=== PATIENT | female | born 1940 | race Caucasian/White ===

== ENCOUNTER → 2020-06-23 17:30 | Outpatient (CLI) | payer MEDICARE, SELFPAY ==
[2020-06-23 18:36] LABS: Chloride 105 mmol/L (98-107)
[2020-06-23 18:37] LABS: Sodium 140 mmol/L (136-145)
[2020-06-23 18:39] LABS: Alanine Aminotransferase 27 U/L (12-78); Albumin Level 3.5 g/dl (3.5-5.0); Albumin/Globulin Ratio 1.2 (1.1-1.8); Alkaline Phosphatase 166 U/L (38-126); Aspartate Amino Transferase 44 U/L (14-36); Bilirubin,Total 0.3 mg/dl (0.2-1.3); Blood Urea Nitrogen 21 mg/dl (7-17); Calcium 9.9 mg/dl (8.4-10.2); Carbon Dioxide 28 mmol/L (22.0-30.0); Estimated Glomerular Filt Rate 81 ml/min (>60); GFR (African American) 98 ML/MIN (>60); Globulin 2.9 g/dL (1.3-3.2); Glucose 154 mg/dl (74-100); Total Protein,Serum 6.4 g/dl (6.3-8.2)
[2020-06-23 18:56] LABS: Hemoglobin A1C 8.7 % (4.0-6.0)
== END ==
PROVIDERS: Visit Provider Family Medicine
DX: E11.9 Type 2 diabetes mellitus without complications (principal)
CPT/HCPCS: 80053; 83036

== ENCOUNTER → 2020-09-11 18:04 | Outpatient (CLI) | payer MEDICARE, SELFPAY ==
[2020-09-11 18:37] LABS: Chloride 103 mmol/L (98-107); Potassium 4.4 mmoL/L (3.5-5.1); Sodium 137 mmol/L (136-145)
[2020-09-11 18:39] LABS: Alanine Aminotransferase 34 U/L (12-78); Alkaline Phosphatase 175 U/L (38-126); Anion Gap 11.4 mEq/L (5-15); Aspartate Amino Transferase 50 U/L (14-36); Bilirubin,Total 0.5 mg/dl (0.2-1.3); Blood Urea Nitrogen 23 mg/dl (7-17); Carbon Dioxide 27 mmol/L (22.0-30.0); Estimated Glomerular Filt Rate 69 ml/min (>60); GFR (African American) 84 ML/MIN (>60)
[2020-09-11 18:40] LABS: Albumin Level 3.9 g/dl (3.5-5.0); Albumin/Globulin Ratio 1.4 (1.1-1.8); Globulin 2.8 g/dL (1.3-3.2); Glucose 304 mg/dl (74-100); Total Protein,Serum 6.7 g/dl (6.3-8.2)
[2020-09-11 18:58] LABS: Hemoglobin A1C 8.2 % (4.0-6.0)
== END ==
PROVIDERS: Visit Provider Family Medicine
DX: E11.9 Type 2 diabetes mellitus without complications (principal); Z79.4 Long term (current) use of insulin
CPT/HCPCS: 80053; 83036

== ENCOUNTER 2020-10-08 20:13 | Observation (INO) | payer MEDICARE, SELFPAY ==
[2020-10-08 20:16] VITALS: BP 163/73; PULSE 89; O2SAT 94
[2020-10-08 20:27] VITALS: BP 163/73; PULSE 87; RESP 16; TEMP 36.3; O2SAT 93; BMI 33.1
[2020-10-08 20:46] VITALS: BP 153/71; PULSE 86; O2SAT 94
[2020-10-08 21:16] VITALS: BP 120/54; PULSE 84; O2SAT 91
--- NOTE | 2020-10-08 21:22 | CT_ITS ---
PROCEDURE: CT HEAD/BRAIN WO CON Referring Doctor: Isaías Mcfarlane Patient Age:80Y CLINICAL INDICATION: fall September 23 2020 persistent headache and head pain COMPARISON: CT CT CERVICAL SPINE WO CON from 10/08/2020 TECHNIQUE: No IV contrast. Standard axial images were obtained. All CT scans at the facility use one or more dose reduction, viz: automated exposure control, ma/kV adjustment per patient size (including targeted exams where dose is matched to indication, i.e. head), or iterative reconstruction technique. FINDINGS: No acute intracranial findings. No intracranial hemorrhage. No hydrocephalus.The ventricles and basal cisterns appear clear and satisfactory. No mass or midline shift nor mass effect. No subdural or extra-axial fluid collection is evident. Posterior fossa unremarkable. Minimal calcification siphons Skull intact-generous thickness calvarium but no lesions but scalp intact. Nomastoid effusions. Mastoid air cells are well developed and clear. Middle ear clear. IAC's symmetric. Nosinus air-fluid level. Visualized portions of the paranasal sinuses and orbits unremarkable. IMPRESSION: No acute intracranial findings Brain within normal limits for age on this noncontrast CT head Dictated by: Franck Gutierrez MD 10/09/2020 07:05 Franck Gutierrez MD in [facility] 10/09/2020 07:05
--- NOTE | 2020-10-08 21:22 | CT_ITS ---
PROCEDURE: CT CERVICAL SPINE WO CON Referring Doctor: Isaías Mcfarlane Patient Age:80Y CLINICAL INDICATION: fall fell 09/23/2020 persistent pain neck and head COMPARISON: No exams were available for comparison TECHNIQUE: No IV contrast Helical axial images obtained with sagittal and coronal reformats. All CT scans at the facility use one or more dose reduction, viz: automated exposure control, ma/kV adjustment per patient size (including targeted exams where dose is matched to indication, i.e. head), or iterative reconstruction technique. FINDINGS: Cervical spine reveals no acute no fracture nor subluxation is period. Normal prevertebral soft tissues. A cervical cranial junction region unremarkable.. Base of skull intact Multilevel degenerative disc changes cervical spondylosis C2/3 disc maintained. Mild uncalvertebral joint hypertrophy to the left. Mild mild facet arthropathy C3/4. Mild degenerative disc space narrowing with mild central spurring C4/5. Degenerative disc space narrowing with prominent posterior osteophytic spurring midline into the left. This generous hard disc effaces the thecal sac and cervical cord midline into the left. Yields moderately pronounced central canal stenosis C5/6 but marked degenerative disc space narrowing with moderate central spur. Disc osteophyte features indent the thecal sac mainly at midline and to the left at this level. Yields moderately pronounced central canal stenosis, and mild bilateral foraminal encroachment left greater than right C6/7 degenerative disc space narrowing. Disc/osteophyte features indents thecal sac with additional hard disc most evident midline and to the left of midline. Moderate pronounced spinal stenosis again seen at this level although not quite as pronounced . C7/T1 only scant disc space narrowing and changes but T1/T2 disc intact T2/T3 disc intact Degenerative facet changes are seen throughout C-spine slightly more evident on the left than right. Most evident facet arthropathy at left C3/4, C2/3. Only a gradual levocurvature of the C-spine on frontal projection. C1-C2 relationships appear normal apices of the lungs are clear. Thyroid. Enlarged bilaterally with heterogeneous prominent heterogeneous low-density nodules or cysts in both lobes along with scattered calcifications. The the largest nodule on the right measuring up to 3 cm as seen on coronal image 23. There is also a 2 cm large nodule at the isthmus and the a 2.5 cm nodule of the left lobe. Of this appearance warrants further evaluation the the the the the of thyroid. The IMPRESSION: No acute fracture nor subluxation at cervical spine Multilevel advanced degenerative disc changes and cervical spondylosis: Features yield yield multilevel spinal stenosis with fairly pronounced spinal stenosis most evident at C4/5, C5/6, C6/7 Prominent thyromegaly requires further evaluation Marked heterogeneous enlarged thyroid gland with multiple nodules bilaterally along with scattered calcifications. Largest low-density nodule on right measuring up to 3 cm but with similar areas at isthmus and left lobe;. Appearance requires further evaluation-and recommend follow-up ultrasound. Dictated by: Franck Gutierrez MD 10/09/2020 07:21 Franck Guiterrez MD in [facility] 10/09/2020 07:21
[2020-10-08 21:46] VITALS: BP 124/58; PULSE 78; O2SAT 93
--- NOTE | 2020-10-08 21:46 | PC.NURSE ---
pt return from ct
[2020-10-08 22:00] VITALS: BP 146/61; PULSE 81; O2SAT 93
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
--- NOTE | 2020-10-08 22:19 | PC.NURSE ---
BRII MD on phone with Zulma
--- NOTE | 2020-10-08 22:20 | PC.NURSE ---
called warehouse insulation worker for bed assignment
--- NOTE | 2020-10-08 22:23 | PC.NURSE ---
Patient assigned to [id number]
[2020-10-08 22:24] LABS: Basophils # 0.1 K/mm3 (0-0.2); Basophils % 0.5 % (0.1-2.0); Eosinophils # 0.2 K/mm3 (0.0-0.4); Eosinophils % 1.3 % (0.1-12.0); Hematocrit 54.1 % (37.0-47.0); Hemoglobin 17.4 g/dL (12.2-16.2); Lymphocytes # 2.4 K/mm3 (0.7-4.5); Lymphocytes % 19.7 % (10-50); Mean Corpuscular HGB Conc 32.3 g/dL (31.8-35.4); Mean Corpuscular Hemoglobin 29.2 pg (27.0-31.2); Mean Corpuscular Volume 90.6 fl (81-99); Mean Platelet Volume 8.9 fl (7.4-10.4); Monocytes # 1.1 K/mm3 (0.1-1.0); Monocytes % 9.2 % (1.7-9.3); Neutrophils # 8.4 K/mm3 (1.8-7.8); Neutrophils % 69.3 % (37.0-80.0); Platelet Count 328 K/mm3 (142-424); Red Blood Count 5.97 M/mm3 (4.20-5.40); Red Cell Distribution Width 14.4 % (11.5-17.5); White Blood Count 12.1 K/mm3 (4.8-10.8)
[2020-10-08 22:25] LABS: Chloride 98 mmol/L (98-107)
[2020-10-08 22:26] LABS: Potassium 3.8 mmoL/L (3.5-5.1); Sodium 140 mmol/L (136-145)
[2020-10-08 22:28] LABS: Alanine Aminotransferase 71 U/L (12-78); Alkaline Phosphatase 713 U/L (38-126); Anion Gap 19.8 mEq/L (5-15); Aspartate Amino Transferase 220 U/L (14-36); Bilirubin,Total 1.9 mg/dl (0.2-1.3); Blood Urea Nitrogen 24 mg/dl (7-17); Carbon Dioxide 26 mmol/L (22.0-30.0); Creatinine Clearance Estimated 66 mL/min (50-200); Estimated Glomerular Filt Rate 53 ml/min (>60); GFR (African American) 65 ML/MIN (>60)
[2020-10-08 22:29] LABS: Albumin Level 4.1 g/dl (3.5-5.0); Albumin/Globulin Ratio 1.1 (1.1-1.8); Calcium 10.7 mg/dl (8.4-10.2); Globulin 3.9 g/dL (1.3-3.2); Glucose 188 mg/dl (74-100)
[2020-10-08 22:39] LABS: Coronavirus 19 IgG Antibody Negative (Negative)
[2020-10-08 22:40] LABS: Coronavirus 19 IgM Antibody Positive (Negative)
[2020-10-08 22:47] VITALS: BMI 32.1
[2020-10-08 22:48] LABS: Adenovirus,PCR Not Detected (NotDetected); Bordetella Pertussis Not Detected (NotDetected); Chlamydophila Pneumoniae, PCR Not Detected (NotDetected); Coronavirus 19, PCR Not Detected (NotDetected); Coronavirus 229E Not Detected (NotDetected); Coronavirus NL63 Not Detected (NotDetected); Coronavirus OC43 Not Detected (NotDetected); Coronovirus HKU1,PCR Not Detected (NotDetected); Human Metapneumovirus Not Detected (NotDetected); Influenza A, PCR Not Detected (NotDetected); Influenza AH1, 2009 Not Detected (NotDetected); Influenza AH1, PCR Not Detected (NotDetected); Influenza AH3,PCR Not Detected (NotDetected); Influenza B, PCR Not Detected (NotDetected); Mycoplasma Pneumoniae, PCR Not Detected (NotDetected); Parainfluenza 1, PCR Not Detected (NotDetected); Parainfluenza 2, PCR Not Detected (NotDetected); Parainfluenza 3, PCR Not Detected (NotDetected); Parainfluenza 4, PCR Not Detected (NotDetected); Respiratory Syncytial Virus Not Detected (NotDetected); Rhinovirus/Enterovirus Not Detected (NotDetected)
--- NOTE | 2020-10-08 23:35 | PC.NURSE ---
Password for phone check-ups by family will be LARS
--- NOTE | 2020-10-08 23:36 | PC.NURSE ---
Contacts are the 2 son's Tin Rajesh Password LARS
[2020-10-09] VITALS (7 sets, daily range): BP systolic 126–147; BP diastolic 62–73; PULSE 72–79; RESP 14–18; TEMP 36.4–36.8; O2SAT 90–98
--- NOTE | 2020-10-09 00:09 | PC.NURSE ---
called to inquire re: covid result. spoke with concepción @ [id number]. 10 mins left
--- NOTE | 2020-10-09 00:45 | PC.NURSE ---
PT ARRIVED TO FLOOR VIA WHEELCHAIR AT [phone]
--- NOTE | 2020-10-09 04:50 | PC.NURSE ---
Pt is A&Ox4 and has ambulated to side of bed and from wheelchair to bed and tolerated fair d/t pain with movement. Pt has been medicated with Ibuprofen, Morphine, and then Tylenol all 1x thus far with good relief. Pt c/o pain to pelvis that radiated to right hip. Pt has a brief in place, had 2x episode of RACHEL upon standing. ABD is soft, non-tender with active bowel sounds. Pt denies any N/V/D and reports last BM was 10/08/20 daytime. Bruises noted to BUE. Pt refused TEDS. Lungs CTA. VSS, call light within reach. Pt has received a total bed basin bath.
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
[2020-10-09 06:05] LABS: Basophils # 0.1 K/mm3 (0-0.2); Basophils % 0.5 % (0.1-2.0); Eosinophils # 0.4 K/mm3 (0.0-0.4); Hematocrit 48.3 % (37.0-47.0); Lymphocytes % 19.2 % (10-50); Mean Corpuscular HGB Conc 32.2 g/dL (31.8-35.4); Mean Corpuscular Hemoglobin 29.4 pg (27.0-31.2); Mean Corpuscular Volume 91.4 fl (81-99); Mean Platelet Volume 8.1 fl (7.4-10.4); Monocytes # 0.8 K/mm3 (0.1-1.0); Monocytes % 7.9 % (1.7-9.3); Neutrophils # 7.2 K/mm3 (1.8-7.8); Neutrophils % 68.5 % (37.0-80.0); Platelet Count 265 K/mm3 (142-424); Red Blood Count 5.29 M/mm3 (4.20-5.40); Red Cell Distribution Width 14.2 % (11.5-17.5); White Blood Count 10.5 K/mm3 (4.8-10.8)
[2020-10-09 06:09] LABS: Chloride 98 mmol/L (98-107); Potassium 3.5 mmoL/L (3.5-5.1); Sodium 136 mmol/L (136-145)
[2020-10-09 06:12] LABS: Anion Gap 8.5 mEq/L (5-15); Blood Urea Nitrogen 24 mg/dl (7-17); Calcium 9.8 mg/dl (8.4-10.2); Carbon Dioxide 33 mmol/L (22.0-30.0); Creatinine Clearance Estimated 64 mL/min (50-200); Estimated Glomerular Filt Rate 53 ml/min (>60); GFR (African American) 65 ML/MIN (>60); Glucose 206 mg/dl (74-100)
[2020-10-09 07:36] LABS: Hemoglobin 15.6 g/dL (12.2-16.2)
[2020-10-09 08:08] LABS: POC Glucose,Bedside 157 (70-110)
--- NOTE | 2020-10-09 10:41 | SW/DCPLANNER ---
Addendum entered by Ana Laura Bradley 10/09/20 16:02: I have left a message forwarder operator (Mamie) regarding: faxing information to [facility] and [facility], contacting Lakisha once MD makes discharge date known, and the phone numbers/fax numbers. Addendum entered by Ana Laura Bradley 10/09/20 12:55: Patient is agreeable to [facility] and [facility]. Addendum entered by Ana Laura Bradley 10/09/20 12:26: This patient has been accepted to [facility] per Lakisha in Admissions. I will relay information to patient. I have also relayed patient information to Dr Morales. Lakisha has stated that they can accept patient today or tomorrow. No further COVID testing is needed at this time. Phone number for nursing to call report to is [phone]. Fax number for discharge information is [phone]. I will follow up with discharge date once I hear back from Dr Morales. Original Note: This patient is currently interested in placement at this time. Patient and son were present in room during my visit with Dr Morales. Patient expressed an interest in [facility] and [facility] and [facility]. I have spoke with Sarah Morocho at [facility] and she has stated that they are not in network with patients insurance. I have spoke with Lakisha at [facility] ([phone]) and she has stated she is in network and does have beds available. I will fax information to Lakisha at ([phone]).
[2020-10-09 11:21] LABS: POC Glucose,Bedside 203 (70-110)
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
--- NOTE | 2020-10-09 11:47 | P.CONPHA_ITS ---
[facility] Pharmacy VTE Monitoring - Patient Demographics Admission date: 10/09/20 Report Date: 10/09/20 Time: 11:47 Allergies/Adverse Reactions: Patient Allergies No Known Allergies Allergy (Verified 09/11/20 14:31) Height: 1.68 m Weight: 90.775 kg Patient Problems: Current Active Problems Sacral fracture, closed (Acute) - VTE Risk Labs: VTE Related Lab Results Hgb 15.6 g/dL (12.2-16.2) D 10/09/20 05:49 Hct 48.3 % (37.0-47.0) H 10/09/20 05:49 Plt Count 265 K/mm3 (142-424) 10/09/20 05:49 BUN 24 mg/dl (7-17) H 10/09/20 05:49 Creatinine 1.00 mg/dl (0.52-1.04) 10/09/20 05:49 Estimated Creat Clear 64 mL/min (50-200) 10/09/20 05:49 Was VTE Risk Assessment Performed: Yes VTE Score: 7 VTE Risk Level: Moderate Risk - Prophylaxis VTE Prophylaxis Ordered?: Yes Types of VTE Prophylaxis: TEDS Knee High Location of Applied Device: Bilateral Lower Extremeties
--- NOTE | 2020-10-09 13:20 | HMH.PHAINT ---
MEDICATION RECONCILIATION COMPLETED ON PATIENT USING EXTERNAL FILL HISTORY FROM PHARMACY AND LIST FROM MD OFFICE. -ABEL WILCOXD
--- NOTE | 2020-10-09 13:55 | PC.NURSE ---
Report given to Renée Lott RN @ [phone]
--- NOTE | 2020-10-09 16:30 | PC.NURSE ---
Pt is A&Ox4, able to make needs known to staff, she has no c/o pain thus far, no n/v/d noted, abd is soft/round/non-tender on palpation with bowel sounds present x4 on auscultation, lung sounds are CTA, she has tolerated RA with no SOA noted, she remains incontinent x2 with brief in place, she has refused TEDS for VTE prophylaxis, safety measures in place, no needs voiced at this time, will continue to monitor.
--- NOTE | 2020-10-09 17:15 | US_ITS ---
PROCEDURE: US THYROID Referring Doctor: Don Morales Patient Age:80Y CLINICAL INDICATION: thyromegaly goiter The as seen on recent CT COMPARISON: CT CT CERVICAL SPINE WO CON from 10/08/2020 FINDINGS: Goiter thyroid enlarged.. Diffusely abnormal with multiple bilateral nodules and cysts. Difficult exam due the diffuse heterogeneous character and enlarged Echogenic calcifications at the margin of many of the cyst seen bilaterally on CT and ultrasound RIGHT LOBE THYROID: Overall the 5.6 cm length x2.6 cm x 3.1 cm wide . Nodule A: Upper right lobe measuring up to 2.9 cm X 2 cm cm. Mixed cystic and solid areas. . Nodule B: Mid right lobe 1.4 x 0.9 cm, cystic area with multiple septations of LEFT LOBE thyroid: Overall 5.5 cm length x 3.5 cm wide x 2.3 cm . Nodule A: Upper right lobe measuring up 0.9 cm mainly solid with some minimal cystic areas. This would be a good area for FNA sampling if such pursued. Although some of the more solid-appearing nodules at the right lobe could be evaluated as well the or alternatively . Nodule B:. Midportion left lobe 2.8 cm length x2.6 cm x 1.9 cm..-this mainly solid nodule with scattered cystic areas within it . Nodule c: Posterior aspect lower pole left lobe 1.4 cm X 1.25 cm mainly cystic area the . . ISTHMUS: Markedly thickened and enlarged as well . 15 mm mainly cystic area, nodule with slight septations posteriorly Calcified rim here seen on CT better than ultrasound Additional images of the both right and left lobe demonstrate the diffusely abnormal distorted architecture and some of the echogenic calcification areas left and right . IMPRESSION: Goiter.. Prominent thyroid enlargement Diffusely abnormal thyroid with multiple prominent bilateral nodules and cysts both, enlarging and distorting both right and left lobes as well as isthmus .Areas of calcification/and rim calcifications noted bilaterally-but best appreciated on CT Difficult exam due the diffuse heterogeneous character and enlarged Dictated by: Franck Gutierrez MD 10/10/2020 11:49 Franck Gutierrez MD in [place] 10/10/2020 11:49
--- NOTE | 2020-10-09 17:17 | XR_ITS ---
PROCEDURE: XR HIP LT 2-3V W/PELVIS CLINICAL INDICATION: pain COMPARISON: No exams were available for comparison FINDINGS: The left hip prosthesis is noted with the prosthetic acetabulum fixated to the left iliac bone by single threaded screw. The prosthetic femoral head is well positioned within the prosthetic acetabulum and the medullary stem is in good position within the proximal femur with no evidence of fracture or loosening.. IMPRESSION: Stable left hip prosthesis Dictated by: Dr. Rashawn Kwong MD 10/10/2020 08:41 Dr. Rashawn Kwong MD in [place] 10/10/2020 08:41
--- NOTE | 2020-10-09 17:18 | XR_ITS ---
PROCEDURE: XR HIP RT 2-3V W/PELVIS CLINICAL INDICATION: fall COMPARISON: No exams were available for comparison FINDINGS: The total hip prosthesis is noted with the prosthetic head well seated within the prosthetic acetabulum and medullary stem in good position within the proximal femur with no evidence of loosening. There is no acute fracture seen.. IMPRESSION: Stable right hip prosthesis Dictated by: Dr. Rashawn Kwong MD 10/10/2020 08:39 Dr. Rashawn Kwong MD in [place] 10/10/2020 08:39
--- NOTE | 2020-10-09 17:19 | XR_ITS ---
PROCEDURE: XR LUMBAR SPINE 2-3V CLINICAL INDICATION: pain COMPARISON: No exams were available for comparison FINDINGS: There is normal curvature and alignment. All lumbar vertebrae appear intact. There are metallic brackets and pedicle screws fusing L3, L4 and L5. There are semiopaque spacers at the L3-4 and L4-5 levels. There is moderate osteophytic spurring anteriorly at the L1-2 level, less so at the T12-L1 level. There are bilateral hip prosthesis. There is an increased amount of large and small bowel gas in a nonobstructive pattern in the central portion of the abdomen the lateral flanks are not included on the coned-down image of the lumbar spine. IMPRESSION: Postsurgical changes lower lumbar spine, mild degenerate changes upper lumbar spine Dictated by: Dr. Rashawn Kwong MD 10/10/2020 08:26 Dr. Rashawn Kwong MD in [place] 10/10/2020 08:26
--- NOTE | 2020-10-09 17:19 | XR_ITS ---
PROCEDURE: XR COCCYX 2V CLINICAL INDICATION: fall COMPARISON: No exams were available for comparison FINDINGS: The sacrum and coccyx appear grossly intact although the tip of the coccyx is poorly seen due to underlying osteopenia and patient's body habitus. The SI joints appear grossly normal. IMPRESSION: Grossly negative sacrum and coccyx Dictated by: Dr. Rashawn Kwong MD 10/10/2020 08:29 Dr. Rashawn Kwong MD in [place] 10/10/2020 08:29
--- NOTE | 2020-10-09 17:21 | HMH.HP ---
*Admission Date: 10/09/20 *Chief complaint: pain following fall, inability to walk *History of present illness: In summary 82-year-old female presenting for fracture. Patient had scans in outside hospital, imaging was unable to reviewed however results demonstrate S2-S3 fracture, patient has pain is been unable to ambulate since then. Patient is amenable to placement at a rehab facility and will likely require physical therapy and Occupational Therapy. Patient will also likely need social work for assessment for safety at home. Family is not comfortable discharging at this time. Discussed the case with medicine who is amenable to admission. Patient was admitted to medicine for further work-up. The patient is well-known to me. She has a history of lumbar surgery, she did not have a great outcome from this and continues to be in chronic pain. She is status post bilateral bilateral hip replacement. She walks with a baseline antalgic gait, has generalized weakness. She is treated for chronic pain. She is not amenable to any further surgical treatment of her back or hips. I got a call from family member last night the patient had fallen, her pain was so severe she went to the emergency room in [place] twice, fractured coccyx was mentioned. She would be appropriate for intense physical therapy here and rehab. The family is in agreement with this. [facility] History Medical History: Reports:: Cancer (uterne ca), Diabetes Mellitus Type 2, Hyperlipidemia, Hypertension, MRSA (from) *Have you ever received a pneumonia vaccine?: Yes *Have you received a flu vaccine this season?: Yes Other Medical History: Reports: Arthritis Laterality Cases: Bilateral: Tonsillectomy, Total Hip Replacement Other Surgeries: Yes: Cancer Surgery (total hysterectomy), Cholecystectomy, Colonoscopy, EGD, Hysterectomy-Total Amputation: No Fractures: Yes - *Social History Last grade of school completed: High school graduate Smoking Status: Former smoker # Packs/Day (cigarettes): 1 #Yrs smoked (if former smoker): 6 Smoking End Date: 1972 Alcohol Intake: never Substance Use Type: denies use *Occupational Status:: retired Housing: other Household Members: spouse *Travel in the last 8 weeks: None Family Hx:: Cancer, Diabetes Review of Systems - Constitutional Reports fatigue, Reports lack of energy, Reports weakness - Eyes Denies change in vision - ENT Denies nasal congestion, Denies nasal discharge - *Cardiovascular Reports shortness of breath with activity, Denies chest pain, Denies excessive sweating, Denies irregular heart rhythm, Denies leg sores - *Respiratory Denies chest congestion, Denies wheezing - *Gastrointestinal Denies abdominal pain - *Genitourinary Denies blood in urine, Denies pelvic pain - *Musculoskeletal Reports abnormal walking, Reports joint pain, Reports decreased muscle mass, Reports joint swelling, Reports limited joint movement, Reports muscle weakness, Reports radiating pain into limb, Denies numbness - Integumentary/Breasts Denies yellowing of the skin, Denies lesions, Denies new lesions - *Neurologic Reports abnormal walking, Reports radiating pain, Reports weakness, Denies abnormal hearing, Denies behavioral changes - Psychiatric Reports lack of enjoyment, Denies thoughts of hurting/killing others - Endocrine Denies cold intolerance, Denies heat intolerance - Hematologic/Lymphatic Denies easy bleeding - Allergic/Immunologic Denies hives Meds Home Medications Medication Instructions Recorded Confirmed Type allopurinol 100 mg tablet 100 mg PO DAILY 06/23/20 10/09/20 History aspirin 81 mg tablet,delayed 81 mg PO DAILY 06/23/20 10/09/20 History release atorvastatin 20 mg tablet 20 mg PO HS 06/23/20 10/09/20 History carvedilol 12.5 mg tablet 12.5 mg PO BID 06/23/20 10/09/20 History ergocalciferol (vitamin D2) 1,250 1,250 mcg PO WEEKLY 06/23/20 10/09/20 History mcg (50,000 unit) capsule famotidine 20 mg
[2020-10-09 18:53] LABS: POC Glucose,Bedside 167 (70-110)
[2020-10-09 20:30] LABS: POC Glucose,Bedside 224 (70-110)
--- NOTE | 2020-10-10 02:13 | PC.NURSE ---
AFTER PT'S ATTENDS WAS CHANGED WITH A VOID.PT C/O HURTING IN HER BACK AND BUTTOCKS,PAIN AN 8 OUT OF 0-10.PT REPORTED SHE HAD BEEN NAUSEATED LAST NIGHT FROM MORPHINE,TOLD HER WAS A LITTLE TO SSON FOR ZOFRAN AND SAKED IF SHE WANTED TO TRY SOME SALTIINE CRACKERS WITH THE MORPHINE AND SHE SAID YES.SALTINE CRACKERS AND MILK GIVEN,MORPHINE 4MG IVP GIVEN FOR PAIN.
[2020-10-10 04:00] VITALS: BP 142/70; PULSE 82; RESP 18; TEMP 36.5; O2SAT 90
--- NOTE | 2020-10-10 04:10 | PC.NURSE ---
PT HAS SLEPT MOST OF THE NIGHT,REPORTS PAIN IN HER BACK AND BUTTOCKS MORE SO WITH MOVEMENT,HAS BEEN MEDICATED WITH MOTIN ONCE AND MORPHINE ONCE,PT HAS HAD ZOFRAN ONCE,LUNGS CLEAR,RESP.EVEN AND UNLABORED,POSITIVE BOWEL SOUNDS X4 QUADS,PT IS INCONTIENT,VOIDED IN ATTEND,PT WANTING TO GET HER BATH BEFORE BREAKFAST THIS MORNING
[2020-10-10 05:00] VITALS: BMI 33.1
[2020-10-10 05:42] LABS: POC Glucose,Bedside 194 (70-110)
[2020-10-10 08:00] VITALS: BP 121/49; PULSE 70; RESP 18; TEMP 36.3; O2SAT 91
--- NOTE | 2020-10-10 11:03 | PC.NURSE ---
Pt's son visiting at bs.
--- NOTE | 2020-10-10 11:48 | PC.NURSE ---
Pt c/o sudden onset of chest pain that is burning like heartburn. Pt is eating Pashto food brought in by her son at this time. V/S obtained 169/68, 87, 98% ra... Informed pt that I would obtain an order for Maalox and give her some. V/U.
--- NOTE | 2020-10-10 11:52 | PC.NURSE ---
Maalox 30ml PO given to pt. Pt immediately c/o burning in her throat getting worse after taking it. RANI Casillas (Charge) notified of status and states to obtain an EKG. V/U.
--- NOTE | 2020-10-10 12:56 | ECG_ITS ---
APPROVED REPORT Exam: Resting ECG HR:87 bpm ECG Measurements Heart Rate 87 AXES NE 162 P 76 QRSd 86 QRS 92 QT 390 T 62 QTc 469 Conclusion Normal sinus rhythm Rightward axis Cannot rule out Anterior infarct, age undetermined Abnormal ECG Electronically signed by : Ralf Maya, 10/10/2020 19:34:50
[2020-10-10 13:00] LABS: POC Glucose,Bedside 217 (70-110)
--- NOTE | 2020-10-10 13:09 | PC.NURSE ---
Dr. Morales at bs to see pt.
--- NOTE | 2020-10-10 13:25 | PC.NURSE ---
Phone message received from RANI Reyes stating that pt will be discontinued today to [facility] for rehabilitation and that she will need a hard script from for Narcotic Pain Medications. V/U. aware.
--- NOTE | 2020-10-10 13:40 | PC.NURSE ---
Dr. Morales at discussing POC with pt.l
--- NOTE | 2020-10-10 14:04 | HMH.DCSUM ---
General - General Admission date:: 10/09/20 Discharge date: 10/10/20 HPI HPI: In summary 82-year-old female presenting for fracture. Patient had scans in outside hospital, imaging was unable to reviewed however results demonstrate S2-S3 fracture, patient has pain is been unable to ambulate since then. Patient is amenable to placement at a rehab facility and will likely require physical therapy and Occupational Therapy. Patient will also likely need social work for assessment for safety at home. Family is not comfortable discharging at this time. Discussed the case with medicine who is amenable to admission. Patient was admitted to medicine for further work-up. The patient is well-known to me. She has a history of lumbar surgery, she did not have a great outcome from this and continues to be in chronic pain. She is status post bilateral bilateral hip replacement. She walks with a baseline antalgic gait, has generalized weakness. She is treated for chronic pain. She is not amenable to any further surgical treatment of her back or hips. I got a call from family member last night the patient had fallen, her pain was so severe she went to the emergency room in [place] twice, fractured coccyx was mentioned. She would be appropriate for intense physical therapy here and rehab. The family is in agreement with this. Hospital Course Hospital Course: Was admitted through our emergency room suffering severe pain after sustaining a fall. She was unable to ambulate on her own. Is status post lumbar surgery, erosive OA bilateral knees, and status post total hip replacement bilaterally. She has comorbid diabetes. Morbid obesity. Osteoarthritis of multiple sites. In the course of her stay here patient was given analgesics for pain. We had several long discussions with the family, all are in agreement that Tran needs intensive physical therapy that they are not able to provide at the home. We did x-rays of the lumbar spine, bilateral hips, coccyx. We also did a thyroid ultrasound. The right upper lobe there is a 0.9 cm solid lesion that would be amenable to fine-needle biopsy. I would like to pursue that after discharge, will ask for Dr. Jesus Colmenares to see and evaluate we will make arrangements the next time I see her in the office. Objective Vital signs: Temp Pulse Resp BP Pulse Ox 97.4 F L 70 18 121/49 L 91 L 10/10/20 08:00 10/10/20 08:00 10/10/20 08:00 10/10/20 08:00 10/10/20 08:00 no acute distress, mild distress, obese - *Routine HEENT Exam Head: Present: normocephalic Eye: Present: EOMI, PERRL ENT: Present: mucous membranes moist - *Routine Neck Exam Present: supple, thyromegaly, trachea midline. Absent: tenderness, tracheal deviation - *Routine Respiratory Exam Present: CTA bilaterally - *Routine Cardiovascular Exam Present: RRR - *Routine Abdominal Exam Present: soft, normoactive bowel sounds. Absent: tenderness - *Routine Extremities Exam Present: edema, tenderness, joint swelling. Absent: cyanosis, clubbing - *Routine Skin Exam Present: warm, scars. Absent: cyanosis, mottling, jaundice, rash Results Labs on day of discharge: Labs from last 24 hours 10/10/20 10/10/20 10/09/20 12:09 05:32 20:18 POC Glucose 217 H 194 H 224 H 10/09/20 16:07 POC Glucose 167 H DS: Diagnosis - Discharge Diagnosis (1) Fractured coccyx Status: Suspected (2) Chronic back pain greater than 3 months duration Status: Chronic (3) Diabetes Status: Chronic (4) Erosive osteoarthritis of multiple sites Status: Chronic (5) Essential hypertension Status: Chronic (6) GERD (gastroesophageal reflux disease) Status: Chronic (7) Hip joint replacement status Status: Chronic (8) History of lumbar surgery Status: Chronic (9) Obesity Status: Chronic (10) Physical debility Status: Acute Discharge Plan - Patient Discharge Ins
--- NOTE | 2020-10-10 14:12 | PC.NURSE ---
GI Cocktail 60mls PO given to pt per ' order. Pt appears to be resting more relaxed now than earlier. Son remains at bs.
--- NOTE | 2020-10-10 15:30 | PC.NURSE ---
Reports complete relief after receiving GI cocktail.
[2020-10-10 16:00] VITALS: BP 122/68; PULSE 87; RESP 16; TEMP 36.7; O2SAT 96
--- NOTE | 2020-10-10 16:52 | PC.NURSE ---
Report to Tran Ramirez RN ([facility])
--- NOTE | 2020-10-10 16:58 | PC.NURSE ---
Called [facility] to notify them of need for transport. V/U... States that they have a current run and another transport as well. Will call us back when able to discuss this transport.
--- NOTE | 2020-10-10 18:02 | PC.NURSE ---
EMS here to transport pt.
== END 2020-10-10 18:15 ==
LOC: ER 22:17 → 2ND 10-09 14:46
PROVIDERS: Admitting Provider Internal Medicine Adolescent Medicine; Emergency Provider Emergency Medicine; PCP Family Medicine; Visit Provider Family Medicine
DX: S32.2XXA Fracture of coccyx, initial encounter for closed fracture (principal); E11.9 Type 2 diabetes mellitus without complications; I10 Essential (primary) hypertension; M15.4 Erosive (osteo)arthritis; Z96.643 Presence of artificial hip joint, bilateral; Z79.4 Long term (current) use of insulin; Z79.82 Long term (current) use of aspirin; Z79.899 Other long term (current) drug therapy; W01.0XXA Fall on same level from slipping, tripping and stumbling without subsequent striking against object, initial encounter; Z91.81 History of falling; Y92.019 Unspecified place in single-family (private) house as the place of occurrence of the external cause
CPT/HCPCS: 36415; 70450; 72100; 72125; 72220; 73502; 76536; 80048; 80053; 82962; 85025; 86328; 87581; 87633; 87798; 93005; 97110; 97162; 97530; 99284; G0378; J2405; U0003

== ENCOUNTER → 2020-12-24 12:26 | Outpatient (CLI) | payer MEDICARE, SELFPAY ==
--- NOTE | 2020-12-24 12:26 | XR_ITS ---
PROCEDURE: XR DEXA AXIAL SKELETON CLINICAL HISTORY: Bone Density Scan per [facility] COMPARISON: No exams were available for comparison FINDINGS: The right forearm BMD is 0.376 with a T-score of -5.3. IMPRESSION: This patient is considered osteoporotic according to the World Health Organization criteria. Fracture risk is high. Treatment is advised. Based on these results a follow-up exam is recommended in 1 year. Dictated by: Abner Mead MD 12/25/2020 07:56 Abner Mead MD in [place] 12/25/2020 07:56
== END ==
PROVIDERS: PCP Family Medicine; Visit Provider Family Medicine
DX: S32.10XA Unspecified fracture of sacrum, initial encounter for closed fracture (principal); M80.00XA Age-related osteoporosis with current pathological fracture, unspecified site, initial encounter for fracture
CPT/HCPCS: 77080

== ENCOUNTER → 2021-01-26 15:26 | Outpatient (CLI) | payer MEDICARE, SELFPAY ==
[2021-01-26 15:41] LABS: Basophils # 0.1 K/mm3 (0-0.2); Basophils % 0.6 % (0.1-2.0); Eosinophils # 0.1 K/mm3 (0.0-0.4); Eosinophils % 1.5 % (0.1-12.0); Hematocrit 49.3 % (37.0-47.0); Hemoglobin 16.1 g/dL (12.2-16.2); Lymphocytes # 2.9 K/mm3 (0.7-4.5); Lymphocytes % 31.8 % (10-50); Mean Corpuscular HGB Conc 32.7 g/dL (31.8-35.4); Mean Corpuscular Hemoglobin 29.4 pg (27.0-31.2); Mean Corpuscular Volume 90.1 fl (81-99); Mean Platelet Volume 9.8 fl (7.4-10.4); Monocytes # 0.6 K/mm3 (0.1-1.0); Monocytes % 6.4 % (1.7-9.3); Neutrophils # 5.4 K/mm3 (1.8-7.8); Neutrophils % 59.6 % (37.0-80.0); Platelet Count 284 K/mm3 (142-424); Red Blood Count 5.47 M/mm3 (4.20-5.40); Red Cell Distribution Width 14.3 % (11.5-17.5); White Blood Count 9.1 K/mm3 (4.8-10.8)
[2021-01-26 15:47] LABS: Alanine Aminotransferase 20 U/L (12-78); Albumin Level 4.1 g/dl (3.5-5.0); Albumin/Globulin Ratio 1.5 (1.1-1.8); Alkaline Phosphatase 186 U/L (38-126); Anion Gap 12.5 mEq/L (5-15); Aspartate Amino Transferase 38 U/L (14-36); Bilirubin,Total 0.5 mg/dl (0.2-1.3); Blood Urea Nitrogen 17 mg/dl (7-17); Calcium 10.1 mg/dl (8.4-10.2); Carbon Dioxide 30 mmol/L (22.0-30.0); Chloride 104 mmol/L (98-107); Cholesterol 98 mg/dl (140-200); Estimated Glomerular Filt Rate 81 ml/min (>60); GFR (African American) 97 ML/MIN (>60); Globulin 2.8 g/dL (1.3-3.2); Glucose 137 mg/dl (74-100); HDL Cholesterol 49 mg/dl (40-60); Potassium 4.5 mmoL/L (3.5-5.1); Sodium 142 mmol/L (136-145); Total Protein,Serum 6.9 g/dl (6.3-8.2); Triglycerides 63 mg/dl (30-150); VLDL Cholesterol 13 mg/dL (0-40)
[2021-01-26 15:58] LABS: Direct LDL Cholesterol 33.34 mg/dL (100-129)
[2021-01-26 16:05] LABS: T4 (Thyroxine) 17.1 ug/dl (5.53-11.0)
[2021-01-26 16:18] LABS: Thyroid Stimulating Hormone < 0.02 uIU/mL (0.465-4.68)
[2021-01-26 16:28] LABS: Hemoglobin A1C 8.3 % (4.0-6.0)
== END ==
PROVIDERS: Visit Provider Family Medicine
DX: E11.9 Type 2 diabetes mellitus without complications (principal); E66.9 Obesity, unspecified; I10 Essential (primary) hypertension; S32.10XA Unspecified fracture of sacrum, initial encounter for closed fracture; E55.9 Vitamin D deficiency, unspecified; R53.81 Other malaise; Z79.4 Long term (current) use of insulin
CPT/HCPCS: 80053; 80061; 82306; 83036; 84436; 84443; 85025

== ENCOUNTER → 2021-07-13 18:01 | Outpatient (CLI) | payer MEDICARE, SELFPAY ==
[2021-07-13 19:26] LABS: Alanine Aminotransferase 28 U/L (12-78); Albumin Level 3.6 g/dl (3.5-5.0); Albumin/Globulin Ratio 1.2 (1.1-1.8); Alkaline Phosphatase 177 U/L (38-126); Aspartate Amino Transferase 52 U/L (14-36); Bilirubin,Total 0.4 mg/dl (0.2-1.3); Blood Urea Nitrogen 25 mg/dl (7-17); Calcium 9.9 mg/dl (8.4-10.2); Carbon Dioxide 28 mmol/L (22.0-30.0); Chloride 99 mmol/L (98-107); Estimated Glomerular Filt Rate 69 ml/min (>60); GFR (African American) 84 ML/MIN (>60); Glucose 359 mg/dl (74-100); Sodium 136 mmol/L (136-145); Total Protein,Serum 6.6 g/dl (6.3-8.2)
[2021-07-13 19:38] LABS: Free T4 (Free Thyroxine) 1.49 ng/dl (0.78-2.19)
[2021-07-13 19:52] LABS: Thyroid Stimulating Hormone < 0.02 uIU/mL (0.465-4.68)
[2021-07-13 19:59] LABS: Hemoglobin A1C 10.9 % (4.0-6.0)
== END ==
PROVIDERS: Visit Provider Family Medicine
DX: E03.9 Hypothyroidism, unspecified (principal); E11.9 Type 2 diabetes mellitus without complications; Z79.4 Long term (current) use of insulin
CPT/HCPCS: 80053; 83036; 84439; 84443

== ENCOUNTER → 2022-01-21 08:03 | Outpatient (CLI) | payer MEDICARE, SELFPAY ==
[2022-01-21 18:25] LABS: Hemoglobin A1C 11.3 % (4.0-6.0)
[2022-01-21 18:33] LABS: Chloride 101 mmol/L (98-107)
[2022-01-21 18:34] LABS: Potassium 4.8 mmoL/L (3.5-5.1); Sodium 135 mmol/L (136-145)
[2022-01-21 18:36] LABS: Alanine Aminotransferase 28 U/L (12-78); Alkaline Phosphatase 261 U/L (38-126); Anion Gap 9.8 mEq/L (5-15); Aspartate Amino Transferase 45 U/L (14-36); Bilirubin,Total 0.5 mg/dl (0.2-1.3); Blood Urea Nitrogen 14 mg/dl (7-17); Carbon Dioxide 29 mmol/L (22.0-30.0); Estimated Glomerular Filt Rate 96 ml/min (>60); GFR (African American) 116 ML/MIN (>60)
[2022-01-21 18:37] LABS: Albumin Level 3.5 g/dl (3.5-5.0); Albumin/Globulin Ratio 1.3 (1.1-1.8); Calcium 9.1 mg/dl (8.4-10.2); Globulin 2.6 g/dL (1.3-3.2); Glucose 354 mg/dl (74-100); Total Protein,Serum 6.1 g/dl (6.3-8.2)
== END ==
PROVIDERS: Visit Provider Family Medicine
DX: E11.9 Type 2 diabetes mellitus without complications (principal); Z79.4 Long term (current) use of insulin
CPT/HCPCS: 80053; 83036

== ENCOUNTER → 2022-07-23 14:45 | Outpatient (CLI) | payer MEDICARE, SELFPAY ==
[2022-07-23 14:16] LABS: Alanine Aminotransferase 29 U/L (12-78); Albumin Level 3.9 g/dl (3.5-5.0); Albumin/Globulin Ratio 1.3 (1.1-1.8); Alkaline Phosphatase 330 U/L (38-126); Anion Gap 15.2 mEq/L (5-15); Aspartate Amino Transferase 45 U/L (14-36); Bilirubin,Total 0.6 mg/dl (0.2-1.3); Blood Urea Nitrogen 18 mg/dl (7-17); Calcium 10.4 mg/dl (8.4-10.2); Carbon Dioxide 29 mmol/L (22.0-30.0); Chloride 98 mmol/L (98-107); Estimated Glomerular Filt Rate 96 ml/min (>60); GFR (African American) 116 ML/MIN (>60); Glucose 346 mg/dl (74-100); Potassium 4.2 mmoL/L (3.5-5.1); Sodium 138 mmol/L (136-145); Total Protein,Serum 6.9 g/dl (6.3-8.2)
[2022-07-23 14:20] LABS: Hemoglobin A1C 11.9 % (4.0-6.0)
[2022-07-23 14:32] LABS: Free T4 (Free Thyroxine) 1.63 ng/dl (0.78-2.19)
[2022-07-23 14:33] LABS: T4 (Thyroxine) 15.5 ug/dl (5.53-11.0)
[2022-07-23 14:46] LABS: Thyroid Stimulating Hormone < 0.02 uIU/mL (0.465-4.68)
== END ==
PROVIDERS: PCP Family Medicine; Visit Provider Family Medicine
DX: E11.9 Type 2 diabetes mellitus without complications (principal); Z79.4 Long term (current) use of insulin
CPT/HCPCS: 80053; 83036; 84436; 84439; 84443

== ENCOUNTER → 2022-10-26 11:39 | Outpatient (CLI) | payer MEDICARE, SELFPAY ==
--- NOTE | 2022-10-26 11:44 | XR_ITS ---
FINAL REPORT CLINICAL HISTORY: diabetic foot FINDINGS: AP, oblique and lateral views of the left foot were obtained. There is no prior exam for comparison. There is a lucency through the proximal phalanx of the great toe on the oblique view concerning for an age-indeterminate fracture. No additional fracture is identified. There is multi joint degenerative disease most pronounced in the midfoot. There is no bony destruction. Soft tissues are normal. IMPRESSION: 1. Age indeterminate fracture of the 1st proximal phalanx. 2. Degenerative joint disease. Reviewed, Interpreted and Dictated by Britni Mina MD Transcribed by Virginia Martinez Authenticated and [facility]
--- NOTE | 2022-10-26 11:44 | XR_ITS ---
FINAL REPORT CLINICAL HISTORY: weight loss FINDINGS: PA and lateral views of the chest are obtained. There is no prior exam for comparison. The cardiac and mediastinal silhouettes are within normal limits. There is linear opacity in the right middle lobe which is likely scar. The lungs are otherwise clear. There is no pleural effusion, pneumothorax, or acute osseous abnormality. IMPRESSION: No radiographic evidence of acute cardiac or pulmonary disease. Reviewed, Interpreted and Dictated by Britni Mina MD Transcribed by Virginia Martinez Authenticated and . [facility]
[2022-10-26 12:27] LABS: Basophils # 0.1 K/mm3 (0-0.2); Eosinophils # 0.2 K/mm3 (0.0-0.4); Eosinophils % 2.4 % (0.1-12.0); Hematocrit 48.6 % (37.0-47.0); Lymphocytes # 2.9 K/mm3 (0.7-4.5); Lymphocytes % 29.3 % (10-50); Mean Corpuscular HGB Conc 32.9 g/dL (31.8-35.4); Mean Corpuscular Volume 91.1 fl (81-99); Mean Platelet Volume 8.4 fl (7.4-10.4); Monocytes # 0.4 K/mm3 (0.1-1.0); Monocytes % 4.5 % (1.7-9.3); Neutrophils # 6.1 K/mm3 (1.8-7.8); Neutrophils % 62.7 % (37.0-80.0); Platelet Count 288 K/mm3 (142-424); Red Blood Count 5.34 M/mm3 (4.20-5.40); Red Cell Distribution Width 14.3 % (11.5-17.5); White Blood Count 9.7 K/mm3 (4.8-10.8)
[2022-10-26 13:05] LABS: Alanine Aminotransferase 26 U/L (12-78); Albumin Level 3.9 g/dl (3.5-5.0); Albumin/Globulin Ratio 1.3 (1.1-1.8); Alkaline Phosphatase 243 U/L (38-126); Anion Gap 13.5 mEq/L (5-15); Aspartate Amino Transferase 46 U/L (14-36); Bilirubin,Total 0.6 mg/dl (0.2-1.3); Blood Urea Nitrogen 21 mg/dl (7-17); Calcium 10.5 mg/dl (8.4-10.2); Carbon Dioxide 32 mmol/L (22.0-30.0); Chloride 97 mmol/L (98-107); Estimated Glomerular Filt Rate 80 ml/min (>60); GFR (African American) 97 ML/MIN (>60); Glucose 219 mg/dl (74-100); Potassium 4.5 mmoL/L (3.5-5.1); Sodium 138 mmol/L (136-145); Total Protein,Serum 6.9 g/dl (6.3-8.2)
[2022-10-26 13:12] LABS: C-Reactive Protein 3.5 mg/L (0-4)
[2022-10-26 13:22] LABS: Free T4 (Free Thyroxine) 2.03 ng/dl (0.78-2.19)
[2022-10-26 13:37] LABS: Thyroid Stimulating Hormone < 0.02 uIU/mL (0.465-4.68)
[2022-10-26 16:42] LABS: Erythrocyte Sedimentation Rate 12 mm/hr (0-30)
== END ==
PROVIDERS: PCP Family Medicine; Visit Provider Family Medicine
DX: R63.4 Abnormal weight loss (principal); E08.621 Diabetes mellitus due to underlying condition with foot ulcer; L97.522 Non-pressure chronic ulcer of other part of left foot with fat layer exposed; B95.7 Other staphylococcus as the cause of diseases classified elsewhere; B95.2 Enterococcus as the cause of diseases classified elsewhere; Z79.4 Long term (current) use of insulin
CPT/HCPCS: 36415; 71046; 73620; 80053; 84439; 84443; 85025; 85651; 86140; 87070; 87077; 87186; 87205

== ENCOUNTER 2022-11-09 23:30 | Inpatient (IN) | payer MEDICARE, SELFPAY ==
--- NOTE | 2022-11-09 23:29 | ECG_ITS ---
APPROVED REPORT Exam: Resting ECG HR:77 bpm ECG Measurements Heart Rate 77 AXES [place] 177 P 50 QRSd 97 QRS -13 QT 393 T 43 QTc 425 Conclusion SINUS RHYTHM Old anteroseptal changes ABNORMAL ECG UNCONFIRMED REPORT Electronically signed by : Ralf Maya MD 11/10/2022 21:34:38
[2022-11-09 23:30] VITALS: BP 143/55; PULSE 85; RESP 18; TEMP 36.4; O2SAT 97; BMI 28.9
[2022-11-09 23:32] VITALS: BMI 29.3
--- NOTE | 2022-11-09 23:33 | XR_ITS ---
PROCEDURE INFORMATION: Exam: XR Right Tibia and Fibula Exam date and time: 11/09/2022 11:56 PM Age: 82 years old Clinical indication: Injury or trauma; Fall; Blunt trauma; Ankle; Right TECHNIQUE: Imaging protocol: Radiologic exam of the Right tibia and fibula. Views: 2 views. COMPARISON: No relevant prior studies available. FINDINGS: Bones/joints: There is significant tricompartmental joint space narrowing with moderate osteophyte formation of the right knee. Trimalleolar ankle fracture with dislocation noted at the right ankle. Proximal tibia and fibula appear intact. Soft tissues: Normal. IMPRESSION: Trimalleolar ankle fracture and dislocation. Significant osteoarthritis of the right knee
--- NOTE | 2022-11-09 23:33 | XR_ITS ---
PROCEDURE INFORMATION: Exam: XR Right Ankle Exam date and time: 11/09/2022 11:56 PM Age: 82 years old Clinical indication: Injury or trauma; Fall; Blunt trauma; Ankle; Right; Patient HX: PT slipped on porched TECHNIQUE: Imaging protocol: Radiologic exam of the Right ankle. Views: 3 or more views. COMPARISON: No relevant prior studies available. FINDINGS: Bones/joints: There is complete lateral dislocation of the dome of the talus with respect to the distal tibia. Significantly displaced fractures of the lateral, medial and posterior malleolar are noted, with the distal fragments following the dome of the talus in lateral displacement. Mild plantar calcaneal spurring and calcification of the plantar fascia incidentally noted. Soft tissues: Diffuse soft tissue swelling noted IMPRESSION: Significant trimalleolar fracture and ankle dislocation as described
--- NOTE | 2022-11-09 23:33 | XR_ITS ---
PROCEDURE INFORMATION: Exam: XR Chest Exam date and time: 11/09/2022 11:56 PM Age: 82 years old Clinical indication: Injury or trauma; Fall; Blunt trauma (contusions or hematomas) TECHNIQUE: Imaging protocol: Radiologic exam of the chest. Views: 1 view. COMPARISON: CR XR CHEST 2V 10/26/2022 11:45 AM FINDINGS: Lungs: Unremarkable. No consolidation. Pleural spaces: Unremarkable. No pleural effusion. No pneumothorax. Heart/Mediastinum: Unremarkable. No cardiomegaly. Bones/joints: Moderate degenerative changes are noted in the spine and both shoulders IMPRESSION: No acute disease
--- NOTE | 2022-11-09 23:33 | XR_ITS ---
PROCEDURE INFORMATION: Exam: XR Pelvis Exam date and time: 11/09/2022 11:56 PM Age: 82 years old Clinical indication: Injury or trauma; Fall; Blunt trauma (contusions or hematomas); Does not apply; Pelvic region; Prior surgery TECHNIQUE: Imaging protocol: Radiologic exam of the pelvis. Views: 1 or 2 view. COMPARISON: CR XR HIP LT 2-3V W/PELVIS 10/09/2020 5:45 PM FINDINGS: Bones/joints: Bilateral hip prostheses and orthopedic lizzy and screw devices in the lumbar spine are noted. No evidence of hardware failure or loosening. No fracture acute abnormality evident. Soft tissues: Unremarkable. IMPRESSION: No acute abnormality
[2022-11-09 23:39] LABS: Coronavirus 19, PCR Not Detected (NotDetected); Influenza A, PCR Not Detected (NotDetected); Influenza B, PCR Not Detected (NotDetected)
--- NOTE | 2022-11-09 23:41 | PC.NURSE ---
Pt gone to RAD
[2022-11-09 23:42] LABS: Basophils % 0.5 % (0.1-2.0); Eosinophils # 0.2 K/mm3 (0.0-0.4); Eosinophils % 2.5 % (0.1-12.0); Hematocrit 46.2 % (37.0-47.0); Hemoglobin 14.9 g/dL (12.2-16.2); Lymphocytes % 21.9 % (10-50); Mean Corpuscular HGB Conc 32.2 g/dL (31.8-35.4); Mean Corpuscular Hemoglobin 28.9 pg (27.0-31.2); Mean Corpuscular Volume 89.9 fl (81-99); Mean Platelet Volume 8.8 fl (7.4-10.4); Monocytes # 0.6 K/mm3 (0.1-1.0); Monocytes % 6.6 % (1.7-9.3); Neutrophils # 6.3 K/mm3 (1.8-7.8); Neutrophils % 68.6 % (37.0-80.0); Platelet Count 237 K/mm3 (142-424); Red Blood Count 5.14 M/mm3 (4.20-5.40); Red Cell Distribution Width 14.2 % (11.5-17.5); White Blood Count 9.2 K/mm3 (4.8-10.8)
[2022-11-09 23:55] LABS: Alanine Aminotransferase 33 U/L (12-78); Albumin Level 3.7 g/dl (3.5-5.0); Albumin/Globulin Ratio 1.2 (1.1-1.8); Alkaline Phosphatase 274 U/L (38-126); Anion Gap 7.2 mEq/L (5-15); Aspartate Amino Transferase 56 U/L (14-36); Bilirubin,Total 0.5 mg/dl (0.2-1.3); Blood Urea Nitrogen 27 mg/dl (7-17); Calcium 9.7 mg/dl (8.4-10.2); Carbon Dioxide 33 mmol/L (22.0-30.0); Chloride 98 mmol/L (98-107); Creatinine Clearance Estimated 57 mL/min (50-200); Estimated Glomerular Filt Rate 80 ml/min (>60); GFR (African American) 97 ML/MIN (>60); Globulin 3.2 g/dL (1.3-3.2); Potassium 4.2 mmoL/L (3.5-5.1); Sodium 134 mmol/L (136-145); Total Protein,Serum 6.9 g/dl (6.3-8.2)
--- NOTE | 2022-11-09 23:56 | HMH.EDFALL ---
Discharge Plan Disposition Patient Disposition: Admitted As Inpatient Chief Complaint: Fall Prescriptions Prescriptions: No Action atorvastatin 20 mg tablet 20 mg PO HS aspirin 81 mg tablet,delayed release (DR/EC) 81 mg PO DAILY magnesium oxide 400 mg magnesium capsule 400 mg PO DAILY allopurinol 100 mg tablet 100 mg PO DAILY Qty: 90 3RF gabapentin 100 mg capsule 100 mg PO BID Qty: 60 5RF hydrocodone-acetaminophen 7.5-325 mg tablet 1 tab PO HSP PRN (Reason: pain) Qty: 30 0RF ampicillin 500 mg capsule 500 mg PO BID 14 Days Qty: 28 0RF potassium chloride 10 mEq capsule, extended release See Rx Instructions .ROUTE .COMPLEX Rx Instructions: Take 1 capsule by mouth once daily for supplement propylthiouracil 50 mg tablet 50 mg PO BID Novolin 70-30 FlexPen U-100 100 unit/mL (70-30) insulin pen 40 unit SQ BID Rx Instructions: please provide pen needles #100 [id number] cyclobenzaprine 10 mg tablet 10 mg PO HS furosemide 40 mg tablet See Rx Instructions .ROUTE .COMPLEX Rx Instructions: TAKE 1 TABLET BY MOUTH DAILY alendronate 70 mg tablet See Rx Instructions .ROUTE .COMPLEX Rx Instructions: TAKE 1 TABLET IN THE MORNING EVERY MON {Q1W2} (DME) True Metrix Glucose Test Strip Strip See Rx Instructions .ROUTE .COMPLEX Rx Instructions: TEST BLOOD SUGAR ONCE DAILY amlodipine 10 mg tablet See Rx Instructions .ROUTE .COMPLEX Rx Instructions: Take 1 tablet by mouth once daily. Referrals Follow up/Referrals: Don Morales MD [Primary Care Provider] - See instructions Javier Morgan JR, MD [Physician] - See instructions Discharge ED Provider: Lamberto (ED)Vel Fall HPI General Chief Complaint: Fall Stated Complaint: fall\pain Time Seen by Provider: 11/09/22 23:56 Mode of Arrival: EMS Source of Information: Patient, EMS and Medical Record Limitations: No Limitations Description of Symptoms (Recalled from ER Triage Doc. by RN): pt reports that she was outside feeding her dog slipped and fell EMS reports she was found outside with a lot of blankets obvious deformity in the right ankle the pt states her pain 9/10. EMS reports to have given 50mcg fentanyl twice and 4 of zofran on the wasy History of Present Illness HPI Narrative: pt with acute fall and injured rt ankle and no loc - slipped on ice complaint: fall Onset (ago): hour(s) Fall from: standing Fall witnessed: yes, by family Place fall occurred: home Loss of consciousness: none Prolonged down time: no Symptoms prior to fall: none Context: tripped/slipped Location of injury - extremities: Right: ankle Severity: severe Related Data Home Medications Medication Instructions Recorded Confirmed aspirin 81 mg tablet,delayed 81 mg PO DAILY HEART HEALTH 06/23/20 11/10/22 release atorvastatin 20 mg tablet 20 mg PO HS Cholesterol 06/23/20 11/10/22 magnesium oxide 400 mg PO DAILY Supplement 06/23/20 11/10/22 alendronate 70 mg tablet See Rx Instructions .Route 11/10/22 11/10/22 .COMPLEX . amlodipine 10 mg tablet See Rx Instructions .Route 11/10/22 11/10/22 .COMPLEX High blood pressure blood sugar diagnostic (True 11/10/22 11/10/22 Metrix Glucose Test Strip) cyclobenzaprine 10 mg tablet 10 mg PO HS muscle spasms 11/10/22 11/10/22 furosemide 40 mg tablet See Rx Instructions .Route 11/10/22 11/10/22 .COMPLEX Fluid insulin NPH-regular 70-30 U-100 40 unit SQ BID Diabetes 11/10/22 11/10/22 insulin 100 unit/mL subcutaneous pen (Novolin 70-30 FlexPen U-100 Insulin) potassium chloride 10 mEq See Rx Instructions .Route 11/10/22 11/10/22 capsule,extended release .COMPLEX Supplement propylthiouracil 50 mg tablet 50 mg PO BID . 11/10/22 11/10/22 Previous Rx's Medication Instructions Recorded allopurinol 100 mg tablet 100 mg PO DAILY GOUT #90 tabs 09/11/21 gabapentin 100 mg capsule 100 mg PO BID Pain #60 caps 08/05/22 hy
[2022-11-09 23:57] LABS: Glucose 415 mg/dl (74-100)
--- NOTE | 2022-11-09 23:58 | PC.NURSE ---
notified sujit of critical glucose 415
[2022-11-10] VITALS (15 sets, daily range): BP systolic 127–158; BP diastolic 47–75; PULSE 75–94; RESP 13–22; TEMP 36.4–36.9; O2SAT 92–99; BMI 30.4; BMI 30.3
--- NOTE | 2022-11-10 | PC.NURSE ---
Pt back from RAD
--- NOTE | 2022-11-10 00:26 | CT_ITS ---
PROCEDURE INFORMATION: Exam: CT Cervical Spine Without Contrast Exam date and time: 11/10/2022 12:46 AM Age: 82 years old Clinical indication: Injury or trauma; Fall; Patient HX: Slipped on porch TECHNIQUE: Imaging protocol: Computed tomography of the cervical spine without contrast. Radiation optimization: All CT scans at this facility use at least one of these dose optimization techniques: automated exposure control; mA and/or kV adjustment per patient size (includes targeted exams where dose is matched to clinical indication); or iterative reconstruction. Other protocol: This patient has received 2 known CTs and 0 known cardiac nuclear medicine studies in the 12 months prior to the current study. COMPARISON: 1. CT CERVICAL SPINE WO CON 10/08/2020 9:37 PM 2. Thyroid ultrasound 10/09/2026 8:00 p.m. FINDINGS: Bones/joints: No acute fracture. Blapqqbc-bf-[id number] multilevel degenerative disc disease, similar to 10/08/2020, with moderate spinal stenosis at C4-C5, C5-C6, and C6-C7. Lungs: Tiny calcified granuloma at the right lung apex. Thyroid: Multinodular goiter again seen, similar to 10/08/2020. Soft tissues: Unremarkable. IMPRESSION: 1. No acute fracture. 2. Blgbgqln-im-uafxpm multilevel degenerative disc disease, similar to 10/08/2020, with moderate spinal stenosis at C4-C5, C5-C6, and C6-C7. 3. Multinodular goiter again seen, similar to 10/08/2020. Any follow-up should be performed based on clinical history and previous ultrasound findings.
--- NOTE | 2022-11-10 00:26 | XR_ITS ---
PROCEDURE INFORMATION: Exam: XR Right Ankle Exam date and time: 11/10/2022 12:47 AM Age: 82 years old Clinical indication: Abnormal findings; Abnormal imaging study; Right ankle; Additional info: Post reduction TECHNIQUE: Imaging protocol: Radiologic exam of the Right ankle. Views: 1 or 2 views. COMPARISON: CR XR ANKLE RT MIN 3V 11/09/2022 11:56 PM FINDINGS: Bones/joints: There has been interval near complete reduction of previously described ankle dislocation. There remains moderate lateral and posterior subluxation of the dome of the talus with respect of the distal tibia. Trimalleolar ankle fracture again noted with moderate improvement of displaced distal fragments. Soft tissues: Normal. Other findings: Casting material now in place IMPRESSION: Interval partial reduction of trimalleolar right ankle fracture/dislocation
--- NOTE | 2022-11-10 00:26 | CT_ITS ---
PROCEDURE INFORMATION: Exam: CT Right Lower Extremity Without Contrast, Ankle Exam date and time: 11/10/2022 12:51 AM Age: 82 years old Clinical indication: Injury or trauma; Fall TECHNIQUE: Imaging protocol: CT of the Right lower extremity without contrast was performed. Exam focused on the ankle. 3D rendering (Not supervised by radiologist): MIP and/or 3D reconstructed images were created by the technologist. Radiation optimization: All CT scans at this facility use at least one of these dose optimization techniques: automated exposure control; mA and/or kV adjustment per patient size (includes targeted exams where dose is matched to clinical indication); or iterative reconstruction. Other protocol: This patient has received 2 known CTs and 0 known cardiac nuclear medicine studies in the 12 months prior to the current study. COMPARISON: CR XR ANKLE RT 2V 11/10/2022 12:47 AM FINDINGS: Bones/joints: There are significantly comminuted and moderately displaced fractures of the lateral, medial and posterior malleoli. Major distal fragments exhibit moderate lateral displacement all 3 fracture sites. There is moderate lateral subluxation of the dome of the talus with respect of the distal tibia. The talus, calcaneus and tarsal navicular appear intact and normally aligned with the other. Moderate degenerative changes noted throughout the midfoot. Soft tissues: Significant diffuse soft tissue swelling of the right lower leg and ankle noted. Plantar calcaneal spurring and scattered calcifications in the plantar fascia compatible with chronic plantar fasciitis. IMPRESSION: Significantly comminuted and moderately displaced trimalleolar ankle fractures with moderate lateral displacement of the dome of the talus as well. Incidental chronic findings as noted.
--- NOTE | 2022-11-10 00:26 | CT_ITS ---
PROCEDURE INFORMATION: Exam: CT Head Without Contrast Exam date and time: 11/10/2022 12:46 AM Age: 82 years old Clinical indication: Injury or trauma; Fall; Patient HX: Slipped on porch TECHNIQUE: Imaging protocol: Computed tomography of the head without contrast. Radiation optimization: All CT scans at this facility use at least one of these dose optimization techniques: automated exposure control; mA and/or kV adjustment per patient size (includes targeted exams where dose is matched to clinical indication); or iterative reconstruction. Other protocol: This patient has received 2 known CTs and 0 known cardiac nuclear medicine studies in the 12 months prior to the current study. COMPARISON: CT HEAD/BRAIN WO CON 10/08/2020 9:34 PM FINDINGS: Brain: No acute infarct, hemorrhage, or obvious mass lesion. Age appropriate diffuse cerebral volume loss. Minimal chronic white matter changes, likely to be chronic small vessel ischemic changes. Cerebral ventricles: No ventriculomegaly. Paranasal sinuses: Tiny mucous retention cysts or polyps are noted in the left maxillary and sphenoid sinuses. No air-fluid levels are present. Mastoid air cells: Visualized mastoid air cells are well aerated. Bones/joints: Calvarium is intact and unchanged. 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 Soft tissues: Unremarkable. IMPRESSION: No acute intracranial abnormality.
--- NOTE | 2022-11-10 01:39 | PC.NURSE ---
paged dr Morgan
--- NOTE | 2022-11-10 01:40 | PC.NURSE ---
sujit on phone with dr robles
--- NOTE | 2022-11-10 01:45 | PC.NURSE ---
Dr. Orantes at [facility] updating pt/family on POC
--- NOTE | 2022-11-10 02:10 | EXP.HP ---
History of Present Illness *Admission Date: 11/10/22 *Reason for visit:: Fall, Right Ankle Pain *History of present illness: Ms. Castle is a 82-year-old female who presented to the ER at [facility] following a slip and fall injury on the ice at ground level today prior to arrival. She reports that the fall resulted in immediate pain and the inability to bear weight. In the ER she underwent imaging that showed a significantly comminuted and moderately displaced triamalleolar ankle fracture with moderate lateral displacement of the dome of the talus as well. In the ER the ER physician reduced the fracture, imaging following the reduction showed interval partial reduction of the malleolar ankle fracture. ER Physician spoke with Orthopaedics who will see the patient in consult today. [facility] Disclaimer: The information contained in this section may have been updated after the patient was seen, as this information can be updated by other users. Medical History (Updated 11/10/22 @ 02:29 by Shanta Armendariz RN) Diabetes GERD (gastroesophageal reflux disease) History of fall Hypertension Infection of skin due to methicillin resistant Staphylococcus aureus (MRSA) Surgical History (Updated 11/10/22 @ 02:14 by Sy Hansen DNP) H/O: hysterectomy History of hip replacement Social History (Updated 11/10/22 @ 03:03 by Marzena Thompson RN) Smoking Status: Former smoker pack-years: 6 second hand exposure: No alcohol intake: never substance use type: denies use current occupational status: retired Travel in the last 8 weeks: None household members: spouse housing: other Review of Systems Review of Systems Review of systems:: pertinent systems reviewed and negative unless documented below Constitutional Constitutional: Reports system reviewed and no additional complaints, except as documented Eyes Eyes: Reports system reviewed and no additional complaints, except as documented ENT Ears, Nose, Mouth, and Throat: Reports system reviewed and no additional complaints, except as documented *Cardiovascular Cardiovascular: Reports system reviewed and no additional complaints, except as documented *Respiratory Respiratory: Reports system reviewed and no additional complaints, except as documented *Gastrointestinal Gastrointestinal: Reports system reviewed and no additional complaints, except as documented *Genitourinary Genitourinary: Reports system reviewed and no additional complaints, except as documented *Musculoskeletal Musculoskeletal: Reports abnormal gait, Reports arthralgias and Reports back pain Comments: Inability to bear weight on the right lower extremity, swelling of the right lower extremity Integumentary/Breasts Comments: Ulceration of the Right Foot *Neurologic Neurologic: Reports abnormal gait Psychiatric Psychiatric: Reports system reviewed and no additional complaints, except as documented Endocrine Endocrine: Reports system reviewed and no additional complaints, except as documented Hematologic/Lymphatic Hematologic/Lymphatic: Reports system reviewed and no additional complaints, except as documented Allergic/Immunologic Allergic/Immunologic: Reports system reviewed and no additional complaints, except as documented Meds Home Medications and Allergies Home Medications Medication Instructions Recorded Confirmed Type aspirin 81 mg tablet,delayed 81 mg PO DAILY HEART HEALTH 06/23/20 11/10/22 History release magnesium oxide 400 mg PO DAILY Supplement 06/23/20 11/10/22 History alendronate 70 mg tablet 70 mg PO WEEKLY Osteoporosis 11/10/22 11/10/22 History allopurinol 100 mg tablet 100 mg PO DAILY gout 11/10/22 11/10/22 History amlodipine 10 mg tablet 10 mg PO DAILY blood pressure 11/10/22 11/10/22 History ampicillin 500 mg capsule 500 mg PO BID Infection 11/10/22 11/10/22 History blood sugar diagnostic (True 11/10/22 11/10/22 History Metrix Glucose Test Strip) cyclobenzap
[2022-11-10 02:20] LABS: Microscopic, Urine URINE MICROSCOPIC (MICROSCOPIC)
[2022-11-10 02:21] LABS: Appearance,Urine CLEAR (Clear); Bilirubin,Urine Negative (Negative); Blood, Urine TRACE-I (Negative); Color,Urine YELLOW (Yellow); Glucose,Urine (UA) 3+ (Negative); Ketones,Urine Negative (Negative); Leukocyte Esterase,Urine Negative (Negative); Nitrate,Urine Negative (Negative); Protein,Urine Negative (Negative); Urobilinogen,Urine 0.2 EU/dl (0.2)
--- NOTE | 2022-11-10 02:32 | PC.NURSE ---
pt arrived to floor at this time
[2022-11-10 02:44] LABS: Bacteria,Urine Trace /lpf
[2022-11-10 03:33] LABS: POC Glucose,Bedside 335 (70-110)
--- NOTE | 2022-11-10 04:00 | PC.NURSE ---
Large skin tear present to R forearm with discoloration around wound. Area cleansed with normal saline, Steri strips applied covered with large bandaid.
--- NOTE | 2022-11-10 04:14 | PC.WOUNDNOTE ---
ulcer to LLE excoriation to (L) tony area and abdominal fold excoriation to (R) abdominal fold and tony area
--- NOTE | 2022-11-10 04:18 | PC.WOUNDNOTE ---
skin tear to PENNY ulcer to (L) foot small open area to coccyx Bruise to LUE
--- NOTE | 2022-11-10 05:38 | PC.NURSE ---
Pt c/o 07/19 pain at this time. PRN Pain medication not available. Sy OLIVAS notified. New orders received.
[2022-11-10 05:41] LABS: POC Glucose,Bedside 284 (70-110)
--- NOTE | 2022-11-10 06:04 | PC.NURSE ---
Pt admitted this shift. Pt complains of severe 10/10 pain in right ankle. Pt crying in pain at times. Pt medicated PRN per DEC. RLE assessed, remains elevated in splint, toes pink. Skin issues charted on wound note. Not pictured in wound notes- excoriation under bilat breasts (mild), and small open area in vaginal area. Pt bathed and placed in gown this morning. Sánchez catheter in place draining clear, yellow urine. Call light in reach.
[2022-11-10 06:20] LABS: Eosinophils # 0.1 K/mm3 (0.0-0.4); Lymphocytes # 1.9 K/mm3 (0.7-4.5); Monocytes # 0.5 K/mm3 (0.1-1.0); Platelet Count 188 K/mm3 (142-424)
[2022-11-10 06:42] LABS: Chloride 104 mmol/L (98-107); Potassium 4.2 mmoL/L (3.5-5.1); Sodium 138 mmol/L (136-145)
[2022-11-10 06:45] LABS: Alanine Aminotransferase 44 U/L (12-78); Albumin Level 3.1 g/dl (3.5-5.0); Albumin/Globulin Ratio 1.1 (1.1-1.8); Alkaline Phosphatase 244 U/L (38-126); Anion Gap 6.2 mEq/L (5-15); Aspartate Amino Transferase 104 U/L (14-36); Bilirubin,Total 0.6 mg/dl (0.2-1.3); Blood Urea Nitrogen 22 mg/dl (7-17); Calcium 9.3 mg/dl (8.4-10.2); Carbon Dioxide 32 mmol/L (22.0-30.0); Creatinine Clearance Estimated 59 mL/min (50-200); Estimated Glomerular Filt Rate 96 ml/min (>60); GFR (African American) 116 ML/MIN (>60); Globulin 2.8 g/dL (1.3-3.2); Glucose 312 mg/dl (74-100); Total Protein,Serum 5.9 g/dl (6.3-8.2)
[2022-11-10 06:50] LABS: Hemoglobin A1C 10.8 % (4.0-6.0)
[2022-11-10 06:52] LABS: Basophils % 0.4 % (0.1-2.0); Eosinophils % 1.3 % (0.1-12.0); Hematocrit 40.7 % (37.0-47.0); Lymphocytes % 20.3 % (10-50); Mean Corpuscular HGB Conc 32.3 g/dL (31.8-35.4); Mean Corpuscular Hemoglobin 29.8 pg (27.0-31.2); Mean Corpuscular Volume 92.4 fl (81-99); Mean Platelet Volume 8.6 fl (7.4-10.4); Monocytes % 5.9 % (1.7-9.3); Neutrophils # 6.7 K/mm3 (1.8-7.8); Neutrophils % 72.2 % (37.0-80.0); Red Cell Distribution Width 14.3 % (11.5-17.5); White Blood Count 9.3 K/mm3 (4.8-10.8)
[2022-11-10 06:53] LABS: Hemoglobin 13.1 g/dL (12.2-16.2)
--- NOTE | 2022-11-10 07:49 | HMH.PHAINT1 ---
Pharmacy Intervention Comments: home medication list verified using list from outpatient pharmacy
--- NOTE | 2022-11-10 09:41 | HMH.OTEV ---
OT Inpatient Evaluation Rehab OT IP Evaluation Start: 11/10/22 07:41 Freq: ONCE Status: Active Protocol: Document 11/10/22 09:28 FADUMO (Rec: 11/10/22 09:41 [facility] [id number]) Rehab OT IP Assessment Subjective History Pt is oriented x3 person, place, and . Pt was agreeable to engage in therapy evaluation. Pt was admitted to [facility] on 11/10/22 due to Fall, Right Ankle Pain. Pt's doctor reports fracture to R ankle and will need surgery. Pt reports she was independent in all ADLs and IADLs. She reports that she completed all cooking, cleaning, and grocery tasks. Pt reports that she lives with her at home. She reports that she is still able to drive. Pt reports that she uses a rolling walker for functional mobility. Pt reports that she has steps upon entering house, but uses the ramp for functional mobility tasks. Pt has a past medical history of the following: Diabetes GERD (gastroesophageal reflux disease) History of fall Hypertension Infection of skin due to methicillin resistant Staphylococcus aureus (MRSA) Subjective It hurts. Objective Patient Orientation Person,Place,Birthday Upper Extremity Gross ROM WFL Shoulder ROM Limitations Muscle Weakness Elbow ROM Limitations Muscle Weakness Wrist Limitations of Range of Motion Muscle Weakness Bed Mobility bed mobility-scooting,bed mobility - supine/sit Assist Level Moderate x 2 (50% assist) decrease in endurance Yes Rehab OT IP prob,goals,plan Problems Date of Evaluation: 11/10/22 OT IP Problems Bed Mobility,Transfers,Balance ,Self care,Safety Rehab Potential Rehab Potential Good Equipment Needs Assistive Devices Rolling / Wheeled Walker, Wheelchair Plan
--- NOTE | 2022-11-10 09:54 | SW/DCPLANNER ---
Addendum entered by [facility] 11/16/22 11:14: This patient has been approved to discharge to [facility] level of care today. I have updated patient/family and MD. Addendum entered by [facility] 11/16/22 09:09: Per Sarah w/ [facility] precert is still pending at this time. Addendum entered by [facility] 11/15/22 11:41: Saarh Morocho w/ [facility] stated that precert has been started on this patient. I have updated patient regarding this plan: patient agrees w/ plan. Addendum entered by [facility] 11/15/22 08:59: I am currently waiting to hear back from Sarah Morocho regarding referral. Patient is medically stable for discharge. Addendum entered by Ashley Cope RN 11/12/22 16:34: Latha from [employer] states that they do not do single case contracts as [facility] has requested. Sent patient's information to [facility] at [facility]. Addendum entered by Ashley Cope RN 11/12/22 14:26: Contacted [employer] to find out status on auth. They state [facility] is not in network with the patient's policy. Contacted Audrey at [facility] and she states she will discuss this with business intelligence administrator. Spoke with patient. Patient requests if need a different facility to try [facility] in [place]. Addendum entered by Ashley Cope RN 11/12/22 07:50: No word on authorization per Elis at [facility] Addendum entered by [facility] 11/11/22 13:59: [facility] stated that precert has been started for this patient. Addendum entered by [facility] 11/10/22 13:41: [facility] stated that she is willing to accept this patient and can start a precert once surgery is completed. I will continue to update this patient. Original Note: I spoke with this patient regarding plans once medically stable for discharge. PT/OT evaluated this patient and recommended SNF level of care at time of discharge. Ortho has been consulted and has recommended surgery while inpatient. Patient stated that she has been to [facility] in the past for placement and is agreeable to go back if needed at time of discharge. Patient also stated that if [facility] is unable to accept her she would be interested in [facility]. I will fax patient information to [facility] at this time. Discharge date is unknown at this time. I will continue to follow up with patient, MD and facilities.
--- NOTE | 2022-11-10 11:32 | HMH.PTEV ---
Physical Therapy Evaluation Rehab PT IP Evaluation Start: 11/10/22 02:26 Freq: ONCE Status: Active Protocol: Document 11/10/22 11:18 LAMARNOEMY (Rec: 11/10/22 11:32 SHAWN [id number]) Subjective/History History History Pt is an 82 y/o female who presented to [facility] ER and admittedon 11/10/22 due to a fall. Pt reports she slipped on ice on her back porch and laid there until ambulance arrived. Pt states she had immediate pain and was unable to weight-bear. In the ER she underwent imaging that showed a significantly comminuted and moderately displaced triamalleolar ankle fracture with moderate lateral displacement of the dome of the talus as well. In the ER the ER physician reduced the fracture, imaging following the reduction showed interval partial reduction of the malleolar ankle fracture.Pt had an orthopedic consult, NWB on RLE and expected to have surgery either 2/2 or 2/3 of this week. Subjective Subjective Pt reports she lives in a double wide trailer with her , 5 steps to enter the front and a ramp that leads to the back door. Pt reports she was ambulating with a rolling walker at baseline and was independent with all ADLs. Pt agreeable to sit EOB but does report 9/10 pain of the RLE. Pt also reports she has diabetic neuropathy and has poor sensation of bilateral feet at baseline. Rehab PT IP Eval Objective Appearance Patient Behavior Appropriate,Cooperative Patient Orientation Person,Place,Birthday Difficulty following instructions none Speech Pattern Clear,Appropriate,Baseline Function Ambulation Patient Able to Ambulate No Balance Sitting Balance Steady, safe Dynamic Sitting Balance
[2022-11-10 11:33] LABS: POC Glucose,Bedside 134 (70-110)
--- NOTE | 2022-11-10 14:06 | EXP.ORTH.CON ---
Documented by User: AGA Marx 11/10/22 14:40 History of Present Illness *Admission Date: 11/10/22 *Reason for visit:: Right ankle fracture *History of present illness: Mrs. Castle is an 82 year old female patient admitted to the inpatient service 11/10/2022 after sustaining a ground level mechanical fall at home. She states that she was walking outside yesterday evening to feed her dogs when she slipped on ice, causing her to fall and injure her right ankle. She states that she had immediate pain in her ankle and was unable to stand up and ambulate, so she was subsequently evaluated in the [facility] emergency department. X-ray in the emergency department demonstrated a comminuted, displaced trimalleolar ankle fracture. She underwent reduction and splinting in the ER. This morning the patient is lying comfortably in bed. She reports her right ankle pain as to be expected. She states that at baseline she lives in her own home with her and ambulates primarily with the use of a walker. She denies antecedent ankle pain or prior surgeries to the right ankle. No history of any distal tingling/numbness. Her past medical history significant for diabetes, she states that she currently has 2 open wounds/ulcers over the left ankle and foot which she states are positive for MRSA. She denies any open wounds over the right ankle but states that she commonly has difficulty with wound healing. Her past medical history also includes hyperlipidemia, hypertension, and peripheral neuropathy. She denies any other symptoms or concerns at this time. [facility] Disclaimer: The information contained in this section may have been updated after the patient was seen, as this information can be updated by other users. Medical History (Updated 11/10/22 @ 02:29 by Shanta Armendariz RN) Diabetes GERD (gastroesophageal reflux disease) History of fall Hypertension Infection of skin due to methicillin resistant Staphylococcus aureus (MRSA) Surgical History (Updated 11/10/22 @ 02:14 by Sy Hansen DNP) H/O: hysterectomy History of hip replacement Social History (Updated 11/10/22 @ 03:03 by Marzena Thompson RN) Smoking Status: Former smoker pack-years: 6 second hand exposure: No alcohol intake: never substance use type: denies use current occupational status: retired Travel in the last 8 weeks: None household members: spouse housing: other Review of Systems *Musculoskeletal Musculoskeletal: Reports abnormal gait *Neurologic Neurologic: Reports abnormal gait Meds Home Medications and Allergies Home Medications Medication Instructions Recorded Confirmed Type aspirin 81 mg tablet,delayed 81 mg PO DAILY HEART HEALTH 06/23/20 11/10/22 History release magnesium oxide 400 mg PO DAILY Supplement 06/23/20 11/10/22 History alendronate 70 mg tablet 70 mg PO WEEKLY Osteoporosis 11/10/22 11/10/22 History allopurinol 100 mg tablet 100 mg PO DAILY gout 11/10/22 11/10/22 History amlodipine 10 mg tablet 10 mg PO DAILY blood pressure 11/10/22 11/10/22 History ampicillin 500 mg capsule 500 mg PO BID Infection 11/10/22 11/10/22 History blood sugar diagnostic (True 11/10/22 11/10/22 History Metrix Glucose Test Strip) cyclobenzaprine 10 mg tablet 10 mg PO HS muscle spasms 11/10/22 11/10/22 History furosemide 40 mg tablet 40 mg PO DAILY diuretic 11/10/22 11/10/22 History gabapentin 100 mg capsule 100 mg PO BID NEUROPATHY 11/10/22 11/10/22 History hydrocodone 7.5 mg-acetaminophen 7.5 - 325 tab PO HS PRN Pain 11/10/22 11/10/22 History 325 mg tablet insulin NPH-regular 70-30 U-100 40 unit SQ BID Diabetes 11/10/22 11/10/22 History insulin 100 unit/mL subcutaneous pen (Novolin 70-30 FlexPen U-100 Insulin) pen needle, diabetic 32 gauge x 11/10/22 11/10/22 History (BD Calli 2nd Gen Pen Needle) potassium chloride 10 mEq 10 meq PO DAILY potassium 11/10/22 11/10/22 History capsule,extended release
[2022-11-10 17:18] LABS: POC Glucose,Bedside 206 (70-110)
--- NOTE | 2022-11-10 18:38 | PC.NURSE ---
Pt is alert and oriented x4. Lungs are clear, bowel sounds active x4. She's been weaned to RA and tolerating well. Extremities are warm with palpable pulses. She reports numbness to her toes on her right foot but this is normal according to her. Pain meds administered as need w/relief noted on reassessment. Her liang is to bedside draining clear, yellow urine. Glucose was 134 and 206 at checks, ssi administered per mar. Family has been to visit and updated on poc. Bed is locked and in the lowest position, call light is within reach.
[2022-11-10 21:21] LABS: POC Glucose,Bedside 154 (70-110)
[2022-11-11] VITALS (20 sets, daily range): BP systolic 119–148; BP diastolic 50–72; PULSE 77–94; RESP 14–20; TEMP 36.5–43; O2SAT 86–99
--- NOTE | 2022-11-11 04:44 | PC.NURSE ---
NO ACUTE CHANGES SINCE PREVIOUS ASSESSMENT. PT HAS RESTED WELL. VSS. PT HAS C/O OF PAIN X2 THIS SHIFT AND WAS MEDICATED PER MAR WITH ADEQUATE RELIEF. RT FOOT/ANKLE ARE ELEVATED ON PILLOWS AND WRAPPED. GLOVER REMAINS IN PLACE.
[2022-11-11 05:50] LABS: POC Glucose,Bedside 159 (70-110)
[2022-11-11 08:17] LABS: Basophils # 0.1 K/mm3 (0-0.2); Basophils % 1.3 % (0.1-2.0); Eosinophils # 0.4 K/mm3 (0.0-0.4); Eosinophils % 3.3 % (0.1-12.0); Hematocrit 44.9 % (37.0-47.0); Lymphocytes # 3.1 K/mm3 (0.7-4.5); Lymphocytes % 28.2 % (10-50); Mean Corpuscular HGB Conc 31.1 g/dL (31.8-35.4); Mean Corpuscular Hemoglobin 29.2 pg (27.0-31.2); Mean Corpuscular Volume 93.9 fl (81-99); Mean Platelet Volume 8.7 fl (7.4-10.4); Monocytes # 0.7 K/mm3 (0.1-1.0); Neutrophils # 6.9 K/mm3 (1.8-7.8); Neutrophils % 61.3 % (37.0-80.0); Platelet Count 206 K/mm3 (142-424); Red Blood Count 4.78 M/mm3 (4.20-5.40); Red Cell Distribution Width 14.4 % (11.5-17.5); White Blood Count 11.2 K/mm3 (4.8-10.8)
[2022-11-11 08:33] LABS: Anion Gap 6.9 mEq/L (5-15); Blood Urea Nitrogen 21 mg/dl (7-17); Calcium 9.4 mg/dl (8.4-10.2); Carbon Dioxide 34 mmol/L (22.0-30.0); Chloride 100 mmol/L (98-107); Creatinine Clearance Estimated 59 mL/min (50-200); Estimated Glomerular Filt Rate 69 ml/min (>60); GFR (African American) 83 ML/MIN (>60); Glucose 187 mg/dl (74-100); Potassium 3.9 mmoL/L (3.5-5.1); Sodium 137 mmol/L (136-145)
--- NOTE | 2022-11-11 09:18 | EXP.ORTH.PN ---
Subjective *Date: 11/11/22 *Time: 17:33 Interval history: Mrs. Castle is an 82-year-old female patient admitted to the inpatient service with a right trimalleolar ankle fracture. This morning the patient is lying comfortably in bed and her son is present at the bedside. She states that she has right ankle pain as to be expected but that it is well controlled with as needed pain medication and rest. She states that she was able to sleep some last night. No history of any distal tingling/numbness, fevers, chills, rigors. She is n.p.o. for anticipated surgery this afternoon. She denies any other symptoms or concerns at this time. Ortho Exam (Inpt) Vital signs and Labs for Last 24 Hours: Temp Pulse Resp BP Pulse Ox 98.1 F 83 17 142/53 H 91 L 11/11/22 07:26 11/11/22 07:26 11/11/22 07:26 11/11/22 07:26 11/11/22 07:26 Laboratory Results - last 24 hr 11/10/22 11:25: POC Glucose 134 H 11/10/22 16:42: POC Glucose 206 H 11/10/22 20:18: POC Glucose 154 H 11/11/22 05:43: POC Glucose 159 H 11/11/22 08:00: WBC 11.2 H, RBC 4.78, Hgb 14.0, Hct 44.9, MCV 93.9, MCH 29.2, MCHC 31.1 L, RDW 14.4, Plt Count 206, MPV 8.7, Neut % (Auto) 61.3, Lymph % (Auto) 28.2, [place] % (Auto) 6.0, Eos % (Auto) 3.3, Baso % (Auto) 1.3, Neut # (Auto) 6.9, Lymph # (Auto) 3.1, [place] # (Auto) 0.7, Eos # (Auto) 0.4, Baso # (Auto) 0.1 11/11/22 08:00: Sodium 137, Potassium 3.9, Chloride 100, Carbon Dioxide 34 H, Anion Gap 6.9, BUN 21 H, Creatinine 0.80 D, Estimated Creat Clear 59, Estimated GFR 69, Est GFR ( Amer) 83 D, Glucose 187 H, Calcium 9.4 Temp Pulse Resp BP Pulse Ox 97.6 F 75 18 141/64 H 97 11/10/22 08:00 11/10/22 08:00 11/10/22 08:00 11/10/22 08:00 11/10/22 08:00 Laboratory Results - last 24 hr 11/09/22 23:28: SARS-CoV-2 (PCR) Not detected, Influenza A Untype (PCR) Not detected, Influenza Type B (PCR) Not detected 11/09/22 23:28: WBC 9.2, RBC 5.14, Hgb 14.9, Hct 46.2, MCV 89.9, MCH 28.9, MCHC 32.2, RDW 14.2, Plt Count 237, MPV 8.8, Neut % (Auto) 68.6, Lymph % (Auto) 21.9, [place] % (Auto) 6.6, Eos % (Auto) 2.5, Baso % (Auto) 0.5, Neut # (Auto) 6.3, Lymph # (Auto) 2.0, [place] # (Auto) 0.6, Eos # (Auto) 0.2, Baso # (Auto) 0.0 11/09/22 23:28: Sodium 134 L, Potassium 4.2, Chloride 98, Carbon Dioxide 33 H, Anion Gap 7.2, BUN 27 H, Creatinine 0.70, Estimated Creat Clear 57, Estimated GFR 80, Est GFR ( Amer) 97, Glucose 415 H*, Calcium 9.7, Total Bilirubin 0.5, AST 56 H, ALT 33, Alkaline Phosphatase 274 H, Total Protein 6.9, Albumin 3.7, Globulin 3.2, Albumin/Globulin Ratio 1.2 11/10/22 02:05: Urine Color Yellow, Urine Appearance Clear, Urine pH 6.0, Ur Specific [place] 1.020, Urine Protein Negative, Urine Glucose (UA) 3+, Urine Ketones Negative, Urine Blood Trace-i, Urine Nitrate Negative, Urine Bilirubin Negative, Urine Urobilinogen 0.2, Ur Leukocyte Esterase Negative, Urine RBC 5-10, Urine Bacteria Trace 11/10/22 03:02: POC Glucose 335 H* 11/10/22 05:32: POC Glucose 284 H 11/10/22 06:02: Hemoglobin A1c 10.8 H 11/10/22 06:02: WBC 9.3, RBC 4.40, Hgb 13.1 D, Hct 40.7, MCV 92.4, MCH 29.8, MCHC 32.3, RDW 14.3, Plt Count 188, MPV 8.6, Neut % (Auto) 72.2, Lymph % (Auto) 20.3, [place] % (Auto) 5.9, Eos % (Auto) 1.3, Baso % (Auto) 0.4, Neut # (Auto) 6.7, Lymph # (Auto) 1.9, [place] # (Auto) 0.5, Eos # (Auto) 0.1, Baso # (Auto) 0.0 11/10/22 06:02: Sodium 138, Potassium 4.2, Chloride 104, Carbon Dioxide 32 H, Anion Gap 6.2, BUN 22 H, Creatinine 0.60, Estimated Creat Clear 59, Estimated GFR 96, Est GFR ( Amer) 116, Glucose 312 H D, Calcium 9.3, Total Bilirubin 0.6, AST 104 H D, ALT 44 D, Alkaline Phosphatase 244 H, Total Protein 5.9 L, Albumin 3.1 L D, Globulin 2.8, Albumin/Globulin Ratio 1.1 11/10/22 11:25: POC Glucose 134 H I & O for Labs for Last 24 Hours: Intake & Output 11/08/22 11/09/22 11/10/22 11/11/22 23:59 23:59 23:59 23:59 Intake Total 240 / 240 360 / 360 Output Total 2300 / 2300 200 / 200 Balance -2059 / -2059 160 / 160 Weight 182 lb 1
[2022-11-11 11:26] LABS: POC Glucose,Bedside 198 (70-110)
--- NOTE | 2022-11-11 11:50 | EXP.ACUTE.PN ---
Subjective *Date: 11/11/22 *Time: 11:50 Interval history: No acute events overnight. Pain doing somewhat better today. Orthopedics evaluated this morning, planning for surgery this afternoon. Patient remained supine in bed. No fever, chest pain, shortness of breath, nausea or vomiting. Stable on room air. N.p.o. for procedure this afternoon Medical Exam Vital signs and Labs for Last 24 Hours: Vital Signs Temp Pulse Resp BP Pulse Ox 11/11/22 08:00 17 90 L 11/11/22 07:26 98.1 F 83 17 142/53 H 91 L 11/11/22 04:00 99.5 F 92 H 18 135/50 L 92 L 11/10/22 19:49 98.3 F 88 20 136/47 L 92 L 11/10/22 15:37 98.5 F 89 18 158/70 H 92 L Intake and Output 11/10/22 11/11/22 11/11/22 23:59 07:59 15:59 Intake Total 120 / 240 360 / 360 Output Total 700 / 2300 200 / 200 0 / 200 Balance -580 / -2060 160 / 160 0 / 160 Intake: Intake, Oral Amount 120 / 240 360 / 360 Output: Output, Urine Amount 700 / 1700 0 / 0 0 / 0 Output, Urine Amount (Catheter) 200 / 200 Sánchez 200 / 200 Other: Number of Unmeasured Voids 0 0 0 Laboratory Results - last 24 hr 11/10/22 16:42: POC Glucose 206 H 11/10/22 20:18: POC Glucose 154 H 11/11/22 05:43: POC Glucose 159 H 11/11/22 08:00: WBC 11.2 H, RBC 4.78, Hgb 14.0, Hct 44.9, MCV 93.9, MCH 29.2, MCHC 31.1 L, RDW 14.4, Plt Count 206, MPV 8.7, Neut % (Auto) 61.3, Lymph % (Auto) 28.2, [place] % (Auto) 6.0, Eos % (Auto) 3.3, Baso % (Auto) 1.3, Neut # (Auto) 6.9, Lymph # (Auto) 3.1, [place] # (Auto) 0.7, Eos # (Auto) 0.4, Baso # (Auto) 0.1 11/11/22 08:00: Sodium 137, Potassium 3.9, Chloride 100, Carbon Dioxide 34 H, Anion Gap 6.9, BUN 21 H, Creatinine 0.80 D, Estimated Creat Clear 59, Estimated GFR 69, Est GFR ( Amer) 83 D, Glucose 187 H, Calcium 9.4 11/11/22 11:18: POC Glucose 198 H I & O for Labs for Last 24 Hours: Intake & Output 11/08/22 11/09/22 11/10/22 11/11/22 23:59 23:59 23:59 23:59 Intake Total 240 / 240 360 / 360 Output Total 2300 / 2300 200 / 200 Balance -2059 / -2059 160 / 160 Weight 82.554 kg 85.7 kg Constitutional: Present no acute distress, obese and chronically ill appearing Head: Present atraumatic and normocephalic ENT: Present normal exam Neck: Present normal inspection Respiratory: Present CTA bilaterally and normal respiratory effort; Absent accessory muscle use, rhonchi, wheezes or crackles Cardiac: Present Reg Rate and Rhythm GI: Present soft and normal bowel sounds; Absent distention or tenderness Extremities: Present tenderness Comment:: Left lower extremity with no deformity, superficial wound on ball of left foot clean. No concern for significant infection; right ankle in brace, elevated. Neurovascularly intact in toes. Skin: Present intact; Absent erythema Neuro: Present Cranial Nerve 2-12 Intact, Grossly Intact, alert, awake, oriented x 3 and moves all extremities Assessment and Plan *Assessment and plan (1) Ankle fracture, right: Status: Acute Category: Medical Code(s): S82.891A - Other fracture of right lower leg, initial encounter for closed fracture (2) Diabetes: Status: Acute Category: Medical Code(s): E11.9 - Type 2 diabetes mellitus without complications (3) Hypertension: Status: Acute Category: Medical Code(s): I10 - Essential (primary) hypertension (4) Diabetic foot infection: Status: Acute Category: Medical Code(s): E11.628 - Type 2 diabetes mellitus with other skin complications; L08.9 - Local infection of the skin and subcutaneous tissue, unspecified (5) Hyperlipidemia: Status: Acute Category: Medical Code(s): E78.5 - Hyperlipidemia, unspecified Plan 82-year-old female who presented due to a slip-fall injury at ground level that resulted in a comminuted and moderately displaced triamalleolar ankle fracture with moderate lateral displacement of the dome of the talus. Hospitalist consulted for admis
--- NOTE | 2022-11-11 17:10 | P.PN_ITS ---
[facility] Disclaimer: The information contained in this section may have been updated after the patient was seen, as this information can be updated by other users. Medical History (Updated 11/10/22 @ 02:29 by Shanta Armendariz RN) Diabetes GERD (gastroesophageal reflux disease) History of fall Hypertension Infection of skin due to methicillin resistant Staphylococcus aureus (MRSA) Surgical History (Updated 11/10/22 @ 02:14 by Sy Hansen DNP) H/O: hysterectomy History of hip replacement Social History (Updated 11/10/22 @ 03:03 by Marzena Thompson RN) Smoking Status: Former smoker pack-years: 6 second hand exposure: No alcohol intake: never substance use type: denies use current occupational status: retired Travel in the last 8 weeks: None household members: spouse housing: other [facility] Anesthesia Checklist Patient Identification Patient Identification: Arm Band Structural Data Admitted From: Home Planned Operative Procedure/s: ORIF Right Ankle Consent for Planned Operative Procedure(s) Verified: Yes Verified Documents: Surgical Consent and History and Physical NPO Status Verified Time NPO: 00:00 Additional verifications Anesthesia Reactions: No Airway Assessment C-Spine Mobility Assessed: Yes TMJ Mobility Assessed: Yes Dentition: Poor Dentition Neurological Assessment Level of Consciousness: Awake and Alert Anesthesia Plan Anesthesia Risk discussed: Yes Anesthesia Plan: Verified ASA Class: III Anesthesia Type: General w/block (Right Popliteal/Saphenous Nerve Block. Risks/benefits explained. Pt verbalized understanding)
--- NOTE | 2022-11-11 17:10 | PC.NURSE ---
1700: Pt. off floor for sx
--- NOTE | 2022-11-11 17:15 | XR_ITS ---
PROCEDURE INFORMATION: Exam: XR Right Ankle Exam date and time: 11/11/2022 5:15 PM Age: 82 years old Clinical indication: Screening exam; C-arm used in surgery for hardware placement in right ankle; Additional info: C-arm case, orif right ankle. Fluoro time 1:03min. Dose 4:47mgy TECHNIQUE: Imaging protocol: Radiologic exam of the Right ankle. Views: 1 or 2 views. COMPARISON: CT ANKLE RT WO CON 11/10/2022 12:51 AM FINDINGS: Bones/joints: Orthopedic plate and screw device is present in the distal fibula. Four syndesmotic screws are seen across the distal tibia and fibula. There is suggestion medial widening of the ankle joint illness single-view. Soft tissues: Unremarkable IMPRESSION: Orthopedic hardware as described. Suggestion of medial widening of the ankle joint seen on this single view. Correlation with dedicated three-view ankle film recommended.
--- NOTE | 2022-11-11 17:42 | EXP.DC.SUM ---
General Admission date:: 11/10/22 Discharge date: 11/16/22 HPI HPI HPI: Mrs. Castle is an 82 year old female patient admitted to the inpatient service 11/10/2022 after sustaining a ground level mechanical fall at home. She states that she was walking outside yesterday evening to feed her dogs when she slipped on ice, causing her to fall and injure her right ankle. She states that she had immediate pain in her ankle and was unable to stand up and ambulate, so she was subsequently evaluated in the [facility] emergency department. X-ray in the emergency department demonstrated a comminuted, displaced trimalleolar ankle fracture. She underwent reduction and splinting in the ER. This morning the patient is lying comfortably in bed. She reports her right ankle pain as to be expected. She states that at baseline she lives in her own home with her and ambulates primarily with the use of a walker. She denies antecedent ankle pain or prior surgeries to the right ankle. No history of any distal tingling/numbness. Her past medical history significant for diabetes, she states that she currently has 2 open wounds/ulcers over the left ankle and foot which she states are positive for MRSA. She denies any open wounds over the right ankle but states that she commonly has difficulty with wound healing. Her past medical history also includes hyperlipidemia, hypertension, and peripheral neuropathy. She denies any other symptoms or concerns at this time. Hospital Course Hospital Course Hospital Course: 82-year-old female who presented due to a slip-fall injury at ground level that resulted in a comminuted and moderately displaced triamalleolar ankle fracture with moderate lateral displacement of the dome of the talus.? Hospitalist consulted for admission, decision made to admit for IV pain control and PT eval along with orthopedics eval given inability to bear weight.? Status post surgical fixation of right ankle fracture 11/11/22.? Continue to require hospitalization while awaiting pre-CERT for placement. Patient has been accepted to [facility] for fdc and rehab. Problems addressed as follows: - Right Ankle Fracture, acute - Intractable pain Admitted for IV pain control. Orthopedics consulted for intervention. Patient taken on 11/11 for open reduction internal fixation of severe ankle fracture. Necessitated significant hardware. Has had improvement in pain control since. Tolerating oral pain medication since surgery. At this time patient is nonweightbearing on right ankle for the next 6+ weeks. Orthopedics recommends a week of postsurgical antibiotics to decrease risk for infection. Has received 5 days of vancomycin IV while admitted, recommend 2 more days of Bactrim oral to complete 7 days total. Patient also necessitates strict control of her glucose to decrease risk for infection. Continue hydrocodone p.o. 5/325mg requiring 3-4 doses a day for pain control. - Diabetes, chronic, uncontrolled A1c elevated at 10.8. Initiated on insulin glargine on admission. Tolerating 40 units nightly. Recommend 4 units of mealtime short acting insulin with sliding scale low intensity in addition. Recommend fingersticks before meals and at bedtime. Goal glucose between 100-180. Recommend diabetic diet, repeat A1c in 3 months. Patient also has neuropathy, continue gabapentin as ordered. - Hypertension, chronic: Continuing patient's Amlodipine 10 mg po q day - Diabetic Foot Ulcer, healing continue mupirocin topically 3 times a day, wound healing very well. No overt signs of infection. Hyperthyroid, chronic: Continue patient's propylthiouracil 50 mg twice a day Patient's white cell count elevated on day of discharge, gradually elevated 48 hours before discharge. Patient is afebrile, has no focal sign of infection. Urine obtained which is unremarkable. No respiratory symptoms or findings on exam, stable on room air. Having diarrhea, diarrheal
--- NOTE | 2022-11-11 19:45 | P.PNANES_ITS ---
[facility] Anesthesia Record Part I Anesthesia Record I Intake, IV Amount: 1,000 Estimated blood loss (mL): 10 Urine output (mL): 400 Blood Products used (#): none Blood Pressure: 131/54 SaO2: 92 Pulse Rate: 89 Respiratory Rate: 16 Temperature: 98.5 F Patient is:: Drowsy and Stable Stable to PACU at:: 19:45
[2022-11-11 20:00] LABS: POC Glucose,Bedside 178 (70-110)
--- NOTE | 2022-11-11 20:34 | EXP.OP.NOTE ---
Date of procedure: 11/11/22 Pre-op Diagnosis:: Right trimalleolar ankle fracture dislocation Post-op Diagnosis:: Same Procedure performed:: 93267: Open reduction internal fixation right trimalleolar ankle fracture without fixation of the posterior malleolus 10955: Syndesmotic repair Surgeon:: Javier Morgan JR, MD Freelance Operator(s):: Marisa Heart PA-C ZOOGLER:: Carlin Ortiz Anesthesia: GETA Estimated blood loss (mL): 10 Clinical Note:: 82-year-old female seen right trimalleolar ankle fracture dislocation as a result of a ground-level fall. She has history of poorly controlled diabetes, MRSA infection to the contralateral foot. CT scan demonstrated a significantly comminuted fibula and medial malleolus fracture with small posterior malleolus fracture had a discussion with she and her family regarding further management. After discussion of risk, benefits, alternatives, they wish to proceed with open reduction some fixation right trimalleolar ankle fracture. We discussed the risk and benefits of surgery. Risks included but were not limited to pain, bleeding, infection, damage to adjacent structures, need for further surgery, wound healing complications, loss of limb, . Patient expressed verbal consent and written consent was obtained for the above procedure. Operative findings:: Very poor bone quality. Improved length, alignment, rotation with symmetric mortise, safe intraosseous hardware placement. Operative note:: Patient was identified in preoperative holding. Operative site was marked in indelible ink. History, physical, consent were reviewed and updated. Patient was surrendered to the anesthesia team, taken to the operative suite, placed supine on a well-padded operative table. Ipsilateral hip bump was placed as was a nonsterile thigh tourniquet. Anesthesia was induced. The operative extremity was prepped and draped in the usual sterile fashion. The operative team donned sterile gowns and gloves and a timeout was called. All in attendance agreed regarding the patient's identity, procedure, operative site. Weight-based dose of antibiotics was given prior to incision. I made a lateral incision to the fibula, dissected through skin subcutaneous tissue with care taken to avoid injuring the superficial peroneal nerve. Identified the fracture, I cleaned it of interposed hematoma. I attempted reduction of some of the larger fracture fragments utilizing a lobster claw, but noted that the bone quality was very poor and in all fracture fragments aside from the more proximal fibular shaft underwent plastic deformation even with palpation with a fingertip. As such, I plan to utilize a bridge plate/buttress type construct as opposed to lag screw and neutralization technique. I selected a long straight plate, and after obtaining provisional reduction by clamping some of the larger fragments to the plate, placed 3 syndesmotic screws, followed by locking screws distally and proximally. There was a free fragment with the AITFL attached. The attached cortex was very poor quality, and as such, in order to reapproximate this fragment, I placed an independent cortical screw with washer. I then turned my attention medially, dissected through skin and subcutaneous tissue, identified the medial malleolar fragment. I reduce this utilizing a [id number] reduction clamp, placed a claw plate, tamped this into place, placed a compression screw followed by a locking screw proximally. I then placed a guidewire bicortically through the medial malleolus fragment, drilled, and placed a bicortical screw with a washer, securing fixation of the medial malleolus. Orthogonal fluoroscopic views demonstrated safe intraosseous, extra-articular hardware placement, improved length, alignment, rotation of the fracture fragments, symmetric mortise. I copiously irrigated the wounds with Irrisept followed by saline, applied vancomycin powder to the wounds, closed in anatomic layer
--- NOTE | 2022-11-11 22:13 | P.PNANES_ITS ---
[facility] Anesthesia Record Part II Anesthesia Record Part II Discharge Time: 20:24 Destination: Medical Surgical Department PACU nurse assessment reviewed?: Yes Patient Condition:: Good Anesthesia Complications:: None Swallowing reflex intact?: Yes Cyanosis?: No Blood Pressure: 136/58 Pulse Rate: 88 Temperature: 98 F Mental Status: Alert & Oriented Pain level:: 0 Nausea and/or vomitting:: None Intake, IV Amount: 0
[2022-11-11 22:14] LABS: POC Glucose,Bedside 195 (70-110)
--- NOTE | 2022-11-11 22:33 | PC.NURSE ---
PATIENT ARRIVED BACK FROM PACU AT 2030. A/O X 4. DENIES PAIN. RIGHT FOOT WARM, TOES PINK. CAN WIGGLE ALITTLE BUT HAS NO SENSATION YET. HAS HAD A BLOCK. RIGHT FOOT ELEVATED ON PILLOWS. 02 AT 2LNC PLACED ON PATIENT 02 SATS DROPPED TO 86% ON ROOM AIR. FAMILY AT BEDSIDE. BROUGHT SPANISH FOOD, PATIENT HUNGRY AND TOLERATING WELL.
[2022-11-12] VITALS (9 sets, daily range): BP systolic 118–157; BP diastolic 48–62; PULSE 72–82; RESP 16–18; TEMP 36.4–37.3; O2SAT 91–97; BMI 31.3
--- NOTE | 2022-11-12 03:02 | PC.NURSE ---
PATIENT PERFORMS 500-1000 ON INCENTIVE SPIROMETER. CONTINUES TO REST WELL. NO SENSATION IN RIGHT FOOT/TOES DUE TO BLOCK RECEIVED IN THE OR. RIGHT FOOT ELEVATED ON PILLOWS/ICE PACKS IN PLACE. SPLINT/SHERI WRAP C/D/I. TOES PINK/WARM. DENIES PAIN/DISCOMFORT. 02 AT 2LNC. SON AT BEDSIDE.
[2022-11-12 05:18] LABS: POC Glucose,Bedside 326 (70-110)
[2022-11-12 07:00] LABS: Chloride 101 mmol/L (98-107); Potassium 4.2 mmoL/L (3.5-5.1); Sodium 136 mmol/L (136-145)
[2022-11-12 07:03] LABS: Alanine Aminotransferase 38 U/L (12-78); Albumin Level 2.9 g/dl (3.5-5.0); Alkaline Phosphatase 177 U/L (38-126); Anion Gap 4.2 mEq/L (5-15); Aspartate Amino Transferase 54 U/L (14-36); Bilirubin,Total 0.4 mg/dl (0.2-1.3); Blood Urea Nitrogen 27 mg/dl (7-17); Carbon Dioxide 35 mmol/L (22.0-30.0); Creatinine Clearance Estimated 61 mL/min (50-200); Estimated Glomerular Filt Rate 60 ml/min (>60); GFR (African American) 73 ML/MIN (>60); Globulin 2.8 g/dL (1.3-3.2); Total Protein,Serum 5.7 g/dl (6.3-8.2)
[2022-11-12 07:04] LABS: Calcium 8.9 mg/dl (8.4-10.2); Glucose 368 mg/dl (74-100); Magnesium 1.7 mg/dl (1.6-2.3)
[2022-11-12 07:53] LABS: Basophils % 0.3 % (0.1-2.0); Eosinophils # 0.1 K/mm3 (0.0-0.4); Hematocrit 44.3 % (37.0-47.0); Hemoglobin 13.8 g/dL (12.2-16.2); Lymphocytes # 1.5 K/mm3 (0.7-4.5); Mean Corpuscular HGB Conc 31.1 g/dL (31.8-35.4); Mean Corpuscular Hemoglobin 28.9 pg (27.0-31.2); Mean Corpuscular Volume 92.9 fl (81-99); Mean Platelet Volume 9.3 fl (7.4-10.4); Monocytes # 0.5 K/mm3 (0.1-1.0); Monocytes % 4.3 % (1.7-9.3); Neutrophils # 10.2 K/mm3 (1.8-7.8); Neutrophils % 82.4 % (37.0-80.0); Platelet Count 205 K/mm3 (142-424); Red Blood Count 4.77 M/mm3 (4.20-5.40); Red Cell Distribution Width 14.1 % (11.5-17.5); White Blood Count 12.4 K/mm3 (4.8-10.8)
--- NOTE | 2022-11-12 08:24 | EXP.PHA.CONS ---
Pharmacy Consult Date: 11/12/22 Time: 08:28 Referring provider: AGA COFFEY Reason for Consult:: VANCOMYCIN DOSING Allergies Allergy/AdvReac Type Severity Reaction Status Date / Time No Known Allergies Allergy Verified 11/02/22 11:25 Home Medications Medication Instructions Recorded Confirmed Type aspirin 81 mg tablet,delayed 81 mg PO DAILY HEART HEALTH 06/23/20 11/10/22 History release magnesium oxide 400 mg PO DAILY Supplement 06/23/20 11/10/22 History alendronate 70 mg tablet 70 mg PO WEEKLY Osteoporosis 11/10/22 11/10/22 History allopurinol 100 mg tablet 100 mg PO DAILY gout 11/10/22 11/10/22 History amlodipine 10 mg tablet 10 mg PO DAILY blood pressure 11/10/22 11/10/22 History blood sugar diagnostic (True 11/10/22 11/10/22 History Metrix Glucose Test Strip) cyclobenzaprine 10 mg tablet 10 mg PO HS muscle spasms 11/10/22 11/10/22 History furosemide 40 mg tablet 40 mg PO DAILY diuretic 11/10/22 11/10/22 History hydrocodone 7.5 mg-acetaminophen 7.5 - 325 tab PO HS PRN Pain 11/10/22 11/10/22 History 325 mg tablet pen needle, diabetic 32 gauge x 11/10/22 11/10/22 History (BD Calli 2nd Gen Pen Needle) potassium chloride 10 mEq 10 meq PO DAILY potassium 11/10/22 11/10/22 History capsule,extended release replacement propylthiouracil 50 mg tablet 50 mg PO BID hyperthyroidism 11/10/22 11/10/22 History metformin 500 mg tablet 500 mg PO BIDWMEAL #0 tabs 11/11/22 Rx sennosides 8.6 mg-docusate sodium 1 tab PO BID #0 tabs 11/11/22 Rx 50 mg tablet (Stool Softener-Stimulant Laxative) New Prescriptions to Start Prescriptions: Height: 1.68 m Weight: 88.451 kg Laboratory Results:: Laboratory Results - last 24 hr 11/11/22 08:00: Sodium 137, Potassium 3.9, Chloride 100, Carbon Dioxide 34 H, Anion Gap 6.9, BUN 21 H, Creatinine 0.80 D, Estimated Creat Clear 59, Estimated GFR 69, Est GFR ( Amer) 83 D, Glucose 187 H, Calcium 9.4 11/11/22 11:18: POC Glucose 198 H 11/11/22 19:53: POC Glucose 178 H 11/11/22 20:45: POC Glucose 195 H 11/12/22 05:09: POC Glucose 326 H* 11/12/22 06:45: Magnesium 1.7 11/12/22 06:45: Sodium 136, Potassium 4.2, Chloride 101, Carbon Dioxide 35 H, Anion Gap 4.2 L, BUN 27 H D, Creatinine 0.90, Estimated Creat Clear 61, Estimated GFR 60, Est GFR ( Amer) 73, Glucose 368 H D, Calcium 8.9, Total Bilirubin 0.4, AST 54 H D, ALT 38, Alkaline Phosphatase 177 H, Total Protein 5.7 L, Albumin 2.9 L, Globulin 2.8, Albumin/Globulin Ratio 1.0 L 11/12/22 07:35: WBC 12.4 H, RBC 4.77, Hgb 13.8, Hct 44.3, MCV 92.9, MCH 28.9, MCHC 31.1 L, RDW 14.1, Plt Count 205, MPV 9.3, Neut % (Auto) 82.4 H, Lymph % (Auto) 12.0, [place] % (Auto) 4.3, Eos % (Auto) 1.0, Baso % (Auto) 0.3, Neut # (Auto) 10.2 H, Lymph # (Auto) 1.5, [place] # (Auto) 0.5, Eos # (Auto) 0.1, Baso # (Auto) 0.0 Medical History: Medical History (Updated 11/10/22 @ 02:29 by Shanta Armendariz RN) Diabetes GERD (gastroesophageal reflux disease) History of fall Hypertension Infection of skin due to methicillin resistant Staphylococcus aureus (MRSA) Assessment and Plan Assessment and plan all Dx Assessment and Plan for all problems:: Pharmacokinetic dosing service Age: 82 yo Serum creatinine: 1 mg/dL (0.9 MG/DL) Height: 66.1 Inches Weight (kg): 88.5 Assessment: IBW (kg): 59.53 Dosing wt(kg): 88.5 Estimated Creatinine clearance (ml/min): 40.8 CRCL method: Cockcroft and Gault using ibw(default). Drug selected: Vancomycin Loading dose (mg): 0 Vd (liters): 70.8 (factor used: 0.8 L/kg) Jan (hr-1): 0.038 Half life (hrs): 18.24 Recommended dose: 1500 mg Interval: 24 hrs Infusion time (hrs): 2.0 Predicted peak (mcg/mL): 34.1 Predicted trough (mcg/mL): 14.78 Total body weight is being used for vancomycin dosing. Recommendations: PATIENT RECEIVED VANCOMYCIN 1 GM PREOP AND RECEIVED VANCOMYCI
--- NOTE | 2022-11-12 09:07 | PC.NURSE ---
tech note; O2 sat of 93 on RA
--- NOTE | 2022-11-12 10:05 | EXP.ORTH.PN ---
Subjective *Date: 11/12/22 *Time: 10:17 Interval history: Mrs. Castle is an 82-year-old female patient who underwent an uneventful open reduction internal fixation of her right trimalleolar ankle fracture yesterday evening 11/11/[address] Morgan. Today the patient is postop day #1. This morning she is sitting up comfortably in a chair at the bedside and her son and [id number] are present. She states some right ankle pain but states that it is well controlled with as needed pain medication rest. She states that she slept well last night. She is in great spirits and overall reports that she feels better. No history of any distal tingling/numbness. She denies any other symptoms or concerns at this time. Ortho Exam (Inpt) Vital signs and Labs for Last 24 Hours: Temp Pulse Resp BP Pulse Ox 98.7 F 72 18 136/55 L 93 L 11/12/22 08:00 11/12/22 08:00 11/12/22 08:00 11/12/22 08:00 11/12/22 09:07 Laboratory Results - last 24 hr 11/11/22 11:18: POC Glucose 198 H 11/11/22 19:53: POC Glucose 178 H 11/11/22 20:45: POC Glucose 195 H 11/12/22 05:09: POC Glucose 326 H* 11/12/22 06:45: Magnesium 1.7 11/12/22 06:45: Sodium 136, Potassium 4.2, Chloride 101, Carbon Dioxide 35 H, Anion Gap 4.2 L, BUN 27 H D, Creatinine 0.90, Estimated Creat Clear 61, Estimated GFR 60, Est GFR ( Amer) 73, Glucose 368 H D, Calcium 8.9, Total Bilirubin 0.4, AST 54 H D, ALT 38, Alkaline Phosphatase 177 H, Total Protein 5.7 L, Albumin 2.9 L, Globulin 2.8, Albumin/Globulin Ratio 1.0 L 11/12/22 07:35: WBC 12.4 H, RBC 4.77, Hgb 13.8, Hct 44.3, MCV 92.9, MCH 28.9, MCHC 31.1 L, RDW 14.1, Plt Count 205, MPV 9.3, Neut % (Auto) 82.4 H, Lymph % (Auto) 12.0, [place] % (Auto) 4.3, Eos % (Auto) 1.0, Baso % (Auto) 0.3, Neut # (Auto) 10.2 H, Lymph # (Auto) 1.5, [place] # (Auto) 0.5, Eos # (Auto) 0.1, Baso # (Auto) 0.0 I & O for Labs for Last 24 Hours: Intake & Output 11/09/22 11/10/22 11/11/22 11/12/22 23:59 23:59 23:59 23:59 Intake Total 240 / 240 1360 / 1360 1690 / 1690 Output Total 2300 / 2300 1750 / 1750 1650 / 1650 Balance -2060 / -2060 -390 / -390 40 / 40 Weight 182 lb 188 lb 14.978 oz 195 lb Head: Present normocephalic and atraumatic Eyes: Present as per HPI ENT: Present normal exam Neck: Present normal inspection, full ROM and trachea midline; Absent lymphadenopathy Respiratory: Present normal respiratory effort, able to speak in complete sentences and symmetric chest movement; Absent accessory muscle use Cardiac: Present Reg Rate and Rhythm GI: Present soft; Absent tenderness Comment:: Upon examination of the right foot/ankle: Short leg splint is in place. Dressings are clean, dry, and intact. Skin above and below the splint is intact. Toes appear pink, warm, well-perfused. Sensation to light touch is grossly intact. Patient is actively mobilizing the toes. Skin: Present intact, warm and normal turgor; Absent cyanosis, erythema, lesions or jaundice Neuro: Present Cranial Nerve 2-12 Intact, Motor Function Intact, Sensory Function Intact, alert, awake, oriented x 3, tone normal and moves all extremities; Absent Numbness or Tingling Assessment and Plan *Assessment and plan (1) Ankle fracture, right: Status: Acute Category: Medical Code(s): S82.891A - Other fracture of right lower leg, initial encounter for closed fracture Plan I have discussed clinical findings, diagnostic imaging, and operative findings with the patient and her family. Overall this morning she is doing well from an orthopedic standpoint may be discharged when medically appropriate. Short leg splint is in place and dressings are clean, dry, and intact. Plan to begin PT/OT; patient is to remain nonweightbearing on the right lower extremity, anticipated for 12 weeks. Given her history of wound healing complications, MRSA, and uncontrolled diabetes, plan to continue vancomycin while admitted inpatient, then plan for Bactrim DS twice daily for 7 days postopera
[2022-11-12 12:42] LABS: POC Glucose,Bedside 389 (70-110)
--- NOTE | 2022-11-12 14:21 | EXP.ACUTE.PN ---
Subjective *Date: 11/12/22 *Time: 14:21 Interval history: Tolerates her relief yesterday. Improved pain control with fixation of fracture. Glucose grossly abnormal this morning. no SOA, CP, no nausea or vomiting. Tolerating p.o. intake. Weaned off oxygen this morning. Hemodynamically stable. Family at bedside and updated of plan. Medical Exam Vital signs and Labs for Last 24 Hours: Vital Signs Temp Pulse Pulse Pulse Resp BP BP 11/12/22 12:00 97.6 F 76 18 130/48 L 11/12/22 08:00 11/12/22 09:07 11/12/22 08:00 98.7 F 72 18 136/55 L 11/12/22 03:15 98.0 F 72 16 125/56 L 11/12/22 02:15 98.1 F 73 16 122/57 L 11/12/22 01:15 99.0 F 74 16 125/57 L 11/12/22 00:15 99.1 F 79 16 118/51 L 11/11/22 23:15 99.1 F 84 16 124/56 L 11/11/22 23:15 98.9 F 84 16 124/56 L 11/11/22 23:15 98.9 F 84 16 124/56 L 11/11/22 20:30 11/11/22 22:45 97.7 F 89 20 129/56 L 11/11/22 22:15 98.3 F 85 18 128/60 11/11/22 21:45 97.8 F 94 H 18 148/50 H 11/11/22 21:15 98.1 F 81 16 128/63 11/11/22 21:00 98.0 F 81 16 126/72 11/11/22 20:45 98.0 F 91 H 18 132/68 11/11/22 20:30 98.3 F 92 H 16 125/54 L 11/11/22 20:24 98.0 F 88 18 136/58 L 11/11/22 20:15 97.8 F 87 16 120/56 L 11/11/22 20:05 86 16 119/51 L 11/11/22 19:55 82 14 123/51 L 11/11/22 19:45 98.5 F 89 16 131/54 L 11/11/22 14:44 98.1 F 77 17 127/64 11/11/22 22:14 98 F 88 136/58 L 11/11/22 19:46 98.5 F 89 16 131/54 L Pulse Ox 11/12/22 12:00 94 L 11/12/22 08:00 93 L 11/12/22 09:07 93 L 11/12/22 08:00 96 11/12/22 03:15 97 11/12/22 02:15 97 11/12/22 01:15 96 11/12/22 00:15 96 11/11/22 23:15 96 11/11/22 23:15 96 11/11/22 23:15 96 11/11/22 20:30 94 L 11/11/22 22:45 97 11/11/22 22:15 97 11/11/22 21:45 97 11/11/22 21:15 94 L 11/11/22 21:00 93 L 11/11/22 20:45 86 L 11/11/22 20:30 94 L 11/11/22 20:24 96 11/11/22 20:15 95 11/11/22 20:05 97 11/11/22 19:55 97 11/11/22 19:45 92 L 11/11/22 14:44 99 11/11/22 22:14 11/11/22 19:46 Intake and Output 11/11/22 11/12/22 11/12/22 23:59 07:59 15:59 Intake Total 1000 / 1360 1105 / 1930 825 / 1930 Output Total 1650 / 1650 Balance 1000 / -390 -545 / 280 825 / 280 Intake: Intake, Oral Amount 480 / 960 480 / 960 Intake, Total IV Amount 1000 / 1000 625 / 970 345 / 970 Ringers Solution,Lactated 1,000 625 / 970 345 / 970 ml @ 75 mls/hr IV .[id number] [facility] Rx#:[id number] Output: Output, Urine Amount 825 / 825 Output, Urine Amount (Catheter) 825 / 825 Sánchez 825 / 825 Other: Number of Unmeasured Voids 1 Weight 88.451 kg 88.451 kg Patient Weight 11/12/22 23:59 Weight 88.451 kg Laboratory Results - last 24 hr 11/11/22 19:53: POC Glucose 178 H 11/11/22 20:45: POC Glucose 195 H 11/12/22 05:09: POC Glucose 326 H* 11/12/22 06:45: Magnesium 1.7 11/12/22 06:45: Sodium 136, Potassium 4.2, Chloride 101, Carbon Dioxide 35 H, Anion Gap 4.2 L, BUN 27 H D, Creatinine 0.90, Estimated Creat Clear 61, Estimated GFR 60, Est GFR ( Amer) 73, Glucose 368 H D, Calcium 8.9, Total Bilirubin 0.4, AST 54 H D, ALT 38, Alkaline Phosphatase 177 H, Total Protein 5.7 L, Albumin 2.9 L, Globulin 2.8, Albumin/Globulin Ratio 1.0 L 11/12/22 07:35: WBC 12.4 H, RBC 4.77, Hgb 13.8, Hct 44.3, MCV 92.9, MCH 28.9, MCHC 31.1 L, RDW 14.1, Plt Count 205, MPV 9.3, Neut % (Auto) 82.4 H, Lymph % (Auto) 12.0, [place] % (Auto) 4.3, Eos % (Auto) 1.0, Baso % (Auto) 0.3, Neut # (Auto) 10.2 H, Lymph # (Auto) 1.5, [place] # (Auto) 0.5, Eos # (Auto) 0.1, Baso # (Auto) 0.0 11/12/22 11:11: POC Glucose 389 H* I & O for Labs for Last 24 Hours: Intake & Output 11/09/22 11/10/22 11/11/22 11/12/22 23:59 23:59 23:59 23:59 Intake Total 240 / 240 1360 / 1360 1930 / 1930 Output Total 2300 / 2300 1750 / 1750 16
[2022-11-12 17:58] LABS: POC Glucose,Bedside 279 (70-110)
--- NOTE | 2022-11-12 19:42 | PC.NURSE ---
PT IS RESTING IN BED. ALERT AND ORIENTED X4. EATING AND DRINKING WELL. PT TOLERATED SITTING UP IN THE CHAIR FOR SEVERAL HOURS THIS SHIFT. O2 SATURATION 90-95% ON ROOM AIR. ABDOMEN SOFT/NON TENDER WITH ACTIVE BOWEL SOUNDS. WILL CONTINUE TO MONITOR.
[2022-11-12 21:27] LABS: POC Glucose,Bedside 275 (70-110)
[2022-11-13] VITALS: BP 119/53; PULSE 79; RESP 18; TEMP 36.9; O2SAT 96
[2022-11-13 04:00] VITALS: BP 131/80; PULSE 69; RESP 16; TEMP 36.4; O2SAT 94; BMI 32.9
--- NOTE | 2022-11-13 06:52 | PC.NURSE ---
Pt has c/o pain in right ankle 1x t/o shift. PRN pain medication administered, pt states favorable results. DSG to right ankle CDI. Call light within reach. Bed alarm on for pt safety.
[2022-11-13 07:09] LABS: POC Glucose,Bedside 156 (70-110)
[2022-11-13 08:00] VITALS: BP 123/47; PULSE 72; RESP 18; TEMP 36.9; O2SAT 95
[2022-11-13 08:40] LABS: Basophils % 0.4 % (0.1-2.0); Chloride 103 mmol/L (98-107); Eosinophils # 0.3 K/mm3 (0.0-0.4); Eosinophils % 2.6 % (0.1-12.0); Hematocrit 41.8 % (37.0-47.0); Hemoglobin 12.9 g/dL (12.2-16.2); Lymphocytes # 2.5 K/mm3 (0.7-4.5); Lymphocytes % 22.2 % (10-50); Mean Corpuscular HGB Conc 30.9 g/dL (31.8-35.4); Mean Corpuscular Hemoglobin 28.8 pg (27.0-31.2); Mean Platelet Volume 9.4 fl (7.4-10.4); Monocytes # 0.7 K/mm3 (0.1-1.0); Monocytes % 6.4 % (1.7-9.3); Neutrophils # 7.7 K/mm3 (1.8-7.8); Neutrophils % 68.4 % (37.0-80.0); Platelet Count 217 K/mm3 (142-424); Red Cell Distribution Width 14.4 % (11.5-17.5); White Blood Count 11.3 K/mm3 (4.8-10.8)
[2022-11-13 08:41] LABS: Potassium 3.7 mmoL/L (3.5-5.1); Sodium 139 mmol/L (136-145)
[2022-11-13 08:43] LABS: Alanine Aminotransferase 30 U/L (12-78); Alkaline Phosphatase 188 U/L (38-126); Aspartate Amino Transferase 40 U/L (14-36); Bilirubin,Total 0.4 mg/dl (0.2-1.3); Blood Urea Nitrogen 25 mg/dl (7-17); Creatinine Clearance Estimated 64 mL/min (50-200); Estimated Glomerular Filt Rate 80 ml/min (>60); GFR (African American) 97 ML/MIN (>60)
[2022-11-13 08:44] LABS: Albumin Level 2.9 g/dl (3.5-5.0); Anion Gap 4.7 mEq/L (5-15); Calcium 8.9 mg/dl (8.4-10.2); Carbon Dioxide 35 mmol/L (22.0-30.0); Globulin 2.8 g/dL (1.3-3.2); Glucose 197 mg/dl (74-100); Magnesium 1.5 mg/dl (1.6-2.3); Total Protein,Serum 5.7 g/dl (6.3-8.2)
[2022-11-13 09:20] LABS: POC Glucose,Bedside 184 (70-110)
--- NOTE | 2022-11-13 10:05 | EXP.PN ---
Subjective *Date: 11/13/22 *Time: 10:05 Interval history: Date of service November 13, 2022 The patient is accompanied by physical therapy and they are transitioning her from the bed to a bedside chair. The patient reports adequate pain control. Nursing staff report that she remains afebrile with stable vital signs and saturating appropriately on room air. Case management is assisting with transition of care to inpatient rehab. Exam Data for Last 24 hours Vital signs and Labs for Last 24 Hours: Temp Pulse Resp BP Pulse Ox 98.5 F 72 18 123/47 L 95 11/13/22 08:00 11/13/22 08:00 11/13/22 08:00 11/13/22 08:00 11/13/22 08:00 Laboratory Results - last 24 hr 11/11/22 17:05: POC Glucose 184 H 11/12/22 11:11: POC Glucose 389 H* 11/12/22 17:14: POC Glucose 279 H 11/12/22 20:59: POC Glucose 275 H 11/13/22 06:54: POC Glucose 156 H 11/13/22 07:49: WBC 11.3 H, RBC 4.50, Hgb 12.9, Hct 41.8, MCV 93.0, MCH 28.8, MCHC 30.9 L, RDW 14.4, Plt Count 217, MPV 9.4, Neut % (Auto) 68.4, Lymph % (Auto) 22.2, [place] % (Auto) 6.4, Eos % (Auto) 2.6, Baso % (Auto) 0.4, Neut # (Auto) 7.7, Lymph # (Auto) 2.5, [place] # (Auto) 0.7, Eos # (Auto) 0.3, Baso # (Auto) 0.0 11/13/22 07:49: Sodium 139, Potassium 3.7, Chloride 103, Carbon Dioxide 35 H, Anion Gap 4.7 L, BUN 25 H, Creatinine 0.70 D, Estimated Creat Clear 64, Estimated GFR 80, Est GFR ( Amer) 97 D, Glucose 197 H, Calcium 8.9, Magnesium 1.5 L D, Total Bilirubin 0.4, AST 40 H D, ALT 30, Alkaline Phosphatase 188 H, Total Protein 5.7 L, Albumin 2.9 L, Globulin 2.8, Albumin/Globulin Ratio 1.0 L I & O for Last 24 hours: Intake & Output 11/10/22 11/11/22 11/12/22 11/13/22 23:59 23:59 23:59 23:59 Intake Total 240 / 240 1360 / 1360 2170 / 2170 1341 / 1341 Output Total 2300 / 2300 1750 / 1750 1650 / 1650 Balance -2060 / -2060 -390 / -390 520 / 520 1341 / 1341 Weight 85.7 kg 88.451 kg 93.032 kg Constitutional Constitutional: no acute distress *Routine HEENT Exam Head: Present normocephalic Eye: Present EOMI and PERRL ENT: Present mucous membranes moist *Routine Neck Exam Neck: Present supple; Absent lymphadenopathy *Routine Respiratory Exam Respiratory: Present CTA bilaterally *Routine Cardiovascular Exam Cardiovascular: Present RRR *Routine Abdominal Exam Abdominal: Present soft and normoactive bowel sounds; Absent tenderness *Routine Extremities Exam Comments: Right lower extremity with surgical dressing and Von wrap to below knee. *Routine Skin Exam Skin: Present warm; Absent rash *Routine Neurological Exam Neurological: Present alert and oriented X3 Assessment and Plan *Assessment and plan (1) Ankle fracture, right: Status: Acute Category: Medical Code(s): S82.891A - Other fracture of right lower leg, initial encounter for closed fracture (2) Diabetes: Status: Acute Category: Medical Code(s): E11.9 - Type 2 diabetes mellitus without complications (3) Hypertension: Status: Acute Category: Medical Code(s): I10 - Essential (primary) hypertension (4) Diabetic foot infection: Status: Acute Category: Medical Code(s): E11.628 - Type 2 diabetes mellitus with other skin complications; L08.9 - Local infection of the skin and subcutaneous tissue, unspecified (5) Hyperlipidemia: Status: Acute Category: Medical Code(s): E78.5 - Hyperlipidemia, unspecified Plan 82-year-old female who presented due to a slip-fall injury at ground level that resulted in a comminuted and moderately displaced triamalleolar ankle fracture with moderate lateral displacement of the dome of the talus. Hospitalist consulted for admission, decision made to admit for IV pain control and PT eval along with orthopedics eval given inability to bear weight. Status post surgical fixation of right ankle fracture on November 11, 2022. [facility] Problems addres
[2022-11-13 11:45] LABS: POC Glucose,Bedside 179 (70-110)
[2022-11-13 11:55] VITALS: BP 124/63; PULSE 76; RESP 16; TEMP 36.6; O2SAT 95
[2022-11-13 16:00] VITALS: BP 120/51; PULSE 76; RESP 18; TEMP 37.1; O2SAT 94
[2022-11-13 16:59] LABS: POC Glucose,Bedside 221 (70-110)
--- NOTE | 2022-11-13 18:33 | PC.NURSE ---
pt has rested well this shift. Was able to get up to the Chair with 2x assist. incontinent of bladder. pt able to wiggle toes. pt requests pain medication q4 but says pain is manageable once she is medicated. denies any SOA. has had family @ bedside through out the shift.
[2022-11-13 20:00] VITALS: BP 142/59; PULSE 80; RESP 16; TEMP 36.7; O2SAT 91
[2022-11-13 20:49] LABS: POC Glucose,Bedside 226 (70-110)
[2022-11-14] VITALS (8 sets, daily range): BP systolic 122–144; BP diastolic 53–64; PULSE 75–98; RESP 18–20; TEMP 36.7–37.1; O2SAT 92–97; BMI 32.7
--- NOTE | 2022-11-14 05:22 | PC.NURSE ---
Pt. had one wet brief over night. She has gotten 2 pain pills on my shift and states if she needs anyting.
[2022-11-14 05:48] LABS: POC Glucose,Bedside 93 (70-110)
--- NOTE | 2022-11-14 08:20 | EXP.PN ---
Subjective *Date: 11/14/22 *Time: 08:20 Interval history: Date of service November 14, 2022 The patient reports no acute events overnight. She continues to report adequate pain control. I am accompanied by her nurse this morning. She remains afebrile with stable vital signs and saturating appropriately on room air. The patient continues to interact with PT. Case management is assisting with next site of care. Exam Data for Last 24 hours Vital signs and Labs for Last 24 Hours: Temp Pulse Resp BP Pulse Ox 98.7 F 78 18 132/53 L 95 11/14/22 04:00 11/14/22 04:00 11/14/22 04:00 11/14/22 04:00 11/14/22 04:00 Laboratory Results - last 24 hr 11/11/22 17:05: POC Glucose 184 H 11/13/22 07:49: WBC 11.3 H, RBC 4.50, Hgb 12.9, Hct 41.8, MCV 93.0, MCH 28.8, MCHC 30.9 L, RDW 14.4, Plt Count 217, MPV 9.4, Neut % (Auto) 68.4, Lymph % (Auto) 22.2, [place] % (Auto) 6.4, Eos % (Auto) 2.6, Baso % (Auto) 0.4, Neut # (Auto) 7.7, Lymph # (Auto) 2.5, [place] # (Auto) 0.7, Eos # (Auto) 0.3, Baso # (Auto) 0.0 11/13/22 07:49: Sodium 139, Potassium 3.7, Chloride 103, Carbon Dioxide 35 H, Anion Gap 4.7 L, BUN 25 H, Creatinine 0.70 D, Estimated Creat Clear 64, Estimated GFR 80, Est GFR ( Amer) 97 D, Glucose 197 H, Calcium 8.9, Magnesium 1.5 L D, Total Bilirubin 0.4, AST 40 H D, ALT 30, Alkaline Phosphatase 188 H, Total Protein 5.7 L, Albumin 2.9 L, Globulin 2.8, Albumin/Globulin Ratio 1.0 L 11/13/22 11:34: POC Glucose 179 H 11/13/22 16:49: POC Glucose 221 H 11/13/22 20:34: POC Glucose 226 H 11/14/22 05:42: POC Glucose 93 I & O for Last 24 hours: Intake & Output 11/11/22 11/12/22 11/13/22 11/14/22 23:59 23:59 23:59 23:59 Intake Total 1360 / 1360 2170 / 2170 2060 Output Total 1750 / 1750 1650 / 1650 300 / 300 Balance -390 / -390 520 / 520 2060 -300 / -300 Weight 88.451 kg 93.032 kg 92.306 kg Constitutional Constitutional: no acute distress *Routine HEENT Exam Head: Present normocephalic Eye: Present EOMI and PERRL ENT: Present mucous membranes moist *Routine Neck Exam Neck: Present supple; Absent lymphadenopathy *Routine Respiratory Exam Respiratory: Present CTA bilaterally *Routine Cardiovascular Exam Cardiovascular: Present RRR *Routine Abdominal Exam Abdominal: Present soft and normoactive bowel sounds; Absent tenderness *Routine Extremities Exam Comments: Right lower extremity with surgical dressing and Von wrap to below knee. *Routine Skin Exam Skin: Present warm; Absent rash *Routine Neurological Exam Neurological: Present alert and oriented X3 Assessment and Plan *Assessment and plan (1) Ankle fracture, right: Status: Acute Category: Medical Code(s): S82.891A - Other fracture of right lower leg, initial encounter for closed fracture (2) Diabetes: Status: Acute Category: Medical Code(s): E11.9 - Type 2 diabetes mellitus without complications (3) Hypertension: Status: Acute Category: Medical Code(s): I10 - Essential (primary) hypertension (4) Diabetic foot infection: Status: Acute Category: Medical Code(s): E11.628 - Type 2 diabetes mellitus with other skin complications; L08.9 - Local infection of the skin and subcutaneous tissue, unspecified (5) Hyperlipidemia: Status: Acute Category: Medical Code(s): E78.5 - Hyperlipidemia, unspecified Plan 82-year-old female who presented due to a slip-fall injury at ground level that resulted in a comminuted and moderately displaced triamalleolar ankle fracture with moderate lateral displacement of the dome of the talus. Hospitalist consulted for admission, decision made to admit for IV pain control and PT eval along with orthopedics eval given inability to bear weight. Status post surgical fixation of right ankle fracture on November 11, 2022. Awaiting pre-CERT for placement with [facility] facility for rehab. Problems addressed as follows: -Right Ankle
[2022-11-14 10:58] LABS: Vancomycin,Trough 11.4 ug/mL (5.0-10.0)
--- NOTE | 2022-11-14 11:14 | EXP.PHA.CONS ---
Pharmacy Consult Date: 11/14/22 Time: 11:15 Referring provider: DR RAYMOND Reason for Consult:: VANCOMYCIN TROUGH LEVEL OBTAINED Allergies Allergy/AdvReac Type Severity Reaction Status Date / Time No Known Allergies Allergy Verified 11/02/22 11:25 Home Medications Medication Instructions Recorded Confirmed Type magnesium oxide 400 mg PO DAILY Supplement 06/23/20 11/10/22 History alendronate 70 mg tablet 70 mg PO WEEKLY Osteoporosis 11/10/22 11/10/22 History allopurinol 100 mg tablet 100 mg PO DAILY gout 11/10/22 11/10/22 History amlodipine 10 mg tablet 10 mg PO DAILY blood pressure 11/10/22 11/10/22 History blood sugar diagnostic (True 11/10/22 11/10/22 History Metrix Glucose Test Strip) cyclobenzaprine 10 mg tablet 10 mg PO HS muscle spasms 11/10/22 11/10/22 History furosemide 40 mg tablet 40 mg PO DAILY diuretic 11/10/22 11/10/22 History hydrocodone 7.5 mg-acetaminophen 7.5 - 325 tab PO HS PRN Pain 11/10/22 11/10/22 History 325 mg tablet pen needle, diabetic 32 gauge x 11/10/22 11/10/22 History 5/32 (BD Calli 2nd Gen Pen Needle) potassium chloride 10 mEq 10 meq PO DAILY potassium 11/10/22 11/10/22 History capsule,extended release replacement propylthiouracil 50 mg tablet 50 mg PO BID hyperthyroidism 11/10/22 11/10/22 History metformin 500 mg tablet 500 mg PO BIDWMEAL #0 tabs 11/11/22 Rx sennosides 8.6 mg-docusate sodium 1 tab PO BID #0 tabs 11/11/22 Rx 50 mg tablet (Stool Softener-Stimulant Laxative) New Prescriptions to Start Prescriptions: Height: 1.68 m Weight: 92.306 kg Laboratory Results:: Laboratory Results - last 24 hr 11/13/22 11:34: POC Glucose 179 H 11/13/22 16:49: POC Glucose 221 H 11/13/22 20:34: POC Glucose 226 H 11/14/22 05:42: POC Glucose 93 11/14/22 10:01: Vancomycin Trough 11.4 H Medical History: Medical History (Updated 11/10/22 @ 02:29 by Stellna A Livingood, RN) Diabetes GERD (gastroesophageal reflux disease) History of fall Hypertension 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 RECOMMEND CONTINUING CURRENT REGIMEN OF VANCOMYCIN 1500 MG Q24H.
[2022-11-14 12:00] LABS: POC Glucose,Bedside 255 (70-110)
[2022-11-14 15:52] LABS: Vancomycin,Peak 29.3 ug/ml (11-39)
[2022-11-14 16:35] LABS: POC Glucose,Bedside 130 (70-110)
[2022-11-14 19:59] LABS: POC Glucose,Bedside 242 (70-110)
--- NOTE | 2022-11-14 22:08 | PC.NURSE ---
Pt educated on the prevention of DVT and scud use.
[2022-11-15 04:00] VITALS: BP 117/54; PULSE 66; RESP 21; TEMP 36.9; O2SAT 93; BMI 32.7
--- NOTE | 2022-11-15 04:24 | PC.NURSE ---
Pt. to possibly go to rehab at [facility] today if d/c. No changes overnight.
--- NOTE | 2022-11-15 05:03 | PC.NURSE ---
pt. has small skin tear to right arm with mepilex in place. Small open area to coccyx with mepilex replaced. Ulcer noted to left heel. Small open are to cavazos with dressing in place. Purple bruise to right upper arm.
[2022-11-15 05:53] LABS: POC Glucose,Bedside 70 (70-110)
[2022-11-15 06:02] LABS: Basophils # 0.1 K/mm3 (0-0.2); Basophils % 0.3 % (0.1-2.0); Eosinophils # 0.2 K/mm3 (0.0-0.4); Hematocrit 44.3 % (37.0-47.0); Hemoglobin 14.2 g/dL (12.2-16.2); Lymphocytes # 1.6 K/mm3 (0.7-4.5); Lymphocytes % 10.6 % (10-50); Mean Corpuscular Hemoglobin 28.9 pg (27.0-31.2); Mean Corpuscular Volume 90.2 fl (81-99); Mean Platelet Volume 8.9 fl (7.4-10.4); Monocytes # 0.9 K/mm3 (0.1-1.0); Monocytes % 5.8 % (1.7-9.3); Neutrophils # 12.8 K/mm3 (1.8-7.8); Neutrophils % 82.4 % (37.0-80.0); Platelet Count 291 K/mm3 (142-424); Red Blood Count 4.91 M/mm3 (4.20-5.40); Red Cell Distribution Width 14.4 % (11.5-17.5); White Blood Count 15.5 K/mm3 (4.8-10.8)
[2022-11-15 06:09] LABS: MANUAL DIFFERENTIAL MANUAL DIFFERENTIAL (MANUAL DIFF)
[2022-11-15 06:11] LABS: Chloride 102 mmol/L (98-107)
[2022-11-15 06:12] LABS: Potassium 4.1 mmoL/L (3.5-5.1); Sodium 138 mmol/L (136-145)
[2022-11-15 06:14] LABS: Blood Urea Nitrogen 22 mg/dl (7-17); Creatinine Clearance Estimated 63 mL/min (50-200); Estimated Glomerular Filt Rate 96 ml/min (>60); GFR (African American) 116 ML/MIN (>60)
[2022-11-15 06:15] LABS: Anion Gap 6.1 mEq/L (5-15); Calcium 9.1 mg/dl (8.4-10.2); Carbon Dioxide 34 mmol/L (22.0-30.0); Glucose 72 mg/dl (74-100); Magnesium 1.5 mg/dl (1.6-2.3)
[2022-11-15 06:50] LABS: Lymphocytes % 16 % (10-50); Monocytes % 2 % (2-9); Neutrophils % 82 % (42-76); Platelet Estimate Normal; RBC Morphology Normal; Total Cells Counted 100
[2022-11-15 07:18] VITALS: BP 135/66; PULSE 84; RESP 17; TEMP 36.9; O2SAT 96
--- NOTE | 2022-11-15 07:59 | EXP.PN ---
Subjective *Date: 11/15/22 *Time: 07:59 Interval history: Date of service November 15, 2022 The patient reports no acute events overnight. She reports adequate pain control. Nursing staff report that she remains afebrile with stable vital signs and saturating appropriately on her supplemental oxygen. She continues with right lower extremity postoperative care and case management is assisting with next site of care. We have reviewed and discussed her morning labs including a white blood cell count 15.5, hemoglobin 14.2, hematocrit 44 and platelet count of 291. She is tolerating her IV vancomycin with no adverse events and we are monitoring for toxicity. Her electrolytes this morning are normal and her BUN is 22 with a creatinine 0.6. Her glucose trend has improved and her morning glucose is 72. Her morning magnesium is 1.5 and it is being replaced. Exam Data for Last 24 hours Vital signs and Labs for Last 24 Hours: Temp Pulse Resp BP Pulse Ox 98.5 F 84 17 135/66 96 11/15/22 07:18 11/15/22 07:18 11/15/22 07:18 11/15/22 07:18 11/15/22 07:18 Laboratory Results - last 24 hr 11/14/22 10:01: Vancomycin Trough 11.4 H 11/14/22 11:48: POC Glucose 255 H 11/14/22 15:05: Vancomycin Peak 29.3 11/14/22 16:22: POC Glucose 130 H 11/14/22 19:50: POC Glucose 242 H 11/15/22 05:45: POC Glucose 70 11/15/22 05:51: WBC 15.5 H D, RBC 4.91, Hgb 14.2, Hct 44.3, MCV 90.2, MCH 28.9, MCHC 32.0, RDW 14.4, Plt Count 291 D, MPV 8.9, Neut % (Auto) 82.4 H, Lymph % (Auto) 10.6, [place] % (Auto) 5.8, Eos % (Auto) 1.0, Baso % (Auto) 0.3, Neut # (Auto) 12.8 H, Lymph # (Auto) 1.6, [place] # (Auto) 0.9, Eos # (Auto) 0.2, Baso # (Auto) 0.1, Total Counted 100, Neutrophils % (Manual) 82 H, Lymphocytes % (Manual) 16, Monocytes % (Manual) 2, Platelet Estimate Normal, RBC Morphology Normal 11/15/22 05:51: Sodium 138, Potassium 4.1, Chloride 102, Carbon Dioxide 34 H, Anion Gap 6.1, BUN 22 H, Creatinine 0.60, Estimated Creat Clear 63, Estimated GFR 96, Est GFR ( Amer) 116, Glucose 72 L, Calcium 9.1, Magnesium 1.5 L I & O for Last 24 hours: Intake & Output 11/12/22 11/13/22 11/14/22 11/15/22 23:59 23:59 23:59 23:59 Intake Total 2170 / 2170 2060 960 / 960 240 / 240 Output Total 1650 / 1650 2200 / 2200 400 / 400 Balance 520 / 520 2060 -1240 / -1240 -160 / -160 Weight 88.451 kg 93.032 kg 92.306 kg 92.351 kg Constitutional Constitutional: no acute distress *Routine HEENT Exam Head: Present normocephalic Eye: Present EOMI and PERRL ENT: Present mucous membranes moist *Routine Neck Exam Neck: Present supple; Absent lymphadenopathy *Routine Respiratory Exam Respiratory: Present CTA bilaterally *Routine Cardiovascular Exam Cardiovascular: Present RRR *Routine Abdominal Exam Abdominal: Present soft and normoactive bowel sounds; Absent tenderness *Routine Extremities Exam Comments: Right lower extremity with surgical dressing and Von wrap to below knee. *Routine Skin Exam Skin: Present warm; Absent rash *Routine Neurological Exam Neurological: Present alert and oriented X3 Assessment and Plan *Assessment and plan (1) Ankle fracture, right: Status: Acute Category: Medical Code(s): S82.891A - Other fracture of right lower leg, initial encounter for closed fracture (2) Diabetes: Status: Acute Category: Medical Code(s): E11.9 - Type 2 diabetes mellitus without complications (3) Hypertension: Status: Acute Category: Medical Code(s): I10 - Essential (primary) hypertension (4) Diabetic foot infection: Status: Acute Category: Medical Code(s): E11.628 - Type 2 diabetes mellitus with other skin complications; L08.9 - Local infection of the skin and subcutaneous tissue, unspecified (5) Hyperlipidemia: Status: Acute Category: Medical Code(s): E78.5 - Hyperlipidemia, unspecified Plan 82-year-old female who presented due to a slip-fall injury at
--- NOTE | 2022-11-15 09:03 | EXP.PHA.PN ---
Subjective *Date: 11/15/22 *Time: 09:03 Medical Exam Vital signs and Labs for Last 24 Hours: Vital Signs Temp Pulse Resp BP Pulse Ox 11/15/22 07:18 98.5 F 84 17 135/66 96 11/15/22 04:00 98.5 F 66 21 117/54 L 93 L 11/14/22 23:55 98.1 F 98 H 20 124/59 L 97 11/14/22 20:00 97 11/14/22 19:46 98.6 F 82 18 122/56 L 92 L 11/14/22 16:00 98.4 F 78 20 144/60 H 94 L 11/14/22 11:43 98.1 F 80 18 131/62 95 Intake and Output 11/14/22 11/15/22 11/15/22 23:59 07:59 15:59 Intake Total 240 / 960 240 / 240 Output Total 1900 / 2200 400 / 500 100 / 500 Balance -1660 / -1240 -160 / -260 -100 / -260 Intake: Intake, Oral Amount 240 / 960 240 / 240 Output: Output, Urine Amount 1900 / 2200 400 / 500 100 / 500 Other: Number of Unmeasured Voids 0 0 0 Number of Bowel Movements 1 1 Weight 92.351 kg Patient Weight 11/15/22 23:59 Weight 92.351 kg Laboratory Results - last 24 hr 11/14/22 10:01: Vancomycin Trough 11.4 H 11/14/22 11:48: POC Glucose 255 H 11/14/22 15:05: Vancomycin Peak 29.3 11/14/22 16:22: POC Glucose 130 H 11/14/22 19:50: POC Glucose 242 H 11/15/22 05:45: POC Glucose 70 11/15/22 05:51: WBC 15.5 H D, RBC 4.91, Hgb 14.2, Hct 44.3, MCV 90.2, MCH 28.9, MCHC 32.0, RDW 14.4, Plt Count 291 D, MPV 8.9, Neut % (Auto) 82.4 H, Lymph % (Auto) 10.6, [place] % (Auto) 5.8, Eos % (Auto) 1.0, Baso % (Auto) 0.3, Neut # (Auto) 12.8 H, Lymph # (Auto) 1.6, [place] # (Auto) 0.9, Eos # (Auto) 0.2, Baso # (Auto) 0.1, Total Counted 100, Neutrophils % (Manual) 82 H, Lymphocytes % (Manual) 16, Monocytes % (Manual) 2, Platelet Estimate Normal, RBC Morphology Normal 11/15/22 05:51: Sodium 138, Potassium 4.1, Chloride 102, Carbon Dioxide 34 H, Anion Gap 6.1, BUN 22 H, Creatinine 0.60, Estimated Creat Clear 63, Estimated GFR 96, Est GFR ( Amer) 116, Glucose 72 L, Calcium 9.1, Magnesium 1.5 L I & O for Labs for Last 24 Hours: Intake & Output 11/12/22 11/13/22 11/14/22 11/15/22 23:59 23:59 23:59 23:59 Intake Total 2170 / 2170 2060 960 / 960 240 / 240 Output Total 1650 / 1650 2200 / 2200 500 / 500 Balance 520 / 520 2060 -1240 / -1240 -260 / -260 Weight 88.451 kg 93.032 kg 92.306 kg 92.351 kg The patient's infection will respond to the chosen ABx?: Yes (VANCOMYCIN,NO CULTURE PENDING, POSSIBLE CHANGE TO BACTRIM AT DC PER MD NOTE) Is the patient receiving the right drug, dose, and route?: Yes Could a more targeted ABx be ordered?: No
[2022-11-15 10:49] VITALS: BP 121/58; PULSE 82; RESP 17; TEMP 36.8; O2SAT 96
[2022-11-15 11:57] LABS: POC Glucose,Bedside 138 (70-110)
--- NOTE | 2022-11-15 12:47 | EXP.ORTH.PN ---
Subjective *Date: 11/15/22 *Time: 08:45 Interval history: Mrs. Castle is an 82-year-old female patient who underwent an uneventful open reduction internal fixation of her right trimalleolar ankle fracture on 11/11/[address] Morgan. Today the patient is postop day #4. This morning she is lying comfortably in bed. She reports some right ankle pain but states that it has been well controlled over the weekend with as needed pain medication and rest. No history of any distal tingling/numbness. She denies any other symptoms or concerns at this time. Ortho Exam (Inpt) Vital signs and Labs for Last 24 Hours: Temp Pulse Resp BP Pulse Ox 98.3 F 82 17 121/58 L 96 11/15/22 10:49 11/15/22 10:49 11/15/22 10:49 11/15/22 10:49 11/15/22 10:49 Laboratory Results - last 24 hr 11/14/22 15:05: Vancomycin Peak 29.3 11/14/22 16:22: POC Glucose 130 H 11/14/22 19:50: POC Glucose 242 H 11/15/22 05:45: POC Glucose 70 11/15/22 05:51: WBC 15.5 H D, RBC 4.91, Hgb 14.2, Hct 44.3, MCV 90.2, MCH 28.9, MCHC 32.0, RDW 14.4, Plt Count 291 D, MPV 8.9, Neut % (Auto) 82.4 H, Lymph % (Auto) 10.6, [place] % (Auto) 5.8, Eos % (Auto) 1.0, Baso % (Auto) 0.3, Neut # (Auto) 12.8 H, Lymph # (Auto) 1.6, [place] # (Auto) 0.9, Eos # (Auto) 0.2, Baso # (Auto) 0.1, Total Counted 100, Neutrophils % (Manual) 82 H, Lymphocytes % (Manual) 16, Monocytes % (Manual) 2, Platelet Estimate Normal, RBC Morphology Normal 11/15/22 05:51: Sodium 138, Potassium 4.1, Chloride 102, Carbon Dioxide 34 H, Anion Gap 6.1, BUN 22 H, Creatinine 0.60, Estimated Creat Clear 63, Estimated GFR 96, Est GFR ( Amer) 116, Glucose 72 L, Calcium 9.1, Magnesium 1.5 L 11/15/22 11:15: POC Glucose 138 H I & O for Labs for Last 24 Hours: Intake & Output 11/12/22 11/13/22 11/14/22 11/15/22 23:59 23:59 23:59 23:59 Intake Total 2170 / 2170 2060 960 / 960 240 / 240 Output Total 1650 / 1650 2200 / 2200 500 / 500 Balance 520 / 520 2060 -1240 / -1240 -260 / -260 Weight 195 lb 205 lb 1.6 oz 203 lb 8 oz 203 lb 9.6 oz Head: Present normocephalic and atraumatic Eyes: Present as per HPI ENT: Present normal exam Neck: Present normal inspection, full ROM and trachea midline; Absent lymphadenopathy Respiratory: Present normal respiratory effort, able to speak in complete sentences and symmetric chest movement; Absent accessory muscle use Cardiac: Present Reg Rate and Rhythm GI: Present soft; Absent tenderness Comment:: Upon examination of the right foot/ankle: Short leg splint is in place. Dressings are clean, dry, and intact. Skin above and below the splint is intact. Toes appear pink, warm, well-perfused. Sensation to light touch is grossly intact. Patient is actively mobilizing the toes. Skin: Present intact, warm and normal turgor; Absent cyanosis, erythema, lesions or jaundice Neuro: Present Cranial Nerve 2-12 Intact, Motor Function Intact, Sensory Function Intact, alert, awake, oriented x 3, tone normal and moves all extremities; Absent Numbness or Tingling Assessment and Plan *Assessment and plan (1) Ankle fracture, right: Status: Acute Category: Medical Code(s): S82.891A - Other fracture of right lower leg, initial encounter for closed fracture Plan I have discussed clinical findings, diagnostic imaging, and operative findings with the patient. Overall this morning she is doing well from an orthopedic standpoint may be discharged when medically appropriate. Short leg splint is in place and dressings are clean, dry, and intact. Plan to continue PT/OT; patient is to remain nonweightbearing on the right lower extremity, anticipated for 12 weeks. Given her history of wound healing complications, MRSA, and uncontrolled diabetes, plan to continue vancomycin while admitted inpatient, then plan for Bactrim DS twice daily for 7 days upon discharge. Patient is high risk of nonunion, malunion, wound dehiscence, and wound infection given her medical history. Continue res
[2022-11-15 16:00] VITALS: BP 134/61; PULSE 87; RESP 17; TEMP 37.6; O2SAT 97
[2022-11-15 16:57] LABS: POC Glucose,Bedside 195 (70-110)
--- NOTE | 2022-11-15 18:23 | PC.NURSE ---
Hydrocodone given for pain throughout the shift. VS stable and patient remained on room air. Patient able to sit in chair for a couple of hours during the shift. Bandage remains clean. dry, and intact
[2022-11-15 20:00] VITALS: BP 144/59; PULSE 92; RESP 20; TEMP 36.8; O2SAT 94
[2022-11-15 21:48] LABS: POC Glucose,Bedside 221 (70-110)
[2022-11-15 23:39] VITALS: BP 114/50; PULSE 79; RESP 18; TEMP 37.3; O2SAT 91
[2022-11-16 04:00] VITALS: BP 140/56; PULSE 63; RESP 18; TEMP 37.2; O2SAT 96; BMI 30.7
--- NOTE | 2022-11-16 05:40 | PC.NURSE ---
Pt has c/o pain in RLE 2x t/o shift. PRN pain medication administered. No other c/o voiced to staff. Call light within reach.
[2022-11-16 06:08] LABS: POC Glucose,Bedside 111 (70-110)
[2022-11-16 06:37] LABS: Basophils # 0.1 K/mm3 (0-0.2); Basophils % 0.3 % (0.1-2.0); Eosinophils # 0.2 K/mm3 (0.0-0.4); Eosinophils % 1.1 % (0.1-12.0); Hematocrit 40.5 % (37.0-47.0); Lymphocytes # 2.7 K/mm3 (0.7-4.5); Lymphocytes % 12.9 % (10-50); Mean Corpuscular HGB Conc 32.1 g/dL (31.8-35.4); Mean Corpuscular Hemoglobin 28.7 pg (27.0-31.2); Mean Corpuscular Volume 89.2 fl (81-99); Mean Platelet Volume 8.8 fl (7.4-10.4); Monocytes # 1.6 K/mm3 (0.1-1.0); Monocytes % 7.7 % (1.7-9.3); Neutrophils # 16.1 K/mm3 (1.8-7.8); Neutrophils % 77.9 % (37.0-80.0); Platelet Count 289 K/mm3 (142-424); Red Blood Count 4.54 M/mm3 (4.20-5.40); Red Cell Distribution Width 14.3 % (11.5-17.5); White Blood Count 20.7 K/mm3 (4.8-10.8)
[2022-11-16 06:42] LABS: Chloride 103 mmol/L (98-107); Sodium 137 mmol/L (136-145)
[2022-11-16 06:43] LABS: Potassium 3.9 mmoL/L (3.5-5.1)
[2022-11-16 06:45] LABS: Blood Urea Nitrogen 23 mg/dl (7-17); Creatinine Clearance Estimated 59 mL/min (50-200); Estimated Glomerular Filt Rate 80 ml/min (>60); GFR (African American) 97 ML/MIN (>60); MANUAL DIFFERENTIAL MANUAL DIFFERENTIAL (MANUAL DIFF)
[2022-11-16 06:46] LABS: Anion Gap 5.9 mEq/L (5-15); Calcium 8.5 mg/dl (8.4-10.2); Carbon Dioxide 32 mmol/L (22.0-30.0); Glucose 121 mg/dl (74-100); Magnesium 1.8 mg/dl (1.6-2.3)
[2022-11-16 07:44] LABS: Eosinophils % 1 % (0-3); Lymphocytes % 14 % (10-50); Monocytes % 6 % (2-9); Neutrophils % 79 % (42-76); Platelet Estimate Normal; RBC Morphology Normal; Total Cells Counted 100
[2022-11-16 08:00] VITALS: BP 133/52; PULSE 85; RESP 19; TEMP 37.1; O2SAT 94
--- NOTE | 2022-11-16 09:25 | EXP.ORTH.PN ---
Subjective *Date: 11/16/22 *Time: 08:50 Interval history: Mrs. Castle is an 82-year-old female patient who underwent an uneventful open reduction internal fixation of her right trimalleolar ankle fracture on 11/11/[address] Morgan. Today the patient is postop day #5. This morning she is lying comfortably in bed and her family is present at the bedside. She reports some right ankle pain but states that it has been well controlled with as needed pain medication and rest. No history of any distal tingling/numbness, fevers, chills, or rigors. She reports that she has been resting and eating and drinking well. She denies any other symptoms or concerns at this time. Ortho Exam (Inpt) Vital signs and Labs for Last 24 Hours: Temp Pulse Resp BP Pulse Ox 98.7 F 85 19 133/52 L 94 L 11/16/22 08:00 11/16/22 08:00 11/16/22 08:00 11/16/22 08:00 11/16/22 08:00 Laboratory Results - last 24 hr 11/15/22 11:15: POC Glucose 138 H 11/15/22 16:14: POC Glucose 195 H 11/15/22 21:10: POC Glucose 221 H 11/16/22 06:01: POC Glucose 111 H 11/16/22 06:14: WBC 20.7 H* D, RBC 4.54, Hgb 13.0, Hct 40.5, MCV 89.2, MCH 28.7, MCHC 32.1, RDW 14.3, Plt Count 289, MPV 8.8, Neut % (Auto) 77.9, Lymph % (Auto) 12.9, [place] % (Auto) 7.7, Eos % (Auto) 1.1, Baso % (Auto) 0.3, Neut # (Auto) 16.1 H, Lymph # (Auto) 2.7, [place] # (Auto) 1.6 H, Eos # (Auto) 0.2, Baso # (Auto) 0.1, Total Counted 100, Neutrophils % (Manual) 79 H, Lymphocytes % (Manual) 14, Monocytes % (Manual) 6, Eosinophils % (Manual) 1, Platelet Estimate Normal, RBC Morphology Normal 11/16/22 06:14: Sodium 137, Potassium 3.9, Chloride 103, Carbon Dioxide 32 H, Anion Gap 5.9, BUN 23 H, Creatinine 0.70, Estimated Creat Clear 59, Estimated GFR 80, Est GFR ( Amer) 97, Glucose 121 H, Calcium 8.5, Magnesium 1.8 D I & O for Labs for Last 24 Hours: Intake & Output 11/13/22 11/14/22 11/15/22 11/16/22 23:59 23:59 23:59 23:59 Intake Total 2060 960 / 960 1140 / 1260 360 / 360 Output Total 2199 500 / 500 50 / 50 Balance 2060 -1240 / -1240 640 / 760 310 / 310 Weight 205 lb 1.6 oz 203 lb 8 oz 203 lb 9.6 oz 191 lb 4 oz Head: Present normocephalic and atraumatic Eyes: Present as per HPI ENT: Present normal exam Neck: Present normal inspection, full ROM and trachea midline; Absent lymphadenopathy Respiratory: Present normal respiratory effort, able to speak in complete sentences and symmetric chest movement; Absent accessory muscle use Cardiac: Present Reg Rate and Rhythm GI: Present soft; Absent tenderness Comment:: Upon examination of the right foot/ankle: Short leg splint is in place. Dressings are clean, dry, and intact. Skin above and below the splint is intact. Toes appear pink, warm, well-perfused. Sensation to light touch is grossly intact. Patient is actively mobilizing the toes. Skin: Present intact, warm and normal turgor; Absent cyanosis, erythema, lesions or jaundice Neuro: Present Cranial Nerve 2-12 Intact, Motor Function Intact, Sensory Function Intact, alert, awake, oriented x 3, tone normal and moves all extremities; Absent Numbness or Tingling Assessment and Plan *Assessment and plan (1) Ankle fracture, right: Status: Acute Category: Medical Code(s): S82.891A - Other fracture of right lower leg, initial encounter for closed fracture Plan I have discussed the clinical findings and progress with the patient and her family. Short leg splint is in place and dressings are clean, dry, and intact. Plan to continue PT/OT; patient is to remain nonweightbearing on the right lower extremity, anticipated for 12 weeks. Given her history of wound healing complications, MRSA, and uncontrolled diabetes, plan to continue vancomycin while admitted inpatient, then plan for Bactrim DS twice daily for 7 days upon discharge. Patient is high risk of nonunion, malunion, wound dehiscence, and wound infection given her medical history. Continue rest, ice, elevation, a
[2022-11-16 09:44] LABS: Adenovirus F 40/41, stool Not Detected (NotDetected); Astrovirus Not Detected (NotDetected); Campylobacter Not Detected (NotDetected); Clostridium Difficile A/B, PCR Not Detected (NotDetected); Cryptosporidium Not Detected (NotDetected); Cyclospora Cayetanesis Not Detected (NotDetected); Entamoeba histolytica Not Detected (NotDetected); Enteroaggregative E coli Not Detected (NotDetected); Enteropathogenic E coli Not Detected (NotDetected); Enterotoxigenic E coli Not Detected (NotDetected); Giardia lamblia Not Detected (NotDetected); Norovirus Not Detected (NotDetected); Plesimonas Shigalloides, PCR Not Detected (NotDetected); Rotavirus A Not Detected (NotDetected); Salmonella, PCR Not Detected (NotDetected); Sapovirus Not Detected (NotDetected); Shiga-like toxin E coli Not Detected (NotDetected); Shigella Enterovasive E coli Not Detected (NotDetected); Vibrio Cholerae Not Detected (NotDetected); Vibrio, PCR Not Detected (NotDetected); Yersinia Entercolitica, PCR Not Detected (NotDetected)
[2022-11-16 11:01] LABS: POC Glucose,Bedside 262 (70-110)
[2022-11-16 11:23] LABS: Microscopic, Urine URINE MICROSCOPIC (MICROSCOPIC)
[2022-11-16 11:33] LABS: Appearance,Urine CLEAR (Clear); Bilirubin,Urine Negative (Negative); Blood, Urine Negative (Negative); Color,Urine YELLOW (Yellow); Glucose,Urine (UA) Negative (Negative); Ketones,Urine Negative (Negative); Leukocyte Esterase,Urine Negative (Negative); Nitrate,Urine Negative (Negative); Protein,Urine Negative (Negative); Urobilinogen,Urine 0.2 EU/dl (0.2)
[2022-11-16 12:00] VITALS: BP 121/55; PULSE 77; RESP 20; TEMP 36.6; O2SAT 100
[2022-11-16 12:14] LABS: WBC,Urine Occasional #/hpf (0-3)
[2022-11-16 12:15] LABS: Squamous Epithelial Cell,Urine Occasional #/hpf (0-5)
--- NOTE | 2022-11-16 12:54 | PC.NURSE ---
Report called to Jacqueline at [facility]. All questions answered.
--- NOTE | 2022-11-17 13:39 | CARE MANAGER ---
Spoke with nurse at [facility], no issues noted.
== END 2022-11-16 13:45 | DRG 563 ==
LOC: ER 11-10 00:31 → 2ND 11-10 02:18
PROVIDERS: Emergency Medicine; Family Medicine; Nurse Practitioner Family; Orthopaedic Surgery; Admitting Provider Internal Medicine Adolescent Medicine; Emergency Provider Emergency Medicine; PCP Family Medicine; Visit Provider Internal Medicine Adolescent Medicine
PROC: 0QSBXZZ Reposition Right Lower Femur, External Approach (ICD-10-PCS; principal; 2022-11-11 17:00)
DX: S82.851A Displaced trimalleolar fracture of right lower leg, initial encounter for closed fracture (principal); W00.0XXA Fall on same level due to ice and snow, initial encounter; Y92.017 Garden or yard in single-family (private) house as the place of occurrence of the external cause; I10 Essential (primary) hypertension; Z87.891 Personal history of nicotine dependence; E78.5 Hyperlipidemia, unspecified; E11.42 Type 2 diabetes mellitus with diabetic polyneuropathy; E11.621 Type 2 diabetes mellitus with foot ulcer; E05.90 Thyrotoxicosis, unspecified without thyrotoxic crisis or storm; E11.65 Type 2 diabetes mellitus with hyperglycemia; Z79.4 Long term (current) use of insulin; E11.628 Type 2 diabetes mellitus with other skin complications; E66.9 Obesity, unspecified; Z68.30 Body mass index [BMI] 30.0-30.9, adult; R19.7 Diarrhea, unspecified
CPT/HCPCS: 27818; 29515; 27840; 36415; 51702; 70450; 71045; 72125; 72170; 73590; 73600; 73610; 73700; 76000; 80048; 80053; 80202; 81001; 82962; 83036; 83735; 85007; 85025; 87086; 87506; 93005; 97110; 97162; 97166; 97530; 99285; C1713; C1776; C9803; J0696; J2405; J3370; U0003; U0005

== ENCOUNTER 2022-11-30 12:00 | Outpatient (RCR) | payer MEDICARE, SELFPAY | END 2022-11-30 13:00 | disposition home or self-care (01) | LOC: PT 12:00 | PROVIDERS: Visit Provider Orthopaedic Surgery | DX: M25.571 Pain in right ankle and joints of right foot (principal); S82.891A Other fracture of right lower leg, initial encounter for closed fracture | CPT/HCPCS: 97760 ==

== ENCOUNTER → 2022-12-10 11:03 | Outpatient (CLI) | payer MEDICARE, SELFPAY ==
--- NOTE | 2022-12-10 11:07 | XR_ITS ---
FINAL REPORT CLINICAL HISTORY: ankle fracture sx x 4 weeks ago COMPARISON: 11/10/2022 FINDINGS: Three views of the right ankle were obtained. There has been interval ORIF of the distal tibia/fibula. The hardware is intact. No complications identified. There has been interval healing of the previously identified fractures. No new abnormality seen. Degenerative joint disease is noted. There is mild persistent soft tissue edema. IMPRESSION: Interval ORIF with interval healing of previously identified fractures. Persistent soft tissue edema. Reviewed, Interpreted and Dictated by Britni Mina MD Transcribed by Nirmala Madrid Authenticated and [facility]
== END ==
PROVIDERS: PCP Family Medicine; Visit Provider Physician Assistant Surgical
DX: S82.891A Other fracture of right lower leg, initial encounter for closed fracture (principal)
CPT/HCPCS: 73610

== ENCOUNTER → 2023-01-14 10:18 | Outpatient (CLI) | payer MEDICARE, SELFPAY ==
--- NOTE | 2023-01-14 10:21 | XR_ITS ---
FINAL REPORT CLINICAL HISTORY: ORIF rt ankle COMPARISON: 12/10/2022 FINDINGS: RIGHT ANKLE 3 views of the right ankle were obtained. There are sideplate and screws securing the distal fibula. There are sideplate and screws securing the medial malleolus. The mortise appears intact. There is mild soft tissue edema about the ankle. Small plantar spur is noted. IMPRESSION: Post ORIF changes. Reviewed, Interpreted and Dictated by Jun Barreto MD Transcribed by Nirmala Madrid Authenticated and . [facility]
== END ==
PROVIDERS: PCP Family Medicine; Visit Provider Orthopaedic Surgery
DX: S82.891A Other fracture of right lower leg, initial encounter for closed fracture (principal)
CPT/HCPCS: 73610

== ENCOUNTER 2023-01-14 12:23 | Outpatient (RCR) | payer MEDICARE, SELFPAY | END 2023-01-14 13:30 | disposition home or self-care (01) | LOC: PT 12:23 | PROVIDERS: Visit Provider Orthopaedic Surgery | DX: S82.891A Other fracture of right lower leg, initial encounter for closed fracture (principal) | CPT/HCPCS: 97760 ==

== ENCOUNTER → 2023-02-14 13:00 | Outpatient (CLI) | payer MEDICARE, SELFPAY ==
--- NOTE | 2023-02-14 13:02 | CA_ITS ---
FINAL REPORT TECHNIQUE: Compression hughes scale and Doppler evaluation CLINICAL HISTORY: edema, pain, ankle fx and surgery several months ago. FINDINGS: Femoral and popliteal veins show normal compressibility and flow. Visualized portion of the calf veins are patent by Doppler exam. IMPRESSION: No evidence of right lower extremity deep venous thrombosis Reviewed, Interpreted and Dictated by Zheng Germain MD Transcribed by Gaviota Gonzalez Authenticated and [facility]
--- NOTE | 2023-02-14 14:26 | XR_ITS ---
FINAL REPORT CLINICAL HISTORY: fracture COMPARISON: January 14, 2023 FINDINGS: RIGHT ANKLE: Three views of the right ankle were obtained. Post ORIF change of the distal tibia and fibula. Generalized osteopenia. Distal fibular fracture line obscured by hardware. Mortise is intact. IMPRESSION: Healing distal tibia and fibula fractures not well seen. Obscured by hardware. Reviewed, Interpreted and Dictated by Zheng Germain MD Transcribed by Frantz Muse Authenticated and [facility]
--- NOTE | 2023-02-14 14:26 | XR_ITS ---
FINAL REPORT CLINICAL HISTORY: fracture FINDINGS: Three views of the right foot were obtained. Generalized osteopenia. There is no acute fracture or dislocation. Moderate degenerative change of the midfoot. There is no soft tissue abnormality. IMPRESSION: No acute process. Reviewed, Interpreted and Dictated by Zheng Germain MD Transcribed by Frantz Muse Authenticated and [facility]
[2023-02-14 15:11] LABS: Basophils # 0.1 K/mm3 (0-0.2); Basophils % 0.5 % (0.1-2.0); Eosinophils # 0.3 K/mm3 (0.0-0.4); Eosinophils % 2.9 % (0.1-12.0); Hematocrit 44.8 % (37.0-47.0); Hemoglobin 14.9 g/dL (12.2-16.2); Lymphocytes # 3.7 K/mm3 (0.7-4.5); Lymphocytes % 39.8 % (10-50); Mean Corpuscular HGB Conc 33.2 g/dL (31.8-35.4); Mean Corpuscular Hemoglobin 29.7 pg (27.0-31.2); Mean Corpuscular Volume 89.3 fl (81-99); Mean Platelet Volume 8.1 fl (7.4-10.4); Monocytes # 0.6 K/mm3 (0.1-1.0); Monocytes % 6.2 % (1.7-9.3); Neutrophils # 4.7 K/mm3 (1.8-7.8); Neutrophils % 50.6 % (37.0-80.0); Platelet Count 298 K/mm3 (142-424); Red Blood Count 5.02 M/mm3 (4.20-5.40); Red Cell Distribution Width 16.4 % (11.5-17.5); White Blood Count 9.4 K/mm3 (4.8-10.8)
[2023-02-14 15:37] LABS: Hemoglobin A1C 6.9 % (4.0-6.0)
[2023-02-14 15:50] LABS: Alanine Aminotransferase 32 U/L (12-78); Albumin Level 3.5 g/dl (3.5-5.0); Albumin/Globulin Ratio 1.1 (1.1-1.8); Alkaline Phosphatase 266 U/L (38-126); Anion Gap 19.6 mEq/L (5-15); Aspartate Amino Transferase 50 U/L (14-36); Bilirubin,Total 0.5 mg/dl (0.2-1.3); Blood Urea Nitrogen 17 mg/dl (7-17); Calcium 8.9 mg/dl (8.4-10.2); Carbon Dioxide 29 mmol/L (22.0-30.0); Chloride 94 mmol/L (98-107); Estimated Glomerular Filt Rate 69 ml/min (>60); GFR (African American) 83 ML/MIN (>60); Globulin 3.2 g/dL (1.3-3.2); Glucose 205 mg/dl (74-100); Potassium 3.6 mmoL/L (3.5-5.1); Sodium 139 mmol/L (136-145); Total Protein,Serum 6.7 g/dl (6.3-8.2)
[2023-02-14 16:17] LABS: Thyroid Stimulating Hormone 0.03 uIU/mL (0.465-4.68)
== END ==
LOC: RT 13:02
PROVIDERS: PCP Family Medicine; Visit Provider Family Medicine
DX: R60.0 Localized edema (principal); E11.9 Type 2 diabetes mellitus without complications; S82.891A Other fracture of right lower leg, initial encounter for closed fracture; Z79.4 Long term (current) use of insulin
CPT/HCPCS: 36415; 73600; 73620; 80053; 83036; 84443; 85025; 93971

== ENCOUNTER 2023-03-11 16:05 | Inpatient (IN) | payer MEDICARE, SELFPAY ==
[2023-03-11] VITALS (12 sets, daily range): BP systolic 113–139; BP diastolic 51–62; PULSE 84–107; RESP 16–20; TEMP 36.5–36.6; O2SAT 94–100; BMI 29.3; BMI 30.6
--- NOTE | 2023-03-11 17:11 | HMH.EDGENADL ---
Discharge Plan Disposition Patient Disposition: Admitted Prescriptions Prescriptions: No Action magnesium oxide 400 mg magnesium capsule 400 mg PO DAILY colestipol 1 gram tablet See Rx Instructions .ROUTE .COMPLEX Qty: 60 0RF Dose Instruction: TAKE 1 TABLET BY MOUTH TWICE DAILY Rx Instructions: TAKE 1 TABLET BY MOUTH TWICE DAILY potassium chloride 10 mEq capsule, extended release See Rx Instructions .ROUTE .COMPLEX Qty: 30 0RF Dose Instruction: TAKE 1 CAPSULE BY MOUTH DAILY FOR SUPPLEMENT Rx Instructions: TAKE 1 CAPSULE BY MOUTH DAILY FOR SUPPLEMENT metformin 500 mg tablet See Rx Instructions .ROUTE .COMPLEX Qty: 60 0RF Dose Instruction: TAKE 1 TABLET BY MOUTH TWICE DAILY Rx Instructions: TAKE 1 TABLET BY MOUTH TWICE DAILY cyclobenzaprine 10 mg tablet See Rx Instructions .ROUTE .COMPLEX Qty: 30 0RF Dose Instruction: TAKE 1 TABLET BY MOUTH AT BEDTIME FOR MUSCLE SPASMS Rx Instructions: TAKE 1 TABLET BY MOUTH AT BEDTIME FOR MUSCLE SPASMS allopurinol 100 mg tablet See Rx Instructions .ROUTE .COMPLEX Qty: 30 0RF Dose Instruction: TAKE 1 TABLET BY MOUTH DAILY FOR GOUT Rx Instructions: TAKE 1 TABLET BY MOUTH DAILY FOR GOUT alendronate 70 mg tablet See Rx Instructions .ROUTE .COMPLEX Qty: 4 0RF Dose Instruction: TAKE 1 TABLET BY MOUTH EVERY 7 DAYS FOR BONE FARHEEN. HEAD OF BED TO BE ELEVATED AFTER DOSE Rx Instructions: TAKE 1 TABLET BY MOUTH EVERY 7 DAYS FOR BONE FARHEEN. HEAD OF BED TO BE ELEVATED AFTER DOSE gabapentin 300 mg capsule 300 mg PO TID 30 Days Qty: 90 5RF hydrocodone-acetaminophen 5-325 mg tablet 1 tab PO DAILY PRN (Reason: Moderate Pain) Qty: 30 0RF (DME) True Metrix Glucose Test Strip Strip See Rx Instructions .ROUTE .COMPLEX Rx Instructions: TEST BLOOD SUGAR ONCE DAILY furosemide 40 mg tablet 40 mg PO DAILY Label Comments: TAKE 1 TABLET BY MOUTH DAILY propylthiouracil 50 mg tablet 50 mg PO BID Label Comments: TAKE ONE TABLET BY MOUTH TWICE DAILY amlodipine 10 mg tablet 10 mg PO DAILY Label Comments: TAKE 1 TABLET BY MOUTH ONCE DAILY. (DME) pen needle, diabetic [BD Calli 2nd Gen Pen Needle] 32 gauge x needle MISCELLANEOUS Label Comments: USE DIRECTED TWICE DAILY insulin glargine [Lantus Solostar U-100 Insulin] 100 unit/mL (3 mL) Insulin Pen 40 unit SQ HS Qty: 0 0RF insulin lispro [Humalog U-100 Insulin] 100 unit/mL Solution 4 unit SQ AC 30 Days Qty: 0 0RF Rx Instructions: 4 units with meals plus Low Intensity sliding scale nystatin 100,000 unit/gram Ointment 0 g topical TID Qty: 0 0RF sennosides-docusate sodium [Senna with Docusate Sodium] 8.6-50 mg tablet 1 tab-cap PO HS PRN (Reason: constipation) 30 Days Qty: 30 0RF aspirin 81 mg tablet,delayed release (DR/EC) 81 mg PO DAILY 30 Days Qty: 0 0RF Referrals Follow up/Referrals: Don Morales MD [Primary Care Provider] - See instructions Clinical Impressions Clinical Impression: Acute UTI, Ascites, Decompensated hepatic cirrhosis Instructions Patient Instructions: DI for Acute Abdominal Pain Discharge ED Provider: Renée Bland General Adult HPI General Chief complaint: Abdominal Pain Stated complaint: Sever stomach pain,chills Time Seen by Provider: 03/11/23 17:11 Mode of Arrival: Wheelchair Source of Information: Patient Limitations: No Limitations Description of Symptoms (Recalled from ER Triage Doc. by RN): Presents to Ed with complaints of intermittent abd pain x 2 weeks. Reports abd distention with normal bowel movement. Last BM this morning. Denies N/V/D/fever. Patient further report bilateral LE edema x 1 week. 4+ RLE and 3+ LLE. Denies hx of CHF, liver failure, DVT's, and abd surgeries. Status post righ ankle surgery November 2022. History of Present Illness HPI narrative: Patient is an 82-year-old fe
--- NOTE | 2023-03-11 17:11 | PC.NURSE ---
Provider at bedside.
[2023-03-11 17:21] LABS: Microscopic, Urine URINE MICROSCOPIC (MICROSCOPIC)
[2023-03-11 17:25] LABS: Chloride 94 mmol/L (98-107); Potassium 3.7 mmoL/L (3.5-5.1); Sodium 136 mmol/L (136-145)
[2023-03-11 17:28] LABS: Alanine Aminotransferase 36 U/L (12-78); Albumin Level 3.2 g/dl (3.5-5.0); Albumin/Globulin Ratio 0.9 (1.1-1.8); Alkaline Phosphatase 234 U/L (38-126); Anion Gap 17.7 mEq/L (5-15); Aspartate Amino Transferase 56 U/L (14-36); Basophils % 0.2 % (0.1-2.0); Bilirubin,Total 0.4 mg/dl (0.2-1.3); Blood Urea Nitrogen 18 mg/dl (7-17); Calcium 8.7 mg/dl (8.4-10.2); Carbon Dioxide 28 mmol/L (22.0-30.0); Creatinine Clearance Estimated 57 mL/min (50-200); Eosinophils # 0.2 K/mm3 (0.0-0.4); Eosinophils % 1.2 % (0.1-12.0); Estimated Glomerular Filt Rate 60 ml/min (>60); GFR (African American) 73 ML/MIN (>60); Globulin 3.5 g/dL (1.3-3.2); Glucose 130 mg/dl (74-100); Hematocrit 42.9 % (37.0-47.0); Hemoglobin 13.5 g/dL (12.2-16.2); Lipase 39 U/L (23-300); Lymphocytes # 3.7 K/mm3 (0.7-4.5); Lymphocytes % 29.8 % (10-50); Mean Corpuscular HGB Conc 31.5 g/dL (31.8-35.4); Mean Corpuscular Hemoglobin 29.2 pg (27.0-31.2); Mean Corpuscular Volume 92.5 fl (81-99); Mean Platelet Volume 7.7 fl (7.4-10.4); Monocytes # 0.8 K/mm3 (0.1-1.0); Monocytes % 6.5 % (1.7-9.3); Neutrophils # 7.7 K/mm3 (1.8-7.8); Neutrophils % 62.2 % (37.0-80.0); Platelet Count 462 K/mm3 (142-424); Red Blood Count 4.64 M/mm3 (4.20-5.40); Red Cell Distribution Width 16.3 % (11.5-17.5); Total Protein,Serum 6.7 g/dl (6.3-8.2); White Blood Count 12.4 K/mm3 (4.8-10.8)
--- NOTE | 2023-03-11 17:28 | PC.NURSE ---
Warm blanket provided. Pt/son updated on plan of care. Pending labs results for then CT. Son provided a drink. No further complaints. Lights turned off to promote environmental stimuli.
[2023-03-11 17:29] LABS: Appearance,Urine SL CLOUDY (Clear); Bilirubin,Urine Negative (Negative); Blood, Urine 1+ (Negative); Color,Urine YELLOW (Yellow); Glucose,Urine (UA) Negative (Negative); Ketones,Urine Negative (Negative); Leukocyte Esterase,Urine 2+ (Negative); Nitrate,Urine Negative (Negative); Protein,Urine Negative (Negative); Urobilinogen,Urine 0.2 EU/dl (0.2)
[2023-03-11 17:35] LABS: Lactic Acid 6.1 mmol/L (0.7-2.1)
--- NOTE | 2023-03-11 17:35 | PC.NURSE ---
Critical Result received Lactate 6.1. Dr. Bland notified [id number].
--- NOTE | 2023-03-11 17:37 | CT_ITS ---
PROCEDURE INFORMATION: Exam: CTA Abdomen and Pelvis With Contrast Exam date and time: 03/11/2023 5:53 PM Age: 82 years old Clinical indication: Abdominal pain; Generalized; Additional info: Abd pain, la 6 TECHNIQUE: Imaging protocol: Computed tomographic angiography of the abdomen and pelvis with contrast. Exam focused on the arteries. 3D rendering (Not supervised by radiologist): MIP and/or 3D reconstructed images were created by the technologist. Radiation optimization: All CT scans at this facility use at least one of these dose optimization techniques: automated exposure control; mA and/or kV adjustment per patient size (includes targeted exams where dose is matched to clinical indication); or iterative reconstruction. Contrast material: ISOVUE; Contrast volume: 100 ml; Contrast route: INTRAVENOUS (IV); REPORTING DATA: Count of CT and Cardiac NM exams in prior 12 months: This patient has received 3 known CTs and 0 known cardiac nuclear medicine studies in the 12 months prior to the current study. COMPARISON: CR XR PELVIS 1-2V 11/09/2022 11:56 PM FINDINGS: Lungs: Calcified granuloma in the lung bases. Minimal bibasilar atelectasis. Aorta: The aorta has mild atherosclerotic changes. There is no aneurysm or dissection present. Celiac trunk and mesenteric arteries: No occlusion or significant stenosis. Renal arteries: No occlusion or significant stenosis. Right iliac arteries: No occlusion or significant stenosis. Left iliac arteries: No occlusion or significant stenosis. Left upper quadrant varices are suspected adjacent to the stomach. Liver: Suspected fatty infiltration of the liver. Mild surface nodularity of the liver is seen suggesting cirrhosis. Gallbladder and bile ducts: Cholecystectomy. Pancreas: Unremarkable. No mass. No ductal dilation. Spleen: Splenic granulomata. Adrenal glands: Unremarkable. No mass. Kidneys and ureters: There is a 3 mm nonobstructing stone in the lower pole of the left kidney. Stomach and bowel: Scattered regions of bowel wall thickening are present which are likely secondary to ascites no bowel obstruction. Appendix: No evidence of appendicitis. Intraperitoneal space: Small volume ascites. Lymph nodes: Unremarkable. No enlarged lymph nodes. Urinary bladder: Mild bladder wall thickening. Reproductive: Hysterectomy. Bones/joints: There are bilateral total hip arthroplasties present with beam hardening artifact obscuring visualization of the pelvic structures. L3-L5 posterior spinal fusion changes. Mild inferior endplate height loss of L1 is seen which is most likely chronic. Soft tissues: There are surgical clips in the pelvic sidewalls. IMPRESSION: 1. No vascular occlusion or significant stenosis. 2. Cirrhotic morphology of the liver with small volume ascites. 3. Thickened bladder wall. Correlate for cystitis.
--- NOTE | 2023-03-11 18:17 | PC.NURSE ---
Return from CT
[2023-03-11 18:25] LABS: Bacteria,Urine Trace /lpf; Squamous Epithelial Cell,Urine Occasional #/hpf (0-5); WBC,Urine TNTC #/hpf (0-3)
--- NOTE | 2023-03-11 18:49 | PC.NURSE ---
Rounded on patient and family member; pillow provided to patient. Call dale within reach
[2023-03-11 19:46] LABS: Lactic Acid 3.6 mmol/L (0.7-2.1)
[2023-03-11 19:48] LABS: INR 1.08 (0.9-1.1); Prothrombin Time 11.6 seconds (10.1-12.5)
--- NOTE | 2023-03-11 19:57 | PC.NURSE ---
call placed to lab for hep panel
[2023-03-11 20:02] LABS: Coronavirus 19, PCR Not Detected (NotDetected); Influenza A, PCR Not Detected (NotDetected); Influenza B, PCR Not Detected (NotDetected)
[2023-03-11 20:06] LABS: Source, Body Fld. Peritoneal Fluid
[2023-03-11 20:07] LABS: Appearance,Body Fld. Slightly cloudy
[2023-03-11 20:08] LABS: RBC,Body Fluid < 10 cells/uL (< 10 X 10^3); TNC,Body Fluid 842 cells/uL (< 1000); Volume,Body Fld. 24 mL
--- NOTE | 2023-03-11 20:11 | PC.NURSE ---
Registration notified of admission at this time. Pt assigned to room 204.
--- NOTE | 2023-03-11 20:34 | PC.NURSE ---
Report called to therese Sullivan on second floor
--- NOTE | 2023-03-11 20:35 | PC.NURSE ---
RECEIVED PHONE REPORT FROM MARY/ED NURSE AT 2029. PATIENT IS 82 YO FEMALE WITH ACUTE UTI/ASCITES/ HEPATIC CIRRHOSIS/DM. TO BE ADMITTED TO 204. MAY COME ON STRETCHER. PATIENT OF DR DUNAWAY.
--- NOTE | 2023-03-11 20:51 | PC.NURSE ---
pt arrived to the floor at this time
--- NOTE | 2023-03-11 20:51 | EXP.HP ---
History of Present Illness *Admission Date: 03/11/23 *Reason for visit:: abdominal pain with new abdomainal distention , UTI *History of present illness: Ms. Castle is an 82-year-old female who presented to the ER with abdominal pain and bloating. Also complains of suprapubic discomfort. Having some urgency and dysuria over the past few weeks. Sudden abrupt change occurred today which is what led to her coming to the ER. Decrease in bowel movements but overall still stable daily. Denies any blood in her stool. No vomiting, fever, chest pain, shortness of breath. Complains significantly of abdominal distention and increased edema in her lower extremities. Given worry about her distention and abdominal discomfort, family brought her to the ER for evaluation. Work-up initiated showing ascites and cirrhosis on imaging. Urinalysis was obtained showing concern for UTI. Diagnostic paracentesis performed showing concern for possible SBP. Medicine was consulted for admission. Patient initiated on antibiotics with dose of ceftriaxone. [facility] Disclaimer: The information contained in this section may have been updated after the patient was seen, as this information can be updated by other users. Medical History Diabetes Fractured coccyx GERD (gastroesophageal reflux disease) History of fall Hypertension Infection of skin due to methicillin resistant Staphylococcus aureus (MRSA) Sacral fracture, closed Surgical History H/O: hysterectomy Hip joint replacement status History of arthroplasty of right ankle History of back surgery History of colonoscopy History of hip replacement History of lumbar surgery Social History Smoking Status: Never smoker second hand exposure: No alcohol intake: never substance use type: denies use current occupational status: retired Travel in the last 8 weeks: None household members: spouse housing: other Review of Systems Review of Systems Review of systems:: pertinent systems reviewed and negative unless documented below Constitutional Constitutional: Reports anorexia, Reports frequent falls and Reports weight gain Comments: last hydrocodone pain med a week ago for post surgery right ankle Eyes Eyes: Reports system reviewed and no additional complaints, except as documented ENT Ears, Nose, Mouth, and Throat: Reports system reviewed and no additional complaints, except as documented *Cardiovascular Cardiovascular: Reports system reviewed and no additional complaints, except as documented and Reports pedal edema Comments: post surgery right ankle *Respiratory Respiratory: Reports system reviewed and no additional complaints, except as documented Comments: denies any respiratory issues *Gastrointestinal Gastrointestinal: Reports system reviewed and no additional complaints, except as documented, Reports abdominal pain and Reports bloating Comments: denies nausea *Genitourinary Genitourinary: Reports system reviewed and no additional complaints, except as documented and Reports amenorrhea Comments: hysterectomy for cancer in distant past *Musculoskeletal Musculoskeletal: Reports abnormal gait, Reports arthralgias, Reports atrophy, Reports joint swelling and Reports myalgias Comments: history of multiple orthopedic surgeries , caused by falls Integumentary/Breasts Skin/Breast: Reports system reviewed and no additional complaints, except as documented *Neurologic Neurologic: Reports abnormal gait and Reports frequent falls Psychiatric Psychiatric: Reports system reviewed and no additional complaints, except as documented Endocrine Endocrine: Reports system reviewed and no additional complaints, except as documented Comments: dm on insulin Hematologic/Lymphatic Hematologic/Lymphatic: Reports system reviewed and no ad
[2023-03-11 21:18] LABS: Reflex Lactic Add Lactic Reflex
[2023-03-11 22:01] LABS: Mononuclear WBCs,Body Fluid 79 %; Polynuclear WBC,Body Fluid 21 %
[2023-03-11 22:05] LABS: Gamma Glutamyl Transpeptidase 101 U/L (12-43)
--- NOTE | 2023-03-11 22:46 | PC.NURSE ---
PATIENT A/O X 4. ABDOMEN SOFT BUT DISTENDED. TENDERNESS AT SUPRAPUBIC AREA. 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 S/P RIGHT ANKLE FRACTURE 2-[address] STILES PERFORMED SURGERY. BOTH LEGS EDEMATOUS R>L. ABLE TO WIGGLE TOES. + PEDAL PULSES. TOES/FEET WARM/DRY/PINK/GOOD CAP REFILL.
--- NOTE | 2023-03-12 01:29 | PC.NURSE ---
AT 2049 PATIENT ARRIVED TO THE FLOOR. DID NOT BRING HER MED LIST AND THERE HAD BEEN SOME CHANGES. SON AT BEDSIDE CALLED OTHER BROTHER WHO IS TO BRING HER MEDS IN IN THE AM FOR VERIFICATION. PATIENT IS NPO AT THIS TIME ORDERED.
[2023-03-12 04:00] VITALS: BP 119/65; PULSE 89; RESP 18; TEMP 36.6; O2SAT 93; BMI 30.2
[2023-03-12 05:37] LABS: POC Glucose,Bedside 144 (70-110)
[2023-03-12 07:21] VITALS: BP 128/62; PULSE 91; RESP 16; TEMP 36.7; O2SAT 96
[2023-03-12 07:53] LABS: Basophils % 0.2 % (0.1-2.0); Eosinophils # 0.1 K/mm3 (0.0-0.4); Eosinophils % 1.3 % (0.1-12.0); Hemoglobin 12.6 g/dL (12.2-16.2); Lymphocytes # 2.2 K/mm3 (0.7-4.5); Lymphocytes % 21.1 % (10-50); Mean Corpuscular HGB Conc 31.4 g/dL (31.8-35.4); Mean Corpuscular Hemoglobin 29.5 pg (27.0-31.2); Mean Corpuscular Volume 93.9 fl (81-99); Mean Platelet Volume 8.8 fl (7.4-10.4); Monocytes # 0.8 K/mm3 (0.1-1.0); Monocytes % 7.3 % (1.7-9.3); Neutrophils # 7.4 K/mm3 (1.8-7.8); Platelet Count 376 K/mm3 (142-424); Red Blood Count 4.26 M/mm3 (4.20-5.40); Red Cell Distribution Width 16.5 % (11.5-17.5); White Blood Count 10.6 K/mm3 (4.8-10.8)
[2023-03-12 07:57] LABS: Chloride 97 mmol/L (98-107); Potassium 3.8 mmoL/L (3.5-5.1); Sodium 136 mmol/L (136-145)
[2023-03-12 07:59] LABS: Blood Urea Nitrogen 16 mg/dl (7-17); Creatinine Clearance Estimated 59 mL/min (50-200); Estimated Glomerular Filt Rate 80 ml/min (>60); GFR (African American) 97 ML/MIN (>60); Lactic Acid 1.2 mmol/L (0.7-2.1)
[2023-03-12 08:00] LABS: Alanine Aminotransferase 20 U/L (12-78); Albumin Level 2.5 g/dl (3.5-5.0); Albumin/Globulin Ratio 0.8 (1.1-1.8); Alkaline Phosphatase 202 U/L (38-126); Anion Gap 10.8 mEq/L (5-15); Aspartate Amino Transferase 39 U/L (14-36); Bilirubin,Total 0.4 mg/dl (0.2-1.3); Carbon Dioxide 32 mmol/L (22.0-30.0); Total Protein,Serum 5.5 g/dl (6.3-8.2)
[2023-03-12 08:01] LABS: Calcium 7.9 mg/dl (8.4-10.2); Glucose 115 mg/dl (74-100)
[2023-03-12 11:42] LABS: POC Glucose,Bedside 302 (70-110)
--- NOTE | 2023-03-12 12:10 | HMH.PTEV ---
Physical Therapy Evaluation Rehab PT IP Evaluation Start: 03/12/23 09:07 Freq: ONCE Status: Active Protocol: Document 03/12/23 11:29 [email or web address] (Rec: 03/12/23 12:10 SHAWN [id number]) Subjective/History History History Pt is an 82 y/o female who presented to [facility] ED on 03/11/23 for abdominal distension with abdominal pain for 2 weeks along with BLE edema and UTI. Pt reports recent stay at rehab following R ankle fracture surgically repaired in November of 2022. Medical Histroy: Diabetes, Fractured coccyx, GERD ( gastroesophageal reflux disease), History of fall, Hypertension, Infection of skin due to methicillin resistant Staphylococcus aureus (MRSA), Sacral fracture , closed Subjective Subjective Pt reports she lives in a single story home with her and [id number] with a ramp to enter. Pt states she has been using a wheelchair for mobility at home since her return from rehab but does have a walker she uses to transfer herself to the bed and commode. Pt reports she is independent with such transfers but does get wobbly. Pt denies recent falls. Pt reports prior to rehab for her ankle she was using a walker for community ambulation and a cane for household ambulation. Pt reports she just finished rehab and doesn't think her insurance will cover more. Pt states she had home health scheduled to come to her home next week and she would like to return home. Rehab PT IP Eval Objective Appearance Patient Behavior Appropriate,Cooperative Patient Orientation Person,Place,Name,Birthday, Situation Difficulty following
--- NOTE | 2023-03-12 13:50 | HMH.PHAINT1 ---
Pharmacy Intervention Comments: MEDICATION RECONCILIATION COMPLETE USING LIST FROM MOST RECENT MD OFFICE VISIT (02/2023), EXTERNAL PHARMACY FILL HISTORY, AND DANNIELLE REPORT.
[2023-03-12 14:59] VITALS: BP 141/64; PULSE 99; RESP 16; TEMP 37.1; O2SAT 96
--- NOTE | 2023-03-12 15:31 | EXP.ACUTE.PN ---
Subjective *Date: 03/12/23 *Time: 15:58 Interval history: Stable overnight. Denies any nausea or vomiting today. Stable on room air. Having adequate urine output. Patient states her legs are quite swollen and have been more swollen over the past month or 2. States her belly feels somewhat better but is still little uncomfortable. No fevers overnight. Family at bedside, updated on plan Medical Exam Vital signs and Labs for Last 24 Hours: Vital Signs Temp Pulse Pulse Resp BP BP Pulse Ox 03/12/23 14:59 98.8 F 99 H 16 141/64 H 96 03/12/23 07:21 98.1 F 91 H 16 128/62 96 03/12/23 04:00 97.8 F 89 18 119/65 93 L 03/11/23 20:50 94 L 03/11/23 21:00 97.7 F 100 H 20 113/51 L 94 L 03/11/23 20:37 98 F 99 H 18 124/59 L 03/11/23 20:00 98 H 20 127/58 L 98 03/11/23 19:30 94 H 20 132/58 L 97 03/11/23 19:00 92 H 18 139/58 L 96 03/11/23 18:30 92 H 16 136/61 100 03/11/23 17:30 84 118/60 99 03/11/23 17:00 96 H 126/58 L 99 03/11/23 16:30 101 H 129/61 99 03/11/23 16:24 107 H 124/62 99 03/11/23 16:07 97.7 F 101 H 16 124/62 98 Intake and Output 03/11/23 03/12/23 03/12/23 23:59 07:59 15:59 Intake Total 1000 / 1000 0 / 240 240 / 240 Output Total 51 / 51 300 / 525 225 / 525 Balance 949 / 949 -300 / -285 15 / -285 Intake: Intake, Oral Amount 0 / 240 240 / 240 Intake, Total IV Amount 1000 / 1000 Output: Output, Urine Amount 1 / 1 300 / 525 225 / 525 Output, Drainage Amount 50 / 50 Other: Number of Unmeasured Voids 1 0 0 Weight 86.409 kg 85.502 kg Patient Weight 03/12/23 23:59 Weight 85.502 kg Laboratory Results - last 24 hr 03/11/23 16:21: Urine Color Yellow, Urine Appearance Sl cloudy, Urine pH 6.0, Ur Specific [place] 1.020, Urine Protein Negative, Urine Glucose (UA) Negative, Urine Ketones Negative, Urine Blood 1+, Urine Nitrate Negative, Urine Bilirubin Negative, Urine Urobilinogen 0.2, Ur Leukocyte Esterase 2+ A, Urine RBC 3-5, Urine WBC Tntc, Ur Squamous Epith Cells Occasional, Urine Bacteria Trace 03/11/23 16:50: WBC 12.4 H, RBC 4.64, Hgb 13.5, Hct 42.9, MCV 92.5, MCH 29.2, MCHC 31.5 L, RDW 16.3, Plt Count 462 H, MPV 7.7, Neut % (Auto) 62.2, Lymph % (Auto) 29.8, [place] % (Auto) 6.5, Eos % (Auto) 1.2, Baso % (Auto) 0.2, Neut # (Auto) 7.7, Lymph # (Auto) 3.7, [place] # (Auto) 0.8, Eos # (Auto) 0.2, Baso # (Auto) 0.0 03/11/23 16:50: Sodium 136, Potassium 3.7, Chloride 94 L, Carbon Dioxide 28, Anion Gap 17.7 H, BUN 18 H, Creatinine 0.90, Estimated Creat Clear 57, Estimated GFR 60, Est GFR ( Amer) 73, Glucose 130 H, Calcium 8.7, Total Bilirubin 0.4, AST 56 H, ALT 36, Alkaline Phosphatase 234 H, Total Protein 6.7, Albumin 3.2 L, Globulin 3.5 H, Albumin/Globulin Ratio 0.9 L, Lipase 39 03/11/23 16:50: Lactate 6.1 H 03/11/23 16:50: PT 11.6, INR 1.08 03/11/23 16:50: GGT 101 H 03/11/23 19:10: Lactate 3.6 H 03/11/23 19:38: Fluid Source Peritoneal fluid, Fluid Volume 24, Fluid Appearance Slightly cloudy, Fluid RBC (Auto) < 10, Fld Tot Nucleated Cell 842, Fld Polynuclear WBCs % 21, Fld Mononuclear WBCs % 79 03/11/23 19:58: SARS-CoV-2 (PCR) Not detected, Influenza A Untype (PCR) Not detected, Influenza Type B (PCR) Not detected 03/12/23 05:14: POC Glucose 144 H 03/12/23 07:09: WBC 10.6, RBC 4.26, Hgb 12.6, Hct 40.0, MCV 93.9, MCH 29.5, MCHC 31.4 L, RDW 16.5, Plt Count 376, MPV 8.8, Neut % (Auto) 70.0, Lymph % (Auto) 21.1, [place] % (Auto) 7.3, Eos % (Auto) 1.3, Baso % (Auto) 0.2, Neut # (Auto) 7.4, Lymph # (Auto) 2.2, [place] # (Auto) 0.8, Eos # (Auto) 0.1, Baso # (Auto) 0.0 03/12/23 07:09: Sodium 136, Potassium 3.8, Chloride 97 L, Carbon Dioxide 32 H, Anion Gap 10.8, BUN 16, Creatinine 0.70 D, Estimated Creat Clear 59, Estimated GFR 80, Est GFR ( Amer) 97 D, Glucose 115 H, Calcium 7.9 L, Total Bilirubin 0.4, AST 39 H D, ALT 20 D, Alkaline Phosphatase 202 H, Total Protein 5.5 L, Albumin 2.5 L D, Globulin 3.0, Albumin/G
[2023-03-12 15:44] LABS: Thyroid Stimulating Hormone 0.48 uIU/mL (0.465-4.68)
--- NOTE | 2023-03-12 17:02 | PC.NURSE ---
1700 COURTESY ROUND PATIENT AWAKE AND RESTING IN BED . TRASH EMPTIED . PATIENT VOICED SHE HAD NO NEEDS AT THIS TIME .
[2023-03-12 17:10] LABS: POC Glucose,Bedside 257 (70-110)
[2023-03-12 19:40] LABS: POC Glucose,Bedside 163 (70-110)
[2023-03-12 19:49] VITALS: BP 147/67; PULSE 102; RESP 20; TEMP 36.9; O2SAT 95
[2023-03-12 20:00] VITALS: O2SAT 95
[2023-03-13 04:00] VITALS: BP 108/52; PULSE 65; RESP 20; TEMP 36.7; O2SAT 96; BMI 31.1
[2023-03-13 05:14] LABS: POC Glucose,Bedside 196 (70-110)
[2023-03-13 07:24] VITALS: BP 127/65; PULSE 68; RESP 18; TEMP 36.5; O2SAT 97
[2023-03-13 07:43] LABS: Basophils % 0.3 % (0.1-2.0); Eosinophils # 0.3 K/mm3 (0.0-0.4); Eosinophils % 2.5 % (0.1-12.0); Hematocrit 42.2 % (37.0-47.0); Hemoglobin 13.3 g/dL (12.2-16.2); Lymphocytes # 3.1 K/mm3 (0.7-4.5); Lymphocytes % 25.2 % (10-50); Mean Corpuscular HGB Conc 31.6 g/dL (31.8-35.4); Mean Corpuscular Hemoglobin 29.7 pg (27.0-31.2); Mean Corpuscular Volume 93.9 fl (81-99); Mean Platelet Volume 8.3 fl (7.4-10.4); Monocytes # 0.8 K/mm3 (0.1-1.0); Monocytes % 6.5 % (1.7-9.3); Neutrophils % 65.3 % (37.0-80.0); Platelet Count 380 K/mm3 (142-424); Red Blood Count 4.49 M/mm3 (4.20-5.40); Red Cell Distribution Width 16.4 % (11.5-17.5); White Blood Count 12.2 K/mm3 (4.8-10.8)
[2023-03-13 07:57] LABS: Chloride 97 mmol/L (98-107); Sodium 137 mmol/L (136-145)
[2023-03-13 07:58] LABS: Potassium 3.1 mmoL/L (3.5-5.1)
[2023-03-13 08:00] LABS: Alanine Aminotransferase 29 U/L (12-78); Alkaline Phosphatase 208 U/L (38-126); Anion Gap 12.1 mEq/L (5-15); Aspartate Amino Transferase 52 U/L (14-36); Bilirubin,Total 0.2 mg/dl (0.2-1.3); Blood Urea Nitrogen 15 mg/dl (7-17); Carbon Dioxide 31 mmol/L (22.0-30.0); Creatinine Clearance Estimated 60 mL/min (50-200); Estimated Glomerular Filt Rate 60 ml/min (>60); GFR (African American) 73 ML/MIN (>60)
[2023-03-13 08:01] LABS: Albumin Level 2.5 g/dl (3.5-5.0); Albumin/Globulin Ratio 0.8 (1.1-1.8); Calcium 7.6 mg/dl (8.4-10.2); Globulin 3.3 g/dL (1.3-3.2); Glucose 109 mg/dl (74-100); Magnesium 1.1 mg/dl (1.6-2.3); Total Protein,Serum 5.8 g/dl (6.3-8.2)
--- NOTE | 2023-03-13 08:55 | PC.NURSE ---
COURTESY ROUND PATIENT AWAKE LAYING BED . PATIENT VOICED NO NEEDS AT THIS TIME. TRASH EMPTIED AND ICE WATER REFILLED . CALL LIGHT WITH REACHED OF PATIENT
[2023-03-13 10:53] LABS: HBsAg Screen Negative (Negative); HCV Ab Non Reactive (Non Reactive); Hep A Ab, IGM Negative (Negative); Hep B Core Ab, IgM Negative (Negative)
[2023-03-13 10:56] LABS: POC Glucose,Bedside 156 (70-110)
--- NOTE | 2023-03-13 13:55 | EXP.ACUTE.PN ---
Subjective *Date: 03/13/23 *Time: 13:55 Interval history: Stable overnight. Denies any nausea or vomiting today. Stable on room air. Does complain of abdominal discomfort. Has not had a bowel movement in several days. Stable on room air. Responded well to diuretic yesterday. Afebrile overnight Medical Exam Vital signs and Labs for Last 24 Hours: Vital Signs Temp Pulse Resp BP BP Pulse Ox 03/13/23 07:24 97.7 F 68 18 127/65 97 03/13/23 04:00 98.0 F 65 20 108/52 L 96 03/12/23 20:00 95 03/12/23 19:49 98.5 F 102 H 20 147/67 H 95 03/12/23 14:59 98.8 F 99 H 16 141/64 H 96 Intake and Output 03/12/23 03/13/23 03/13/23 23:59 07:59 15:59 Intake Total 240 / 980 860 / 860 Output Total 500 / 1025 400 / 800 400 / 800 Balance -260 / -45 460 / 60 -400 / 60 Intake: Intake, Oral Amount 240 / 980 860 / 860 Output: Output, Urine Amount 500 / 1025 400 / 800 400 / 800 Other: Number of Unmeasured Voids 0 0 1 Weight 87.742 kg Patient Weight 03/13/23 23:59 Weight 87.742 kg Laboratory Results - last 24 hr 03/11/23 20:10: Hepatitis A IgM Ab Negative, Hep Bs Antigen Negative, Hep B Core IgM Ab Negative, Hepatitis C Antibody Non reactive 03/12/23 14:55: TSH 0.48 03/12/23 16:49: POC Glucose 257 H 03/12/23 19:29: POC Glucose 163 H 03/13/23 05:06: POC Glucose 196 H 03/13/23 07:22: WBC 12.2 H, RBC 4.49, Hgb 13.3, Hct 42.2, MCV 93.9, MCH 29.7, MCHC 31.6 L, RDW 16.4, Plt Count 380, MPV 8.3, Neut % (Auto) 65.3, Lymph % (Auto) 25.2, [place] % (Auto) 6.5, Eos % (Auto) 2.5, Baso % (Auto) 0.3, Neut # (Auto) 8.0 H, Lymph # (Auto) 3.1, [place] # (Auto) 0.8, Eos # (Auto) 0.3, Baso # (Auto) 0.0 03/13/23 07:22: Sodium 137, Potassium 3.1 L, Chloride 97 L, Carbon Dioxide 31 H, Anion Gap 12.1, BUN 15, Creatinine 0.90 D, Estimated Creat Clear 60, Estimated GFR 60, Est GFR ( Amer) 73 D, Glucose 109 H, Calcium 7.6 L, Magnesium 1.1 L, Total Bilirubin 0.2, AST 52 H D, ALT 29 D, Alkaline Phosphatase 208 H, Total Protein 5.8 L, Albumin 2.5 L, Globulin 3.3 H, Albumin/Globulin Ratio 0.8 L 03/13/23 10:39: POC Glucose 156 H I & O for Labs for Last 24 Hours: Intake & Output 03/10/23 03/11/23 03/12/23 03/13/23 23:59 23:59 23:59 23:59 Intake Total 1000 / 1000 480 / 980 860 / 860 Output Total 51 / 51 1025 / 1025 800 / 800 Balance 949 / 949 -545 / -45 60 / 60 Weight 86.409 kg 85.502 kg 87.742 kg Microbiology Reports for the Last 24 Hours: Microbiology 03/11/23 16:21 Urine,Clean Catch Urine Culture - Preliminary 03/11/23 19:38 Ascites Fluid Gram Stain - Final 03/11/23 19:38 Ascites Fluid Body Fluid Culture - Preliminary NO GROWTH AFTER 24 HOURS Constitutional: Present no acute distress, obese and chronically ill appearing Head: Present atraumatic ENT: Present normal exam Comment:: Bitemporal wasting Neck: Present normal inspection Respiratory: Present normal respiratory effort; Absent rhonchi or wheezes Cardiac: Present Reg Rate and Rhythm GI: Present soft, distention and tenderness (Increase from yesterday, still nonfocal.) Extremities: Present edema (3+ to the knees, well-healed scar right ankle) Skin: Present intact Neuro: Present alert, awake, oriented x 3 and moves all extremities Comment:: No asterixis Assessment and Plan *Assessment and plan (1) Acute UTI: Status: Acute Category: Medical Code(s): N39.0 - Urinary tract infection, site not specified (2) Ascites: Status: Acute Category: Medical Code(s): R18.8 - Other ascites (3) Decompensated hepatic cirrhosis: Status: Acute Category: Medical Code(s): K72.90 - Hepatic failure, unspecified without coma; K74.60 - Unspecified cirrhosis of liver (4) Asymmetric edema of both lower extremities: Status: Acute Category: Medical Code(s): R60.9 - Edema, unspecified (5) Ankle fracture, right: Status: Acute Cat
[2023-03-13 15:02] VITALS: BP 122/62; PULSE 67; RESP 16; TEMP 36.9; O2SAT 98
[2023-03-13 15:59] LABS: POC Glucose,Bedside 150 (70-110)
[2023-03-13 20:00] VITALS: BP 117/64; PULSE 67; RESP 20; TEMP 36.9; O2SAT 95
[2023-03-13 20:14] LABS: POC Glucose,Bedside 148 (70-110)
--- NOTE | 2023-03-14 03:27 | PC.NURSE ---
NO FURTHER C/O NAUSEA OF SINCE MEDIATED WITH ZOFRAN AT 7. 02 SAT 95% ON ROOM AIR. NO COMPLAINTS VOICED.
[2023-03-14 04:00] VITALS: BP 126/63; PULSE 72; RESP 20; TEMP 36.4; O2SAT 92; BMI 30.7
[2023-03-14 05:09] LABS: POC Glucose,Bedside 110 (70-110)
[2023-03-14 07:03] LABS: Basophils # 0.1 K/mm3 (0-0.2); Basophils % 0.5 % (0.1-2.0); Eosinophils # 0.2 K/mm3 (0.0-0.4); Eosinophils % 1.8 % (0.1-12.0); Hematocrit 40.8 % (37.0-47.0); Hemoglobin 13.2 g/dL (12.2-16.2); Lymphocytes # 4.2 K/mm3 (0.7-4.5); Lymphocytes % 32.7 % (10-50); Mean Corpuscular HGB Conc 32.4 g/dL (31.8-35.4); Mean Corpuscular Volume 92.5 fl (81-99); Mean Platelet Volume 8.9 fl (7.4-10.4); Monocytes # 1.4 K/mm3 (0.1-1.0); Monocytes % 10.7 % (1.7-9.3); Neutrophils # 6.9 K/mm3 (1.8-7.8); Neutrophils % 54.2 % (37.0-80.0); Platelet Count 380 K/mm3 (142-424); Red Blood Count 4.41 M/mm3 (4.20-5.40); Red Cell Distribution Width 16.5 % (11.5-17.5); White Blood Count 12.7 K/mm3 (4.8-10.8)
[2023-03-14 07:10] LABS: Chloride 97 mmol/L (98-107); Potassium 3.1 mmoL/L (3.5-5.1); Sodium 137 mmol/L (136-145)
[2023-03-14 07:12] LABS: Blood Urea Nitrogen 18 mg/dl (7-17); Creatinine Clearance Estimated 59 mL/min (50-200); Estimated Glomerular Filt Rate 69 ml/min (>60); GFR (African American) 83 ML/MIN (>60)
[2023-03-14 07:13] LABS: Alanine Aminotransferase 22 U/L (12-78); Albumin Level 2.3 g/dl (3.5-5.0); Albumin/Globulin Ratio 0.8 (1.1-1.8); Alkaline Phosphatase 186 U/L (38-126); Anion Gap 10.1 mEq/L (5-15); Aspartate Amino Transferase 41 U/L (14-36); Bilirubin,Total 0.4 mg/dl (0.2-1.3); Calcium 7.6 mg/dl (8.4-10.2); Carbon Dioxide 33 mmol/L (22.0-30.0); Glucose 99 mg/dl (74-100); Total Protein,Serum 5.3 g/dl (6.3-8.2)
[2023-03-14 07:15] LABS: Magnesium 1.2 mg/dl (1.6-2.3)
[2023-03-14 08:00] VITALS: BP 127/60; PULSE 65; RESP 18; TEMP 36.9; O2SAT 94
[2023-03-14 09:15] VITALS: O2SAT 94
--- NOTE | 2023-03-14 09:46 | HMH.OTEV ---
OT Inpatient Evaluation Rehab OT IP Evaluation Start: 03/12/23 09:07 Freq: ONCE Status: Active Protocol: Document 03/14/23 09:40 FADUMO (Rec: 03/14/23 09:46 [facility] [id number]) Rehab OT IP Assessment Subjective History Pt is an 82 y/o female who presented to [facility] ED on 03/11/23 for abdominal distension with abdominal pain for 2 weeks along with BLE edema and UTI. Pt reports recent stay at rehab following R ankle fracture surgically repaired in November of 2022. Medical Histroy: Diabetes, Fractured coccyx, GERD ( gastroesophageal reflux disease), History of fall, Hypertension, Infection of skin due to methicillin resistant Staphylococcus aureus (MRSA), Sacral fracture , closed Subjective Pt reports she lives in a single story home with her and [id number] with a ramp to enter. Pt states she has been using a wheelchair for mobility at home since her return from rehab but does have a walker she uses to transfer herself to the bed and commode. Pt reports she is independent with such transfers but does get wobbly. Pt denies recent falls. Pt reports prior to rehab for her ankle she was using a walker for community ambulation and a cane for household ambulation. Pt reports she just finished rehab and doesn't think her insurance will cover more. Pt states she had home health scheduled to come to her home next week and she would like to return home. Pt claims since return home from rehab she has required assistance with dressing and bathing. She i
[2023-03-14 10:07] VITALS: BMI 32.3
--- NOTE | 2023-03-14 10:09 | SW/DCPLANNER ---
Addendum entered by [facility] 03/25/23 10:13: I have updated Sarah lora Alan [place] that the plan for this patient is to admit to [facility] today [facility] level of care. Patient/family are agreeable. Addendum entered by [facility] 03/24/23 13:38: I have updated Sarah lora [facility] that this patient will not be discharging today. Addendum entered by [facility] 03/24/23 09:58: The plan for this patient is to discharge to [facility] level of care today. I have updated Sarah lora [facility]. I will also update patient's family and family member from [place]. Addendum entered by [facility] 03/23/23 10:18: I have updated [facility] that patient is not ready for discharge today. Pending no changes or setbacks patient may be ready for discharge SNF level of care tomorrow. Addendum entered by [facility] 03/23/23 07:51: Sarah [facility] stated that patient has been approved via insurance for [facility] level of care today: I have updated Dr Macdonald. Addendum entered by [facility] 03/22/23 08:00: Updated patient information faxed to [facility]: I have asked precert be started w/ expected discharge tomorrow pending no setbacks. Addendum entered by [facility] 03/21/23 10:12: Updated patient information will be faxed to [facility]. Patient is not medically stable for discharge at this time. Addendum entered by [facility] 03/18/23 14:23: Sarah lora [facility] stated this patient will require a new precert prior to admission. Addendum entered by [facility] 03/17/23 09:04: Updated patient information has been faxed to [facility]. Addendum entered by [facility] 03/16/23 11:18: [facility] for [facility] today. Addendum entered by [facility] 03/16/23 08:35: Per Sarah patient has been approved via insurance for admission at [facility] once medically stable for discharge. I have updated MD and patient's family. Addendum entered by [facility] 03/15/23 09:57: Per DARREN ([facility]) patient will be made inpatient since admissio on 03/11/23: I have updated Sarah Morocho w/ [facility]. Addendum entered by [facility] 03/15/23 09:52: Per [facility] precert will wait to be started pending inpatient status. I have attempted to call and update patient's son: no answer at this time. I will continue to contact son. Son expressed an interest in private pay if not a candidate for skilled: cost will be around $269/day. I will continue to get in contact w/ son regarding update. Addendum entered by [facility] 03/14/23 13:41: Sarah stated that she is able to accept this patient pending insurance approval. Sarah will start precert today. I have called and updated patient's son Tin ([phone]). Addendum entered by [facility] 03/14/23 10:35: Per Sarah w/ [facility] she does have female beds available: patient information has been faxed. Original Note: I spoke with patient and her son this AM regarding plans once medically stable for discharge. Patient currently lives at home alone. PT/OT evaluated patient today and recommended SNF level of care. Patient stated that she was recently at [facility] and would prefer to return back to this facility. I will follow up with Sarah at [facility] regarding bed availability. I have encouraged patient and her son to discuss options of discharge plans if she does not have any skills days left due to recent discharge from [facility]. Son stated that he would discuss with patient the option of discharging home with him. Discharge date is unknown at this time. I will continue to follow up with patient and [facility].
[2023-03-14 11:15] LABS: POC Glucose,Bedside 178 (70-110)
--- NOTE | 2023-03-14 12:33 | EXP.ACUTE.PN ---
Subjective *Date: 03/14/23 *Time: 16:20 Interval history: No changes overnight. Awaiting placement. C/o abd pain. Enema ordered due to no bowel movement in several days. Pt is on room air. Potassium and Magnesium replaced this A.M. Denies any vomiting. Medical Exam Vital signs and Labs for Last 24 Hours: Vital Signs Temp Pulse Resp BP BP Pulse Ox 03/14/23 09:15 94 L 03/14/23 08:00 98.4 F 65 18 127/60 94 L 03/14/23 04:00 97.5 F L 72 20 126/63 92 L 03/13/23 20:00 95 03/13/23 20:00 98.4 F 67 20 117/64 95 03/13/23 15:02 98.4 F 67 16 122/62 98 Intake and Output 03/13/23 03/14/23 03/14/23 23:59 07:59 15:59 Intake Total 120 / 1340 240 / 600 360 / 600 Output Total 0 / 900 0 / 0 Balance 120 / 440 240 / 600 360 / 600 Intake: Intake, Oral Amount 120 / 1340 240 / 600 360 / 600 Output: Output, Urine Amount 0 / 900 0 / 0 Other: Number of Unmeasured Voids 1 1 Weight 86.818 kg 86.8 kg Patient Weight 03/14/23 23:59 Weight 86.8 kg Laboratory Results - last 24 hr 03/13/23 15:51: POC Glucose 150 H 03/13/23 19:54: POC Glucose 148 H 03/14/23 05:02: POC Glucose 110 03/14/23 06:28: Sodium 137, Potassium 3.1 L, Chloride 97 L, Carbon Dioxide 33 H, Anion Gap 10.1, BUN 18 H, Creatinine 0.80, Estimated Creat Clear 59, Estimated GFR 69, Est GFR ( Amer) 83, Glucose 99, Calcium 7.6 L, Total Bilirubin 0.4, AST 41 H, ALT 22, Alkaline Phosphatase 186 H, Total Protein 5.3 L, Albumin 2.3 L, Globulin 3.0, Albumin/Globulin Ratio 0.8 L 03/14/23 06:28: WBC 12.7 H, RBC 4.41, Hgb 13.2, Hct 40.8, MCV 92.5, MCH 30.0, MCHC 32.4, RDW 16.5, Plt Count 380, MPV 8.9, Neut % (Auto) 54.2, Lymph % (Auto) 32.7, [place] % (Auto) 10.7 H, Eos % (Auto) 1.8, Baso % (Auto) 0.5, Neut # (Auto) 6.9, Lymph # (Auto) 4.2, [place] # (Auto) 1.4 H, Eos # (Auto) 0.2, Baso # (Auto) 0.1 03/14/23 06:28: Magnesium 1.2 L 03/14/23 11:06: POC Glucose 178 H I & O for Labs for Last 24 Hours: Intake & Output 03/11/23 03/12/23 03/13/23 03/14/23 23:59 23:59 23:59 23:59 Intake Total 1000 / 1000 480 / 980 1100 / 1340 600 / 600 Output Total 51 / 51 1025 / 1025 900 / 900 0 / 0 Balance 949 / 949 -545 / -45 200 / 440 600 / 600 Weight 86.409 kg 85.502 kg 87.742 kg 86.8 kg Microbiology Reports for the Last 24 Hours: Microbiology 03/11/23 19:38 Ascites Fluid Gram Stain - Final 03/11/23 19:38 Ascites Fluid Body Fluid Culture - Preliminary 03/11/23 16:21 Urine,Clean Catch Urine Culture - Preliminary Head: Present atraumatic Eyes: Present as per HPI ENT: Present normal exam Neck: Present normal inspection and full ROM Respiratory: Present CTA bilaterally; Absent accessory muscle use Cardiac: Present Reg Rate and Rhythm GI: Present soft, distention and normal bowel sounds; Absent tenderness Rectal (female): Present deferred (female): Present deferred Extremities: Present normal inspection Skin: Present intact and dry Assessment and Plan *Assessment and plan (1) Acute UTI: Status: Acute Category: Medical Code(s): N39.0 - Urinary tract infection, site not specified (2) Ascites: Status: Acute Category: Medical Code(s): R18.8 - Other ascites (3) Decompensated hepatic cirrhosis: Status: Acute Category: Medical Code(s): K72.90 - Hepatic failure, unspecified without coma; K74.60 - Unspecified cirrhosis of liver (4) Asymmetric edema of both lower extremities: Status: Acute Category: Medical Code(s): R60.9 - Edema, unspecified (5) Ankle fracture, right: Status: Acute Category: Medical Code(s): S82.891A - Other fracture of right lower leg, initial encounter for closed fracture (6) Diabetes: Status: Chronic Qualifiers: Diabetes mellitus complication status: without complication Diabetes mellitus chcf insulin use: with chcf use Diabetes mellitus type: type 2 Qualified Code(s): E11.9 -
[2023-03-14 14:01] LABS: Ammonia 62 umol/L (9-30)
[2023-03-14 16:00] VITALS: BP 124/61; PULSE 70; RESP 18; TEMP 36.7; O2SAT 96
[2023-03-14 17:06] LABS: POC Glucose,Bedside 150 (70-110)
--- NOTE | 2023-03-14 18:05 | PC.NURSE ---
pt remains on room air, has been up to chair this shift, has complained of nausea and pain 2 X and was treated per DEC, enema given this shift, with a small BM resulting
[2023-03-14 19:42] VITALS: BP 114/56; PULSE 67; RESP 16; TEMP 36.7; O2SAT 96
[2023-03-14 21:10] LABS: POC Glucose,Bedside 226 (70-110)
[2023-03-15 04:00] VITALS: BP 120/59; PULSE 63; RESP 18; TEMP 36.6; O2SAT 94; BMI 32.5
[2023-03-15 06:48] LABS: Chloride 98 mmol/L (98-107); Potassium 3.4 mmoL/L (3.5-5.1); Sodium 139 mmol/L (136-145)
[2023-03-15 06:51] LABS: Alanine Aminotransferase 23 U/L (12-78); Albumin Level 2.6 g/dl (3.5-5.0); Albumin/Globulin Ratio 0.7 (1.1-1.8); Alkaline Phosphatase 218 U/L (38-126); Anion Gap 11.4 mEq/L (5-15); Aspartate Amino Transferase 46 U/L (14-36); Bilirubin,Total 0.3 mg/dl (0.2-1.3); Blood Urea Nitrogen 23 mg/dl (7-17); Calcium 8.4 mg/dl (8.4-10.2); Carbon Dioxide 33 mmol/L (22.0-30.0); Creatinine Clearance Estimated 60 mL/min (50-200); Estimated Glomerular Filt Rate 60 ml/min (>60); GFR (African American) 73 ML/MIN (>60); Globulin 3.6 g/dL (1.3-3.2); Total Protein,Serum 6.2 g/dl (6.3-8.2)
[2023-03-15 06:55] LABS: Glucose 36 mg/dl (74-100)
[2023-03-15 07:01] LABS: POC Glucose,Bedside 54 (70-110)
--- NOTE | 2023-03-15 07:36 | EXP.PHA.CONS ---
Pharmacy Consult Date: 03/15/23 Time: 07:36 Referring provider: DR. DUNAWAY Reason for Consult:: VANCOMYCIN DOSING Allergies Allergy/AdvReac Type Severity Reaction Status Date / Time No Known Allergies Allergy Verified 02/18/23 10:52 Home Medications Medication Instructions Recorded Confirmed Type magnesium oxide 400 mg PO DAILY Supplement 06/23/20 03/12/23 History amlodipine 10 mg tablet 10 mg PO DAILY blood pressure 11/10/22 03/12/23 History furosemide 40 mg tablet 40 mg PO DAILY Fluid 11/10/22 03/12/23 History propylthiouracil 50 mg tablet 50 mg PO BID hyperthyroidism 11/10/22 03/12/23 History alendronate 70 mg tablet 70 mg PO MO Osteoporosis 03/12/23 03/12/23 History allopurinol 100 mg tablet 100 mg PO DAILY gout 03/12/23 03/12/23 History aspirin 81 mg tablet,delayed 81 mg PO DAILY Blood thinner 03/12/23 03/12/23 History release colestipol 1 gram tablet 1 g PO BID cholesterol 03/12/23 03/12/23 History cyclobenzaprine 10 mg tablet 10 mg PO HS muscle spasms 03/12/23 03/12/23 History gabapentin 300 mg capsule 300 mg PO TID NERVE PAIN 03/12/23 03/12/23 History hydrocodone 5 mg-acetaminophen 325 1 tab PO DAILYP PRN Moderate Pain 03/12/23 03/12/23 History mg tablet insulin glargine 100 unit/mL (3 20 unit SQ HS Diabetes 03/12/23 03/12/23 History mL) subcutaneous pen (Lantus Solostar U-100 Insulin) insulin lispro 100 unit/mL 0 sliding scale dose SQ AC Diabetes 03/12/23 03/12/23 History subcutaneous solution (Humalog U-100 Insulin) metformin 500 mg tablet 500 mg PO BIDWMEAL Diabetes 03/12/23 03/12/23 History potassium chloride 10 mEq 10 meq PO DAILY Supplement 03/12/23 03/12/23 History capsule,extended release sennosides 8.6 mg-docusate sodium 1 tab PO HSP PRN constipation 03/12/23 03/12/23 History 50 mg tablet (Senna with Docusate Sodium) New Prescriptions to Start Prescriptions: Height: 1.64 m Weight: 87.543 kg Laboratory Results:: Laboratory Results - last 24 hr 03/14/23 11:06: POC Glucose 178 H 03/14/23 13:44: Ammonia 62 H 03/14/23 16:58: POC Glucose 150 H 03/14/23 20:10: POC Glucose 226 H 03/15/23 05:38: Sodium 139, Potassium 3.4 L, Chloride 98, Carbon Dioxide 33 H, Anion Gap 11.4, BUN 23 H D, Creatinine 0.90, Estimated Creat Clear 60, Estimated GFR 60, Est GFR ( Amer) 73, Glucose 36 L* D, Calcium 8.4, Total Bilirubin 0.3, AST 46 H, ALT 23, Alkaline Phosphatase 218 H, Total Protein 6.2 L, Albumin 2.6 L D, Globulin 3.6 H, Albumin/Globulin Ratio 0.7 L 03/15/23 06:29: POC Glucose 54 L Medical History: Medical History (Updated 03/11/23 @ 19:45 by Renée Bland MD) Diabetes Fractured coccyx GERD (gastroesophageal reflux disease) History of fall Hypertension Infection of skin due to methicillin resistant Staphylococcus aureus (MRSA) Sacral fracture, closed Assessment and Plan Assessment and plan all Dx Assessment and Plan for all problems:: Pharmacokinetic dosing service Objective: Patient: Floor: Age: 82 yo Serum creatinine: 0.90 mg/dL Height: 64.6 Inches Weight (kg): 87.5 Assessment: IBW (kg): 60.58 Dosing wt(kg): 87.5 Estimated Creatinine clearance (ml/min): 54.2 CRCL method: Cockcroft and Gault using ibw(default). Drug selected: Vancomycin Loading dose (mg): Vd (liters): 65.6 (factor used: 0.75 L/kg) Jan (hr-1): 0.049 Half life (hrs): 14.15 CLvanco=?? 3.214 L/hr Recommended dose: 1750 mg Interval: 24 hrs Infusion time (hrs): 2.0 Predicted peak (mcg/mL): 36.7 Predicted trough (mcg/mL): 12.49 Total body weight is being used for vancomycin dosing. Recommendations: Give Vancomycin 1750 mg q 24 hrs with an expected Cpeak of 36.7 mcg/ml and an expected Ctrough of 12.49 mcg/ml AUC 0-24 /NURA Data: NURA 0.5 mcg
[2023-03-15 07:43] VITALS: BP 119/63; PULSE 64; RESP 20; TEMP 36.4; O2SAT 96
[2023-03-15 07:44] LABS: Basophils # 0.1 K/mm3 (0-0.2); Basophils % 0.4 % (0.1-2.0); Eosinophils # 0.3 K/mm3 (0.0-0.4); Eosinophils % 1.9 % (0.1-12.0); Hematocrit 43.9 % (37.0-47.0); Hemoglobin 13.9 g/dL (12.2-16.2); Lymphocytes # 2.7 K/mm3 (0.7-4.5); Lymphocytes % 20.3 % (10-50); Mean Corpuscular HGB Conc 31.7 g/dL (31.8-35.4); Mean Corpuscular Hemoglobin 29.7 pg (27.0-31.2); Mean Corpuscular Volume 93.5 fl (81-99); Mean Platelet Volume 8.3 fl (7.4-10.4); Monocytes # 0.9 K/mm3 (0.1-1.0); Monocytes % 6.8 % (1.7-9.3); Neutrophils # 9.4 K/mm3 (1.8-7.8); Neutrophils % 70.6 % (37.0-80.0); Platelet Count 438 K/mm3 (142-424); Red Blood Count 4.69 M/mm3 (4.20-5.40); Red Cell Distribution Width 16.5 % (11.5-17.5); White Blood Count 13.3 K/mm3 (4.8-10.8)
[2023-03-15 08:16] LABS: POC Glucose,Bedside 106 (70-110)
[2023-03-15 09:00] VITALS: O2SAT 96
[2023-03-15 12:03] VITALS: BMI 32.5
[2023-03-15 12:38] LABS: POC Glucose,Bedside 156 (70-110)
[2023-03-15 15:50] VITALS: BP 129/71; PULSE 75; RESP 16; TEMP 36.5; O2SAT 95
[2023-03-15 16:29] LABS: POC Glucose,Bedside 97 (70-110)
[2023-03-15 16:54] LABS: POC Glucose,Bedside 98 (70-110)
--- NOTE | 2023-03-15 17:00 | EXP.ACUTE.PN ---
Subjective *Date: 03/15/23 *Time: 17:00 Interval history: Patient remained stable overnight. Had 1 bowel movement. Stable on room air, afebrile. No nausea or vomiting. Tolerating 25 to 50% of her trays. Still quite weak. Medical Exam Vital signs and Labs for Last 24 Hours: Vital Signs Temp Pulse Resp BP Pulse Ox 03/15/23 15:50 97.7 F 75 16 129/71 95 03/15/23 09:00 96 03/15/23 07:43 97.5 F L 64 20 119/63 96 03/15/23 04:00 97.9 F 63 18 120/59 L 94 L 03/14/23 19:42 98.0 F 67 16 114/56 L 96 Intake and Output 03/15/23 03/15/23 03/15/23 07:59 15:59 23:59 Intake Total 120 / 120 0 / 120 Output Total 0 / 0 Balance 120 / 120 0 / 120 Intake: Intake, Oral Amount 120 / 120 0 / 120 Output: Output, Urine Amount 0 / 0 Other: Number of Unmeasured Voids 0 Weight 87.543 kg 87.5 kg Patient Weight 03/15/23 23:59 Weight 87.5 kg Laboratory Results - last 24 hr 03/14/23 16:58: POC Glucose 150 H 03/14/23 20:10: POC Glucose 226 H 03/15/23 05:38: Sodium 139, Potassium 3.4 L, Chloride 98, Carbon Dioxide 33 H, Anion Gap 11.4, BUN 23 H D, Creatinine 0.90, Estimated Creat Clear 60, Estimated GFR 60, Est GFR ( Amer) 73, Glucose 36 L* D, Calcium 8.4, Total Bilirubin 0.3, AST 46 H, ALT 23, Alkaline Phosphatase 218 H, Total Protein 6.2 L, Albumin 2.6 L D, Globulin 3.6 H, Albumin/Globulin Ratio 0.7 L 03/15/23 05:38: WBC 13.3 H, RBC 4.69, Hgb 13.9, Hct 43.9, MCV 93.5, MCH 29.7, MCHC 31.7 L, RDW 16.5, Plt Count 438 H, MPV 8.3, Neut % (Auto) 70.6, Lymph % (Auto) 20.3, [place] % (Auto) 6.8, Eos % (Auto) 1.9, Baso % (Auto) 0.4, Neut # (Auto) 9.4 H, Lymph # (Auto) 2.7, [place] # (Auto) 0.9, Eos # (Auto) 0.3, Baso # (Auto) 0.1 03/15/23 06:29: POC Glucose 54 L 03/15/23 08:08: POC Glucose 106 03/15/23 12:31: POC Glucose 156 H 03/15/23 16:21: POC Glucose 97 03/15/23 16:46: POC Glucose 98 I & O for Labs for Last 24 Hours: Intake & Output 03/12/23 03/13/23 03/14/23 03/15/23 23:59 23:59 23:59 23:59 Intake Total 480 / 980 1100 / 1340 960 / 960 120 / 120 Output Total 1025 / 1025 900 / 900 300 / 300 0 / 0 Balance -545 / -45 200 / 440 660 / 660 120 / 120 Weight 85.502 kg 87.742 kg 86.8 kg 87.5 kg Microbiology Reports for the Last 24 Hours: Microbiology 03/11/23 16:21 Urine,Clean Catch Urine Culture - Final Proteus mirabilis Enterobacter cloacae 03/11/23 19:38 Ascites Fluid Gram Stain - Final 03/11/23 19:38 Ascites Fluid Body Fluid Culture - Final Staphylococcus epidermidis Constitutional: Present no acute distress, obese and chronically ill appearing Head: Present atraumatic Eyes: Present as per HPI ENT: Present normal exam Comment:: bitemporal wasting Neck: Present normal inspection and full ROM Respiratory: Present CTA bilaterally; Absent accessory muscle use Cardiac: Present Reg Rate and Rhythm GI: Present soft, distention, tenderness (minimal non-focal) and normal bowel sounds Rectal (female): Present deferred (female): Present deferred Extremities: Present normal inspection and edema (1+ to knees); Absent tenderness Skin: Present intact and dry Neuro: Present alert, awake and moves all extremities Assessment and Plan *Assessment and plan (1) Acute UTI: Status: Acute Category: Medical Code(s): N39.0 - Urinary tract infection, site not specified (2) Ascites: Status: Acute Category: Medical Code(s): R18.8 - Other ascites (3) Decompensated hepatic cirrhosis: Status: Acute Category: Medical Code(s): K72.90 - Hepatic failure, unspecified without coma; K74.60 - Unspecified cirrhosis of liver (4) Asymmetric edema of both lower extremities: Status: Acute Category: Medical Code(s): R60.9 - Edema, unspecified (5) Ankle fracture, right: Status: Acute Category: Medical Code(s): S82.891A
--- NOTE | 2023-03-15 19:20 | PC.NURSE ---
Patient has been in pain and nauseated throughout the day. patient has received pain medication for pain and nausea continues to have nausea and vomiting
--- NOTE | 2023-03-15 19:23 | CT_ITS ---
PROCEDURE INFORMATION: Exam: CT Abdomen And Pelvis Without Contrast Exam date and time: 03/15/2023 7:39 PM Age: 82 years old Clinical indication: Other: Abdominal distension for 4 days; Prior surgery; Surgery date: 6+ months; Surgery type: Choleycystectomy; Additional info: Abdominal distention, nausea, vomiting TECHNIQUE: Imaging protocol: Computed tomography of the abdomen and pelvis without contrast. Radiation optimization: All CT scans at this facility use at least one of these dose optimization techniques: automated exposure control; mA and/or kV adjustment per patient size (includes targeted exams where dose is matched to clinical indication); or iterative reconstruction. REPORTING DATA: Count of CT and Cardiac NM exams in prior 12 months: This patient has received 4 known CTs and 0 known cardiac nuclear medicine studies in the 12 months prior to the current study. COMPARISON: CT ANGIO ABDOMEN PELVIS 03/11/2023 5:53 PM FINDINGS: Pleural spaces: Small left and trace right pleural effusions. Heart: Borderline cardiomegaly. Coronary arteries: Coronary artery calcifications. Liver: Diffuse low attenuation of the liver most likely secondary to fatty infiltration. Gallbladder and bile ducts: Status post cholecystectomy. Pancreas: Parenchymal enhancement is not evaluated without contrast. No ductal dilation. Spleen: There are multiple splenic calcifications likely on the basis of prior granulomatous exposure. Adrenal glands: No mass. Kidneys and ureters: Punctate nonobstructing renal calculi without hydronephrosis. Distal ureters are not well evaluated secondary to adjacent artifact. Stomach and bowel: Diverticulosis coli without evidence for diverticulitis. Large gas burden within the colon. No bowel obstruction. Appendix: No evidence of appendicitis. Intraperitoneal space: Small volume ascites. Vasculature: Calcified aortic atherosclerosis. Prominent perisplenic vessels. No aneurysm. Lymph nodes: No enlarged lymph nodes. Urinary bladder: Limited evaluation secondary to adjacent artifact. Reproductive: Limited evaluation secondary to adjacent artifact. Bones/joints: Bilateral hip arthroplasties. Postsurgical and degenerative changes to the spine. No acute fracture. Soft tissues: Diffuse subcutaneous edema. IMPRESSION: 1. Small left and trace right pleural effusions. 2. Diffuse low attenuation of the liver most likely secondary to fatty infiltration. 3. Punctate nonobstructing renal calculi without hydronephrosis. 4. Small volume ascites. 5. Diverticulosis coli without evidence for diverticulitis. 6. Large gas burden within the colon.
--- NOTE | 2023-03-15 19:40 | PC.NURSE ---
AT 1920 LORRAINE,CLIENT STRATEGIST NOTIFIED OF HARD, DISTENDED ABDOMEN, NO BOWEL SOUNDS AUSCULTATED, TTP ALL QUADS, C/O NAUSEA, VOMITING SECRETIONS SLIGHT GEENISH. CT OF ABDOMEN ORDERED. NPO NOW.
[2023-03-15 19:44] VITALS: O2SAT 95
[2023-03-15 20:00] VITALS: BP 138/58; PULSE 85; RESP 18; TEMP 36.7; O2SAT 98
[2023-03-15 20:28] LABS: POC Glucose,Bedside 78 (70-110)
[2023-03-16] VITALS: BP 129/63; PULSE 87; RESP 18; TEMP 36.6; O2SAT 97
--- NOTE | 2023-03-16 01:28 | PC.NURSE ---
PATIENT WAS MEDICATED WITH PHENERGAN 12.5MG : 25 ML NS FOR PERSISTANT N/V. HAS BEEN ASLEEP SINCE PHENERGAN RECEIVED. ABDOMEN DISTENDED AND FIRM. TENDER ALL QUADS, NO BOWEL SOUNDS DETECTED. CT SCAN REPORT SAYS NO OBSTRUCTION, LARGE AMT GAS. VITAL SIGNS STABLE/AFEBRIL. REMAINS NPO AT THIS TIME.
[2023-03-16 04:00] VITALS: BP 144/72; PULSE 83; RESP 18; TEMP 36.6; O2SAT 97; BMI 32.2
[2023-03-16 05:08] LABS: POC Glucose,Bedside 74 (70-110)
[2023-03-16 06:30] LABS: Basophils % 0.3 % (0.1-2.0); Chloride 99 mmol/L (98-107); Eosinophils # 0.1 K/mm3 (0.0-0.4); Eosinophils % 0.5 % (0.1-12.0); Hematocrit 45.7 % (37.0-47.0); Hemoglobin 14.6 g/dL (12.2-16.2); Lymphocytes # 2.6 K/mm3 (0.7-4.5); Lymphocytes % 19.3 % (10-50); Mean Corpuscular Hemoglobin 29.8 pg (27.0-31.2); Mean Corpuscular Volume 93.3 fl (81-99); Mean Platelet Volume 8.9 fl (7.4-10.4); Neutrophils % 72.9 % (37.0-80.0); Platelet Count 465 K/mm3 (142-424); Potassium 3.2 mmoL/L (3.5-5.1); Red Blood Count 4.91 M/mm3 (4.20-5.40); Red Cell Distribution Width 16.5 % (11.5-17.5); Sodium 139 mmol/L (136-145); White Blood Count 13.7 K/mm3 (4.8-10.8)
[2023-03-16 06:32] LABS: Blood Urea Nitrogen 24 mg/dl (7-17); Creatinine Clearance Estimated 59 mL/min (50-200); Estimated Glomerular Filt Rate 69 ml/min (>60); GFR (African American) 83 ML/MIN (>60)
[2023-03-16 06:33] LABS: Alanine Aminotransferase 22 U/L (12-78); Albumin Level 2.6 g/dl (3.5-5.0); Albumin/Globulin Ratio 0.8 (1.1-1.8); Alkaline Phosphatase 217 U/L (38-126); Anion Gap 12.2 mEq/L (5-15); Aspartate Amino Transferase 47 U/L (14-36); Bilirubin,Total 0.3 mg/dl (0.2-1.3); Calcium 8.6 mg/dl (8.4-10.2); Carbon Dioxide 31 mmol/L (22.0-30.0); Globulin 3.2 g/dL (1.3-3.2); Glucose 63 mg/dl (74-100); Magnesium 1.4 mg/dl (1.6-2.3); Total Protein,Serum 5.8 g/dl (6.3-8.2)
--- NOTE | 2023-03-16 06:35 | PC.NURSE ---
PATIENT RECEIVED SIMETHICONE 80 MG X 2 CHEWABLE TABS AT 0500 ' BOWEL SOUNDS THIS AM VERY HYPOACTIVE.
[2023-03-16 07:25] VITALS: BP 141/72; PULSE 85; RESP 18; TEMP 36.7; O2SAT 97
--- NOTE | 2023-03-16 08:11 | DIET.NUTRFU ---
Meal intake poor with 0% this morning secondary to N/V noted. She did have BM yesterday with lactulose in place. She has zofran and phenergan in place for nausea. She received lasix dose yesterday. BS have been on the low side at 63 this morning. Supplements were ordered with meals to help meet nutritional needs. CT of abdomen was done today indicating diverticulitis. Continues on ABT. Potassium low, supplementation provided
--- NOTE | 2023-03-16 11:19 | XR_ITS ---
FINAL REPORT CLINICAL HISTORY: ileus vs sbo ng tube placement toxicology supervisor for small bowel follow through COMPARISON: CT abdomen pelvis 03/15/2023, chest radiograph 11/09/2022 FINDINGS: There is mild bibasilar atelectasis. Small bilateral pleural effusions. The mediastinum is unremarkable. The heart size is mildly enlarged There is distention of the colon. No small bowel dilatation identified. NG tube located in the gastric fundus. There is no free intraperitoneal air. no abdominal radiopacities are seen in the abdomen. Postoperative changes in the bilateral hips and lower lumbar spine. IMPRESSION: Atelectasis and effusions. Gaseous distended colon. Reviewed, Interpreted and Dictated by Zheng Germain MD Transcribed by Nirmala Madrid Authenticated and [facility]
--- NOTE | 2023-03-16 12:50 | HMH.ITSTN ---
STEFANY HELTON CALLED AND SPOKE WITH MARINA TOLLIVER NURSE, CEDRIC. I TOLD HER ON OUR SIDE THE SMALL BOWEL SERIES WAS CANCELLED AND A BARIUM ENEMA WAS ORDERED. I TOLD HER WE DO NOT HAVE A PA UNTIL TUESDAY TO LET US KNOW WHEN WE NEED TO DO. CONTINUE WITH SMALL BOWEL SERIES OR NOT. SHE SAID SHE WOULD CONTACT DR DUNAWAY AND WILL LET US KNOW HOW TO PROCEED.
--- NOTE | 2023-03-16 12:54 | EXP.SURG.CON ---
History of Present Illness *Admission Date: 03/11/23 *Reason for visit:: Profound ileus versus obstruction *History of present illness: This is an 82-year-old female seen in consultation from the primary service for evaluation regarding profound colonic ileus versus obstruction. She is currently being treated for newly-diagnosed cirrhosis and suspected spontaneous bacterial peritonitis, as well as, urinary tract infection. She has developed increasing abdominal distention with radiographic evidence (CT scan performed yesterday) of large volume gas burden within the colon. Increasing nausea and episodic emesis noted...now with NG in place. She did have a bowel movement approximately 36 hours ago but states that she has not passed flatus since. Her bowel movement was after the administration of an enema. Forwarded from admission H&P: Ms. Castle is an 82-year-old female who presented to the ER with abdominal pain and bloating. Also complains of suprapubic discomfort. Having some urgency and dysuria over the past few weeks. Sudden abrupt change occurred today which is what led to her coming to the ER. Decrease in bowel movements but overall still stable daily. Denies any blood in her stool. No vomiting, fever, chest pain, shortness of breath. Complains significantly of abdominal distention and increased edema in her lower extremities. Given worry about her distention and abdominal discomfort, family brought her to the ER for evaluation. Work-up initiated showing ascites and cirrhosis on imaging. Urinalysis was obtained showing concern for UTI. Diagnostic paracentesis performed showing concern for possible SBP. Medicine was consulted for admission. Patient initiated on antibiotics with dose of ceftriaxone. [facility] Disclaimer: The information contained in this section may have been updated after the patient was seen, as this information can be updated by other users. Medical History Diabetes Fractured coccyx GERD (gastroesophageal reflux disease) History of fall Hypertension Infection of skin due to methicillin resistant Staphylococcus aureus (MRSA) Sacral fracture, closed Surgical History H/O: hysterectomy Hip joint replacement status History of arthroplasty of right ankle History of back surgery History of colonoscopy History of hip replacement History of lumbar surgery Social History Smoking Status: Never smoker second hand exposure: No alcohol intake: never substance use type: denies use current occupational status: retired Travel in the last 8 weeks: None household members: spouse housing: other Review of Systems Constitutional Constitutional: Reports frequent falls *Musculoskeletal Musculoskeletal: Reports abnormal gait *Neurologic Neurologic: Reports abnormal gait and Reports frequent falls Meds Home Medications and Allergies Home Medications Medication Instructions Recorded Confirmed Type magnesium oxide 400 mg PO DAILY Supplement 06/23/20 03/12/23 History amlodipine 10 mg tablet 10 mg PO DAILY blood pressure 11/10/22 03/12/23 History furosemide 40 mg tablet 40 mg PO DAILY Fluid 11/10/22 03/12/23 History propylthiouracil 50 mg tablet 50 mg PO BID hyperthyroidism 11/10/22 03/12/23 History alendronate 70 mg tablet 70 mg PO MO Osteoporosis 03/12/23 03/12/23 History allopurinol 100 mg tablet 100 mg PO DAILY gout 03/12/23 03/12/23 History aspirin 81 mg tablet,delayed 81 mg PO DAILY Blood thinner 03/12/23 03/12/23 History release colestipol 1 gram tablet 1 g PO BID cholesterol 03/12/23 03/12/23 History cyclobenzaprine 10 mg tablet 10 mg PO HS muscle spasms 03/12/23 03/12/23 History gabapentin 300 mg capsule 300 mg PO TID NERVE PAIN 03/12/23 03/12/23 History hydrocodone 5 mg-acetaminophen 325 1 tab PO DAILYP PRN Moderate Pain 03/12/23 06
[2023-03-16 15:11] VITALS: BP 143/68; PULSE 93; RESP 18; TEMP 36.5; O2SAT 94
--- NOTE | 2023-03-16 17:09 | EXP.ACUTE.PN ---
Subjective *Date: 03/16/23 *Time: 17:13 Interval history: Patient has not had any further bowel movements in over 24 hours. Continues to have significant abdominal distention. CT obtained overnight showing significant gaseous distention of colon. Having episodes of vomiting. NG placed this morning after rounds to decompress her belly. Bilious content removed. No concern for small bowel obstruction on CT. Only small ascites noted. Patient alert but still appears confused to family at bedside. Updated them on plan today. Medical Exam Vital signs and Labs for Last 24 Hours: Vital Signs Temp Pulse Resp BP BP Pulse Ox 03/16/23 15:11 97.7 F 93 H 18 143/68 H 94 L 03/16/23 07:25 98.0 F 85 18 141/72 H 97 03/16/23 04:00 97.8 F 83 18 144/72 H 97 03/16/23 00:00 97.8 F 87 18 129/63 97 03/15/23 20:00 98.1 F 85 18 138/58 L 98 03/15/23 19:44 95 Intake and Output 03/16/23 03/16/23 03/16/23 07:59 15:59 23:59 Intake Total 145 / 145 0 / 145 Output Total 100 / 100 Balance 145 / 45 -100 / 45 Intake: Intake, Oral Amount 120 / 120 0 / 120 Intake, Other Amount 25 / 25 Output: Output, Urine Amount 100 / 100 Other: Intake, Other Source Saline Solution Number of Unmeasured Voids 0 1 Weight 86.682 kg Patient Weight 03/16/23 23:59 Weight 86.682 kg Laboratory Results - last 24 hr 03/15/23 20:20: POC Glucose 78 03/16/23 05:01: POC Glucose 74 03/16/23 05:45: WBC 13.7 H, RBC 4.91, Hgb 14.6, Hct 45.7, MCV 93.3, MCH 29.8, MCHC 32.0, RDW 16.5, Plt Count 465 H, MPV 8.9, Neut % (Auto) 72.9, Lymph % (Auto) 19.3, [place] % (Auto) 7.0, Eos % (Auto) 0.5, Baso % (Auto) 0.3, Neut # (Auto) 10.0 H, Lymph # (Auto) 2.6, [place] # (Auto) 1.0, Eos # (Auto) 0.1, Baso # (Auto) 0.0 03/16/23 05:45: Sodium 139, Potassium 3.2 L, Chloride 99, Carbon Dioxide 31 H, Anion Gap 12.2, BUN 24 H, Creatinine 0.80, Estimated Creat Clear 59, Estimated GFR 69, Est GFR ( Amer) 83, Glucose 63 L, Calcium 8.6, Magnesium 1.4 L D, Total Bilirubin 0.3, AST 47 H, ALT 22, Alkaline Phosphatase 217 H, Total Protein 5.8 L, Albumin 2.6 L, Globulin 3.2, Albumin/Globulin Ratio 0.8 L I & O for Labs for Last 24 Hours: Intake & Output 03/13/23 03/14/23 03/15/23 03/16/23 23:59 23:59 23:59 23:59 Intake Total 1100 / 1340 960 / 960 120 / 265 145 / 145 Output Total 900 / 900 300 / 300 0 / 0 100 / 100 Balance 200 / 440 660 / 660 120 / 265 45 / 45 Weight 87.742 kg 86.8 kg 87.5 kg 86.682 kg Constitutional: Present mild distress, obese and chronically ill appearing Head: Present atraumatic Eyes: Present as per HPI ENT: Present normal exam Comment:: bitemporal wasting Neck: Present normal inspection and full ROM Respiratory: Present CTA bilaterally; Absent accessory muscle use Cardiac: Present Reg Rate and Rhythm GI: Present soft, distention (Increased over the past 24 hours. No rebound), tenderness (Diffuse) and diminished bowel sounds Rectal (female): Present deferred (female): Present deferred Extremities: Present normal inspection and edema (1+ to knees); Absent tenderness Skin: Present intact and dry Neuro: Present alert, awake and moves all extremities Assessment and Plan *Assessment and plan (1) Acute UTI: Status: Acute Category: Medical Code(s): N39.0 - Urinary tract infection, site not specified (2) Colon distention: Status: Acute Category: Medical Code(s): K63.89 - Other specified diseases of intestine (3) Ascites: Status: Acute Category: Medical Code(s): R18.8 - Other ascites (4) Decompensated hepatic cirrhosis: Status: Acute Category: Medical Code(s): K72.90 - Hepatic failure, unspecified without coma; K74.60 - Unspecified cirrhosis of liver (5) Asymmetric edema of both lower extremities: Status: Acute Category: Medical Code(s): R60.9 - Edema, unspecified (6) Ankle fracture, right: Statu
--- NOTE | 2023-03-16 17:21 | PC.NURSE ---
pt walked in hallway at this time
--- NOTE | 2023-03-16 18:35 | PC.NURSE ---
Patient has an NG for gastric decompression and bowel rest, patien has a distended abdomen and has been encouraged to get up and walk or move as tolerated.
[2023-03-16 20:00] VITALS: BP 141/72; PULSE 96; RESP 18; TEMP 36.4; O2SAT 95; O2SAT 98
--- NOTE | 2023-03-16 22:25 | PC.NURSE ---
AMBULATED IN ROOM AND to BR. passed small soft brown BM. Passing small amts of gas. Up in chair at this time.
--- NOTE | 2023-03-17 03:09 | PC.NURSE ---
AT 0203 PATIENT REQUESTED AND RECEIVED NORCO 5/325MG 1 TAB PO FOR PAIN 8/10 DESCRIBED INTERMITTANT SHARP STABBING ACROSS THE UPPER ABDOMEN. SUCTION TO N/G TURNED OFF X 30 MINS THEN RESUMED AT CONTINUOUS LOW ALL SUCTION. DOES NOT APPEAR TO BE IN ANY ACUTE DISTRESS.
[2023-03-17 04:00] VITALS: BP 135/71; PULSE 102; RESP 18; TEMP 36.6; O2SAT 96; BMI 32.2
[2023-03-17 06:02] LABS: POC Glucose,Bedside 137 (70-110)
[2023-03-17 06:02] LABS: POC Glucose,Bedside 126 (70-110)
[2023-03-17 06:02] LABS: POC Glucose,Bedside 115 (70-110)
[2023-03-17 06:56] LABS: Chloride 99 mmol/L (98-107); Sodium 141 mmol/L (136-145)
[2023-03-17 06:57] LABS: Potassium 3.9 mmoL/L (3.5-5.1)
[2023-03-17 06:59] LABS: Alanine Aminotransferase 27 U/L (12-78); Albumin Level 2.6 g/dl (3.5-5.0); Albumin/Globulin Ratio 0.8 (1.1-1.8); Alkaline Phosphatase 275 U/L (38-126); Anion Gap 17.9 mEq/L (5-15); Aspartate Amino Transferase 52 U/L (14-36); Bilirubin,Total 0.5 mg/dl (0.2-1.3); Blood Urea Nitrogen 24 mg/dl (7-17); Calcium 8.7 mg/dl (8.4-10.2); Carbon Dioxide 28 mmol/L (22.0-30.0); Creatinine Clearance Estimated 59 mL/min (50-200); Estimated Glomerular Filt Rate 53 ml/min (>60); GFR (African American) 64 ML/MIN (>60); Globulin 3.3 g/dL (1.3-3.2); Glucose 143 mg/dl (74-100); Total Protein,Serum 5.9 g/dl (6.3-8.2)
[2023-03-17 08:00] VITALS: BP 150/72; PULSE 97; RESP 18; TEMP 36.4; O2SAT 96
--- NOTE | 2023-03-17 08:19 | EXP.SURG.PN ---
Subjective Patient reports: feels better, flatus and bowel movement Narrative: The patient states that she has had a pretty big bowel movement and has passed a fairly large amount of flatus. Exam Data for Last 24 hours Vital signs and Labs for Last 24 Hours: Temp Pulse Resp BP Pulse Ox 97.9 F 102 H 18 135/71 96 03/17/23 04:00 03/17/23 04:00 03/17/23 04:00 03/17/23 04:00 03/17/23 04:00 Laboratory Results - last 24 hr 03/16/23 11:13: POC Glucose 115 H 03/16/23 21:23: POC Glucose 126 H 03/17/23 05:00: POC Glucose 137 H 03/17/23 05:53: Sodium 141, Potassium 3.9 D, Chloride 99, Carbon Dioxide 28, Anion Gap 17.9 H, BUN 24 H, Creatinine 1.00 D, Estimated Creat Clear 59, Estimated GFR 53 L, Est GFR ( Amer) 64 D, Glucose 143 H, Calcium 8.7, Total Bilirubin 0.5, AST 52 H, ALT 27, Alkaline Phosphatase 275 H, Total Protein 5.9 L, Albumin 2.6 L, Globulin 3.3 H, Albumin/Globulin Ratio 0.8 L I & O for Last 24 hours: Intake & Output 03/14/23 03/15/23 03/16/23 03/17/23 11:59 11:59 11:59 11:59 Intake Total 840 / 840 480 / 480 145 / 145 0 / 0 Output Total 300 / 300 300 / 300 100 / 100 101 / 101 Balance 540 / 540 180 / 180 45 / 45 -101 / -101 Weight 191 lb 5.78 oz 193 lb 191 lb 1.6 oz 191 lb 3 oz Constitutional Constitutional: no acute distress *Routine Abdominal Exam Abdominal: Present soft and distended Comments: Less distended versus yesterday *Routine Rectal Exam Digital: Absent mass Progress Note: A&P Assessment and plan (1) Colon distention: Status: Acute Assessment and plan: Improvement over the past 24 hours with passage of flatus and a bowel movement. Continue fairly aggressive bowel regimen for now Nasogastric tube placed to drain bag this morning (possible removal later today) If/when nasogastric tube removed, continue extreme caution with any diet advancement Continue serial abdominal exams
--- NOTE | 2023-03-17 08:56 | PC.NURSE ---
COURTESY TECH NOTE; ROUNDED ON PT, PT DENIED NEED FOR ASSISTANCE WITH RESTROOM, AND NEED TO REPOSITION. CALL LIGHT WITHIN REACH, NO FURTHER REQUESTS AT THIS TIME CASI LAURA
--- NOTE | 2023-03-17 09:01 | EXP.PHA.PN ---
Subjective *Date: 03/17/23 *Time: 09:01 Medical Exam Vital signs and Labs for Last 24 Hours: Vital Signs Temp Pulse Resp BP BP Pulse Ox 03/17/23 08:00 97.6 F 97 H 18 150/72 H 96 03/17/23 04:00 97.9 F 102 H 18 135/71 96 03/16/23 20:00 97.6 F 96 H 18 141/72 H 98 03/16/23 20:00 95 03/16/23 15:11 97.7 F 93 H 18 143/68 H 94 L Intake and Output 03/16/23 03/17/23 03/17/23 23:59 07:59 15:59 Intake Total 0 / 0 Output Total 1 100 / 100 Balance - 44 -100 / -100 Intake: Intake, Oral Amount 0 / 0 Output: Output, Urine Amount Output, Gastric Drainage Amount 100 / 100 Right Nare 100 / 100 Other: Number of Unmeasured Voids 1 Number of Bowel Movements 1 Weight 86.721 kg Patient Weight 03/17/23 23:59 Weight 86.721 kg Laboratory Results - last 24 hr 03/16/23 11:13: POC Glucose 115 H 03/16/23 21:23: POC Glucose 126 H 03/17/23 05:00: POC Glucose 137 H 03/17/23 05:53: Sodium 141, Potassium 3.9 D, Chloride 99, Carbon Dioxide 28, Anion Gap 17.9 H, BUN 24 H, Creatinine 1.00 D, Estimated Creat Clear 59, Estimated GFR 53 L, Est GFR ( Amer) 64 D, Glucose 143 H, Calcium 8.7, Total Bilirubin 0.5, AST 52 H, ALT 27, Alkaline Phosphatase 275 H, Total Protein 5.9 L, Albumin 2.6 L, Globulin 3.3 H, Albumin/Globulin Ratio 0.8 L I & O for Labs for Last 24 Hours: Intake & Output 03/14/23 03/15/23 03/16/23 03/17/23 23:59 23:59 23:59 23:59 Intake Total 960 / 960 120 / 265 145 / 145 0 / 0 Output Total 300 / 300 0 / 0 101 / 101 100 / 100 Balance 660 / 660 120 / 265 44 / 44 -100 / -100 Weight 86.8 kg 87.5 kg 86.682 kg 86.721 kg The patient's infection will respond to the chosen ABx?: Yes (UTI, URINE CX PROTEUS AND E. CLOACAE, ROCEPHIN SUSCEPTIBLE) Is the patient receiving the right drug, dose, and route?: Yes Could a more targeted ABx be ordered?: No How long ABx needed (days)?: 7
[2023-03-17 09:21] LABS: Vancomycin,Trough 14.6 ug/mL (5.0-10.0)
[2023-03-17 12:00] LABS: POC Glucose,Bedside 204 (70-110)
--- NOTE | 2023-03-17 13:52 | EXP.ACUTE.PN ---
Subjective *Date: 03/17/23 *Time: 18:34 Interval history: Intermittent improvement overnight, had large bowel movement with episodes of passing flatus. Feeling better today. Tolerating ice chips and sips on morning rounds. Denies any nausea. States her belly is feeling better. However as the days gone on, complaining of continued pain and some increased distention this afternoon. Labs appear stable. No fever. Medical Exam Vital signs and Labs for Last 24 Hours: Vital Signs Temp Pulse Resp BP BP Pulse Ox 03/17/23 08:00 97.6 F 97 H 18 150/72 H 96 03/17/23 04:00 97.9 F 102 H 18 135/71 96 03/16/23 20:00 97.6 F 96 H 18 141/72 H 98 03/16/23 20:00 95 03/16/23 15:11 97.7 F 93 H 18 143/68 H 94 L Intake and Output 03/16/23 03/17/23 03/17/23 23:59 07:59 15:59 Intake Total 0 / 0 Output Total 1 / 101 100 / 100 Balance - -100 / -100 Intake: Intake, Oral Amount 0 / 0 Output: Output, Urine Amount 1 / 101 Output, Gastric Drainage Amount 100 / 100 Right Nare 100 / 100 Other: Number of Unmeasured Voids 1 Number of Bowel Movements 1 Weight 86.721 kg Patient Weight 03/17/23 23:59 Weight 86.721 kg Laboratory Results - last 24 hr 03/16/23 11:13: POC Glucose 115 H 03/16/23 21:23: POC Glucose 126 H 03/17/23 05:00: POC Glucose 137 H 03/17/23 05:53: Sodium 141, Potassium 3.9 D, Chloride 99, Carbon Dioxide 28, Anion Gap 17.9 H, BUN 24 H, Creatinine 1.00 D, Estimated Creat Clear 59, Estimated GFR 53 L, Est GFR ( Amer) 64 D, Glucose 143 H, Calcium 8.7, Total Bilirubin 0.5, AST 52 H, ALT 27, Alkaline Phosphatase 275 H, Total Protein 5.9 L, Albumin 2.6 L, Globulin 3.3 H, Albumin/Globulin Ratio 0.8 L 03/17/23 07:35: Vancomycin Trough 14.6 H 03/17/23 11:46: POC Glucose 204 H 03/17/23 12:15: Vancomycin Peak 43.0 H* I & O for Labs for Last 24 Hours: Intake & Output 03/14/23 03/15/23 03/16/23 03/17/23 23:59 23:59 23:59 23:59 Intake Total 960 / 960 120 / 265 145 / 145 0 / 0 Output Total 300 / 300 0 / 0 101 / 101 100 / 100 Balance 660 / 660 120 / 265 44 / 44 -100 / -100 Weight 86.8 kg 87.5 kg 86.682 kg 86.721 kg Constitutional: Present no acute distress, obese and chronically ill appearing Head: Present atraumatic Eyes: Present as per HPI ENT: Present normal exam Comment:: bitemporal wasting Neck: Present normal inspection and full ROM Respiratory: Present CTA bilaterally; Absent accessory muscle use Cardiac: Present Reg Rate and Rhythm GI: Present soft, distention (Stable, no rebound. No peritonitis.), tenderness (Diffuse) and normal bowel sounds Rectal (female): Present deferred (female): Present deferred Extremities: Present normal inspection and edema (1+ to knees); Absent tenderness Skin: Present intact and dry Neuro: Present alert, awake and moves all extremities Assessment and Plan *Assessment and plan (1) Acute UTI: Status: Acute Category: Medical Code(s): N39.0 - Urinary tract infection, site not specified (2) Colon distention: Status: Acute Category: Medical Code(s): K63.89 - Other specified diseases of intestine (3) Ascites: Status: Acute Category: Medical Code(s): R18.8 - Other ascites (4) Decompensated hepatic cirrhosis: Status: Acute Category: Medical Code(s): K72.90 - Hepatic failure, unspecified without coma; K74.60 - Unspecified cirrhosis of liver (5) Asymmetric edema of both lower extremities: Status: Acute Category: Medical Code(s): R60.9 - Edema, unspecified (6) Ankle fracture, right: Status: Acute Category: Medical Code(s): S82.891A - Other fracture of right lower leg, initial encounter for closed fracture (7) Diabetes: Status: Chronic Qualifiers: Diabetes mellitus type: type 2 Diabetes mellitus director long term care insulin use: with director long term care use Diabetes mellitus complicati
--- NOTE | 2023-03-17 15:39 | PC.NURSE ---
pt's NG has been connected to a drainage bag since around 1030 this morning. 70ml gastric output so far this shift. pt walked 50 feet once in the hallway.
[2023-03-17 16:00] VITALS: BP 141/75; PULSE 95; RESP 18; TEMP 36.4; O2SAT 96
[2023-03-17 16:52] LABS: POC Glucose,Bedside 130 (70-110)
--- NOTE | 2023-03-17 18:48 | PC.NURSE ---
md notified about pts increase pain in abd, pt states its just alot of pressure and pain pt moaning and grimacing. treated per dec. pt sat on toilet after enema for about 10mins and took a shower with some gas , no bm this shift.. pt has active bowel sound in all 4 quads.
--- NOTE | 2023-03-17 19:26 | PC.NURSE ---
pt states she feels much better from the nausea and pain meds.
[2023-03-17 20:00] VITALS: BP 118/62; PULSE 98; RESP 20; TEMP 36.4; O2SAT 96
[2023-03-17 20:25] LABS: POC Glucose,Bedside 136 (70-110)
[2023-03-18] VITALS (20 sets, daily range): BP systolic 114–142; BP diastolic 50–79; PULSE 87–97; RESP 16–20; TEMP 36.1–37.1; O2SAT 95–98; BMI 32.3
[2023-03-18 05:56] LABS: POC Glucose,Bedside 134 (70-110)
[2023-03-18 06:29] LABS: Basophils # 0.1 K/mm3 (0-0.2); Basophils % 0.5 % (0.1-2.0); Eosinophils # 0.1 K/mm3 (0.0-0.4); Eosinophils % 0.8 % (0.1-12.0); Hematocrit 42.4 % (37.0-47.0); Hemoglobin 13.1 g/dL (12.2-16.2); Lymphocytes # 2.8 K/mm3 (0.7-4.5); Lymphocytes % 26.3 % (10-50); Mean Corpuscular HGB Conc 30.9 g/dL (31.8-35.4); Mean Corpuscular Hemoglobin 29.1 pg (27.0-31.2); Mean Corpuscular Volume 94.2 fl (81-99); Mean Platelet Volume 8.5 fl (7.4-10.4); Monocytes # 1.1 K/mm3 (0.1-1.0); Monocytes % 10.6 % (1.7-9.3); Neutrophils # 6.6 K/mm3 (1.8-7.8); Neutrophils % 61.9 % (37.0-80.0); Platelet Count 393 K/mm3 (142-424); Red Cell Distribution Width 16.7 % (11.5-17.5); White Blood Count 10.7 K/mm3 (4.8-10.8)
[2023-03-18 06:56] LABS: Chloride 99 mmol/L (98-107); Potassium 4.2 mmoL/L (3.5-5.1); Sodium 139 mmol/L (136-145)
--- NOTE | 2023-03-18 06:57 | P.PN_ITS ---
Subjective Narrative: Patient had some abdominal tenderness and discomfort. Exam Data for Last 24 hours Vital signs and Labs for Last 24 Hours: Temp Pulse Resp BP Pulse Ox 97.7 F 97 H 20 120/58 L 97 03/18/23 04:00 03/18/23 04:00 03/18/23 04:00 03/18/23 04:00 03/18/23 04:00 Laboratory Results - last 24 hr 03/17/23 05:53: Sodium 141, Potassium 3.9 D, Chloride 99, Carbon Dioxide 28, Anion Gap 17.9 H, BUN 24 H, Creatinine 1.00 D, Estimated Creat Clear 59, Es timated GFR 53 L, Est GFR ( Amer) 64 D, Glucose 143 H, Calcium 8.7, Total Bilirubin 0.5, AST 52 H, ALT 27, Alkaline Phosphatase 275 H, Total Protein 5.9 L, Albumin 2.6 L, Globulin 3.3 H, Albumin/Globulin Ratio 0.8 L 03/17/23 07:35: Vancomycin Trough 14.6 H 03/17/23 11:46: POC Glucose 204 H 03/17/23 12:15: Vancomycin Peak 43.0 H* 03/17/23 16:45: POC Glucose 130 H 03/17/23 20:15: POC Glucose 136 H 03/18/23 05:20: POC Glucose 134 H 03/18/23 05:35: WBC 10.7, RBC 4.50, Hgb 13.1, Hct 42.4, MCV 94.2, MCH 29.1, MCHC 30.9 L, RDW 16.7, Plt Count 393, MPV 8.5, Neut % (Auto) 61.9, Lymph % (Auto) 26.3, [place] % (Auto) 10.6 H, Eos % (Auto) 0.8, Baso % (Auto) 0.5, Neut # (Auto) 6.6, Lymph # (Auto) 2.8, [place] # (Auto) 1.1 H, Eos # (Auto) 0.1, Baso # (Auto) 0.1 I & O for Last 24 hours: Intake & Output 03/15/23 03/16/23 03/17/23 03/18/23 11:59 11:59 11:59 11:59 Intake Total 480 / 480 145 / 145 0 / 0 520 / 520 Output Total 300 / 300 100 / 100 101 / 101 120 / 120 Balance 180 / 180 45 / 45 -101 / -101 400 / 400 Weight 193 lb 191 lb 1.6 oz 191 lb 3 oz 191 lb 7 oz *Routine Abdominal Exam Comments: Markedly distended. Some tenderness in the right lower quadrant. Progress Note: A&P Assessment and plan (1) Acute UTI: Status: Acute (2) Colon distention: Status: Acute Assessment and plan: Check acute abdominal series. Given the potential for ischemia or even perforation secondary to distention may need cautious decompressive colonoscopy. This would carry some risk in this patient. (3) Ascites: Status: Acute (4) Decompensated hepatic cirrhosis: Status: Acute (5) Asymmetric edema of both lower extremities: Status: Acute (6) Ankle fracture, right: Status: Acute (7) Diabetes: Status: Chronic
[2023-03-18 06:59] LABS: Alanine Aminotransferase 28 U/L (12-78); Albumin Level 2.6 g/dl (3.5-5.0); Albumin/Globulin Ratio 0.8 (1.1-1.8); Alkaline Phosphatase 298 U/L (38-126); Anion Gap 18.2 mEq/L (5-15); Aspartate Amino Transferase 64 U/L (14-36); Bilirubin,Total 0.4 mg/dl (0.2-1.3); Blood Urea Nitrogen 30 mg/dl (7-17); Calcium 8.7 mg/dl (8.4-10.2); Carbon Dioxide 26 mmol/L (22.0-30.0); Creatinine Clearance Estimated 46 mL/min (50-200); Estimated Glomerular Filt Rate 39 ml/min (>60); GFR (African American) 47 ML/MIN (>60); Globulin 3.3 g/dL (1.3-3.2); Glucose 133 mg/dl (74-100); Total Protein,Serum 5.9 g/dl (6.3-8.2)
--- NOTE | 2023-03-18 07:02 | XR_ITS ---
FINAL REPORT CLINICAL HISTORY: ABDOMINAL PAIN, DISTENSION COMPARISON: 03/16/2023 FINDINGS: There is mild worsening of bibasilar atelectasis and pleural effusions. Cardiomegaly is noted. The upper lobes are grossly clear. There is moderate gaseous distension throughout the colon which is nonspecific, could be due to ileus. There is no free intraperitoneal air. No abdominal radiopacities are seen in the abdomen. NG tube is seen in the proximal stomach. There are postoperative changes in the lumbar spine. IMPRESSION: No significant change in bowel gas pattern. Worsening atelectasis and effusions. Reviewed, Interpreted and Dictated by Zheng Germain MD Transcribed by Janneth Noriega Authenticated and [facility]
[2023-03-18 07:10] LABS: Magnesium 1.7 mg/dl (1.6-2.3)
--- NOTE | 2023-03-18 08:00 | FL_ITS ---
FINAL REPORT CLINICAL HISTORY: Colonic ileus versus partial obstruction 5:05 fluoro time 720ml gastroview FINDINGS: Gastrografin ENEMA FLUOROSCOPY TIME: not provided NUMBER OF IMAGES: 64 TECHNIQUE: Single water-soluble contrast exam Note: Exam was very technically difficult. There was significant difficulty passing contrast retrograde with much of the colonic contents backfilling contrast tubing and reservoir bag. FINDINGS: There was partial filling of the colon to the level of the splenic flexure. No gross obstructing lesion was present. There was no leak. The proximal sigmoid colon was poorly distended. Right and transverse colon were not evaluated since based on other imaging obstructing lesion would involve the distal: IMPRESSION: Technically difficult exam without obstruction to the level of the splenic flexure. No obvious leak Authenticated and [facility]
--- NOTE | 2023-03-18 08:41 | EXP.PN ---
Subjective *Date: 03/18/23 *Time: 13:33 Interval history: Creatinine is 1.3, increased from 1.0 BUN is 30, increased from 24 magnesium is 1.7 vanc peak level was 43 and trough 14.6 on 03/17 CXR is with no significant change in bowel gas pattern. Worsening atelectasis and effusions. She received a dose of hydrocodone at around 2 AM. She denies abdominal pain but abdominal distension is unchanged. Exam Data for Last 24 hours Vital signs and Labs for Last 24 Hours: Temp Pulse Resp BP Pulse Ox 97.7 F 95 H 18 126/76 95 03/18/23 07:43 03/18/23 07:43 03/18/23 07:43 03/18/23 07:43 03/18/23 07:43 Laboratory Results - last 24 hr 03/17/23 07:35: Vancomycin Trough 14.6 H 03/17/23 11:46: POC Glucose 204 H 03/17/23 12:15: Vancomycin Peak 43.0 H* 03/17/23 16:45: POC Glucose 130 H 03/17/23 20:15: POC Glucose 136 H 03/18/23 05:20: POC Glucose 134 H 03/18/23 05:35: Sodium 139, Potassium 4.2, Chloride 99, Carbon Dioxide 26, Anion Gap 18.2 H, BUN 30 H, Creatinine 1.30 H D, Estimated Creat Clear 46, Estimated GFR 39 L, Est GFR ( Amer) 47 L D, Glucose 133 H, Calcium 8.7, Total Bilirubin 0.4, AST 64 H, ALT 28, Alkaline Phosphatase 298 H, Total Protein 5.9 L, Albumin 2.6 L, Globulin 3.3 H, Albumin/Globulin Ratio 0.8 L 03/18/23 05:35: WBC 10.7, RBC 4.50, Hgb 13.1, Hct 42.4, MCV 94.2, MCH 29.1, MCHC 30.9 L, RDW 16.7, Plt Count 393, MPV 8.5, Neut % (Auto) 61.9, Lymph % (Auto) 26.3, [place] % (Auto) 10.6 H, Eos % (Auto) 0.8, Baso % (Auto) 0.5, Neut # (Auto) 6.6, Lymph # (Auto) 2.8, [place] # (Auto) 1.1 H, Eos # (Auto) 0.1, Baso # (Auto) 0.1 03/18/23 05:35: Magnesium 1.7 D I & O for Last 24 hours: Intake & Output 03/15/23 03/16/23 03/17/23 03/18/23 23:59 23:59 23:59 23:59 Intake Total 120 / 265 145 / 145 200 / 520 320 / 320 Output Total 0 / 0 101 / 101 170 / 220 50 / 50 Balance 120 / 265 44 / 44 30 / 300 270 / 270 Weight 87.5 kg 86.682 kg 86.721 kg 86.835 kg Constitutional Constitutional: no acute distress *Routine HEENT Exam Head: Present normocephalic Eye: Present EOMI and PERRL ENT: Present mucous membranes moist *Routine Neck Exam Neck: Present supple; Absent lymphadenopathy *Routine Respiratory Exam Respiratory: Present CTA bilaterally *Routine Cardiovascular Exam Cardiovascular: Present RRR *Routine Abdominal Exam Abdominal: Present soft and distended; Absent tenderness *Routine Extremities Exam Extremities: Absent cyanosis, clubbing or edema *Routine Skin Exam Skin: Present warm; Absent rash *Routine Neurological Exam Neurological: Present alert and oriented X3 Assessment and Plan *Assessment and plan (1) Acute UTI: Status: Acute Category: Medical Code(s): N39.0 - Urinary tract infection, site not specified (2) Colon distention: Status: Acute Category: Medical Code(s): K63.89 - Other specified diseases of intestine (3) Ascites: Status: Acute Category: Medical Code(s): R18.8 - Other ascites (4) Decompensated hepatic cirrhosis: Status: Acute Category: Medical Code(s): K72.90 - Hepatic failure, unspecified without coma; K74.60 - Unspecified cirrhosis of liver (5) Asymmetric edema of both lower extremities: Status: Acute Category: Medical Code(s): R60.9 - Edema, unspecified (6) Ankle fracture, right: Status: Acute Category: Medical Code(s): S82.891A - Other fracture of right lower leg, initial encounter for closed fracture (7) Diabetes: Status: Chronic Qualifiers: Diabetes mellitus type: type 2 Diabetes mellitus jail insulin use: with jail use Diabetes mellitus complication status: without complication Qualified Code(s): E11.9 - Type 2 diabetes mellitus without complications Category: Medical Code(s): E11.9 - Type 2 diabetes mellitus without complications Guero Castle is an 82 year old female with a past medical history of hypertension, diabete
--- NOTE | 2023-03-18 09:01 | P.PN_ITS ---
Subjective *Date: 03/18/23 *Time: 09:01 Medical Exam Vital signs and Labs for Last 24 Hours: Vital Signs Temp Pulse Resp BP BP Pulse Ox 03/18/23 07:43 97.7 F 95 H 18 126/76 95 03/18/23 04:00 97.7 F 97 H 20 120/58 L 97 03/17/23 20:00 96 03/17/23 20:00 97.5 F L 98 H 20 118/62 96 03/17/23 16:00 97.6 F 95 H 18 141/75 H 96 Intake and Output 03/17/23 03/18/23 03/18/23 23:59 07:59 15:59 Intake Total 200 / 520 320 / 320 Output Total 50 / 50 Balance 200 / 300 270 / 270 Intake: Intake, Oral Amount 200 / 320 120 / 120 Intake, Tube Irrigant Amount 200 / 200 Output: Output, Urine Amount 0 / 0 Output, Gastric Drainage Amount 50 / 50 Right Nare 50 / 50 Other: Number of Unmeasured Voids 1 Number of Bowel Movements 1 1 Weight 86.835 kg Patient Weight 03/18/23 23:59 Weight 86.835 kg Laboratory Results - last 24 hr 03/17/23 07:35: Vancomycin Trough 14.6 H 03/17/23 11:46: POC Glucose 204 H 03/17/23 12:15: Vancomycin Peak 43.0 H* 03/17/23 16:45: POC Glucose 130 H 03/17/23 20:15: POC Glucose 136 H 03/18/23 05:20: POC Glucose 134 H 03/18/23 05:35: Sodium 139, Potassium 4.2, Chloride 99, Carbon Dioxide 26, Anion Gap 18.2 H, BUN 30 H, Creatinine 1.30 H D, Estimated Creat Clear 46, Estimated GFR 39 L, Est GFR ( Amer) 47 L D, Glucose 133 H, Calcium 8.7, Total Bilirubin 0.4, AST 64 H, ALT 28, Alkaline Phosphatase 298 H, Total Protein 5.9 L , Albumin 2.6 L, Globulin 3.3 H, Albumin/Globulin Ratio 0.8 L 03/18/23 05:35: WBC 10.7, RBC 4.50, Hgb 13.1, Hct 42.4, MCV 94.2, MCH 29.1, MCHC 30.9 L, RDW 16.7, Plt Count 393, MPV 8.5, Neut % (Auto) 61.9, Lymph % (Auto) 26.3, [place] % (Auto) 10.6 H, Eos % (Auto) 0.8, Baso % (Auto) 0.5, Neut # (Auto) 6.6, Lymph # (Auto) 2.8, [place] # (Auto) 1.1 H, Eos # (Auto) 0.1, Baso # (Auto) 0.1 03/18/23 05:35: Magnesium 1.7 D I & O for Labs for Last 24 Hours: Intake & Output 03/15/23 03/16/23 03/17/23 03/18/23 23:59 23:59 23:59 23:59 Intake Total 120 / 265 145 / 145 200 / 520 320 / 320 Output Total 0 / 0 101 / 101 170 / 220 50 / 50 Balance 120 / 265 44 / 44 30 / 300 270 / 270 Weight 87.5 kg 86.682 kg 86.721 kg 86.835 kg The patient's infection will respond to the chosen ABx?: Yes (ASCITES FLUID = S. EPIDERMIDIS, VANCO SUSCEPTIBLE.) Is the patient receiving the right drug, dose, and route?: Yes Could a more targeted ABx be ordered?: No
--- NOTE | 2023-03-18 09:03 | PC.NURSE ---
COURTESY TECH NOTE; ROUNDED ON PT 0830, ASSISTED NURSE TO POSITION PT FOR ENEMA ADMINISTRATION AND CHANGE BRIEF, CALL LIGHT WITHIN REACH, NO FURTHER REQUESTS AT THIS TIME Radha EDUARDO, CASI
--- NOTE | 2023-03-18 09:35 | EXP.PHA.CONS ---
Pharmacy Consult Date: 03/18/23 Time: 09:35 Referring provider: DR. DUNAWAY Reason for Consult:: VANCOMYCIN PEAK AND TROUGH LEVELS Allergies Allergy/AdvReac Type Severity Reaction Status Date / Time No Known Allergies Allergy Verified 02/18/23 10:52 Home Medications Medication Instructions Recorded Confirmed Type magnesium oxide 400 mg PO DAILY Supplement 06/23/20 03/12/23 History amlodipine 10 mg tablet 10 mg PO DAILY blood pressure 11/10/22 03/12/23 History furosemide 40 mg tablet 40 mg PO DAILY Fluid 11/10/22 03/12/23 History propylthiouracil 50 mg tablet 50 mg PO BID hyperthyroidism 11/10/22 03/12/23 History alendronate 70 mg tablet 70 mg PO MO Osteoporosis 03/12/23 03/12/23 History allopurinol 100 mg tablet 100 mg PO DAILY gout 03/12/23 03/12/23 History aspirin 81 mg tablet,delayed 81 mg PO DAILY Blood thinner 03/12/23 03/12/23 History release colestipol 1 gram tablet 1 g PO BID cholesterol 03/12/23 03/12/23 History cyclobenzaprine 10 mg tablet 10 mg PO HS muscle spasms 03/12/23 03/12/23 History gabapentin 300 mg capsule 300 mg PO TID NERVE PAIN 03/12/23 03/12/23 History hydrocodone 5 mg-acetaminophen 325 1 tab PO DAILYP PRN Moderate Pain 03/12/23 03/12/23 History mg tablet insulin glargine 100 unit/mL (3 20 unit SQ HS Diabetes 03/12/23 03/12/23 History mL) subcutaneous pen (Lantus Solostar U-100 Insulin) insulin lispro 100 unit/mL 0 sliding scale dose SQ AC Diabetes 03/12/23 03/12/23 History subcutaneous solution (Humalog U-100 Insulin) metformin 500 mg tablet 500 mg PO BIDWMEAL Diabetes 03/12/23 03/12/23 History potassium chloride 10 mEq 10 meq PO DAILY Supplement 03/12/23 03/12/23 History capsule,extended release sennosides 8.6 mg-docusate sodium 1 tab PO HSP PRN constipation 03/12/23 03/12/23 History 50 mg tablet (Senna with Docusate Sodium) New Prescriptions to Start Prescriptions: Height: 1.64 m Weight: 86.835 kg Laboratory Results:: Laboratory Results - last 24 hr 03/17/23 11:46: POC Glucose 204 H 03/17/23 12:15: Vancomycin Peak 43.0 H* 03/17/23 16:45: POC Glucose 130 H 03/17/23 20:15: POC Glucose 136 H 03/18/23 05:20: POC Glucose 134 H 03/18/23 05:35: Sodium 139, Potassium 4.2, Chloride 99, Carbon Dioxide 26, Anion Gap 18.2 H, BUN 30 H, Creatinine 1.30 H D, Estimated Creat Clear 46, Estimated GFR 39 L, Est GFR ( Amer) 47 L D, Glucose 133 H, Calcium 8.7, Total Bilirubin 0.4, AST 64 H, ALT 28, Alkaline Phosphatase 298 H, Total Protein 5.9 L, Albumin 2.6 L, Globulin 3.3 H, Albumin/Globulin Ratio 0.8 L 03/18/23 05:35: WBC 10.7, RBC 4.50, Hgb 13.1, Hct 42.4, MCV 94.2, MCH 29.1, MCHC 30.9 L, RDW 16.7, Plt Count 393, MPV 8.5, Neut % (Auto) 61.9, Lymph % (Auto) 26.3, [place] % (Auto) 10.6 H, Eos % (Auto) 0.8, Baso % (Auto) 0.5, Neut # (Auto) 6.6, Lymph # (Auto) 2.8, [place] # (Auto) 1.1 H, Eos # (Auto) 0.1, Baso # (Auto) 0.1 03/18/23 05:35: Magnesium 1.7 D Medical History: Medical History (Updated 03/16/23 @ 12:58 by Rizwan Cancino MD) Diabetes Fractured coccyx GERD (gastroesophageal reflux disease) History of fall Hypertension Infection of skin due to methicillin resistant Staphylococcus aureus (MRSA) Sacral fracture, closed Assessment and Plan Assessment and plan all Dx Assessment and Plan for all problems:: BASED ON PATIENT FACTORS AND VANCOMYCIN PEAK/TROUGH LEVELS OF 14.6/43.0 RESPECTIVELY, RECOMMEND CONTINUING CURRENT DOSE OF VANCOMYCIN AT 1,750MG EVERY 24 HOURS. PHARMACY WILL CONTINUE TO MONITOR.
--- NOTE | 2023-03-18 11:11 | CT_ITS ---
FINAL REPORT TECHNIQUE: Noncontrast CT exam of the abdomen and pelvis. This study was performed with techniques to keep radiation doses as low as reasonably achievable (ALARA). Individualized dose reduction techniques using automated exposure control or adjustment of mA and/or kV according to the patient''s size were employed. CLINICAL HISTORY: Abdominal pain and distension, possible pneumoperitoneum COMPARISON: 03/15/2023 FINDINGS: Abdomen: Small left pleural effusion with left lower lobe atelectasis. Trace right pleural effusion. Fatty infiltration of the liver. Remaining solid organs are unremarkable. Perigastric varices. Status post cholecystectomy. Moderate colonic distension. There is curvilinear air along the proximal transverse colon and hepatic flexure favored to be artifact related to stool, less likely pneumatosis of bowel wall. Trace scattered ascites, insufficient for paracentesis. Pelvis: Normal appendix. Trace ascites. Questionable wall thickening of the proximal and mid sigmoid colon. Streak artifact obscures the lower pelvis. IMPRESSION: No evidence of pneumoperitoneum. Persistent colonic distension with questionable narrowing and wall thickening of the proximal sigmoid colon. Lucencies of the colonic wall near the hepatic flexure and proximal transverse colon, favor stool artifact over pneumatosis. Trace ascites, insufficient for paracentesis. Reviewed, Interpreted and Dictated by Zheng Germain MD Transcribed by Nirmala Madrid Authenticated and [facility]
--- NOTE | 2023-03-18 13:56 | P.PN_ITS ---
[facility] Disclaimer: The information contained in this section may have been updated after the patient was seen, as this information can be updated by other users. Medical History Diabetes Fractured coccyx GERD (gastroesophageal reflux disease) History of fall Hypertension Infection of skin due to methicillin resistant Staphylococcus aureus (MRSA) Sacral fracture, closed Surgical History H/O: hysterectomy Hip joint replacement status History of arthroplasty of right ankle History of back surgery History of colonoscopy History of hip replacement History of lumbar surgery Social History Smoking Status: Never smoker second hand exposure: No alcohol intake: never substance use type: denies use current occupational status: retired Travel in the last 8 weeks: None household members: spouse housing: other [facility] Anesthesia Checklist Patient Identification Patient Identification: Arm Band Structural Data Admitted From: Inpatient Planned Operative Procedure/s: colonoscopy Consent for Planned Operative Procedure(s) Verified: Yes Verified Documents: Surgical Consent and History and Physical Additional verifications Anesthesia Reactions: No Airway Assessment C-Spine Mobility Assessed: Yes TMJ Mobility Assessed: Yes Dentition: Poor Dentition Neurological Assessment Level of Consciousness: Awake and Alert Anesthesia Plan Anesthesia Risk discussed: Yes Anesthesia Plan: Verified ASA Class: III Anesthesia Type: MAC
--- NOTE | 2023-03-18 14:28 | PC.NURSE ---
COURTESY TECH NOTE; ROUNDED ON PT, PT SLEEPING AT THIS TIME, ORAL CARE PACKS BROUGHT FOR PT AT FAMILYS REQUEST. CALL LIGHT WITHIN REACH, NO FURTHER REQUESTS AT THIS TIME CASI LAURA
--- NOTE | 2023-03-18 15:02 | SUR.OPER ---
Pt care passed on to Stacey Wilburn RN, report given.
--- NOTE | 2023-03-18 15:17 | HMH.SCOPE ---
Procedure: Date: 03/18/23 Patient Date of :: 1940 Procedure Performed:: Flexible sigmoidoscopy Indications:: Patient is an 82-year-old female who had been admitted to the hospital on 03/11/2023 with abdominal pain and bloating. He had decreased bowel movements. There was some abdominal distention. Work-up in the emergency department revealed ascites with cirrhosis on imaging. She did have a diagnostic paracentesis performed which revealed findings concerning for spontaneous bacterial peritonitis. General surgical consultation was obtained on 03/16/2023 for colonic ileus versus obstruction. Patient was seen by Dr. Cancino. She had a nasogastric tube placed. It was felt there was no hard evidence for mechanical obstruction but her clinical scenario was more consistent with a profound ileus. Initially plan was made for noninterventional management with enemas and suppositories. Gastrografin enema was ordered for possible diagnostic and therapeutic purposes on 03/16/2023. This was ultimately able to be done in the morning of 03/18/2023. Patient did have a fairly large bowel movement and passed some flatus on 03/17/2023. Gastrografin enema revealed no evidence of perforation or obstruction but it was a difficult study and contrast only filled to the splenic flexure. She did have a CT scan done for possible therapeutic paracentesis. However, there was no significant fluid for paracentesis. There were lucencies of the colonic wall near the hepatic flexure and proximal transverse colon which was felt to be stool artifact. Earlier that morning the patient did have some right-sided abdominal tenderness but this had improved. Due to the significant persistent abdominal distention with questionable findings of the right colon wall on CT scan plan was made to proceed with judicious careful colonoscopy to assess bowel integrity (ischemia) and perform decompression as all of her imaging and diagnostic studies were consistent with colonic ileus. Performing Provider:: Galindo Vasquez MD Referring Provider:: Hospitalist service Sedation:: MAC sedation Procedure:: Patient history was obtained and appropriate physical examination was performed. Patient's medications and allergies were reviewed. Informed consent was obtained after explaining the benefits, alternatives, and risks of the procedure including, but not limited to, bleeding, perforation, missed lesions, and adverse reaction to anesthesia medications. Patient was transported to endoscopy procedure room. Patient was connected to monitoring devices. Throughout the procedure the patient's blood pressure, pulse, and oxygen saturations were monitored continuously. Patient identification and planned procedure were verified by the staff. Patient was positioned in lateral decubitus position. Digital anorectal exam was performed. Variable stiffness Olympus colonoscope was inserted. There was a large amount of very foul-smelling liquid stool encountered. Prolonged procedure was performed with extremely high volume trans colonoscopic irrigation and suctioning. There was some diverticuli noted. Despite greater than an hour long procedure with several liters of irrigation colonoscope was unable to be advanced beyond the sigmoid colon at approximately 50 cm. This felt that this was more consistent with profound ileus and not obstruction and not a classic [place] syndrome. Findings:: Large amount of liquid stool Diverticulosis Visualized colonic mucosa appeared normal Recommendations:: I will obtain another CT scan post procedure due to the inability to fully evaluate the colon. Complications:: None immediately apparent Estimated blood obtained (mL): 0 Colonoscopy Component Colonoscopy Component Was a colonoscopy performed during today's procedure?: No
[2023-03-18 15:20] LABS: POC Glucose,Bedside 182 (70-110)
--- NOTE | 2023-03-18 15:38 | CT_ITS ---
FINAL REPORT TECHNIQUE: Axial images through the abdomen and pelvis was performed by computed tomography. This study was performed with techniques to keep radiation doses as low as reasonably achievable (ALARA). Individualized dose reduction techniques using automated exposure control or adjustment of mA and/or kV according to the patient's size were employed. CLINICAL HISTORY: ABDOMINAL DISTENSION COMPARISON: 03/18/2023 FINDINGS: Abdomen: Retained contrast is noted within the colon from Gastrografin enema done earlier same day. There is a small left pleural effusion. There is fatty infiltration of the liver. The remaining solid organs are normal. There is a small amount of free fluid. There is no free air. There is moderate colonic distension measuring up to 7 cm. No small bowel dilatation is identified. Ascites has minimally increased since prior. There is no contrast leak. Pelvis: There is minimal ascites. There is retained contrast within the distal colon. There is narrowing of the proximal and mid sigmoid colon over a 6 cm segment, this could be inflammatory or neoplastic. There is no contrast leak. There is moderate diverticulosis. IMPRESSION: Narrowing of the proximal sigmoid colon with wall thickening, likely causing partial distal colonic obstruction. Findings could be inflammatory or neoplastic in nature. No free air. Reviewed, Interpreted and Dictated by Zheng Germain MD Transcribed by Janneth Noriega Authenticated and [facility]
[2023-03-18 18:27] LABS: POC Glucose,Bedside 139 (70-110)
[2023-03-18 20:33] LABS: POC Glucose,Bedside 144 (70-110)
[2023-03-19] VITALS: BP 114/61; PULSE 91; RESP 20; TEMP 37; O2SAT 92
[2023-03-19 04:00] VITALS: BP 131/54; PULSE 97; RESP 18; TEMP 36.9; O2SAT 95; BMI 33.3
[2023-03-19 05:14] LABS: POC Glucose,Bedside 160 (70-110)
[2023-03-19 07:08] LABS: Basophils % 0.6 % (0.1-2.0); Eosinophils # 0.2 K/mm3 (0.0-0.4); Eosinophils % 3.3 % (0.1-12.0); Hematocrit 42.7 % (37.0-47.0); Lymphocytes # 2.6 K/mm3 (0.7-4.5); Lymphocytes % 36.9 % (10-50); Mean Corpuscular HGB Conc 30.5 g/dL (31.8-35.4); Mean Corpuscular Hemoglobin 28.9 pg (27.0-31.2); Mean Corpuscular Volume 94.8 fl (81-99); Mean Platelet Volume 7.8 fl (7.4-10.4); Monocytes # 0.6 K/mm3 (0.1-1.0); Monocytes % 8.1 % (1.7-9.3); Neutrophils # 3.6 K/mm3 (1.8-7.8); Neutrophils % 51.1 % (37.0-80.0); Platelet Count 384 K/mm3 (142-424); Red Cell Distribution Width 17.1 % (11.5-17.5)
[2023-03-19 07:24] LABS: Chloride 100 mmol/L (98-107); Potassium 3.5 mmoL/L (3.5-5.1); Sodium 140 mmol/L (136-145)
[2023-03-19 07:26] LABS: Alanine Aminotransferase 29 U/L (12-78); Aspartate Amino Transferase 55 U/L (14-36); Blood Urea Nitrogen 31 mg/dl (7-17); Creatinine Clearance Estimated 56 mL/min (50-200); Estimated Glomerular Filt Rate 48 ml/min (>60); GFR (African American) 58 ML/MIN (>60)
[2023-03-19 07:27] LABS: Albumin Level 2.5 g/dl (3.5-5.0); Albumin/Globulin Ratio 0.8 (1.1-1.8); Alkaline Phosphatase 280 U/L (38-126); Anion Gap 18.5 mEq/L (5-15); Bilirubin,Total 0.4 mg/dl (0.2-1.3); Calcium 8.5 mg/dl (8.4-10.2); Carbon Dioxide 25 mmol/L (22.0-30.0); Globulin 3.2 g/dL (1.3-3.2); Glucose 107 mg/dl (74-100); Total Protein,Serum 5.7 g/dl (6.3-8.2)
[2023-03-19 07:56] VITALS: BP 119/62; PULSE 90; RESP 17; TEMP 36.7; O2SAT 94
--- NOTE | 2023-03-19 09:04 | EXP.PN ---
Subjective *Date: 03/19/23 *Time: 11:05 Interval history: Yesterday the patient had a flexible sigmoidoscopy and a post procedure CT scan. NG tube was removed. She has no complaints this morning but continues to have severely distended abdomen. She denies pain. Exam Data for Last 24 hours Vital signs and Labs for Last 24 Hours: Temp Pulse Resp BP Pulse Ox 98.1 F 90 17 119/62 94 L 03/19/23 07:56 03/19/23 07:56 03/19/23 07:56 03/19/23 07:56 03/19/23 07:56 Laboratory Results - last 24 hr 03/18/23 12:31: POC Glucose 182 H 03/18/23 16:26: POC Glucose 139 H 03/18/23 20:27: POC Glucose 144 H 03/19/23 05:06: POC Glucose 160 H 03/19/23 06:22: Magnesium 2.0 D 03/19/23 06:22: WBC 7.0 D, RBC 4.50, Hgb 13.0, Hct 42.7, MCV 94.8, MCH 28.9, MCHC 30.5 L, RDW 17.1, Plt Count 384, MPV 7.8, Neut % (Auto) 51.1, Lymph % (Auto) 36.9, [place] % (Auto) 8.1, Eos % (Auto) 3.3, Baso % (Auto) 0.6, Neut # (Auto) 3.6, Lymph # (Auto) 2.6, [place] # (Auto) 0.6, Eos # (Auto) 0.2, Baso # (Auto) 0.0 03/19/23 06:22: Sodium 140, Potassium 3.5, Chloride 100, Carbon Dioxide 25, Anion Gap 18.5 H, BUN 31 H, Creatinine 1.10 H, Estimated Creat Clear 56, Estimated GFR 48 L, Est GFR ( Amer) 58 L D, Glucose 107 H, Calcium 8.5, Total Bilirubin 0.4, AST 55 H, ALT 29, Alkaline Phosphatase 280 H, Total Protein 5.7 L, Albumin 2.5 L, Globulin 3.2, Albumin/Globulin Ratio 0.8 L 03/19/23 06:22: Phosphorus 3.0 I & O for Last 24 hours: Intake & Output 03/16/23 03/17/23 03/18/23 03/19/23 23:59 23:59 23:59 23:59 Intake Total 145 / 145 200 / 520 320 / 320 839 / 839 Output Total 101 / 101 170 / 220 50 / 50 0 / 0 Balance 44 / 44 30 / 300 270 / 270 839 / 839 Weight 86.682 kg 86.721 kg 86.835 kg 89.584 kg Constitutional Constitutional: no acute distress *Routine HEENT Exam Head: Present normocephalic Eye: Present EOMI and PERRL ENT: Present mucous membranes moist *Routine Neck Exam Neck: Present supple; Absent lymphadenopathy *Routine Respiratory Exam Respiratory: Present CTA bilaterally *Routine Cardiovascular Exam Cardiovascular: Present RRR *Routine Abdominal Exam Abdominal: Present soft and distended; Absent tenderness *Routine Extremities Exam Extremities: Present edema (Right lower extremity); Absent cyanosis or clubbing *Routine Skin Exam Skin: Present warm; Absent rash *Routine Neurological Exam Neurological: Present alert and oriented X3 Assessment and Plan *Assessment and plan (1) Acute UTI: Status: Acute Category: Medical Code(s): N39.0 - Urinary tract infection, site not specified (2) Colon distention: Problem Comment: I discussed the case with Dr. Vasquez. It was not possible to traverse past the sigmoid colon during colonoscopy yesterday. I also independently reviewed the CT scan images and reports. She appears to have a narrowing in the mid sigmoid colon. There is proximal colonic distention. I do not appreciate any pneumatosis. Mild ascites. The differential for this problem includes colonic pseudoobstruction, sigmoid stricture, sigmoid malignancy. I do not think this is [place]'s, because she does have some imaging and endoscopic evidence for partial obstruction. Check CEA to rule out colon cancer. At this point, her labs and vitals are stable, and she does not have peritonitis. If she declines over the weekend, would proceed urgently with laparoscopic loop transverse colostomy for colonic decompression. If she is stable over the weekend, may consider this course early in the week. Status: Acute Category: Medical Code(s): K63.89 - Other specified diseases of intestine (3) Ascites: Status: Acute Category: Medical Code(s): R18.8 - Other ascites (4) Decompensated hepatic cirrhosis: Status: Acute Category: Medical Code(s): K72.90 - Hepatic failure, unspecified without coma; K74.60 - Unspecified cirrhosis of liver (5) Asymmetric edema of both lower extr
--- NOTE | 2023-03-19 11:07 | EXP.SURG.PN ---
Subjective Narrative: No acute events overnight. I spoke with Dr. Vasquez yesterday evening, and he had performed a colonoscopy in which she evacuated a large amount of foul-smelling stool from the distal sigmoid, but was not able to get past a certain point approximately 50 cm from the anal verge. No discrete tumor was seen. Exam Data for Last 24 hours Vital signs and Labs for Last 24 Hours: Temp Pulse Resp BP Pulse Ox 98.1 F 90 17 119/62 94 L 03/19/23 07:56 03/19/23 07:56 03/19/23 07:56 03/19/23 07:56 03/19/23 07:56 Laboratory Results - last 24 hr 03/18/23 12:31: POC Glucose 182 H 03/18/23 16:26: POC Glucose 139 H 03/18/23 20:27: POC Glucose 144 H 03/19/23 05:06: POC Glucose 160 H 03/19/23 06:22: Magnesium 2.0 D 03/19/23 06:22: WBC 7.0 D, RBC 4.50, Hgb 13.0, Hct 42.7, MCV 94.8, MCH 28.9, MCHC 30.5 L, RDW 17.1, Plt Count 384, MPV 7.8, Neut % (Auto) 51.1, Lymph % (Auto) 36.9, [place] % (Auto) 8.1, Eos % (Auto) 3.3, Baso % (Auto) 0.6, Neut # (Auto) 3.6, Lymph # (Auto) 2.6, [place] # (Auto) 0.6, Eos # (Auto) 0.2, Baso # (Auto) 0.0 03/19/23 06:22: Sodium 140, Potassium 3.5, Chloride 100, Carbon Dioxide 25, Anion Gap 18.5 H, BUN 31 H, Creatinine 1.10 H, Estimated Creat Clear 56, Estimated GFR 48 L, Est GFR ( Amer) 58 L D, Glucose 107 H, Calcium 8.5, Total Bilirubin 0.4, AST 55 H, ALT 29, Alkaline Phosphatase 280 H, Total Protein 5.7 L, Albumin 2.5 L, Globulin 3.2, Albumin/Globulin Ratio 0.8 L 03/19/23 06:22: Phosphorus 3.0 I & O for Last 24 hours: Intake & Output 03/16/23 03/17/23 03/18/23 03/19/23 23:59 23:59 23:59 23:59 Intake Total 145 / 145 200 / 520 320 / 320 839 / 839 Output Total 101 / 101 170 / 220 50 / 50 0 / 0 Balance 44 / 44 30 / 300 270 / 270 839 / 839 Weight 191 lb 1.6 oz 191 lb 3 oz 191 lb 7 oz 197 lb 8 oz Constitutional Constitutional: no acute distress, chronically ill appearing and somnolent *Routine HEENT Exam Head: Present normocephalic and atraumatic Comments: Temporal wasting *Routine Respiratory Exam Respiratory: Present CTA bilaterally; Absent accessory muscle use *Routine Cardiovascular Exam Cardiovascular: Present RRR *Routine Abdominal Exam Abdominal: Present soft and distended; Absent rebound or guarding Comments: Hyperactive bowel sounds with some high-pitched bowel sounds. No peritonitis. Did not open eyes to deep palpation. *Routine Extremities Exam Comments: Bilateral pitting edema. No SCDs present. *Routine Neurological Exam Comments: Awakens and opens eyes to voice. Answers a few questions. Mostly slept through exam. Progress Note: A&P Assessment and plan (1) Acute UTI: Status: Acute (2) Colon distention: Problem details: I discussed the case with Dr. Vasquez. It was not possible to traverse past the sigmoid colon during colonoscopy yesterday. I also independently reviewed the CT scan images and reports. She appears to have a narrowing in the mid sigmoid colon. There is proximal colonic distention. I do not appreciate any pneumatosis. Mild ascites. The differential for this problem includes colonic pseudoobstruction, sigmoid stricture, sigmoid malignancy. I do not think this is [place]'s, because she does have some imaging and endoscopic evidence for partial obstruction. Check CEA to rule out colon cancer. At this point, her labs and vitals are stable, and she does not have peritonitis. If she declines over the weekend, would proceed urgently with laparoscopic loop transverse colostomy for colonic decompression. If she is stable over the weekend, may consider this course early in the week. We will order SCDs for mechanical DVT prophylaxis. Status: Acute (3) Ascites: Status: Acute (4) Decompensated hepatic cirrhosis: Status: Acute (5) Asymmetric edema of both lower extremities: Status: Acute (6) Ankle fracture, right: Status: Acute (7) Diabetes: Status: Chronic (8) Malnutrition: Problem details:
[2023-03-19 11:12] VITALS: BP 120/64; PULSE 91; RESP 17; TEMP 36.6; O2SAT 93
[2023-03-19 11:42] LABS: POC Glucose,Bedside 107 (70-110)
[2023-03-19 15:53] VITALS: BP 141/67; PULSE 99; RESP 17; TEMP 36.6; O2SAT 97
--- NOTE | 2023-03-19 17:59 | PC.NURSE ---
no acute changes this shift. she has slept for most of the day. tolerating small amounts of clear liquids and ice chips.
[2023-03-19 18:46] LABS: POC Glucose,Bedside 120 (70-110)
[2023-03-19 19:38] VITALS: BP 130/60; PULSE 99; RESP 22; TEMP 36.6; O2SAT 93
[2023-03-19 20:43] LABS: POC Glucose,Bedside 108 (70-110)
[2023-03-20] VITALS (20 sets, daily range): BP systolic 117–162; BP diastolic 59–78; PULSE 93–102; RESP 14–20; TEMP 36.3–43; O2SAT 90–99; BMI 32.5
[2023-03-20 05:23] LABS: POC Glucose,Bedside 123 (70-110)
--- NOTE | 2023-03-20 06:11 | PC.NURSE ---
No acute changes throughout shift. Patient slept majority of shift with mild c/o abd pain. Tolerated sips and chips well with no adverse effects noted.
[2023-03-20 07:27] LABS: Basophils # 0.1 K/mm3 (0-0.2); Basophils % 0.7 % (0.1-2.0); Eosinophils # 0.2 K/mm3 (0.0-0.4); Eosinophils % 2.3 % (0.1-12.0); Hematocrit 40.7 % (37.0-47.0); Hemoglobin 12.8 g/dL (12.2-16.2); Lymphocytes # 2.8 K/mm3 (0.7-4.5); Lymphocytes % 39.1 % (10-50); Mean Corpuscular HGB Conc 31.4 g/dL (31.8-35.4); Mean Corpuscular Hemoglobin 29.4 pg (27.0-31.2); Mean Corpuscular Volume 93.5 fl (81-99); Mean Platelet Volume 8.1 fl (7.4-10.4); Monocytes # 0.8 K/mm3 (0.1-1.0); Monocytes % 10.8 % (1.7-9.3); Neutrophils # 3.4 K/mm3 (1.8-7.8); Platelet Count 352 K/mm3 (142-424); Red Blood Count 4.35 M/mm3 (4.20-5.40); Red Cell Distribution Width 16.9 % (11.5-17.5); White Blood Count 7.3 K/mm3 (4.8-10.8)
[2023-03-20 07:28] LABS: Chloride 104 mmol/L (98-107); Sodium 141 mmol/L (136-145)
--- NOTE | 2023-03-20 07:28 | PC.NURSE ---
courtesy tech round: pt is lying in bed resting. pt states she is comfortable. Call light is within reach.
[2023-03-20 07:29] LABS: Potassium 3.5 mmoL/L (3.5-5.1)
[2023-03-20 07:31] LABS: Blood Urea Nitrogen 24 mg/dl (7-17); Creatinine Clearance Estimated 60 mL/min (50-200); Estimated Glomerular Filt Rate 60 ml/min (>60); GFR (African American) 73 ML/MIN (>60)
[2023-03-20 07:32] LABS: Anion Gap 14.5 mEq/L (5-15); Calcium 8.4 mg/dl (8.4-10.2); Carbon Dioxide 26 mmol/L (22.0-30.0); Glucose 108 mg/dl (74-100)
--- NOTE | 2023-03-20 07:45 | EXP.SURG.PN ---
Subjective Narrative: No acute events. Afebrile. C/o abdominal pain. Denies flatus or BM. A little more alert today. When can I have something to eat? Exam Data for Last 24 hours Vital signs and Labs for Last 24 Hours: Temp Pulse Resp BP Pulse Ox 98.2 F 94 H 16 120/63 92 L 03/20/23 07:27 03/20/23 07:27 03/20/23 07:27 03/20/23 07:27 03/20/23 07:27 Laboratory Results - last 24 hr 03/19/23 06:22: Phosphorus 3.0 03/19/23 11:22: POC Glucose 107 03/19/23 16:50: POC Glucose 120 H 03/19/23 20:34: POC Glucose 108 03/20/23 05:16: POC Glucose 123 H 03/20/23 07:10: WBC 7.3, RBC 4.35, Hgb 12.8, Hct 40.7, MCV 93.5, MCH 29.4, MCHC 31.4 L, RDW 16.9, Plt Count 352, MPV 8.1, Neut % (Auto) 47.0, Lymph % (Auto) 39.1, [place] % (Auto) 10.8 H, Eos % (Auto) 2.3, Baso % (Auto) 0.7, Neut # (Auto) 3.4, Lymph # (Auto) 2.8, [place] # (Auto) 0.8, Eos # (Auto) 0.2, Baso # (Auto) 0.1 03/20/23 07:10: Sodium 141, Potassium 3.5, Chloride 104, Carbon Dioxide 26, Anion Gap 14.5, BUN 24 H, Creatinine 0.90, Estimated Creat Clear 60, Estimated GFR 60, Est GFR ( Amer) 73 D, Glucose 108 H, Calcium 8.4 I & O for Last 24 hours: Intake & Output 03/17/23 03/18/23 03/19/23 03/20/23 23:59 23:59 23:59 23:59 Intake Total 200 / 520 320 / 320 1665 / 1665 179 / 179 Output Total 170 / 220 50 / 50 0 / 0 Balance 30 / 300 270 / 270 1665 / 1665 179 / 179 Weight 191 lb 3 oz 191 lb 7 oz 197 lb 8 oz 192 lb 14.4 oz Constitutional Constitutional: no acute distress and chronically ill appearing *Routine HEENT Exam Head: Present normocephalic and atraumatic Eye: Present EOMI and PERRL *Routine Abdominal Exam Abdominal: Present soft and distended; Absent rebound or guarding Comments: hypoactive bowel sounds *Routine Extremities Exam Extremities: Present edema Progress Note: A&P Assessment and plan (1) Acute UTI: Status: Acute (2) Colon distention: Problem details: The differential for this problem includes colonic pseudo-obstruction, sigmoid stricture, sigmoid malignancy. I do not think this is [place]'s, because she does have some imaging and endoscopic evidence for partial obstruction. Check CEA to rule out colon cancer. At this point, her labs and vitals continue to be stable, and she does not have peritonitis. If she declines today, would proceed urgently with laparoscopic loop transverse colostomy for colonic decompression. If she continues to be stable, may consider this course early in the week. May have clear liquids now for comfort, make NPO if vomits. NPO at midnight. Status: Acute (3) Ascites: Status: Acute (4) Decompensated hepatic cirrhosis: Status: Acute (5) Asymmetric edema of both lower extremities: Status: Acute (6) Ankle fracture, right: Status: Acute (7) Diabetes: Status: Chronic (8) Malnutrition: Problem details: She has temporal wasting and is hypoalbuminemic. Due to her somnolence and evolving situation with her colon, I do not think she will be able to improve nutrition fast enough orally at this time. I would not do tube feeds until her colonic distention issue has resolved. Consider TPN when available. Status: Acute
--- NOTE | 2023-03-20 08:02 | EXP.PN ---
Subjective *Date: 03/20/23 *Time: 09:32 Interval history: No acute events overnight. The patient denies nausea and vomiting. She had a bowel movement yesterday. She was started on a clear liquid diet this morning. This morning she is feeling more distended than yesterday and also complains of abdominal cramps. Exam Data for Last 24 hours Vital signs and Labs for Last 24 Hours: Temp Pulse Resp BP Pulse Ox 98.2 F 94 H 16 120/63 92 L 03/20/23 07:27 03/20/23 07:27 03/20/23 07:27 03/20/23 07:27 03/20/23 07:27 Laboratory Results - last 24 hr 03/19/23 06:22: Phosphorus 3.0 03/19/23 11:22: POC Glucose 107 03/19/23 16:50: POC Glucose 120 H 03/19/23 20:34: POC Glucose 108 03/20/23 05:16: POC Glucose 123 H 03/20/23 07:10: WBC 7.3, RBC 4.35, Hgb 12.8, Hct 40.7, MCV 93.5, MCH 29.4, MCHC 31.4 L, RDW 16.9, Plt Count 352, MPV 8.1, Neut % (Auto) 47.0, Lymph % (Auto) 39.1, [place] % (Auto) 10.8 H, Eos % (Auto) 2.3, Baso % (Auto) 0.7, Neut # (Auto) 3.4, Lymph # (Auto) 2.8, [place] # (Auto) 0.8, Eos # (Auto) 0.2, Baso # (Auto) 0.1 03/20/23 07:10: Sodium 141, Potassium 3.5, Chloride 104, Carbon Dioxide 26, Anion Gap 14.5, BUN 24 H, Creatinine 0.90, Estimated Creat Clear 60, Estimated GFR 60, Est GFR ( Amer) 73 D, Glucose 108 H, Calcium 8.4 I & O for Last 24 hours: Intake & Output 03/17/23 03/18/23 03/19/23 03/20/23 23:59 23:59 23:59 23:59 Intake Total 200 / 520 320 / 320 1665 / 1665 179 / 179 Output Total 170 / 220 50 / 50 0 / 0 Balance 30 / 300 270 / 270 1665 / 1665 179 / 179 Weight 86.721 kg 86.835 kg 89.584 kg 87.498 kg Constitutional Constitutional: no acute distress *Routine HEENT Exam Head: Present normocephalic Eye: Present EOMI and PERRL ENT: Present mucous membranes moist *Routine Neck Exam Neck: Present supple; Absent lymphadenopathy *Routine Respiratory Exam Respiratory: Present CTA bilaterally *Routine Cardiovascular Exam Cardiovascular: Present RRR *Routine Abdominal Exam Abdominal: Present soft and distended; Absent tenderness, rebound or guarding *Routine Extremities Exam Extremities: Present edema (Right lower extremity); Absent cyanosis or clubbing *Routine Skin Exam Skin: Present warm; Absent rash *Routine Neurological Exam Neurological: Present alert and oriented X3 Assessment and Plan *Assessment and plan (1) Acute UTI: Status: Acute Category: Medical Code(s): N39.0 - Urinary tract infection, site not specified (2) Colon distention: Problem Comment: The differential for this problem includes colonic pseudo-obstruction, sigmoid stricture, sigmoid malignancy. I do not think this is [place]'s, because she does have some imaging and endoscopic evidence for partial obstruction. Check CEA to rule out colon cancer. At this point, her labs and vitals continue to be stable, and she does not have peritonitis. If she declines today, would proceed urgently with laparoscopic loop transverse colostomy for colonic decompression. If she continues to be stable, may consider this course early in the week. May have clear liquids now for comfort, make NPO if vomits. NPO at midnight. Status: Acute Category: Medical Code(s): K63.89 - Other specified diseases of intestine (3) Ascites: Status: Acute Category: Medical Code(s): R18.8 - Other ascites (4) Decompensated hepatic cirrhosis: Status: Acute Category: Medical Code(s): K72.90 - Hepatic failure, unspecified without coma; K74.60 - Unspecified cirrhosis of liver (5) Asymmetric edema of both lower extremities: Status: Acute Category: Medical Code(s): R60.9 - Edema, unspecified (6) Ankle fracture, right: Status: Acute Category: Medical Code(s): S82.891A - Other fracture of right lower leg, initial encounter for closed fracture (7) Diabetes: Status: Chronic Qualifiers: Diabetes mellitus complication status: without
--- NOTE | 2023-03-20 10:46 | PC.NURSE ---
PT C/O INCREASED PAIN. ADMIN PRN TYLENOL AND MADE PT NPO. CALLED DR ANTON TO NOTIFY OF PT DISPOSITION. DR ANTON AGREED PT SHOULD BE NPO AND ASKED IF I WOULD NOTIFY SURGEON MEDICAL DERMATOLOGIST. DR LEON NOTIFIED VIA TELEPHONE. V/O FOR NPO AND SAID SHE WOULD CALL BACK AND CHECK ON PT IN A FEW HOURS.
--- NOTE | 2023-03-20 13:42 | EXP.ANES.CKL ---
[facility] Disclaimer: The information contained in this section may have been updated after the patient was seen, as this information can be updated by other users. Medical History Diabetes Fractured coccyx GERD (gastroesophageal reflux disease) History of fall Hypertension Infection of skin due to methicillin resistant Staphylococcus aureus (MRSA) Sacral fracture, closed Surgical History H/O: hysterectomy Hip joint replacement status History of arthroplasty of right ankle History of back surgery History of colonoscopy History of hip replacement History of lumbar surgery Social History Smoking Status: Never smoker second hand exposure: No alcohol intake: never substance use type: denies use current occupational status: retired Travel in the last 8 weeks: None household members: spouse housing: other [facility] Anesthesia Checklist Patient Identification Patient Identification: Arm Band Structural Data Admitted From: Inpatient Planned Operative Procedure/s: Diagnostic Laparoscopy, Possible Laparotomy Consent for Planned Operative Procedure(s) Verified: Yes Verified Documents: Surgical Consent and History and Physical NPO Status Verified Time NPO: 09:00 (clear liquids) Additional verifications Anesthesia Reactions: No Airway Assessment C-Spine Mobility Assessed: Yes TMJ Mobility Assessed: Yes Dentition: Poor Dentition Neurological Assessment Level of Consciousness: Awake, Appropriate and Drowsy Anesthesia Plan Anesthesia Risk discussed: Yes Anesthesia Plan: Verified ASA Class: III (E) Anesthesia Type: General
--- NOTE | 2023-03-20 14:23 | DIET.NUTRFU ---
RD consulted for Michael score, at risk due to poor nutritional status. Michael score is 14, moderate risk based on poor intake and limited mobility. Patient had been NPO since 03/15 with clear liquids this AM. Intake was minimal on 03/14 and 03/15. She was experiencing abdominal pain/discomfort. She is now in sx today for laparoscopic loop transverse colostomy for colonic decompression. If oral diet is not able to be started after sx may benefit from TPN until gut is working and tolerating po intake. She is now malnourished due to lack of intake during this hospital stay. Will work with pharmacy to provide nutritional support via TPN as needed. If oral diet is started will also start supplements as tolerated
[2023-03-20 14:37] LABS: POC Glucose,Bedside 221 (70-110)
--- NOTE | 2023-03-20 17:07 | P.PNANES_ITS ---
[facility] Anesthesia Record Part I Anesthesia Record I Intake, IV Amount: 1,800 Estimated blood loss (mL): 100 Urine output (mL): 250 Blood Products used (#): none Blood Pressure: 147/65 SaO2: 95 Pulse Rate: 94 Respiratory Rate: 16 Temperature: 97.9 F Patient is:: Drowsy and Stable Stable to PACU at:: 17:05
--- NOTE | 2023-03-20 17:08 | EXP.OP.NOTE ---
Date of procedure: 03/20/23 Pre-op Diagnosis:: 1. Partial colon obstruction Post-op Diagnosis:: 1. Partial colon obstruction 2. Cirrhosis Procedure performed:: 1. Diagnostic laparoscopy 2. Laparoscopic lysis of adhesions 3. Laparoscopic transverse loop colostomy Surgeon:: Temitope Parry MD PRECISION LENS GRINDER APPRENTICE:: Carlin Ortiz Anesthesia: GETA Estimated blood loss (mL): 100 Clinical Note:: Fluids: 1800 mL of crystalloid Urine output: 250 mL Operative findings:: Cirrhosis of the liver with 3 L of slightly turbid ascites. There were extensive omental adhesions from the umbilicus down to the pelvis. Diffuse oozing. Operative note:: Indications: Ms. Tran Box is an 82-year-old female with multiple medical problems who was admitted over a week ago with a UTI and failure to thrive. She was noted to have distended bowel, and this was presumed to be an ileus secondary to her UTI and other debility. She persisted with dilated bowel, and so several CT scans were done. There was suggestion of narrowing in the sigmoid causing partial colonic obstruction. 2 days ago she had colonoscopy with evacuation of a large amount of foul-smelling liquid stool, but the endoscopist was unable to get past a narrow place in the sigmoid. She has had progressively worsening somnolence, and today complained of more abdominal pain. She is therefore taken to the operating room for laparoscopic loop colostomy for decompression of partial large bowel obstruction. The risks, benefits, and alternatives of procedure were explained to the family, including but not limited to infection, bleeding, heart attack, stroke, , decompensated cirrhosis, return to surgery, bowel injury, injury to other structures, failure to improve. She and her family both gave informed consent. Procedure: The patient was brought to the operating room and laid the supine position. SCDs were placed, and she was intubated by anesthesia. The abdomen was exposed. It was even more grossly distended than this morning. The abdomen was prepped and draped sterilely. After timeout was performed, I made a small longitudinal incision just above the umbilicus dissected down to the fascia. I incised the fascia with an 11 blade scalpel, and then bluntly dissected through the peritoneum with a finger. The 12 mm port was placed. The abdomen was insufflated to 16 mmHg. When I inserted the laparoscope, it was apparent that we were located under the omentum, which was densely adhesed to the peritoneum. I placed another 5 mm port in the left upper quadrant, and one in the right upper quadrant. I was then able to see that there was a large curtain of omentum that was adhesed over the entire lower abdomen from umbilicus, and from left to right. My port was actually behind this curtain, but I could see that there was no bowel injury. I questioned whether I needed to lyse these adhesions, but since I was not going to be able to properly mobilize the transverse colon with this amount of adhesed omentum, I did lyse adhesions with harmonic scalpel for about an hour. Great care was taken not to injure any bowel. The adhesions became more dense going down towards the left lower quadrant. I was not able to completely lyse these adhesions, and therefore I could not visualize the sigmoid colon in the left lower quadrant. This dissection was notable for diffuse oozing. She was however slowly forming some clots in the oozing areas. There was a piece of colon that was hanging by a rather dense adhesion in the pelvis. I was not sure if this was sigmoid colon or not, but this adhesion was lysed with harmonic scalpel. All visible bowel was scrutinized to make sure that this lysis of adhesions had not caused any thermal, serosal, or full-thickness injury and none was noted. Tthere was a large amount of ascites fluid in the abdomen. It had mostly clear appearance, but there was some turbid fluid in the pelvis. All the fluid was suctioned an
[2023-03-20 17:16] LABS: POC Glucose,Bedside 173 (70-110)
--- NOTE | 2023-03-20 18:04 | SUR.PHASEI ---
1730- REPORT GIVEN TO RANI MCMILLAN. PATIENT ALERT AND ABLE TO FOLLOW COMMANDS. 250ML EMPTIED FROM FC IN PACU. 200ML OF SANGUINEOUS FLUID EMPTIED FROM NEWLY PLACED JAELYN DRAIN. BS WAS 183, ALL VS ARE STABLE. TXA ORDERED BY AND GIVEN TO MED SURG NURSE TO START UPSTAIRS. TXA MIXED BY GROUP ACCOUNT DIRECTOR AT BEDSIDE. DRESSING TO ABD WAS CLEAN, DRY, AND INTACT WHEN ASSESSED BY BOTH NURSES. PATIENT STABLE AND VOICED NO FURTHER COMPLAINTS OR CONCERNS AT THIS TIME.
[2023-03-20 18:51] LABS: Ammonia 17 umol/L (9-30)
[2023-03-20 19:00] LABS: Basophils % 0.5 % (0.1-2.0); Eosinophils % 0.3 % (0.1-12.0); Hematocrit 46.7 % (37.0-47.0); Lymphocytes # 1.3 K/mm3 (0.7-4.5); Lymphocytes % 16.4 % (10-50); Mean Corpuscular Hemoglobin 29.5 pg (27.0-31.2); Mean Corpuscular Volume 95.2 fl (81-99); Mean Platelet Volume 8.7 fl (7.4-10.4); Monocytes # 0.2 K/mm3 (0.1-1.0); Monocytes % 2.6 % (1.7-9.3); Neutrophils # 6.5 K/mm3 (1.8-7.8); Neutrophils % 80.1 % (37.0-80.0); Platelet Count 352 K/mm3 (142-424); White Blood Count 8.1 K/mm3 (4.8-10.8)
[2023-03-20 19:03] LABS: Hemoglobin 14.5 g/dL (12.2-16.2)
[2023-03-20 19:12] LABS: Appearance,Body Fld. Slightly hazy; Source, Body Fld. Peritoneal Fluid; Volume,Body Fld. 200 mL
[2023-03-20 19:13] LABS: Microscopic,Cath URINE MICROSCOPIC (MICROSCOPIC)
[2023-03-20 19:17] LABS: Appearance,Urine/Cath CLEAR (Clear); Blood, Urine/Cath Negative (Negative); Color,Urine/Cath YELLOW (Yellow); Glucose,Urine/Cath (UA) Negative (Negative); Ketones,Urine/Cath 1+ (Negative); Leukocyte Esterase,Cath Negative (Negative); Nitrate,Cath Negative (Negative); Protein,Urine/Cath Negative (Negative); Urobilinogen,Cath 0.2 EU/dl (0.2)
[2023-03-20 19:21] LABS: RBC,Body Fluid < 10 cells/uL (< 10 X 10^3); TNC,Body Fluid 311 cells/uL (< 1000)
[2023-03-20 19:40] LABS: Bilirubin,Cath 1+ (Negative)
[2023-03-20 19:45] LABS: Bacteria,Urine/Cath TRACE /lpf; Squamous Epithelial Ur./Cath Occasional #/hpf (0-5); WBC,Urine/Cath Occasional #/hpf (0-3)
[2023-03-20 19:52] LABS: Mononuclear WBCs,Body Fluid 53 %; Polynuclear WBC,Body Fluid 47 %
[2023-03-20 21:29] LABS: POC Glucose,Bedside 185 (70-110)
[2023-03-20 23:01] LABS: Basophils % 0.2 % (0.1-2.0); Eosinophils % 0.2 % (0.1-12.0); Hematocrit 44.2 % (37.0-47.0); Lymphocytes # 1.4 K/mm3 (0.7-4.5); Lymphocytes % 11.4 % (10-50); Mean Corpuscular HGB Conc 31.6 g/dL (31.8-35.4); Mean Corpuscular Hemoglobin 29.7 pg (27.0-31.2); Mean Platelet Volume 8.4 fl (7.4-10.4); Monocytes # 0.6 K/mm3 (0.1-1.0); Monocytes % 4.6 % (1.7-9.3); Neutrophils # 10.4 K/mm3 (1.8-7.8); Neutrophils % 83.7 % (37.0-80.0); Platelet Count 372 K/mm3 (142-424); Red Blood Count 4.71 M/mm3 (4.20-5.40); Red Cell Distribution Width 17.2 % (11.5-17.5); White Blood Count 12.4 K/mm3 (4.8-10.8)
[2023-03-20 23:17] LABS: INR 1.02 (0.9-1.1)
[2023-03-20 23:19] LABS: Anion Gap 16.2 mEq/L (5-15); Blood Urea Nitrogen 20 mg/dl (7-17); Calcium 8.5 mg/dl (8.4-10.2); Carbon Dioxide 26 mmol/L (22.0-30.0); Chloride 102 mmol/L (98-107); Creatinine Clearance Estimated 60 mL/min (50-200); Estimated Glomerular Filt Rate 60 ml/min (>60); GFR (African American) 73 ML/MIN (>60); Glucose 178 mg/dl (74-100); Potassium 4.2 mmoL/L (3.5-5.1); Sodium 140 mmol/L (136-145)
--- NOTE | 2023-03-20 23:52 | PC.NURSE ---
SURGEON MOLD BUILDER -CAROLYN- PAGED AT 2143. CALLED BACK AT 2144. NOTIFIED THAT PT'S JAELYN DRAIN HAD BEEN EMPTIED MULTIPLE TIMES WITHIN A 30 MINUTE PERIOD WITH 700 MLS OUT OF THE JAELYN DRAIN AND DRAINAGE WAS BLOODY BUT HAD NOT CLOTS AND DRAIN WAS FILLING ALMOST SOON SUCTION WAS PLACED BACK TO JAELYN DRAIN. COLLARETTE SEPARATOR AND SENIOR ONLINE MARKETING MANAGER NOTIFIED WELL. STATED THAT DRAINAGE WAS PROBABLY ASCITIC FLUID AND STATED THAT SHE WAS NOT OVERLY CONCERNED SINCE PT'S VITALS SIGNS ARE STABLE AND PT HAS A SEVER ASCITIC BELLY. NEW ORDERS OF STAT INR, CBC, AND TYPE AND SCREEN WELL TO DC SUBQ LOVENOX. STATED TO CALL HER BACK WHEN LABS RESULTED. 6- LEON, WAS CALLED BACK AT THIS TIME AND NOTIFIED OF PT'S LAB RESULTS. STATED NO NEW ORDERS AT THIS TIME. IF PT WERE TO HAVE A DROP IN HER BP TO CALL HOSPITALIST FOR FLUID BOLUS.
[2023-03-21] VITALS (9 sets, daily range): BP systolic 110–162; BP diastolic 55–75; PULSE 83–102; RESP 16–20; TEMP 36.4–36.9; O2SAT 94–99; BMI 33.2; BMI 331533.1
--- NOTE | 2023-03-21 04:29 | PC.NURSE ---
NO FURTHER CHANGES THIS SHIFT. JAELYN DRAINAGE HAS SLOWED. HAS HAD 1,500 MLS OUT OF JAELYN DRAIN THIS SHIFT. MD AWARE. VSS. PT HAS BEEN TURNED Q2HRS. COLOSTOMY DRAINING WELL. MEDICATED FOR PAIN X1 THIS SHIFT WHILE GETTING A BATH. NO OTHER C/O PAIN. NO N/V. GLOVER REMAINS IN PLACE AND IS DRAINING ADEQUATE AMOUNTS OF CLEAR YELLOW URINE. CALL AVILA WITHIN REACH.
[2023-03-21 06:15] LABS: POC Glucose,Bedside 148 (70-110)
[2023-03-21 06:16] LABS: Basophils % 0.3 % (0.1-2.0); Eosinophils # 0.1 K/mm3 (0.0-0.4); Eosinophils % 0.4 % (0.1-12.0); Hematocrit 40.6 % (37.0-47.0); Hemoglobin 12.6 g/dL (12.2-16.2); Lymphocytes # 2.1 K/mm3 (0.7-4.5); Lymphocytes % 17.2 % (10-50); Mean Corpuscular HGB Conc 31.1 g/dL (31.8-35.4); Mean Corpuscular Hemoglobin 29.5 pg (27.0-31.2); Mean Corpuscular Volume 94.9 fl (81-99); Mean Platelet Volume 7.8 fl (7.4-10.4); Monocytes # 0.9 K/mm3 (0.1-1.0); Monocytes % 7.6 % (1.7-9.3); Neutrophils # 9.3 K/mm3 (1.8-7.8); Neutrophils % 74.6 % (37.0-80.0); Platelet Count 333 K/mm3 (142-424); Red Blood Count 4.28 M/mm3 (4.20-5.40); Red Cell Distribution Width 17.4 % (11.5-17.5); White Blood Count 12.4 K/mm3 (4.8-10.8)
--- NOTE | 2023-03-21 06:17 | EXP.SURG.PN ---
Subjective Narrative: Correspondence was held with Dr. Parry through the weekend. Patient had increasing pain and was taken to the operating room at which time she underwent laparoscopy with lysis of adhesions and placement of diverting loop colostomy. Patient states that she feels better, a whole lot better . She has much less abdominal pain. No nausea. Exam Data for Last 24 hours Vital signs and Labs for Last 24 Hours: Temp Pulse Resp BP Pulse Ox 98.4 F 95 H 20 110/55 L 97 03/21/23 04:00 03/21/23 04:00 03/21/23 04:00 03/21/23 04:00 03/21/23 04:00 Laboratory Results - last 24 hr 03/20/23 07:10: WBC 7.3, RBC 4.35, Hgb 12.8, Hct 40.7, MCV 93.5, MCH 29.4, MCHC 31.4 L, RDW 16.9, Plt Count 352, MPV 8.1, Neut % (Auto) 47.0, Lymph % (Auto) 39.1, [place] % (Auto) 10.8 H, Eos % (Auto) 2.3, Baso % (Auto) 0.7, Neut # (Auto) 3.4, Lymph # (Auto) 2.8, [place] # (Auto) 0.8, Eos # (Auto) 0.2, Baso # (Auto) 0.1 03/20/23 07:10: Sodium 141, Potassium 3.5, Chloride 104, Carbon Dioxide 26, Anion Gap 14.5, BUN 24 H, Creatinine 0.90, Estimated Creat Clear 60, Estimated GFR 60, Est GFR ( Amer) 73 D, Glucose 108 H, Calcium 8.4 03/20/23 11:48: POC Glucose 221 H 03/20/23 14:25: Urine Color Yellow, Urine Appearance Clear, Urine pH 6.0, Ur Specific [place] 1.020, Urine Protein Negative, Urine Glucose (UA) Negative, Urine Ketones 1+, Urine Blood Negative, Urine Nitrate Negative, Urine Bilirubin 1+ A, Urine Urobilinogen 0.2, Ur Leukocyte Esterase Negative, Urine RBC None, Urine WBC Occasional, Ur Squamous Epith Cells Occasional, Urine Bacteria Trace 03/20/23 14:40: Fluid Source Peritoneal fluid, Fluid Volume 200, Fluid Appearance Slightly hazy, Fluid RBC (Auto) < 10, Fld Tot Nucleated Cell 311, Fld Polynuclear WBCs % 47, Fld Mononuclear WBCs % 53 03/20/23 17:09: POC Glucose 173 H 03/20/23 18:05: WBC 8.1, RBC 4.90, Hgb 14.5 D, Hct 46.7, MCV 95.2, MCH 29.5, MCHC 31.0 L, RDW 17.0, Plt Count 352, MPV 8.7, Neut % (Auto) 80.1 H, Lymph % (Auto) 16.4, [place] % (Auto) 2.6, Eos % (Auto) 0.3, Baso % (Auto) 0.5, Neut # (Auto) 6.5, Lymph # (Auto) 1.3, [place] # (Auto) 0.2, Eos # (Auto) 0.0, Baso # (Auto) 0.0 03/20/23 18:05: Ammonia 17 03/20/23 21:18: POC Glucose 185 H 03/20/23 22:20: Sodium 140, Potassium 4.2, Chloride 102, Carbon Dioxide 26, Anion Gap 16.2 H, BUN 20 H, Creatinine 0.90, Estimated Creat Clear 60, Estimated GFR 60, Est GFR ( Amer) 73, Glucose 178 H D, Calcium 8.5 03/20/23 22:20: WBC 12.4 H D, RBC 4.71, Hgb 14.0, Hct 44.2, MCV 94.0, MCH 29.7, MCHC 31.6 L, RDW 17.2, Plt Count 372, MPV 8.4, Neut % (Auto) 83.7 H, Lymph % (Auto) 11.4, [place] % (Auto) 4.6, Eos % (Auto) 0.2, Baso % (Auto) 0.2, Neut # (Auto) 10.4 H, Lymph # (Auto) 1.4, [place] # (Auto) 0.6, Eos # (Auto) 0.0, Baso # (Auto) 0.0 03/20/23 22:20: PT 11.0, INR 1.02 03/20/23 22:20: Blood Type O Negative, Antibody Screen Negative 03/21/23 06:00: POC Glucose 148 H I & O for Last 24 hours: Intake & Output 03/18/23 03/19/23 03/20/23 03/21/23 11:59 11:59 11:59 11:59 Intake Total 520 / 520 839 / 839 1005 / 1005 2926 / 2926 Output Total 120 / 120 0 / 0 1950 / 1950 Balance 400 / 400 839 / 839 1005 / 1005 976 / 976 Weight 191 lb 7 oz 197 lb 8 oz 192 lb 14.4 oz 197 lb 1.6 oz Microbiology Reports for the Last 24 Hours: Microbiology 03/20/23 14:40 Peritoneal Fluid - Abdominal Gram Stain - Final *Routine Abdominal Exam Comments: Abdomen is much less distended. Incisions are clean. Colostomy functioning well. Progress Note: A&P Assessment and plan (1) Acute UTI: Status: Acute (2) Colon distention: Problem details: Status: Acute Assessment and plan: Patient is postoperative day #1 from placement of a transverse loop diverting colostomy. Much improvement in her abdominal pain and significant abdominal distention. Possible initiation of very limited diet today. (3) Ascites: Status: Acute (4) Decompensated hepatic cirrhosis: Status: Acute (5) Asymmetr
[2023-03-21 06:22] LABS: Chloride 105 mmol/L (98-107); Potassium 4.9 mmoL/L (3.5-5.1); Sodium 139 mmol/L (136-145)
[2023-03-21 06:24] LABS: Alanine Aminotransferase 25 U/L (12-78); Alkaline Phosphatase 272 U/L (38-126); Anion Gap 10.9 mEq/L (5-15); Aspartate Amino Transferase 58 U/L (14-36); Bilirubin,Total 0.4 mg/dl (0.2-1.3); Blood Urea Nitrogen 20 mg/dl (7-17); Carbon Dioxide 28 mmol/L (22.0-30.0); Creatinine Clearance Estimated 61 mL/min (50-200); Estimated Glomerular Filt Rate 96 ml/min (>60); GFR (African American) 116 ML/MIN (>60)
[2023-03-21 06:25] LABS: Albumin Level 2.1 g/dl (3.5-5.0); Albumin/Globulin Ratio 0.7 (1.1-1.8); Globulin 3.2 g/dL (1.3-3.2); Glucose 155 mg/dl (74-100); Total Protein,Serum 5.3 g/dl (6.3-8.2)
[2023-03-21 07:00] LABS: Magnesium 1.5 mg/dl (1.6-2.3)
--- NOTE | 2023-03-21 07:11 | P.PNANES_ITS ---
[facility] Anesthesia Record Part II Anesthesia Record Part II Discharge Time: 17:35 Destination: Medical Surgical Department PACU nurse assessment reviewed?: Yes Patient Condition:: Good Anesthesia Complications:: None Swallowing reflex intact?: Yes Cyanosis?: No Blood Pressure: 162/75 Pulse Rate: 96 Temperature: 97.9 F Mental Status: Alert & Oriented Pain level:: 0 Nausea and/or vomitting:: None Intake, IV Amount: 0
[2023-03-21 11:27] LABS: POC Glucose,Bedside 155 (70-110)
[2023-03-21 12:09] LABS: CEA 12.2 ng/mL (0.0-4.7)
--- NOTE | 2023-03-21 13:49 | DIET.NUTRFU ---
Visited patient during lunch, nursing was assisting her with her meal. She was tolerating jello she said it was good. She did not tolerate broth. She was enjoying the jello. Will continue to monitor po tolerance. Patient does have a JAELYN drain post sx with drainage of 1150 03/20 and 1225ml so far today. irrigation worker is working on placement when ready. Will monitor on how dinner goes.
--- NOTE | 2023-03-21 14:18 | EXP.ACUTE.PN ---
Subjective *Date: 03/21/23 *Time: 14:31 Interval history: Patient remained stable overnight. Afebrile. Hemodynamically stable. No nausea or vomiting. Having brown liquid stool from ostomy. Having significant ascites and output in her JAELYN drain. Medical Exam Vital signs and Labs for Last 24 Hours: Vital Signs Temp Pulse Pulse Resp BP BP BP 03/21/23 12:00 98.5 F 86 17 140/74 03/21/23 08:00 99 H 03/21/23 08:00 102 H 03/21/23 08:00 102 H 03/21/23 07:51 98.3 F 102 H 18 123/59 L 03/21/23 04:00 100 H 03/21/23 04:00 98.4 F 95 H 20 110/55 L 03/21/23 00:00 100 H 03/21/23 00:30 97.6 F 98 H 18 124/60 03/20/23 23:30 97.8 F 100 H 18 117/61 03/20/23 22:30 100 H 20 133/70 03/20/23 21:30 99 H 16 128/60 03/20/23 20:30 97.6 F 101 H 18 142/72 H 03/20/23 20:00 97.8 F 102 H 18 135/60 03/20/23 19:30 97.3 F L 102 H 18 151/65 H 03/20/23 19:00 97.6 F 98 H 18 138/65 03/20/23 18:30 97.8 F 96 H 18 144/78 H 03/20/23 18:15 97.5 F L 94 H 18 148/76 H 03/20/23 18:00 97.6 F 94 H 18 150/76 H 03/20/23 17:45 98.1 F 96 H 18 147/71 H 03/20/23 17:35 97.9 F 96 H 18 162/75 H 03/20/23 17:25 97.9 F 94 H 18 160/77 H 03/20/23 17:15 97.9 F 93 H 14 154/76 H 03/20/23 17:05 97.9 F 94 H 18 147/65 H 03/20/23 17:08 97.9 F 94 H 16 147/65 H Pulse Ox 03/21/23 12:00 94 L 03/21/23 08:00 03/21/23 08:00 95 03/21/23 08:00 03/21/23 07:51 95 03/21/23 04:00 03/21/23 04:00 97 03/21/23 00:00 03/21/23 00:30 99 03/20/23 23:30 99 03/20/23 22:30 95 03/20/23 21:30 95 03/20/23 20:30 95 03/20/23 20:00 93 L 03/20/23 19:30 93 L 03/20/23 19:00 90 L 03/20/23 18:30 96 03/20/23 18:15 96 03/20/23 18:00 96 03/20/23 17:45 97 03/20/23 17:35 96 03/20/23 17:25 98 03/20/23 17:15 98 03/20/23 17:05 96 03/20/23 17:08 Intake and Output 03/20/23 03/21/23 03/21/23 23:59 07:59 15:59 Intake Total 1799 1126 / 1606 480 / 1606 Output Total 1150 / 1150 975 / 1525 550 / 1525 Balance 650 / 829 151 / 81 -70 / 81 Intake: Intake, Oral Amount 480 / 480 Intake, Total IV Amount 1799 1126 / 1126 0.9 % Sodium Chloride 1000ML 1, 1126 / 1126 000 ml @ 100 mls/hr IV .Q10H [facility] Rx#:[id number] Output: Output, Urine Amount 300 / 300 0 / 300 Output, Drainage Amount 1150 / 1150 675 / 1225 550 / 1225 Right Abdomen 1150 / 1150 675 / 1225 550 / 1225 Other: Number of Unmeasured Voids 0 1 Number of Bowel Movements 1 1 Weight 89.403 kg Patient Weight 03/21/23 23:59 Weight 89.403 kg Laboratory Results - last 24 hr 03/20/23 07:10: Carcinoembryonic Ag 12.2 H 03/20/23 11:48: POC Glucose 221 H 03/20/23 14:25: Urine Color Yellow, Urine Appearance Clear, Urine pH 6.0, Ur Specific [place] 1.020, Urine Protein Negative, Urine Glucose (UA) Negative, Urine Ketones 1+, Urine Blood Negative, Urine Nitrate Negative, Urine Bilirubin 1+ A, Urine Urobilinogen 0.2, Ur Leukocyte Esterase Negative, Urine RBC None, Urine WBC Occasional, Ur Squamous Epith Cells Occasional, Urine Bacteria Trace 03/20/23 14:40: Fluid Source Peritoneal fluid, Fluid Volume 200, Fluid Appearance Slightly hazy, Fluid RBC (Auto) < 10, Fld Tot Nucleated Cell 311, Fld Polynuclear WBCs % 47, Fld Mononuclear WBCs % 53 03/20/23 17:09: POC Glucose 173 H 03/20/23 18:05: WBC 8.1, RBC 4.90, Hgb 14.5 D, Hct 46.7, MCV 95.2, MCH 29.5, MCHC 31.0 L, RDW 17.0, Plt Count 352, MPV 8.7, Neut % (Auto) 80.1 H, Lymph % (Auto) 16.4, [place] % (Auto) 2.6, Eos % (Auto) 0.3, Baso % (Auto) 0.5, Neut # (Auto) 6.5, Lymph # (Auto) 1.3, [place] # (Auto) 0.2, Eos # (Auto) 0.0, Baso # (Auto) 0.0 03/20/23 18:05: Ammonia 17 03/20/23 21:18: POC Glucose 185 H 03/20/23 22:20: Sodium 140, Potassium 4.2, Chloride 102, Carbon Dioxide 26, Anion Gap 16.2 H, BUN 20 H, Creatinine 0.90, Estimated Creat Cl
[2023-03-21 15:10] LABS: CEA 12.4 ng/mL (0.0-4.7)
--- NOTE | 2023-03-21 15:23 | PC.NURSE ---
pt alert and oriented t/o this shift. LS cta. abdomen soft, tender t/o. abdomen large, round with ascites improving. pt has colostomy noted to left side of abdomen and keya drain draining serosanguineous fluid on right abdomen. pt has had stool both through colostomy and incontinence t/o this shift. pt q2 turn. coccyx red. pt's diet advance to clear liquids during shift and pt has been tolerating well. call light w/i reach.
[2023-03-21 16:26] LABS: POC Glucose,Bedside 206 (70-110)
[2023-03-21 20:35] LABS: POC Glucose,Bedside 186 (70-110)
[2023-03-22] VITALS (7 sets, daily range): BP systolic 131–149; BP diastolic 55–72; PULSE 83–100; RESP 16–22; TEMP 36.3–36.8; O2SAT 93–98; BMI 33.4
[2023-03-22 06:21] LABS: POC Glucose,Bedside 154 (70-110)
--- NOTE | 2023-03-22 06:23 | PC.NURSE ---
Patient had some pain over night see DEC. After dose of pain medication patient has rested comfortable in bed. Pt did have quite a bit of drainage from JAELYN site, see intake and output, Patient did have a BM last night as while as output from her colostomy. Patient remains alert. JAELYN dressing was changed due do to it leaking, 4x4s ABD pads and tape were replaced.
[2023-03-22 07:27] LABS: Chloride 108 mmol/L (98-107); Potassium 3.9 mmoL/L (3.5-5.1); Sodium 138 mmol/L (136-145)
[2023-03-22 07:29] LABS: Basophils # 0.1 K/mm3 (0-0.2); Basophils % 0.6 % (0.1-2.0); Blood Urea Nitrogen 12 mg/dl (7-17); Eosinophils # 0.2 K/mm3 (0.0-0.4); Eosinophils % 1.7 % (0.1-12.0); Hematocrit 43.4 % (37.0-47.0); Hemoglobin 12.9 g/dL (12.2-16.2); Lymphocytes # 2.4 K/mm3 (0.7-4.5); Lymphocytes % 23.6 % (10-50); Mean Corpuscular HGB Conc 29.8 g/dL (31.8-35.4); Mean Corpuscular Hemoglobin 28.6 pg (27.0-31.2); Mean Platelet Volume 7.9 fl (7.4-10.4); Monocytes # 0.6 K/mm3 (0.1-1.0); Monocytes % 5.7 % (1.7-9.3); Neutrophils # 6.9 K/mm3 (1.8-7.8); Neutrophils % 68.4 % (37.0-80.0); Platelet Count 268 K/mm3 (142-424); Red Blood Count 4.52 M/mm3 (4.20-5.40); Red Cell Distribution Width 17.4 % (11.5-17.5); White Blood Count 10.1 K/mm3 (4.8-10.8)
[2023-03-22 07:30] LABS: Alanine Aminotransferase 32 U/L (12-78); Albumin/Globulin Ratio 0.7 (1.1-1.8); Alkaline Phosphatase 320 U/L (38-126); Anion Gap 6.9 mEq/L (5-15); Aspartate Amino Transferase 70 U/L (14-36); Bilirubin,Total 0.5 mg/dl (0.2-1.3); Calcium 7.7 mg/dl (8.4-10.2); Carbon Dioxide 27 mmol/L (22.0-30.0); Creatinine Clearance Estimated 62 mL/min (50-200); Estimated Glomerular Filt Rate 96 ml/min (>60); GFR (African American) 116 ML/MIN (>60); Globulin 2.9 g/dL (1.3-3.2); Glucose 158 mg/dl (74-100); Magnesium 1.7 mg/dl (1.6-2.3); Total Protein,Serum 4.9 g/dl (6.3-8.2)
--- NOTE | 2023-03-22 08:32 | EXP.SURG.PN ---
Subjective Narrative: Patient tolerating clear liquids. Exam Data for Last 24 hours Vital signs and Labs for Last 24 Hours: Temp Pulse Resp BP Pulse Ox 97.6 F 95 H 20 141/63 H 98 03/22/23 04:00 03/22/23 04:00 03/22/23 04:00 03/22/23 04:00 03/22/23 04:00 Laboratory Results - last 24 hr 03/19/23 14:20: Carcinoembryonic Ag 12.4 H 03/20/23 07:10: Carcinoembryonic Ag 12.2 H 03/21/23 11:18: POC Glucose 155 H 03/21/23 16:18: POC Glucose 206 H 03/21/23 20:28: POC Glucose 186 H 03/22/23 05:55: POC Glucose 154 H 03/22/23 07:06: WBC 10.1, RBC 4.52, Hgb 12.9, Hct 43.4, MCV 96.0, MCH 28.6, MCHC 29.8 L, RDW 17.4, Plt Count 268, MPV 7.9, Neut % (Auto) 68.4, Lymph % (Auto) 23.6, [place] % (Auto) 5.7, Eos % (Auto) 1.7, Baso % (Auto) 0.6, Neut # (Auto) 6.9, Lymph # (Auto) 2.4, [place] # (Auto) 0.6, Eos # (Auto) 0.2, Baso # (Auto) 0.1 03/22/23 07:06: Sodium 138, Potassium 3.9 D, Chloride 108 H, Carbon Dioxide 27, Anion Gap 6.9, BUN 12 D, Creatinine 0.60, Estimated Creat Clear 62, Estimated GFR 96, Est GFR ( Amer) 116, Glucose 158 H, Calcium 7.7 L, Magnesium 1.7 D, Total Bilirubin 0.5, AST 70 H, ALT 32 D, Alkaline Phosphatase 320 H, Total Protein 4.9 L, Albumin 2.0 L, Globulin 2.9, Albumin/Globulin Ratio 0.7 L I & O for Last 24 hours: Intake & Output 03/19/23 03/20/23 03/21/23 03/22/23 11:59 11:59 11:59 11:59 Intake Total 839 / 839 1005 / 1005 2926 / 2926 1250 / 1250 Output Total 0 / 0 2575 / 2575 3625 / 3625 Balance 839 / 839 1005 / 1005 351 / 351 -2375 / -2375 Weight 197 lb 8 oz 192 lb 14.4 oz 197 lb 1.6 oz 198 lb 5 oz Microbiology Reports for the Last 24 Hours: Microbiology 03/20/23 14:40 Peritoneal Fluid - Abdominal Gram Stain - Final 03/20/23 14:40 Peritoneal Fluid - Abdominal Body Fluid Culture - Preliminary NO GROWTH AFTER 24 HOURS *Routine Abdominal Exam Abdominal: Present ostomy Comments: Colostomy functioning extremely well. JAELYN with serous drainage. Progress Note: A&P Assessment and plan (1) Colon obstruction: Status: Acute Assessment and plan: Advance diet. Discharge planning. (2) Acute UTI: Status: Acute (3) Colon distention: Problem details: Status: Acute (4) Ascites: Status: Acute (5) Decompensated hepatic cirrhosis: Status: Acute (6) Asymmetric edema of both lower extremities: Status: Acute (7) Ankle fracture, right: Status: Acute (8) Diabetes: Status: Chronic
--- NOTE | 2023-03-22 11:07 | DIET.NUTRFU ---
Patient sleeping upon visit, diet was advanced to regular. provided handout information on diet s/p colostomy bag. She plans to go to rehab from here. She did wake up to notice education was put in discharge folder. Will review as needed
[2023-03-22 11:15] LABS: Albumin, Body Fluid 0.3 g/dL (Not Estab.); Glucose, Body Fluid 179 mg/dL (.); LD, Body Fluid 84 IU/L (.); Protein, Body Fluid 0.9 g/dL (.)
--- NOTE | 2023-03-22 11:37 | EXP.ACUTE.PN ---
Subjective *Date: 03/22/23 *Time: 11:37 Interval history: Stable this morning. White cell count is normalized. Afebrile overnight. Tolerating clear liquid diet. Having adequate output from her colostomy. Clear ascites draining and JAELYN. Patient states she is feeling little bit better. Did not want to work with therapy yesterday, stressed to her the importance of working with therapy daily in order for her to get stronger. Son at bedside. Updated of plan. Medical Exam Vital signs and Labs for Last 24 Hours: Vital Signs Temp Pulse Pulse Resp BP BP Pulse Ox 03/22/23 08:00 98.3 F 94 H 16 135/59 L 96 03/22/23 04:00 97.6 F 95 H 20 141/63 H 98 03/22/23 00:00 98.0 F 100 H 18 140/72 98 03/22/23 04:00 99 H 03/22/23 00:00 100 H 03/21/23 20:00 100 H 03/21/23 20:00 97.9 F 102 H 18 134/61 97 03/21/23 16:00 95 H 03/21/23 16:00 97.9 F 95 H 16 124/64 96 03/21/23 12:00 83 03/21/23 12:00 98.5 F 86 17 140/74 94 L Intake and Output 03/21/23 03/22/23 03/22/23 23:59 07:59 15:59 Intake Total 770 / 2376 720 / 720 Output Total 1425 / 3700 1350 / 1434 84 / 1434 Balance -655 / -1324 -1350 / -714 636 / -714 Intake: Intake, Oral Amount 720 / 1200 720 / 720 Intake, Total IV Amount 50 / 1176 Magnesium Sulfate in Water 2 gm 50 / 50 In 50 ml @ 50 mls/hr IV ONCE ONE Rx#:[id number] Output: Output, Urine Amount 0 / 300 0 / 0 Output, Drainage Amount 1425 / 2800 1350 / 1434 84 / 1434 Right Abdomen 1425 / 2800 1350 / 1434 84 / 1434 Other: Number of Unmeasured Voids 1 0 Number of Bowel Movements 1 1 1 Weight 89.953 kg Patient Weight 03/22/23 23:59 Weight 89.953 kg Laboratory Results - last 24 hr 03/19/23 14:20: Carcinoembryonic Ag 12.4 H 03/20/23 07:10: Carcinoembryonic Ag 12.2 H 03/20/23 14:40: Fluid Albumin 0.3 03/20/23 14:40: Fluid Glucose 179, Fluid Total Protein 0.9, Fluid LDH 84 03/21/23 16:18: POC Glucose 206 H 03/21/23 20:28: POC Glucose 186 H 03/22/23 05:55: POC Glucose 154 H 03/22/23 07:06: WBC 10.1, RBC 4.52, Hgb 12.9, Hct 43.4, MCV 96.0, MCH 28.6, MCHC 29.8 L, RDW 17.4, Plt Count 268, MPV 7.9, Neut % (Auto) 68.4, Lymph % (Auto) 23.6, [place] % (Auto) 5.7, Eos % (Auto) 1.7, Baso % (Auto) 0.6, Neut # (Auto) 6.9, Lymph # (Auto) 2.4, [place] # (Auto) 0.6, Eos # (Auto) 0.2, Baso # (Auto) 0.1 03/22/23 07:06: Sodium 138, Potassium 3.9 D, Chloride 108 H, Carbon Dioxide 27, Anion Gap 6.9, BUN 12 D, Creatinine 0.60, Estimated Creat Clear 62, Estimated GFR 96, Est GFR ( Amer) 116, Glucose 158 H, Calcium 7.7 L, Magnesium 1.7 D, Total Bilirubin 0.5, AST 70 H, ALT 32 D, Alkaline Phosphatase 320 H, Total Protein 4.9 L, Albumin 2.0 L, Globulin 2.9, Albumin/Globulin Ratio 0.7 L I & O for Labs for Last 24 Hours: Intake & Output 03/19/23 03/20/23 03/21/23 03/22/23 23:59 23:59 23:59 23:59 Intake Total 1665 / 1665 1978 / 1978 2376 / 2376 720 / 720 Output Total 0 / 0 1150 / 1150 3700 / 3700 1434 / 1434 Balance 1665 / 1665 829 / 829 -1324 / -1324 -714 / -714 Weight 89.584 kg 87.498 kg 90.378 kg 89.953 kg Microbiology Reports for the Last 24 Hours: Microbiology 03/20/23 14:40 Peritoneal Fluid - Abdominal Gram Stain - Final 03/20/23 14:40 Peritoneal Fluid - Abdominal Body Fluid Culture - Preliminary NO GROWTH AFTER 24 HOURS Constitutional: Present no acute distress, obese and chronically ill appearing Head: Present atraumatic Eyes: Present as per HPI ENT: Present normal exam Comment:: bitemporal wasting Neck: Present normal inspection and full ROM Respiratory: Present CTA bilaterally; Absent accessory muscle use Cardiac: Present Reg Rate and Rhythm GI: Present soft, tenderness (Diffuse) and normal bowel sounds; Absent distention Comments:: Healthy appearing ostomy left lower abdomen, JAELYN of right lower abdomen with clear peritoneal fluid draining Rectal (female): Pr
[2023-03-22 12:34] LABS: POC Glucose,Bedside 169 (70-110)
[2023-03-22 17:10] LABS: POC Glucose,Bedside 185 (70-110)
[2023-03-22 21:59] LABS: POC Glucose,Bedside 163 (70-110)
[2023-03-23] VITALS (9 sets, daily range): BP systolic 109–153; BP diastolic 59–68; PULSE 60–94; RESP 20–22; TEMP 36.8–37.2; O2SAT 93–98; BMI 32.5
--- NOTE | 2023-03-23 05:19 | PC.NURSE ---
Patient has had a much better night. Has rested. Julian drain is draining less than last night (see intake and output). Colostomy was leaking so the bag had to be changed and is not leaking further. no issues stated by patient
[2023-03-23 06:44] LABS: POC Glucose,Bedside 133 (70-110)
[2023-03-23 06:57] LABS: Basophils # 0.1 K/mm3 (0-0.2); Basophils % 0.7 % (0.1-2.0); Eosinophils # 0.3 K/mm3 (0.0-0.4); Eosinophils % 2.8 % (0.1-12.0); Hematocrit 40.2 % (37.0-47.0); Hemoglobin 12.7 g/dL (12.2-16.2); Lymphocytes # 2.3 K/mm3 (0.7-4.5); Lymphocytes % 21.4 % (10-50); Mean Corpuscular HGB Conc 31.7 g/dL (31.8-35.4); Mean Corpuscular Hemoglobin 30.1 pg (27.0-31.2); Mean Corpuscular Volume 94.9 fl (81-99); Mean Platelet Volume 9.4 fl (7.4-10.4); Monocytes # 0.6 K/mm3 (0.1-1.0); Monocytes % 5.5 % (1.7-9.3); Neutrophils # 7.5 K/mm3 (1.8-7.8); Neutrophils % 69.6 % (37.0-80.0); Platelet Count 176 K/mm3 (142-424); Red Blood Count 4.23 M/mm3 (4.20-5.40); Red Cell Distribution Width 17.9 % (11.5-17.5); White Blood Count 10.8 K/mm3 (4.8-10.8)
[2023-03-23 07:18] LABS: Alanine Aminotransferase 27 U/L (12-78); Albumin/Globulin Ratio 0.8 (1.1-1.8); Alkaline Phosphatase 293 U/L (38-126); Aspartate Amino Transferase 60 U/L (14-36); Bilirubin,Total 0.8 mg/dl (0.2-1.3); Blood Urea Nitrogen 9 mg/dl (7-17); Calcium 7.5 mg/dl (8.4-10.2); Carbon Dioxide 23 mmol/L (22.0-30.0); Chloride 109 mmol/L (98-107); Creatinine Clearance Estimated 60 mL/min (50-200); Estimated Glomerular Filt Rate 153 ml/min (>60); GFR (African American) 185 ML/MIN (>60); Globulin 2.6 g/dL (1.3-3.2); Glucose 149 mg/dl (74-100); Magnesium 1.7 mg/dl (1.6-2.3); Sodium 136 mmol/L (136-145); Total Protein,Serum 4.6 g/dl (6.3-8.2)
--- NOTE | 2023-03-23 08:46 | P.PN_ITS ---
Subjective Narrative: no new complaints. Diet advanced. Continues with high JAELYN output due to ascites. Exam Data for Last 24 hours Vital signs and Labs for Last 24 Hours: Temp Pulse Resp BP Pulse Ox 98.8 F 91 H 21 140/62 93 L 03/23/23 08:00 03/23/23 08:00 03/23/23 08:00 03/23/23 08:00 03/23/23 08:00 Laboratory Results - last 24 hr 03/20/23 14:40: Fluid Albumin 0.3 03/20/23 14:40: Fluid Glucose 179, Fluid Total Protein 0.9, Fluid LDH 84 03/22/23 12:10: POC Glucose 169 H 03/22/23 17:03: POC Glucose 185 H 03/22/23 20:31: POC Glucose 163 H 03/23/23 06:01: POC Glucose 133 H 03/23/23 06:44: Sodium 136, Potassium 5.0 D, Chloride 109 H, Carbon Dioxide 23, Anion Gap 9.0, BUN 9, Creatinine 0.40 L D, Estimated Creat Clear 60, Estimated GFR 153, Est GFR ( Amer) 185 D, Glucose 149 H, Calcium 7.5 L, Total Bilirubin 0.8, AST 60 H, ALT 27, Alkaline Phosphatase 293 H, Total Protein 4.6 L , Albumin 2.0 L, Globulin 2.6, Albumin/Globulin Ratio 0.8 L 03/23/23 06:44: WBC 10.8, RBC 4.23, Hgb 12.7, Hct 40.2, MCV 94.9, MCH 30.1, MCHC 31.7 L, RDW 17.9 H, Plt Count 176 D, MPV 9.4, Neut % (Auto) 69.6, Lymph % (Auto) 21.4, [place] % (Auto) 5.5, Eos % (Auto) 2.8, Baso % (Auto) 0.7, Neut # (Aut o) 7.5, Lymph # (Auto) 2.3, [place] # (Auto) 0.6, Eos # (Auto) 0.3, Baso # (Auto) 0.1 03/23/23 06:44: Magnesium 1.7 I & O for Last 24 hours: Intake & Output 03/20/23 03/21/23 03/22/23 03/23/23 11:59 11:59 11:59 11:59 Intake Total 1005 / 1005 2926 / 2926 1970 / 1970 1650 / 1650 Output Total 2575 / 2575 3709 / 3709 2750 / 2750 Balance 1005 / 1005 351 / 351 -1739 / -1739 -1100 / -1100 Weight 192 lb 14.4 oz 197 lb 1.6 oz 198 lb 5 oz 193 lb 1.6 oz Microbiology Reports for the Last 24 Hours: Microbiology 03/20/23 14:40 Peritoneal Fluid - Abdominal Gram Stain - Final 03/20/23 14:40 Peritoneal Fluid - Abdominal Body Fluid Culture - Preliminary NO GROWTH AFTER 48 HOURS *Routine Abdominal Exam Abdominal: Present soft and ostomy Progress Note: A&P Assessment and plan (1) Colon obstruction: Status: Acute Assessment and plan: Medical management of ascites. May DC JAELYN prior to discharge. (2) Acute UTI: Status: Acute (3) Colon distention: Problem details: Status: Acute (4) Ascites: Status: Acute (5) Decompensated hepatic cirrhosis: Status: Acute (6) Asymmetric edema of both lower extremities: Status: Acute (7) Ankle fracture, right: Status: Acute (8) Diabetes: Status: Chronic (9) Hypoalbuminemia: Status: Acute (10) Hypomagnesemia: Status: Acute
--- NOTE | 2023-03-23 10:50 | EXP.ACUTE.PN ---
Subjective *Date: 03/23/23 *Time: 10:50 Interval history: Patient in bedside chair on rounds this morning. Still having abdominal pain. Significant output in her JAELYN, fluid consistent with ascites. Over 2 L yesterday. No vomiting. Increased p.o. intake yesterday but still having poor intake. Consistent stable output from ostomy. No fevers overnight. Stable on room air. Family at bedside. Medical Exam Vital signs and Labs for Last 24 Hours: Vital Signs Temp Pulse Pulse Resp BP Pulse Ox 03/23/23 08:00 90 03/23/23 08:00 98.8 F 91 H 21 140/62 93 L 03/23/23 05:56 82 03/23/23 04:00 98.9 F 93 H 22 139/61 94 L 03/22/23 23:57 97.7 F 99 H 18 145/66 H 94 L 03/22/23 20:00 92 H 03/23/23 00:00 94 H 03/22/23 20:00 97.9 F 90 20 131/55 L 93 L 03/22/23 16:00 97.4 F L 100 H 22 149/63 H 96 03/22/23 16:00 96 H 03/22/23 12:00 83 03/22/23 12:00 98.0 F 92 H 18 144/59 H 94 L Intake and Output 03/22/23 03/23/23 03/23/23 23:59 07:59 15:59 Intake Total 360 / 2130 240 / 240 Output Total 750 / 3084 1999 Balance -390 / -954 -2000 / -1760 240 / -1760 Intake: Intake, Oral Amount 360 / 1380 240 / 240 Output: Output, Urine Amount 0 / 0 200 / 200 Output, Drainage Amount 750 / 3084 1800 / 1800 Right Abdomen 750 / 3084 1800 / 1800 Other: Number of Unmeasured Voids 1 Number of Bowel Movements 1 Weight 87.589 kg Patient Weight 03/23/23 23:59 Weight 87.589 kg Laboratory Results - last 24 hr 03/20/23 14:40: Fluid Albumin 0.3 03/20/23 14:40: Fluid Glucose 179, Fluid Total Protein 0.9, Fluid LDH 84 03/22/23 12:10: POC Glucose 169 H 03/22/23 17:03: POC Glucose 185 H 03/22/23 20:31: POC Glucose 163 H 03/23/23 06:01: POC Glucose 133 H 03/23/23 06:44: Sodium 136, Potassium 5.0 D, Chloride 109 H, Carbon Dioxide 23, Anion Gap 9.0, BUN 9, Creatinine 0.40 L D, Estimated Creat Clear 60, Estimated GFR 153, Est GFR ( Amer) 185 D, Glucose 149 H, Calcium 7.5 L, Total Bilirubin 0.8, AST 60 H, ALT 27, Alkaline Phosphatase 293 H, Total Protein 4.6 L, Albumin 2.0 L, Globulin 2.6, Albumin/Globulin Ratio 0.8 L 03/23/23 06:44: WBC 10.8, RBC 4.23, Hgb 12.7, Hct 40.2, MCV 94.9, MCH 30.1, MCHC 31.7 L, RDW 17.9 H, Plt Count 176 D, MPV 9.4, Neut % (Auto) 69.6, Lymph % (Auto) 21.4, [place] % (Auto) 5.5, Eos % (Auto) 2.8, Baso % (Auto) 0.7, Neut # (Auto) 7.5, Lymph # (Auto) 2.3, [place] # (Auto) 0.6, Eos # (Auto) 0.3, Baso # (Auto) 0.1 03/23/23 06:44: Magnesium 1.7 I & O for Labs for Last 24 Hours: Intake & Output 03/20/23 03/21/23 03/22/23 03/23/23 23:59 23:59 23:59 23:59 Intake Total 1978 / 1978 2376 / 2376 2130 / 2130 240 / 240 Output Total 1150 / 1150 3700 / 3700 2184 / 3084 1999 / 1999 Balance 829 / 829 -1324 / -1324 -54 / -954 -1760 / -1760 Weight 87.498 kg 90.378 kg 89.953 kg 87.589 kg Microbiology Reports for the Last 24 Hours: Microbiology 03/20/23 14:40 Peritoneal Fluid - Abdominal Gram Stain - Final 03/20/23 14:40 Peritoneal Fluid - Abdominal Body Fluid Culture - Preliminary NO GROWTH AFTER 48 HOURS Constitutional: Present no acute distress, obese and chronically ill appearing Head: Present atraumatic Eyes: Present as per HPI ENT: Present normal exam Comment:: bitemporal wasting Neck: Present normal inspection and full ROM Respiratory: Present CTA bilaterally; Absent accessory muscle use Cardiac: Present Reg Rate and Rhythm GI: Present soft, tenderness (Diffuse, non focal, no rebound or peritoneal signs) and normal bowel sounds; Absent distention Comments:: Healthy appearing ostomy left lower abdomen, JAELYN of right lower abdomen with clear peritoneal fluid draining Extremities: Present normal inspection and edema (trace); Absent tenderness Skin: Present intact and dry Neuro: Present alert, awake and moves all extremities Assessment and Plan *Assessment and plan (1) Decompensated he
[2023-03-23 11:19] LABS: POC Glucose,Bedside 209 (70-110)
[2023-03-23 11:21] LABS: Ammonia < 9 umol/L (9-30)
[2023-03-23 17:22] LABS: POC Glucose,Bedside 166 (70-110)
--- NOTE | 2023-03-23 18:39 | PC.NURSE ---
A&OX4. RESPIRATIONS REGULAR AND UNLABORED. PT HAS REMAINED ON RA THROUGHOUT SHIFT. NO COUGH NOTED. ACTIVE BOWEL SOUNDS HEARD IN ALL 4 QUADRANTS. ASCITIC, TENDER, LARGE ABDOMEN NOTED. COLOSTOMY IN PLACE WITH STOOL NOTED. BEEFY RED STOMA NOTED. PT HAS BEEN CHANGED NEEDED. PT TURNED Q2 HOURS DUE TO REDNESS ON COCCYX. LUNGS CLEAR THROUGHOUT. HAND RETAIL GENERAL MANAGER EQUAL. +2 PULSES NOTED THROUGHOUT. FAMILY DID VISIT FOR A FEW HOURS TODAY. PT HAS BEEN MORE AGITATED SOME WITH STAFF THIS SHIFT. PT REPORTED PAIN TWICE THIS SHIFT AND RECEIVED DILAUDID PER DEC. ON REASSESSMENT, PT WAS SLEEPING. NO NAUSEA REPORTED THUS FAR. FSBS CHECKED AND INSULIN ADMINISTERED PER SLIDING SCALE. PT RECEIVED ALBUMIN THIS SHIFT AND TOLERATED WELL. NS INFUSING AT 100ML/HR BUT WAS JUST DC'D AND STOPPED PER MD. NO QUESTIONS OR CONCERNS VOICED THUS FAR. BED IN LOWEST POSITION. CALL LIGHT WITHIN REACH. VSS. WILL CONTINUE TO MONITOR.
[2023-03-23 21:51] LABS: POC Glucose,Bedside 180 (70-110)
--- NOTE | 2023-03-23 21:54 | PC.NURSE ---
courtesy note: assisted with bath 21:30
[2023-03-24] VITALS (7 sets, daily range): BP systolic 112–132; BP diastolic 50–71; PULSE 60–71; RESP 17–22; TEMP 36.4–36.9; O2SAT 91–98; BMI 32.1
--- NOTE | 2023-03-24 04:20 | PC.NURSE ---
NO ACUTE CHANGES THIS SHIFT. PT HAS RESTED INTERMITTENTLY. HAS BEEN MEDICATED FOR ABDOMINAL PAIN X2 SO FAR THIS SHIFT. DRESSING AROUND JAELYN DRAIN WAS CHANGES AT APPROXIMATELY 2130 THIS SHIFT. DRESSING WAS SATURATED WITH CLEAR YELLOW FLUID. JAELYN DRAIN HAS BEEN EMPTIED SEVERAL TIMES THIS SHIFT WITH 650MLS OUT SO FAR. PT ALSO RECEIVED A BED BATH DURING DRESSING CHANGE. TOLERATED BATH AND DRESSING CHANGE FAIR. PT IS BEING TURNED Q2HRS PT ALLOWS. PO INTAKE HAS BEEN BETTER THIS SHIFT. CALL AVILA WITHIN REACH.
[2023-03-24 05:30] LABS: POC Glucose,Bedside 120 (70-110)
[2023-03-24 09:37] LABS: Basophils # 0.1 K/mm3 (0-0.2); Basophils % 0.7 % (0.1-2.0); Eosinophils # 0.4 K/mm3 (0.0-0.4); Hematocrit 45.3 % (37.0-47.0); Hemoglobin 13.9 g/dL (12.2-16.2); Lymphocytes # 2.2 K/mm3 (0.7-4.5); Lymphocytes % 21.6 % (10-50); Mean Corpuscular HGB Conc 30.7 g/dL (31.8-35.4); Mean Corpuscular Hemoglobin 29.8 pg (27.0-31.2); Mean Corpuscular Volume 97.2 fl (81-99); Mean Platelet Volume 8.7 fl (7.4-10.4); Monocytes # 0.8 K/mm3 (0.1-1.0); Monocytes % 7.5 % (1.7-9.3); Neutrophils # 6.7 K/mm3 (1.8-7.8); Neutrophils % 66.2 % (37.0-80.0); Platelet Count 282 K/mm3 (142-424); Red Blood Count 4.66 M/mm3 (4.20-5.40); White Blood Count 10.2 K/mm3 (4.8-10.8)
[2023-03-24 09:46] LABS: Chloride 108 mmol/L (98-107); Potassium 4.8 mmoL/L (3.5-5.1); Sodium 137 mmol/L (136-145)
[2023-03-24 09:49] LABS: Alanine Aminotransferase 28 U/L (12-78); Albumin Level 2.2 g/dl (3.5-5.0); Albumin/Globulin Ratio 0.7 (1.1-1.8); Alkaline Phosphatase 254 U/L (38-126); Anion Gap 7.8 mEq/L (5-15); Aspartate Amino Transferase 59 U/L (14-36); Bilirubin,Total 0.7 mg/dl (0.2-1.3); Calcium 7.7 mg/dl (8.4-10.2); Carbon Dioxide 26 mmol/L (22.0-30.0); Glucose 157 mg/dl (74-100); Total Protein,Serum 5.2 g/dl (6.3-8.2)
--- NOTE | 2023-03-24 10:28 | PC.NURSE ---
COURTESY TECH NOTE; ROUNDED ON PT 0815, PT DENIED NEED FOR DRINK, ASSISTANCE WITH RESTROOM, AND NEED TO REPOSITION. PT C/O PAIN IN LEFT AND RIGHT HEELS, LOTION APPLIED, NURSE NOTIFIED. LINEN CHANGED AT FAMILY REQUEST. CALL LIGHT WITHIN REACH, NO FURTHER REQUESTS AT THIS TIME. Radha EDUARDO, SRNA
[2023-03-24 10:42] LABS: POC Glucose,Bedside 172 (70-110)
--- NOTE | 2023-03-24 12:09 | EXP.DC.SUM ---
General Admission date:: 03/11/23 Discharge date: 03/25/23 HPI HPI HPI: This is an 82-year-old female seen in consultation from the primary service for evaluation regarding profound colonic ileus versus obstruction. She is currently being treated for newly-diagnosed cirrhosis and suspected spontaneous bacterial peritonitis, as well as, urinary tract infection. She has developed increasing abdominal distention with radiographic evidence (CT scan performed yesterday) of large volume gas burden within the colon. Increasing nausea and episodic emesis noted...now with NG in place. She did have a bowel movement approximately 36 hours ago but states that she has not passed flatus since. Her bowel movement was after the administration of an enema. Forwarded from admission H&P: Ms. Castle is an 82-year-old female who presented to the ER with abdominal pain and bloating. Also complains of suprapubic discomfort. Having some urgency and dysuria over the past few weeks. Sudden abrupt change occurred today which is what led to her coming to the ER. Decrease in bowel movements but overall still stable daily. Denies any blood in her stool. No vomiting, fever, chest pain, shortness of breath. Complains significantly of abdominal distention and increased edema in her lower extremities. Given worry about her distention and abdominal discomfort, family brought her to the ER for evaluation. Work-up initiated showing ascites and cirrhosis on imaging. Urinalysis was obtained showing concern for UTI. Diagnostic paracentesis performed showing concern for possible SBP. Medicine was consulted for admission. Patient initiated on antibiotics with dose of ceftriaxone. Hospital Course Hospital Course Hospital Course: Tran Castle is an 82 year old female with a past medical history of hypertension, diabetes, hyperthyroidism, obesity and a recent ankle fracture. She presented a couple weeks of nausea, minimal appetite and several days of dysuria. She was admitted on 03/11 with UTI and suspected new diagnosis of cirrhosis.? 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 Status post surgery on 03/20 with creation of loop colostomy.? Having adequate output.? Tolerated advancement of diet to regular diet. Still having significant ascites. JAELYN drain was removed yesterday but is having drainage from insertion site. At this time she has colostomy in place, appropriate healing of ostomy. Drainage from previous JAELYN site with urostomy bag in place. Stable for transition to nursing facility for continued care. Problems addressed as follows: Colonic obstruction, sigmoid Loop colostomy -Patient noted to not have bowel movements for few days prior to admission. Developed obstruction with worsening distention of abdomen. Multiple images showed dilated bowel loops but no definitive obstruction. Colonoscopy was performed with inability to pass through sigmoid section of colon. Patient taken to the OR on 03/20 with creation of a loop colostomy. Has done well since surgery. Able to tolerate advancement to regular diet. Still has bridge in place with her loop colostomy that will stay in place until surgery removes in the coming weeks. Needs close follow-up with surgery in the next week to evaluate healing. Continue routine colostomy care. New diagnosis of cirrhosis, decompensated ascites Hepatic encephalopathy -hepatitis panel is negative for hepatitis. Noted to have cirrhosis on imaging. Finding of significant production of ascites. Ammonia level was initially elevated, has responded well to lactulose with improvement in ammonia control. Patient is at baseline mentation. Would benefit from outpatient referral to gastroenterology if deemed appropriate by accepting PCP. Her condition is complicated by her ascites. Prognosis with her cirrhosis is poor. Continues to have hypoalbuminemia likely secondary to her cirrhosis. Was initiated on propranolol, 30 mg 3 times a day to decreas
--- NOTE | 2023-03-24 14:09 | PC.NURSE ---
Colostomy bag changed.
[2023-03-24 14:47] LABS: Blood Urea Nitrogen 6 mg/dl (7-17); Creatinine Clearance Estimated 59 mL/min (50-200); Estimated Glomerular Filt Rate 118 ml/min (>60); GFR (African American) 143 ML/MIN (>60)
[2023-03-24 16:01] LABS: POC Glucose,Bedside 204 (70-110)
--- NOTE | 2023-03-24 17:14 | PC.NURSE ---
Plan is for patient to go to [place] tomorrow taken by family. Colostomy system changed again and had materials bring up more supplies.
--- NOTE | 2023-03-24 17:48 | EXP.ACUTE.PN ---
Subjective *Date: 03/24/23 *Time: 17:48 Interval history: Ms. Houser had her AJELYN drain removed this morning from right side of abdomen. Has been having some leakage from site throughout the morning. Up in bedside chair eating breakfast this morning. Denies any nausea or vomiting. No chest pain or shortness of breath. States she is feeling somewhat better. Adequate output from ostomy. Urinating independently. Family at bedside Medical Exam Vital signs and Labs for Last 24 Hours: Vital Signs Temp Pulse Pulse Resp BP Pulse Ox 03/24/23 16:00 70 03/24/23 15:21 97.6 F 65 17 124/71 98 03/24/23 11:22 98.4 F 60 18 122/50 L 93 L 03/24/23 08:00 97 03/24/23 08:00 60 03/24/23 08:00 98.2 F 64 18 125/52 L 98 03/24/23 04:00 60 03/24/23 04:00 98.4 F 63 22 112/57 L 96 03/23/23 20:00 70 03/24/23 00:00 60 03/24/23 00:00 97.8 F 63 20 128/52 L 97 03/23/23 20:00 98.3 F 66 20 109/59 L 98 Intake and Output 03/24/23 03/24/23 03/24/23 07:59 15:59 23:59 Intake Total 240 / 720 480 / 720 Output Total 775 / 1075 300 / 1075 Balance -535 / -355 180 / -355 Intake: Intake, Oral Amount 240 / 720 480 / 720 Output: Output, Urine Amount 50 / 350 300 / 350 Output, Stool Amount 400 / 400 Output, Drainage Amount 325 / 325 Right Abdomen 325 / 325 Other: Number of Unmeasured Voids 1 Weight 86.545 kg Patient Weight 03/24/23 23:59 Weight 86.545 kg Laboratory Results - last 24 hr 03/23/23 21:15: POC Glucose 180 H 03/24/23 05:23: POC Glucose 120 H 03/24/23 06:13: Sodium 137, Potassium 4.8, Chloride 108 H, Carbon Dioxide 26, Anion Gap 7.8, BUN 6 L D, Creatinine 0.50 L D, Estimated Creat Clear 59, Estimated GFR 118, Est GFR ( Amer) 143 D, Glucose 157 H, Calcium 7.7 L, Total Bilirubin 0.7, AST 59 H, ALT 28, Alkaline Phosphatase 254 H, Total Protein 5.2 L, Albumin 2.2 L, Globulin 3.0, Albumin/Globulin Ratio 0.7 L 03/24/23 09:15: WBC 10.2, RBC 4.66, Hgb 13.9, Hct 45.3, MCV 97.2, MCH 29.8, MCHC 30.7 L, RDW 18.0 H, Plt Count 282 D, MPV 8.7, Neut % (Auto) 66.2, Lymph % (Auto) 21.6, [place] % (Auto) 7.5, Eos % (Auto) 4.0, Baso % (Auto) 0.7, Neut # (Auto) 6.7, Lymph # (Auto) 2.2, [place] # (Auto) 0.8, Eos # (Auto) 0.4, Baso # (Auto) 0.1 03/24/23 10:35: POC Glucose 172 H 03/24/23 15:54: POC Glucose 204 H I & O for Labs for Last 24 Hours: Intake & Output 03/21/23 03/22/23 03/23/23 03/24/23 23:59 23:59 23:59 23:59 Intake Total 2376 / 2376 2130 / 2130 2980 / 2980 720 / 720 Output Total 3700 / 3700 2184 / 3084 3650 / 4050 1075 / 1075 Balance -1324 / -1324 -54 / -954 -670 / -1070 -355 / -355 Weight 90.378 kg 89.953 kg 87.589 kg 86.545 kg Microbiology Reports for the Last 24 Hours: Microbiology 03/20/23 14:40 Peritoneal Fluid - Abdominal Gram Stain - Final 03/20/23 14:40 Peritoneal Fluid - Abdominal Body Fluid Culture - Preliminary NO GROWTH AFTER 72 HOURS Constitutional: Present no acute distress, obese and chronically ill appearing Head: Present atraumatic Eyes: Present as per HPI ENT: Present normal exam Comment:: bitemporal wasting Neck: Present normal inspection and full ROM Respiratory: Present CTA bilaterally; Absent accessory muscle use Cardiac: Present Reg Rate and Rhythm GI: Present soft, tenderness (Improving, mild) and normal bowel sounds; Absent distention Comments:: Healthy appearing ostomy left lower abdomen, site of prior JAELYN insertion with leakage of ascites. No redness or bleeding. Extremities: Present normal inspection and edema (trace); Absent tenderness Skin: Present intact and dry Neuro: Present alert, awake and moves all extremities Assessment and Plan *Assessment and plan (1) Decompensated hepatic cirrhosis: Status: Acute Category: Medical Code(s): K72.90 - Hepatic failure, unspecified without coma; K74.60 - Unspecified cirrhosis of liver (2) Asci
--- NOTE | 2023-03-24 18:06 | PC.NURSE ---
Right abdominal dressing changed three times with 2x2 and tegaderm. Saturated with clear fluid.
[2023-03-24 20:26] LABS: POC Glucose,Bedside 178 (70-110)
[2023-03-25] VITALS: BP 137/59; PULSE 68; PULSE 80; RESP 18; TEMP 37.1; O2SAT 99
[2023-03-25 04:00] VITALS: BP 110/48; PULSE 68; PULSE 70; RESP 20; TEMP 36.6; O2SAT 97; BMI 31.4
[2023-03-25 05:24] LABS: POC Glucose,Bedside 209 (70-110)
[2023-03-25 06:56] LABS: Basophils # 0.1 K/mm3 (0-0.2); Basophils % 0.5 % (0.1-2.0); Eosinophils # 0.3 K/mm3 (0.0-0.4); Eosinophils % 2.6 % (0.1-12.0); Lymphocytes % 23.4 % (10-50); Mean Corpuscular HGB Conc 30.3 g/dL (31.8-35.4); Mean Corpuscular Hemoglobin 29.3 pg (27.0-31.2); Mean Corpuscular Volume 96.9 fl (81-99); Mean Platelet Volume 8.5 fl (7.4-10.4); Neutrophils # 8.3 K/mm3 (1.8-7.8); Neutrophils % 65.5 % (37.0-80.0); Platelet Count 297 K/mm3 (142-424); Red Blood Count 4.43 M/mm3 (4.20-5.40); Red Cell Distribution Width 18.1 % (11.5-17.5); White Blood Count 12.7 K/mm3 (4.8-10.8)
[2023-03-25 07:01] LABS: Chloride 109 mmol/L (98-107)
[2023-03-25 07:02] LABS: Potassium 4.6 mmoL/L (3.5-5.1); Sodium 137 mmol/L (136-145)
[2023-03-25 07:04] LABS: Alanine Aminotransferase 30 U/L (12-78); Alkaline Phosphatase 273 U/L (38-126); Anion Gap 8.6 mEq/L (5-15); Aspartate Amino Transferase 53 U/L (14-36); Bilirubin,Total 0.5 mg/dl (0.2-1.3); Carbon Dioxide 24 mmol/L (22.0-30.0)
[2023-03-25 07:05] LABS: Albumin/Globulin Ratio 0.7 (1.1-1.8); Calcium 7.9 mg/dl (8.4-10.2); Globulin 2.9 g/dL (1.3-3.2); Glucose 182 mg/dl (74-100); Magnesium 1.3 mg/dl (1.6-2.3); Total Protein,Serum 4.9 g/dl (6.3-8.2)
[2023-03-25 07:09] LABS: Blood Urea Nitrogen 6 mg/dl (7-17)
[2023-03-25 07:24] LABS: Creatinine Clearance Estimated 58 mL/min (50-200); Estimated Glomerular Filt Rate 118 ml/min (>60); GFR (African American) 143 ML/MIN (>60)
[2023-03-25 08:00] VITALS: BP 117/49; PULSE 64; RESP 16; TEMP 36.5; O2SAT 95
--- NOTE | 2023-03-25 08:02 | EXP.SURG.PN ---
Subjective Narrative: Patient had JAELYN drain removed yesterday. Has had high output from the site despite suture placement and nursing had to place an ostomy appliance over this. There was some issue with leakage around the colostomy. Exam Data for Last 24 hours Vital signs and Labs for Last 24 Hours: Temp Pulse Resp BP Pulse Ox 97.8 F 68 20 110/48 L 97 03/25/23 04:00 03/25/23 04:00 03/25/23 04:00 03/25/23 04:00 03/25/23 04:00 Laboratory Results - last 24 hr 03/24/23 06:13: Sodium 137, Potassium 4.8, Chloride 108 H, Carbon Dioxide 26, Anion Gap 7.8, BUN 6 L D, Creatinine 0.50 L D, Estimated Creat Clear 59, Estimated GFR 118, Est GFR ( Amer) 143 D, Glucose 157 H, Calcium 7.7 L, Total Bilirubin 0.7, AST 59 H, ALT 28, Alkaline Phosphatase 254 H, Total Protein 5.2 L, Albumin 2.2 L, Globulin 3.0, Albumin/Globulin Ratio 0.7 L 03/24/23 09:15: WBC 10.2, RBC 4.66, Hgb 13.9, Hct 45.3, MCV 97.2, MCH 29.8, MCHC 30.7 L, RDW 18.0 H, Plt Count 282 D, MPV 8.7, Neut % (Auto) 66.2, Lymph % (Auto) 21.6, [place] % (Auto) 7.5, Eos % (Auto) 4.0, Baso % (Auto) 0.7, Neut # (Auto) 6.7, Lymph # (Auto) 2.2, [place] # (Auto) 0.8, Eos # (Auto) 0.4, Baso # (Auto) 0.1 03/24/23 10:35: POC Glucose 172 H 03/24/23 15:54: POC Glucose 204 H 03/24/23 20:19: POC Glucose 178 H 03/25/23 05:17: POC Glucose 209 H 03/25/23 06:40: WBC 12.7 H, RBC 4.43, Hgb 13.0, Hct 43.0, MCV 96.9, MCH 29.3, MCHC 30.3 L, RDW 18.1 H, Plt Count 297, MPV 8.5, Neut % (Auto) 65.5, Lymph % (Auto) 23.4, [place] % (Auto) 8.0, Eos % (Auto) 2.6, Baso % (Auto) 0.5, Neut # (Auto) 8.3 H, Lymph # (Auto) 3.0, [place] # (Auto) 1.0, Eos # (Auto) 0.3, Baso # (Auto) 0.1 03/25/23 06:40: Sodium 137, Potassium 4.6, Chloride 109 H, Carbon Dioxide 24, Anion Gap 8.6, BUN 6 L, Creatinine 0.50 L, Estimated Creat Clear 58, Estimated GFR 118, Est GFR ( Amer) 143, Glucose 182 H, Calcium 7.9 L, Magnesium 1.3 L D, Total Bilirubin 0.5, AST 53 H, ALT 30, Alkaline Phosphatase 273 H, Total Protein 4.9 L, Albumin 2.0 L, Globulin 2.9, Albumin/Globulin Ratio 0.7 L I & O for Last 24 hours: Intake & Output 03/22/23 03/23/23 03/24/23 03/25/23 11:59 11:59 11:59 11:59 Intake Total 1970 / 1970 1650 / 1650 3220 / 3220 480 / 480 Output Total 3709 / 3709 2750 / 2750 2425 / 2425 1500 / 1500 Balance -1739 / -1739 -1100 / -1100 795 / 795 -1020 / -1020 Weight 198 lb 5 oz 193 lb 1.6 oz 190 lb 12.8 oz 186 lb 9 oz Microbiology Reports for the Last 24 Hours: Microbiology 03/20/23 14:40 Peritoneal Fluid - Abdominal Gram Stain - Final 03/20/23 14:40 Peritoneal Fluid - Abdominal Body Fluid Culture - Preliminary NO GROWTH AFTER 4 DAYS *Routine Abdominal Exam Comments: Colostomy viable. Ascites fluid leaking from JAELYN site. Progress Note: A&P Assessment and plan (1) Decompensated hepatic cirrhosis: Status: Acute Assessment and plan: I removed the sutures from the loop colostomy bridge so that colostomy appliance can be placed below the bridge to decrease leakage. May be reasonable to keep ureterostomy appliance over drain site due to high output ascites fluid. (2) Ascites: Status: Acute (3) Colon obstruction: Status: Acute (4) Ankle fracture, right: Status: Acute (5) Diabetes: Status: Chronic (6) Hypoalbuminemia: Status: Acute (7) Hypomagnesemia: Status: Acute
--- NOTE | 2023-03-25 09:53 | PC.NURSE ---
COURTESY TECH NOTE; ROUNDED ON PT 0810, ASSISTED NURSE TO TRANSFER PT FROM BED TO CHAIR X2 ASSIST, ACTIVITY TOLERATED WELL. SMALL BOWEL MOVEMENT, TYPE 7. PT DENIED NEED FOR ASSISTANCE WITH EATING AT THIS TIME. CALL LIGHT WITHIN REACH, NO FURTHER REQUESTS AT THIS TIME Radha EDUARDO, CASI
[2023-03-25 11:06] VITALS: BP 116/75; PULSE 61; RESP 16; TEMP 36.4; O2SAT 97
[2023-03-25 12:00] VITALS: PULSE 59
[2023-03-25 12:01] LABS: POC Glucose,Bedside 218 (70-110)
== END 2023-03-25 13:12 | DRG 329 ==
LOC: ER 18:03 → 2ND 20:29
PROVIDERS: Internal Medicine; Nurse Practitioner Family; Surgery; Admitting Provider Internal Medicine Adolescent Medicine; Emergency Provider Student in an Organized Health Care Education/Training Program; PCP Family Medicine; Visit Provider Internal Medicine Adolescent Medicine
PROC: 0DJD8ZZ Inspection of Lower Intestinal Tract, Via Natural or Artificial Opening Endoscopic (ICD-10-PCS; CPT 45378; principal; 2023-03-18 13:50)
PROC: (CPT 49000; principal; 2023-03-20 13:45)
DX: K56.609 Unspecified intestinal obstruction, unspecified as to partial versus complete obstruction (principal); K65.2 Spontaneous bacterial peritonitis; N17.9 Acute kidney failure, unspecified; N39.0 Urinary tract infection, site not specified; R18.8 Other ascites; K74.60 Unspecified cirrhosis of liver; Z79.4 Long term (current) use of insulin; E03.9 Hypothyroidism, unspecified; E66.9 Obesity, unspecified; Z68.31 Body mass index [BMI] 31.0-31.9, adult; K57.90 Diverticulosis of intestine, part unspecified, without perforation or abscess without bleeding; E05.90 Thyrotoxicosis, unspecified without thyrotoxic crisis or storm; E83.42 Hypomagnesemia; K76.82 Hepatic encephalopathy; E11.40 Type 2 diabetes mellitus with diabetic neuropathy, unspecified
CPT/HCPCS: 45330; 44320; 49084; 36415; 49083; 74021; 74174; 74176; 74270; 80048; 80053; 80074; 80202; 81001; 82042; 82140; 82378; 82945; 82962; 82977; 83605; 83615; 83690; 83735; 84100; 84155; 84443; 85025; 85610; 86850; 87070; 87086; 87186; 87205; 87636; 88112; 88184; 88185; 89051; 97110; 97116; 97162; 97166; 97530; 97535; 99285; C9803; J0696; J1335; J2405; J2704; J3475; P9047; Q9967; U0003; U0005

== ENCOUNTER → 2023-05-25 21:40 | Outpatient (CLI) | payer MEDICARE, SELFPAY ==
[2023-05-25 18:58] LABS: Basophils % 0.4 % (0.1-2.0); Eosinophils # 0.3 K/mm3 (0.0-0.4); Eosinophils % 3.3 % (0.1-12.0); Hematocrit 43.2 % (37.0-47.0); Hemoglobin 13.4 g/dL (12.2-16.2); Lymphocytes # 3.4 K/mm3 (0.7-4.5); Lymphocytes % 35.6 % (10-50); Mean Corpuscular HGB Conc 30.9 g/dL (31.8-35.4); Mean Corpuscular Hemoglobin 29.5 pg (27.0-31.2); Mean Corpuscular Volume 95.4 fl (81-99); Mean Platelet Volume 9.9 fl (7.4-10.4); Monocytes # 0.6 K/mm3 (0.1-1.0); Neutrophils # 5.2 K/mm3 (1.8-7.8); Neutrophils % 54.8 % (37.0-80.0); Platelet Count 233 K/mm3 (142-424); Red Blood Count 4.53 M/mm3 (4.20-5.40); Red Cell Distribution Width 15.2 % (11.5-17.5); White Blood Count 9.4 K/mm3 (4.8-10.8)
[2023-05-25 19:09] LABS: Alanine Aminotransferase 33 U/L (12-78); Albumin Level 3.2 g/dl (3.5-5.0); Alkaline Phosphatase 285 U/L (38-126); Anion Gap 11.8 mEq/L (5-15); Aspartate Amino Transferase 57 U/L (14-36); Bilirubin,Total 0.3 mg/dl (0.2-1.3); Blood Urea Nitrogen 18 mg/dl (7-17); Calcium 9.6 mg/dl (8.4-10.2); Carbon Dioxide 26 mmol/L (22.0-30.0); Chloride 106 mmol/L (98-107); Estimated Glomerular Filt Rate 69 ml/min (>60); GFR (African American) 83 ML/MIN (>60); Globulin 3.2 g/dL (1.3-3.2); Glucose 139 mg/dl (74-100); Potassium 4.8 mmoL/L (3.5-5.1); Sodium 139 mmol/L (136-145); Total Protein,Serum 6.4 g/dl (6.3-8.2)
[2023-05-25 19:17] LABS: Hemoglobin A1C 6.4 % (4.0-6.0)
[2023-05-25 19:35] LABS: Thyroid Stimulating Hormone < 0.02 uIU/mL (0.465-4.68)
== END ==
PROVIDERS: PCP Family Medicine; Visit Provider Family Medicine
DX: F32.A Depression, unspecified (principal); E11.9 Type 2 diabetes mellitus without complications; Z79.4 Long term (current) use of insulin; Z79.899 Other long term (current) drug therapy
CPT/HCPCS: 80053; 83036; 84443; 85025

== ENCOUNTER → 2023-06-22 12:52 | Outpatient (CLI) | payer MEDICARE, SELFPAY ==
--- NOTE | 2023-06-22 12:57 | CA_ITS ---
FINAL REPORT TECHNIQUE: Color Doppler, duplex Doppler and compression sonography of the right lower extremity venous system was performed. CLINICAL HISTORY: RLE tenderness and edema FINDINGS: There is no evidence of deep venous thrombosis from the level of the groin to the calf. The veins are patent and compressible. IMPRESSION: No evidence of deep venous thrombosis right lower extremity. Reviewed, Interpreted and Dictated by Galindo Guzman III, MD Transcribed by Janneth Noriega Authenticated and [facility]
== END ==
PROVIDERS: PCP Family Medicine; Visit Provider Family Medicine
DX: R60.0 Localized edema (principal); M79.604 Pain in right leg
CPT/HCPCS: 93971

== ENCOUNTER 2023-09-01 15:43 | Observation (INO) | payer MEDICARE, SELFPAY ==
[2023-09-01] VITALS (7 sets, daily range): BP systolic 117–129; BP diastolic 53–68; PULSE 72–81; RESP 17–20; TEMP 36.6–36.8; O2SAT 94–97; BMI 31.0; BMI 21.6
--- NOTE | 2023-09-01 15:54 | CT_ITS ---
PROCEDURE INFORMATION: Exam: CT Head Without Contrast Exam date and time: 09/01/2023 4:27 PM Age: 82 years old Clinical indication: Injury or trauma; Fall; Other: Pain; Additional info: Fall/ on bt TECHNIQUE: Imaging protocol: Computed tomography of the head without contrast. Radiation optimization: All CT scans at this facility use at least one of these dose optimization techniques: automated exposure control; mA and/or kV adjustment per patient size (includes targeted exams where dose is matched to clinical indication); or iterative reconstruction. REPORTING DATA: Count of CT and Cardiac NM exams in prior 12 months: This patient has received 7 known CTs and 0 known cardiac nuclear medicine studies in the 12 months prior to the current study. COMPARISON: CT HEAD/BRAIN WO CON 11/10/2022 12:46 AM FINDINGS: Brain: No hemorrhage. Mild low density in the white matter of both cerebral hemispheres without mass effect. No other intra-axial or extra-axial lesions or masses. No midline shift. Cerebral ventricles: Ventricular systems are age-appropriate. Paranasal sinuses: Visualized sinuses are well aerated. No fluid levels. Mastoid air cells: Visualized mastoid air cells are well aerated. Bones/joints: No acute fracture or bone lesions. Soft tissues: No abnormalities. IMPRESSION: 1. No acute intracranial abnormality. No interval change 2. Mild white matter microvascular disease.
--- NOTE | 2023-09-01 15:54 | CT_ITS ---
PROCEDURE INFORMATION: Exam: CT Cervical Spine Without Contrast Exam date and time: 09/01/2023 4:28 PM Age: 82 years old Clinical indication: Injury or trauma; Other: Fall, pain; Additional info: Fall / on bt TECHNIQUE: Imaging protocol: Computed tomography of the cervical spine without contrast. Radiation optimization: All CT scans at this facility use at least one of these dose optimization techniques: automated exposure control; mA and/or kV adjustment per patient size (includes targeted exams where dose is matched to clinical indication); or iterative reconstruction. REPORTING DATA: Count of CT and Cardiac NM exams in prior 12 months: This patient has received 7 known CTs and 0 known cardiac nuclear medicine studies in the 12 months prior to the current study. COMPARISON: CT CERVICAL SPINE WO CON 11/10/2022 12:46 AM FINDINGS: Bones/joints: No acute fracture. Normal alignment. No significant disc bulge or herniation. Left foraminal narrowing at C5-C6 due to osteophytes and facet hypertrophy. Bilateral foraminal narrowing at C4-C5 due to osteophytes. Mild spinal stenosis at C4-C5 and C5-C6 due to posterior osteophytes. Mild disc space narrowing at multiple levels. Transverse ligament C1-C2 partially calcified. The Lungs: Lung apices are normal. Thyroid: 2.5 cm low-density right thyroid nodule with marginal calcifications and 1.5 cm left thyroid nodule has a few punctate peripheral calcifications. At least 2 other subcentimeter calcified nodules are present in the left thyroid. Inferior isthmus has and identical 1.6 cm nodule. Soft tissues: No paraspinal or prevertebral soft tissue masses. IMPRESSION: 1. No acute findings in the cervical spine. 2. Spinal stenosis and foraminal stenosis at C4-C5 and C5-C6 as described above. 3. Multiple thyroid nodules are unchanged compared to report of thyroid ultrasound dated 10/09/2020. COMMENTS: Consistent with the [employer]'s Incidental Findings Committee white paper (J Am Gideon Radiol 2015): In patients aged 35 years and older with an incidental thyroid nodule equal to or greater than 1.[address], MRI or extrathyroidal US, further evaluation with dedicated thyroid US is recommended for patients with normal life expectancy and without comorbidities. For smaller nodules without suspicious features, no further evaluation or follow up is recommended.
--- NOTE | 2023-09-01 15:54 | CT_ITS ---
PROCEDURE INFORMATION: Exam: CT Thoracic Spine Without Contrast Exam date and time: 09/01/2023 4:35 PM Age: 82 years old Clinical indication: Injury or trauma; Other: Fall, pain; Additional info: Fall pain TECHNIQUE: Imaging protocol: Computed tomography of the thoracic spine without contrast. Radiation optimization: All CT scans at this facility use at least one of these dose optimization techniques: automated exposure control; mA and/or kV adjustment per patient size (includes targeted exams where dose is matched to clinical indication); or iterative reconstruction. REPORTING DATA: Count of CT and Cardiac NM exams in prior 12 months: This patient has received 7 known CTs and 0 known cardiac nuclear medicine studies in the 12 months prior to the current study. COMPARISON: CT LUMBAR SPINE WO CON 09/01/2023 4:32 PM FINDINGS: Bones/joints: The thoracolumbar spine demonstrates moderate discogenic and spondylitic degenerative changes at multiple levels. This is predominantly manifest by endplate discogenic degenerative changes and marginal osteophytes. Findings within the upper lumbar spine are described in the associated CT of the lumbar spine report from the same date and time. Please reference that report for additional information. There is subtle cortical contour discontinuity and linear lucency involving the anterior superior right corner of the T12 vertebral body suggestive of acute fracture. There is also a vertical oblique linear lucency involving the left parasagittal superior anterior aspect of T12 best seen on series 1002, image 57 consistent with acute fracture. Similar but subtle linear lucency also involves the adjacent T11 vertebral body best seen on series [id number] suggesting subtle fracture. There is another subtle linear lucency involving the anterior inferior corner of the T11 vertebral body seen on series 1002, image 47 consistent subtle fracture. There is an ovoid spoke wheel lucent lesion in the T10 vertebral body measuring 3.5 x 2.1 cm consistent with hemangioma. There is a mild convex right thoracic scoliosis. There is a transverse linear lucency involving the bridging osteophytes on the left at the T12-L1 level seen on series 1001, image 34 which appears stable since 03/15/2023. Similar stable finding is seen involving the base of the left T11-12 paravertebral ossification seen on series 1001, image 37. Moderate multilevel degenerative changes involve the visualized lower cervical spine. There is an acute transverse process fracture involving the left L1 vertebral body with extension into the left pedicle best seen on series 3, images 126 to 130. The fracture also extends into the left lamina. There is a vertical oblique linear lucency extending into the left pedicle of T12 best seen on series 1002, image 51 suggesting acute fracture. There is an acute transverse process fracture also involving the left L2 vertebral body. This is best seen on series 3, image 139. There is a mild to moderate central and right parasagittal bar/disc T12-L1 level which produces mild to moderate ventral effacement upon the thecal sac. Mild diffuse annular bulge at the T11-12 produces mild to moderate ventral effacement upon the thecal sac. Soft tissues: No focal soft tissue hematoma. No significant soft tissue edema. Vasculature: The visualized portions of the aorta demonstrates mild atherosclerotic calcification. Lungs: There are a few punctate pulmonary parenchymal calcifications in the visualized portions of the lungs, consistent with remote granulomatous organism exposure. Nonspecific mild bibasilar streaky opacities involving the visualized portions of the lungs suggest atelectasis or parenchy
--- NOTE | 2023-09-01 15:54 | CT_ITS ---
PROCEDURE INFORMATION: Exam: CT Lumbar Spine Without Contrast Exam date and time: 09/01/2023 4:32 PM Age: 82 years old Clinical indication: Injury or trauma; Other: Fall, pain; Additional info: Fall pain TECHNIQUE: Imaging protocol: Computed tomography of the lumbar spine without contrast. Radiation optimization: All CT scans at this facility use at least one of these dose optimization techniques: automated exposure control; mA and/or kV adjustment per patient size (includes targeted exams where dose is matched to clinical indication); or iterative reconstruction. REPORTING DATA: Count of CT and Cardiac NM exams in prior 12 months: This patient has received 7 known CTs and 0 known cardiac nuclear medicine studies in the 12 months prior to the current study. COMPARISON: CR XR LUMBAR SPINE 2-3V 10/09/2020 5:45 PM FINDINGS: Bones/joints: The thoracolumbar spine demonstrates moderate discogenic and spondylitic degenerative changes at multiple levels. There is moderate to marked intervertebral disc space narrowing at L2-L3 with vacuum disc phenomenon, endplate discogenic degenerative changes and marginal osteophytes. Moderate to marked intervertebral disc space narrowing is also present at L5-S1 with endplate discogenic degenerative changes and marginal osteophytes. Mild compressive changes involving the L1 vertebral body with inferior concavity an trace superior concavity to the inferior endplate is stable in back to 03/15/2023 consistent with chronic process. There is minimal loss of posterior vertebral body height involving L5 which is also stable. Remaining vertebral body heights are preserved. Findings within the lower thoracic spine are described in the associated CT of the thoracic spine report from the same date and time. Please reference that report for additional information. There is moderate diffuse osteopenia. There is grade 1 retrolisthesis of L1 on L2 and L2 on L3. Alignment is otherwise intact. Postoperative PLIF is present spanning L3 through L5. Streak artifact from orthopedic hardware limits evaluation of adjacent structures. As seen, posterior spinal fixation rods and pedicular screws appear intact. There are mild degenerative changes of the sacroiliac joints. Incompletely visualized are bilateral hip arthroplasties. Streak artifact from hip arthroplasties limits evaluation of adjacent structures. Post laminectomy changes are also present spanning L3 through L5. There is an acute transverse process fracture involving the left L1 vertebral body with extension into the left pedicle best seen on series 3, images 126 to 130. The fracture also extends into the left lamina. This is best seen on the thoracic spine study. There is an acute transverse process fracture also involving the left L2 vertebral body. This is best seen on series 3, image 139. This is best seen on the thoracic spine study There is moderate to marked central canal stenosis at the L2-L3 level just due to combination of retrolisthesis, diffuse annular bulge and facet hypertrophic degenerative changes. There is marked bilateral neural foraminal narrowing at this level. Moderate diffuse annular bulge at the L3-L4 level produces mild ventral effacement upon thecal sac. Evaluation of this level is limited due to prominent streak artifact. Evaluation of the L4-L5 level is limited due to prominent streak artifact. There is marked bilateral neural foraminal narrowing on the left at the L5-S1 level and moderate to marked neural foraminal narrowing on the right at the L5-S1 level. Diffuse bar/disc produces mild to moderate ventral effacement upon the thecal sac. Evaluation is limited due to streak artifact. Hypertroph
--- NOTE | 2023-09-01 16:02 | HMH.EDGENADL ---
Discharge Plan Disposition Patient Disposition: Admitted Condition: Good Chief Complaint: Fall Clinical Impressions Clinical Impression: Fracture of thoracic spine Discharge ED Provider: Bárbara Rivera General Adult HPI General Chief complaint: Fall Stated complaint: Fall with back pain Time Seen by Provider: 09/01/23 15:49 History of Present Illness HPI narrative: Tran Castle is an 82 year old female with a past medical history of hypertension, diabetes, hyperthyroidism, obesity who presents to the ED with fall. Patient reports that she was walking at home with her walker when she lost her balance and fell backwards. Patient notes that when she fell backwards, she struck her back onto the door frame. Patient does not recall head trauma, negative LOC, negative fall to the ground as the door frame caught her body. Patient notes that she is on Plavix and has a mild headache. Patient notes that she has had multiple surgeries on her back and where the back took the trauma from the door frame, she is having worsening pain. Patient denies any chest pain, abdominal pain, no other complaints. Related Data Home Medications Medication Instructions Recorded Confirmed insulin lispro 100 unit/mL 0 sliding scale dose SQ AC Diabetes 03/12/23 08/17/23 subcutaneous solution (Humalog U-100 Insulin) metformin 500 mg tablet 500 mg PO BIDWMEAL Diabetes 03/12/23 08/17/23 acetaminophen 500 mg oral powder 500 mg PO QID PRN 05/25/23 08/17/23 packet (Tylenol Extra Strength) albuterol sulfate 90 mcg/actuation 2 puff inhalation Q4-6H PRN 05/25/23 08/17/23 aerosol inhaler wheezing mirtazapine 15 mg tablet (Remeron) 15 mg PO HS Appetite suppressant 05/25/23 08/17/23 Previous Rx's Medication Instructions Recorded gabapentin 300 mg capsule 300 mg PO TID #90 caps 04/07/23 albuterol sulfate 90 mcg/actuation 2 puff inhalation QID PRN wheezing 05/19/23 aerosol inhaler #8.5 grams clopidogrel 75 mg tablet 75 mg PO DAILY #90 tabs 05/25/23 fluoxetine 10 mg capsule (Prozac) 10 mg PO DAILY #90 caps 05/25/23 insulin detemir U-100 100 unit/mL 30 unit (0.3 mL) SQ HS #15 mL 05/25/23 (3 mL) subcutaneous pen insulin lispro 100 unit/mL 1 sliding scale dose SQ AC 05/25/23 subcutaneous solution (Humalog Diabetes #10 mL U-100 Insulin) metformin 500 mg tablet 500 mg PO BIDWMEAL Diabetes #180 05/25/23 tabs metoclopramide HCl 5 mg tablet 5 mg PO QAC gi upset #120 tabs 05/25/23 (Reglan) metoprolol tartrate 25 mg tablet 12.5 mg PO BID hypertension #180 05/25/23 tabs multivitamin with minerals-folic 1 tab PO .qd #100 tabs 05/25/23 acid 0.4 mg tablet pantoprazole 40 mg tablet,delayed 40 mg PO BID GERD #180 tabs 05/25/23 release promethazine 12.5 mg tablet 12.5 mg PO Q6H PRN nausea #100 tabs 05/25/23 methylphenidate HCl 5 mg tablet 5 mg PO QAM #30 tabs 07/14/23 (Ritalin) hydrocodone 7.5 mg-acetaminophen 1 tab PO DAILY PRN pain #30 tabs 08/17/23 325 mg tablet Allergies Allergy/AdvReac Type Severity Reaction Status Date / Time No Known Allergies Allergy Verified 08/17/23 10:08 [facility] Disclaimer: The information contained in this section may have been updated after the patient was seen, as this information can be updated by other users. Medical History Diabetes Fractured coccyx GERD (gastroesophageal reflux disease) History of fall Hypertension Infection of skin due to methicillin resistant Staphylococcus aureus (MRSA) Sacral fracture, closed Surgical History H/O: hysterectomy Hip joint replacement status History of arthroplasty of right ankle History of back surgery History of colectomy History of colonoscopy History of hip replacement History of lumbar surgery Social History Smoking Status: Never smoker second hand exposure: No alcohol intake: never substan
--- NOTE | 2023-09-01 17:17 | PC.NURSE ---
Rounded on pt. Advised that her pain is okay right now. No other needs voiced. Call light within reach.
--- NOTE | 2023-09-01 17:29 | PC.NURSE ---
updated pt & family with expected wait times for ct reads. Given warm blanket for comfort.
--- NOTE | 2023-09-01 18:07 | PC.NURSE ---
Dr. Rivera s/w [facility] for critical results
--- NOTE | 2023-09-01 18:26 | PC.NURSE ---
called for ed transfer for spine, they are to call back
--- NOTE | 2023-09-01 18:31 | PC.NURSE ---
requested radiology power share images with [facility]
--- NOTE | 2023-09-01 18:32 | PC.NURSE ---
waiting mental health practitioner back from [facility]
--- NOTE | 2023-09-01 19:19 | PC.NURSE ---
Dr. Rivera s[facility]w [facility]
--- NOTE | 2023-09-01 19:36 | PC.NURSE ---
I spoke with Cornelius, milk house worker RN, requesting a bed for admission. pt is being admitted for pain control and pt/ot. Dr. Rivera spoke with neurosurgery and spine MD, they stated the pt was not surgical and suggestion admission here.
--- NOTE | 2023-09-01 19:40 | PC.NURSE ---
Admitting notified for admission. Medsurg/OBS/Multiple Fractures/Hospitalist/212
--- NOTE | 2023-09-01 19:54 | PC.NURSE ---
Report called to Nate Donato to bed 212.
--- NOTE | 2023-09-01 19:56 | PC.NURSE ---
1950 received phone report from Shauna RN/ed nurse. patient is an 82 yo female s/p fall today at home resultinh in compression fractures T-11 and T-12 non compromizing. Here for pain control.
--- NOTE | 2023-09-01 20:03 | EXP.HP ---
History of Present Illness *Admission Date: 09/01/23 *Reason for visit:: back pain after fall at home *History of present illness: This is an 82 year old female with a complex past medical history of hypertension, diabetes, hyperthyroidism, cirrhosis, chronic history of colonic obstruction, colostomy in place, osteoporosis, who presented to the ED with acute worsening back pain after fall at home. Patient reported that she was walking at home with her walker when she lost her balance and fell backwards, she struck her back onto the door frame. Patient does not recall head trauma, negative LOC, negative fall to the ground as the door frame caught her body. Patient is on Plavix, unclear reason. Patient also had chronic history of back pain after multiple surgeries, but noticing worsening pain. Patient denies any chest pain, abdominal pain, no other complaints. Admitted for treatment and management. [facility] Disclaimer: The information contained in this section may have been updated after the patient was seen, as this information can be updated by other users. Medical History (Updated 09/02/23 @ 02:59 by Felix Parry APRN) Diabetes Fractured coccyx GERD (gastroesophageal reflux disease) History of fall Hypertension Infection of skin due to methicillin resistant Staphylococcus aureus (MRSA) Sacral fracture, closed Surgical History H/O: hysterectomy Hip joint replacement status History of arthroplasty of right ankle History of back surgery History of colectomy History of colonoscopy History of hip replacement History of lumbar surgery Social History (Updated 09/01/23 @ 20:43 by Marina Stallings RN) Smoking Status: Never smoker second hand exposure: No alcohol intake: never substance use type: denies use current occupational status: retired Travel in the last 8 weeks: None household members: spouse housing: other Review of Systems Review of Systems Review of systems:: pertinent systems reviewed and negative unless documented below Meds Home Medications and Allergies Home Medications Medication Instructions Recorded Confirmed Type albuterol sulfate 90 mcg/actuation 2 puff inhalation Q4HP PRN 05/25/23 09/02/23 History aerosol inhaler Shortness Of Breath Or Wheezing clopidogrel 75 mg tablet 75 mg PO DAILY #90 tabs 05/25/23 09/02/23 Rx fluoxetine 10 mg capsule (Prozac) 10 mg PO DAILY #90 caps 05/25/23 09/02/23 Rx insulin lispro 100 unit/mL 1 sliding scale dose SQ AC 05/25/23 09/02/23 Rx subcutaneous solution (Humalog Diabetes #10 mL U-100 Insulin) metformin 500 mg tablet 500 mg PO BIDWMEAL Diabetes #180 05/25/23 09/02/23 Rx tabs metoclopramide HCl 5 mg tablet 5 mg PO QAC gi upset #120 tabs 05/25/23 09/02/23 Rx (Reglan) metoprolol tartrate 25 mg tablet 12.5 mg PO BID hypertension #180 05/25/23 09/02/23 Rx tabs pantoprazole 40 mg tablet,delayed 40 mg PO BID GERD #180 tabs 05/25/23 09/02/23 Rx release promethazine 12.5 mg tablet 12.5 mg PO Q6H PRN nausea #100 tabs 05/25/23 09/02/23 Rx methylphenidate HCl 5 mg tablet 5 mg PO QAM #30 tabs 07/14/23 09/02/23 Rx (Ritalin) hydrocodone 7.5 mg-acetaminophen 1 tab PO DAILY PRN pain #30 tabs 08/17/23 09/02/23 Rx 325 mg tablet insulin detemir U-100 100 unit/mL 30 unit SQ HS Diabetes 09/02/23 09/02/23 History (3 mL) subcutaneous pen levothyroxine 25 mcg tablet 25 mcg PO DAILY Thyroid 09/02/23 09/02/23 History New Prescriptions to Start Prescriptions: Allergies Allergy/AdvReac Type Severity Reaction Status Date / Time No Known Allergies Allergy Verified 08/17/23 10:08 Exam Data for Last 24 hours Vital signs and Labs for Last 24 Hours: Temp Pulse Resp BP Pulse Ox O2 Del Method 97.9 F 77 18 126/57 L 97 Room Air 09/01/23 15:43 09/01/23 18:00 09/01/23 18:00 09/01/23 18:00 09/01/23 18:00 09/01/23 15:43 I & O for Last 24 hours: Inta
--- NOTE | 2023-09-01 20:23 | PC.NURSE ---
PATIENT ARRIVED TO THE FLOOR VIA STRETCHER AT 2019.
[2023-09-01 20:53] LABS: POC Glucose,Bedside 344 (70-110)
--- NOTE | 2023-09-01 21:02 | PC.NURSE ---
Pt arrived to floor via stretcher @ 2021
--- NOTE | 2023-09-01 21:21 | PC.NURSE ---
Patient and family are unsure of medication name and dosage patient takes daily. Medication reconciliation can not be completed at this time.
[2023-09-02 04:00] VITALS: BP 129/55; PULSE 75; RESP 16; TEMP 36.7; O2SAT 96; BMI 21.6
--- NOTE | 2023-09-02 05:39 | PC.NURSE ---
A/O X 4. HERE FOR PAIN CONTROL. HAS RECEIVED 2 DOSES OF MORPHINE. PATIENT SAYS MORPHIN WORKED WELL. PATIENT TURNED Q 2 HRS BY STAFF. INCONT, WEARS BRIEFS AND HAS PUREWICK. FSBS 131 THIS AM. .
[2023-09-02 05:59] LABS: POC Glucose,Bedside 132 (70-110)
[2023-09-02 07:07] LABS: Basophils % 0.4 % (0.1-2.0); Eosinophils # 0.2 K/mm3 (0.0-0.4); Eosinophils % 2.4 % (0.1-12.0); Hematocrit 36.6 % (37.0-47.0); Hemoglobin 12.1 g/dL (12.2-16.2); Lymphocytes # 1.8 K/mm3 (0.7-4.5); Lymphocytes % 21.2 % (10-50); Mean Corpuscular HGB Conc 33.1 g/dL (31.8-35.4); Mean Corpuscular Hemoglobin 30.5 pg (27.0-31.2); Mean Platelet Volume 8.9 fl (7.4-10.4); Monocytes # 0.8 K/mm3 (0.1-1.0); Monocytes % 9.2 % (1.7-9.3); Neutrophils # 5.6 K/mm3 (1.8-7.8); Neutrophils % 66.8 % (37.0-80.0); Platelet Count 192 K/mm3 (142-424); Red Blood Count 3.98 M/mm3 (4.20-5.40); Red Cell Distribution Width 15.3 % (11.5-17.5); White Blood Count 8.3 K/mm3 (4.8-10.8)
[2023-09-02 07:12] LABS: Alanine Aminotransferase 32 U/L (12-78); Albumin/Globulin Ratio 1.1 (1.1-1.8); Alkaline Phosphatase 201 U/L (38-126); Anion Gap 8.6 mEq/L (5-15); Aspartate Amino Transferase 75 U/L (14-36); Bilirubin,Total 0.5 mg/dl (0.2-1.3); Blood Urea Nitrogen 18 mg/dl (7-17); Calcium 8.6 mg/dl (8.4-10.2); Carbon Dioxide 28 mmol/L (22.0-30.0); Chloride 102 mmol/L (98-107); Creatinine Clearance Estimated 45 mL/min (50-200); Estimated Glomerular Filt Rate 69 ml/min (>60); GFR (African American) 83 ML/MIN (>60); Globulin 2.7 g/dL (1.3-3.2); Glucose 131 mg/dl (74-100); Potassium 3.6 mmoL/L (3.5-5.1); Sodium 135 mmol/L (136-145); Total Protein,Serum 5.7 g/dl (6.3-8.2)
[2023-09-02 07:25] VITALS: BP 124/53; PULSE 78; RESP 16; TEMP 36.3; O2SAT 95
--- NOTE | 2023-09-02 07:41 | HMH.PHAINT1 ---
Pharmacy Intervention Comments: MEDICATION RECONCILIATION COMPLETED ON PATIENT USING EXTERNAL FILL HISTORY FROM PHARMACY AND LIST FROM PCP OFFICE. -ROCCO DEUTSCH, ABELD
--- NOTE | 2023-09-02 10:33 | HMH.OTEV ---
OT Inpatient Evaluation Rehab OT IP Evaluation Start: 09/01/23 20:09 Freq: ONCE Status: Active Protocol: Document 09/02/23 10:17 HARMEET (Rec: 09/02/23 10:33 HARMEET [id number]) Rehab OT IP Assessment Subjective History This is an 82 year old female with a complex past medical history of hypertension, diabetes, hyperthyroidism, cirrhosis, chronic history of colonic obstruction, colostomy in place, osteoporosis, who presented to the ED with acute worsening back pain after fall at home. Patient reported that she was walking at home with her walker when she lost her balance and fell backwards, she struck her back onto the door frame. Patient does not recall head trauma, negative LOC, negative fall to the ground as the door frame caught her body. Patient is on Plavix, unclear reason. Patient also had chronic history of back pain after multiple surgeries, but noticing worsening pain. Patient denies any chest pain, abdominal pain, no other complaints. Admitted for treatment and management. Patient lives at home with . Patient verbalize that is not in good health to provide TD/Max A to at this time. Independent with ADLs and fx'l mobility prior to falling. Used a RW at times to ambulate within home. Hx of falling. Subjective I can't get up. I just took a pain pill. I'm in too much pain right now. Patient able to actively move B UE and B LE WFL. However Patient required TD to complete bed mobility and would not attempt to sit @ EOB due to intolerable pain in
--- NOTE | 2023-09-02 11:11 | HMH.PTEV ---
Physical Therapy Evaluation Rehab PT IP Evaluation Start: 09/01/23 20:09 Freq: ONCE Status: Active Protocol: Document 09/02/23 10:54 SHAWN (Rec: 09/02/23 11:11 SHAWN [id number]) Subjective/History History History Pt is an 82 y/o female with a complex past medical history of hypertension, diabetes, hyperthyroidism, cirrhosis, chronic history of colonic obstruction, colostomy in place, osteoporosis, who presented to the ED on with acute worsening back pain after fall at home. Per history & physical note, patient reported that she was walking at home with her walker when she lost her balance and fell backwards, she struck her back onto the door frame. Patient does not recall head trauma, negative LOC, negative fall to the ground as the door frame caught her body. Patient is on Plavix, unclear reason. Patient also had chronic history of back pain after multiple surgeries, but noticing worsening pain. Patient denies any chest pain, abdominal pain, no other complaints. Admitted for treatment and management. At ER CT of thoracic and lumbar spine was obtained, as well as Head/spine CT. Imaging reviewed. Concerning for acute or subacute fracture at T11- T12 level as well as L1-L2. Previous fracture also present . Medical History: Diabetes Fractured coccyx GERD (gastroesophageal reflux disease) History of fall Hypertension Infection of skin due to methicillin resistant Staphylococcus
[2023-09-02 12:16] LABS: POC Glucose,Bedside 187 (70-110)
--- NOTE | 2023-09-02 12:32 | CARE MANAGER ---
Addendum entered by [facility] 09/06/23 12:11: Per Qi patient's family was notified regarding discharge plans. Addendum entered by [facility] 09/06/23 10:16: Patient will discharge to [facility] level of care today. Addendum entered by [facility] 09/06/23 09:38: Per Qi patient has been approved SNF level of care. Addendum entered by [facility] 09/06/23 09:07: Per Qi w/ [facility] precert is pending at this time. Addendum entered by [facility] 09/05/23 14:59: Shikha w/ [facility] stated that she will start precert today for this patient. Addendum entered by [facility] 09/05/23 13:05: [facility]/ [facility] not able to accept this patient. Patient is agreeable for information to be faxed to [facility]. I will follow up w/ Moise once information is reviewed. Per patient is medically stable for discharge. Addendum entered by [facility] 09/05/23 11:44: [facility] is onsite to evaluate patient and speak w/ patient and family. Addendum entered by [facility] 09/05/23 07:59: Updated patient information has been faxed to [facility]. Addendum entered by Ashley Cope RN 09/02/23 14:39: Tiffany from [facility] states to send updates on tuesday morning and she will reevaulate and likely come see the patient then. Original Note: Patient had therapy evaluations and indicate she would benefit from skilled rehab. Patient is agreeable to [facility] and [facility]. [facility] does not have any open bed availbility and so she is agreeable to [facility] as well. Will send information.
[2023-09-02 15:00] VITALS: BP 139/53; PULSE 62; RESP 17; TEMP 36.6; O2SAT 96
[2023-09-02 16:27] LABS: POC Glucose,Bedside 185 (70-110)
[2023-09-02 17:47] VITALS: BMI 21.6
--- NOTE | 2023-09-02 17:59 | EXP.ACUTE.PN ---
Subjective *Date: 09/02/23 *Time: 21:51 Interval history: Pain stable. Responding to current regimen. Necessitating assistance to ambulate. PT and OT evaluating today. Denies any chest pain, nausea, vomiting. Medical Exam Vital signs and Labs for Last 24 Hours: Vital Signs Temp Pulse Pulse Resp BP BP Pulse Ox 09/02/23 17:00 09/02/23 15:00 09/02/23 13:00 09/02/23 15:00 97.9 F 62 17 139/53 L 96 09/02/23 11:00 09/02/23 09:00 09/02/23 08:00 09/02/23 07:25 97.4 F L 78 16 124/53 L 95 09/02/23 06:26 09/02/23 04:00 98.1 F 75 16 129/55 L 96 09/02/23 05:00 09/02/23 03:00 09/02/23 00:57 09/01/23 23:00 09/01/23 21:00 09/01/23 20:00 95 09/01/23 20:41 98.2 F 81 18 127/62 95 09/01/23 18:00 77 18 126/57 L 97 O2 Del Method 09/02/23 17:00 Room Air 09/02/23 15:00 Room Air 09/02/23 13:00 Room Air 09/02/23 15:00 Room Air 09/02/23 11:00 Room Air 09/02/23 09:00 Room Air 09/02/23 08:00 Room Air 09/02/23 07:25 Room Air 09/02/23 06:26 Room Air 09/02/23 04:00 Room Air 09/02/23 05:00 Room Air 09/02/23 03:00 Room Air 09/02/23 00:57 Room Air 09/01/23 23:00 Room Air 09/01/23 21:00 Room Air 09/01/23 20:00 Room Air 09/01/23 20:41 Room Air 09/01/23 18:00 Intake and Output 09/02/23 09/02/23 09/02/23 07:59 15:59 23:59 Intake Total 600 / 840 240 / 840 0 / 840 Output Total 1 / 251 250 / 251 Balance 599 / 589 -10 / 589 0 / 58 Intake: Intake, Oral Amount 600 / 840 240 / 840 0 / 840 Output: Output, Urine Amount 1 250 / 251 Other: Number of Unmeasured Voids 1 0 Number of Bowel Movements 1 1 Weight 66.224 kg Patient Weight 09/02/23 23:59 Weight 66.224 kg Laboratory Results - last 24 hr 09/01/23 20:33: POC Glucose 344 H* 09/02/23 04:52: POC Glucose 132 H 09/02/23 05:41: WBC 8.3, RBC 3.98 L, Hgb 12.1 L, Hct 36.6 L, MCV 92.0, MCH 30.5, MCHC 33.1, RDW 15.3, Plt Count 192, MPV 8.9, Neut % (Auto) 66.8, Lymph % (Auto) 21.2, [place] % (Auto) 9.2, Eos % (Auto) 2.4, Baso % (Auto) 0.4, Neut # (Auto) 5.6, Lymph # (Auto) 1.8, [place] # (Auto) 0.8, Eos # (Auto) 0.2, Baso # (Auto) 0.0, Sodium 135 L, Potassium 3.6, Chloride 102, Carbon Dioxide 28, Anion Gap 8.6, BUN 18 H, Creatinine 0.80, Estimated Creat Clear 45, Estimated GFR 69, Est GFR ( Amer) 83, Glucose 131 H, Calcium 8.6, Total Bilirubin 0.5, AST 75 H, ALT 32, Alkaline Phosphatase 201 H, Total Protein 5.7 L, Albumin 3.0 L, Globulin 2.7, Albumin/Globulin Ratio 1.1 09/02/23 11:04: POC Glucose 187 H 09/02/23 16:09: POC Glucose 185 H I & O for Labs for Last 24 Hours: Intake & Output 08/30/23 08/31/23 09/01/23 09/02/23 23:59 23:59 23:59 23:59 Intake Total 840 / 840 Output Total 251 / 251 Balance 589 / 589 Weight 66.224 kg 66.224 kg Constitutional: Present no acute distress, obese and chronically ill appearing Head: Present atraumatic Eyes: Present as per HPI ENT: Present normal exam Comment:: bitemporal wasting Neck: Present normal inspection and full ROM Respiratory: Present CTA bilaterally; Absent accessory muscle use Cardiac: Present Reg Rate and Rhythm GI: Present soft, tenderness (Improving, mild) and normal bowel sounds; Absent distention Extremities: Present normal inspection and edema (trace); Absent tenderness Skin: Present intact and dry Neuro: Present alert, awake and moves all extremities Assessment and Plan *Assessment and plan (1) Fracture of thoracic spine: Status: Acute Qualifiers: Encounter type: initial encounter Fracture morphology: unspecified fracture morphology Fracture type: closed Thoracic vertebra fracture level: T12 Qualified Code(s): S22.089A - Unspecified fracture of T11-T12 vertebra, initial encounter for closed fracture Category: Medical Code(s): S22.009A - Unspecified fracture of unspecified thoracic vertebra, i
--- NOTE | 2023-09-02 18:35 | PC.NURSE ---
pt has been pleasant, aXo x4. slight bruising to upper back from fall prior to admission. required round the clock pain meds with Tylenol for breakthrough pain. c/o nausea x1 treated with relief per dec. pt currently resting well in bed, using a heating pad at frequent intervals to back. cb within reach, no needs at this time.
[2023-09-02 20:00] VITALS: BP 141/64; PULSE 76; RESP 16; TEMP 36.8; O2SAT 92
[2023-09-02 20:12] LABS: POC Glucose,Bedside 176 (70-110)
[2023-09-03 04:00] VITALS: BP 123/60; PULSE 50; RESP 16; TEMP 36.6; O2SAT 94; BMI 21.7
[2023-09-03 05:51] LABS: POC Glucose,Bedside 133 (70-110)
--- NOTE | 2023-09-03 05:55 | PC.NURSE ---
pt has slept most of the shift - rang out once for pain meds. used kpad (heat) for pain relief. has been in bed all night with minimal movement. a/o x 4. pure[address].
--- NOTE | 2023-09-03 07:15 | EXP.ACUTE.PN ---
Subjective *Date: 09/03/23 *Time: 10:05 Interval history: Still have significant pain. Was able to sit at bedside for period of time this morning and eat. No nausea or vomiting. Electrolytes off this morning. Feeling weak. Denies any fever, chill, chest pain, shortness of breath. Having output from her ostomy. Medical Exam Vital signs and Labs for Last 24 Hours: Vital Signs Temp Pulse Resp BP Pulse Ox O2 Del Method 09/03/23 04:00 97.9 F 50 L 16 123/60 94 L Room Air 09/03/23 06:31 Room Air 09/03/23 05:00 Room Air 09/03/23 03:00 Room Air 09/03/23 01:00 Room Air 09/02/23 22:58 Room Air 09/02/23 21:00 Room Air 09/02/23 20:00 98.3 F 76 16 141/64 H 92 L Room Air 09/02/23 20:00 Room Air 09/02/23 18:14 Room Air 09/02/23 17:00 Room Air 09/02/23 15:00 Room Air 09/02/23 13:00 Room Air 09/02/23 15:00 97.9 F 62 17 139/53 L 96 Room Air 09/02/23 11:00 Room Air 09/02/23 09:00 Room Air 09/02/23 08:00 Room Air 09/02/23 07:25 97.4 F L 78 16 124/53 L 95 Room Air Intake and Output 09/02/23 09/02/23 09/03/23 15:59 23:59 07:59 Intake Total 240 / 910 70 / 910 Output Total 250 / 251 500 / 500 Balance - -500 / -500 Intake: Intake, Oral Amount 240 / 900 60 / 900 Intake, Other Amount Output: Output, Urine Amount 250 / 251 500 / 500 Other: Intake, Other Source Saline Solution Number of Unmeasured Voids 0 0 Number of Bowel Movements 1 Weight 66.224 kg 66.361 kg Patient Weight 09/03/23 23:59 Weight 66.361 kg Laboratory Results - last 24 hr 09/02/23 05:41: Sodium 135 L, Potassium 3.6, Chloride 102, Carbon Dioxide 28, Anion Gap 8.6, BUN 18 H, Creatinine 0.80, Estimated Creat Clear 45, Estimated GFR 69, Est GFR ( Amer) 83, Glucose 131 H, Calcium 8.6, Total Bilirubin 0.5, AST 75 H, ALT 32, Alkaline Phosphatase 201 H, Total Protein 5.7 L, Albumin 3.0 L, Globulin 2.7, Albumin/Globulin Ratio 1.1 09/02/23 11:04: POC Glucose 187 H 09/02/23 16:09: POC Glucose 185 H 09/02/23 20:04: POC Glucose 176 H 09/03/23 05:42: POC Glucose 133 H I & O for Labs for Last 24 Hours: Intake & Output 08/31/23 09/01/23 09/02/23 09/03/23 23:59 23:59 23:59 23:59 Intake Total 910 / 910 Output Total 251 / 251 500 / 500 Balance 659 / 659 -500 / -500 Weight 66.224 kg 66.224 kg 66.361 kg Constitutional: Present no acute distress, obese and chronically ill appearing Head: Present atraumatic Eyes: Present as per HPI ENT: Present normal exam Comment:: bitemporal wasting Neck: Present normal inspection and full ROM Respiratory: Present CTA bilaterally; Absent accessory muscle use Cardiac: Present Reg Rate and Rhythm GI: Present soft, tenderness (Improving, mild) and normal bowel sounds; Absent distention Extremities: Present normal inspection and edema (trace); Absent tenderness Skin: Present intact and dry Neuro: Present alert, awake and moves all extremities Assessment and Plan *Assessment and plan (1) Fracture of thoracic spine: Status: Acute Qualifiers: Encounter type: initial encounter Fracture morphology: unspecified fracture morphology Fracture type: closed Thoracic vertebra fracture level: T12 Qualified Code(s): S22.089A - Unspecified fracture of T11-T12 vertebra, initial encounter for closed fracture Category: Medical Code(s): S22.009A - Unspecified fracture of unspecified thoracic vertebra, initial encounter for closed fracture (2) Fracture of spine, lumbar, without spinal cord injury, closed: Status: Acute Qualifiers: Encounter type: subsequent encounter Fracture healing: with delayed healing Qualified Code(s): S32.009G - Unspecified fracture of unspecified lumbar vertebra, subsequent encounter for fracture with delayed healing Category: Medical Code(s): S32.009A - Unspecified fracture of unspecifi
[2023-09-03 07:21] LABS: Basophils % 0.2 % (0.1-2.0); Eosinophils # 0.4 K/mm3 (0.0-0.4); Eosinophils % 4.6 % (0.1-12.0); Hematocrit 38.2 % (37.0-47.0); Hemoglobin 12.5 g/dL (12.2-16.2); Lymphocytes # 2.6 K/mm3 (0.7-4.5); Mean Corpuscular HGB Conc 32.8 g/dL (31.8-35.4); Mean Corpuscular Hemoglobin 30.2 pg (27.0-31.2); Mean Corpuscular Volume 92.2 fl (81-99); Mean Platelet Volume 8.8 fl (7.4-10.4); Monocytes # 0.7 K/mm3 (0.1-1.0); Monocytes % 7.7 % (1.7-9.3); Neutrophils % 57.5 % (37.0-80.0); Platelet Count 188 K/mm3 (142-424); Red Blood Count 4.15 M/mm3 (4.20-5.40); Red Cell Distribution Width 15.4 % (11.5-17.5); White Blood Count 8.8 K/mm3 (4.8-10.8)
[2023-09-03 07:31] LABS: Alanine Aminotransferase 26 U/L (12-78); Albumin Level 2.9 g/dl (3.5-5.0); Alkaline Phosphatase 186 U/L (38-126); Aspartate Amino Transferase 41 U/L (14-36); Bilirubin,Total 0.5 mg/dl (0.2-1.3); Blood Urea Nitrogen 15 mg/dl (7-17); Calcium 8.7 mg/dl (8.4-10.2); Carbon Dioxide 28 mmol/L (22.0-30.0); Creatinine Clearance Estimated 45 mL/min (50-200); Estimated Glomerular Filt Rate 80 ml/min (>60); GFR (African American) 97 ML/MIN (>60); Globulin 2.8 g/dL (1.3-3.2); Glucose 143 mg/dl (74-100); Potassium 3.9 mmoL/L (3.5-5.1); Sodium 134 mmol/L (136-145); Total Protein,Serum 5.7 g/dl (6.3-8.2)
[2023-09-03 07:40] LABS: Magnesium 0.9 mg/dl (1.6-2.3)
[2023-09-03 07:50] VITALS: BP 136/60; PULSE 69; RESP 17; TEMP 36.5; O2SAT 95
[2023-09-03 08:15] LABS: Anion Gap 8.9 mEq/L (5-15); Chloride 101 mmol/L (98-107)
[2023-09-03 11:34] LABS: POC Glucose,Bedside 189 (70-110)
[2023-09-03 15:11] VITALS: BP 126/61; PULSE 60; RESP 18; TEMP 38.1; O2SAT 94
[2023-09-03 16:58] LABS: POC Glucose,Bedside 286 (70-110)
[2023-09-03 19:40] VITALS: BP 103/75; PULSE 80; RESP 16; TEMP 36.8; O2SAT 94
[2023-09-03 21:40] LABS: POC Glucose,Bedside 216 (70-110)
[2023-09-04 04:00] VITALS: BP 103/54; PULSE 61; RESP 16; TEMP 37.1; O2SAT 94; BMI 22.1
--- NOTE | 2023-09-04 05:09 | PC.NURSE ---
Patient has had a good restful night. Complained of pain off an on at the beginning of shift, but when RN would return with medication patient would be back to sleep. Did medication patient eventually see MAR, patient stated it helped with the pain. RN has burped her colostomy x2 tonight and emptied it once. Patient did get a bath last night and got cleaned up. Patient has had no complaints and has rested well.
[2023-09-04 06:22] LABS: POC Glucose,Bedside 167 (70-110)
[2023-09-04 07:40] VITALS: BP 114/48; PULSE 59; RESP 17; TEMP 36.6; O2SAT 96
[2023-09-04 07:43] LABS: Basophils % 0.4 % (0.1-2.0); Eosinophils # 0.3 K/mm3 (0.0-0.4); Hematocrit 37.1 % (37.0-47.0); Lymphocytes % 37.1 % (10-50); Mean Corpuscular HGB Conc 32.3 g/dL (31.8-35.4); Mean Corpuscular Hemoglobin 30.3 pg (27.0-31.2); Mean Corpuscular Volume 93.7 fl (81-99); Monocytes # 0.8 K/mm3 (0.1-1.0); Monocytes % 9.5 % (1.7-9.3); Neutrophils % 49.1 % (37.0-80.0); Platelet Count 184 K/mm3 (142-424); Red Blood Count 3.96 M/mm3 (4.20-5.40); Red Cell Distribution Width 15.4 % (11.5-17.5); White Blood Count 8.2 K/mm3 (4.8-10.8)
[2023-09-04 07:57] LABS: Magnesium 1.3 mg/dl (1.6-2.3)
[2023-09-04 08:45] LABS: Alanine Aminotransferase 23 U/L (12-78); Albumin Level 2.5 g/dl (3.5-5.0); Alkaline Phosphatase 224 U/L (38-126); Anion Gap 7.3 mEq/L (5-15); Aspartate Amino Transferase 37 U/L (14-36); Bilirubin,Total 0.4 mg/dl (0.2-1.3); Blood Urea Nitrogen 19 mg/dl (7-17); Calcium 8.5 mg/dl (8.4-10.2); Carbon Dioxide 28 mmol/L (22.0-30.0); Chloride 103 mmol/L (98-107); Creatinine Clearance Estimated 47 mL/min (50-200); Estimated Glomerular Filt Rate 96 ml/min (>60); GFR (African American) 116 ML/MIN (>60); Globulin 2.6 g/dL (1.3-3.2); Glucose 156 mg/dl (74-100); Potassium 4.3 mmoL/L (3.5-5.1); Sodium 134 mmol/L (136-145); Total Protein,Serum 5.1 g/dl (6.3-8.2)
[2023-09-04 12:58] LABS: POC Glucose,Bedside 254 (70-110)
[2023-09-04 15:13] VITALS: BP 128/55; PULSE 70; RESP 17; TEMP 36.6; O2SAT 94
--- NOTE | 2023-09-04 15:34 | EXP.ACUTE.PN ---
Subjective *Date: 09/04/23 *Time: 21:08 Interval history: Patient complaining of persistent pain in her back. Tolerated p.o. intake. No fever overnight. No shortness of breath or chest pain. Medical Exam Vital signs and Labs for Last 24 Hours: Vital Signs Temp Pulse Resp BP Pulse Ox O2 Del Method 09/04/23 15:13 97.8 F 70 17 128/55 L 94 L Room Air 09/04/23 13:00 Room Air 09/04/23 11:00 Room Air 09/04/23 09:00 Room Air 09/04/23 08:00 Room Air 09/04/23 07:40 97.9 F 59 L 17 114/48 L 96 Room Air 09/04/23 04:00 98.7 F 61 16 103/54 L 94 L Room Air 09/04/23 07:00 Room Air 09/04/23 05:00 Room Air 09/04/23 03:00 Room Air 09/04/23 01:00 Room Air 09/03/23 23:00 Room Air 09/03/23 21:00 Room Air 09/03/23 20:00 Room Air 09/03/23 19:40 98.3 F 80 16 103/75 L 94 L Room Air 09/03/23 18:02 Room Air 09/03/23 17:00 Room Air Intake and Output 09/03/23 09/04/23 09/04/23 23:59 07:59 15:59 Intake Total 240 / 770 290 / 530 240 / 530 Output Total 350 / 350 Balance 240 / 270 -60 / 180 240 / 180 Intake: Intake, Oral Amount 240 / 770 290 / 530 240 / 530 Output: Output, Urine Amount 350 / 350 Other: Number of Bowel Movements 1 Weight 67.993 kg Patient Weight 09/04/23 23:59 Weight 67.993 kg Laboratory Results - last 24 hr 09/03/23 16:47: POC Glucose 286 H 09/03/23 21:13: POC Glucose 216 H 09/04/23 05:59: POC Glucose 167 H 09/04/23 06:55: WBC 8.2, RBC 3.96 L, Hgb 12.0 L, Hct 37.1, MCV 93.7, MCH 30.3, MCHC 32.3, RDW 15.4, Plt Count 184, MPV 9.0, Neut % (Auto) 49.1, Lymph % (Auto) 37.1, [place] % (Auto) 9.5 H, Eos % (Auto) 4.0, Baso % (Auto) 0.4, Neut # (Auto) 4.0, Lymph # (Auto) 3.0, [place] # (Auto) 0.8, Eos # (Auto) 0.3, Baso # (Auto) 0.0, Sodium 134 L, Potassium 4.3, Chloride 103, Carbon Dioxide 28, Anion Gap 7.3, BUN 19 H D, Creatinine 0.60, Estimated Creat Clear 47, Estimated GFR 96, Est GFR ( Amer) 116, Glucose 156 H, Calcium 8.5, Magnesium 1.3 L D, Total Bilirubin 0.4, AST 37 H, ALT 23, Alkaline Phosphatase 224 H, Total Protein 5.1 L, Albumin 2.5 L D, Globulin 2.6, Albumin/Globulin Ratio 1.0 L 09/04/23 11:12: POC Glucose 254 H I & O for Labs for Last 24 Hours: Intake & Output 09/01/23 09/02/23 09/03/23 09/04/23 23:59 23:59 23:59 23:59 Intake Total 910 / 910 720 / 770 530 / 530 Output Total 251 / 251 500 / 500 350 / 350 Balance 659 / 659 220 / 270 180 / 180 Weight 66.224 kg 66.224 kg 66.361 kg 67.993 kg Constitutional: Present no acute distress, obese and chronically ill appearing Head: Present atraumatic Eyes: Present as per HPI ENT: Present normal exam Comment:: bitemporal wasting Neck: Present normal inspection and full ROM Respiratory: Present CTA bilaterally; Absent accessory muscle use Cardiac: Present Reg Rate and Rhythm GI: Present soft, tenderness (Improving, mild) and normal bowel sounds; Absent distention Extremities: Present normal inspection and edema (trace); Absent tenderness Skin: Present intact and dry Neuro: Present alert, awake and moves all extremities Assessment and Plan *Assessment and plan (1) Fracture of thoracic spine: Status: Acute Qualifiers: Encounter type: initial encounter Fracture morphology: unspecified fracture morphology Fracture type: closed Thoracic vertebra fracture level: T12 Qualified Code(s): S22.089A - Unspecified fracture of T11-T12 vertebra, initial encounter for closed fracture Category: Medical Code(s): S22.009A - Unspecified fracture of unspecified thoracic vertebra, initial encounter for closed fracture (2) Fracture of spine, lumbar, without spinal cord injury, closed: Status: Acute Qualifiers: Encounter type: subsequent encounter Fracture healing: with delayed healing Qualified Code(s): S32.009G - Unspecified fracture of unspecified lumbar vertebra, subsequent encounter for fracture with del
[2023-09-04 16:59] LABS: POC Glucose,Bedside 214 (70-110)
[2023-09-04 20:00] VITALS: BP 113/41; PULSE 74; RESP 16; TEMP 36.8; O2SAT 93
[2023-09-04 20:42] LABS: POC Glucose,Bedside 164 (70-110)
[2023-09-04 21:00] VITALS: BP 113/41; PULSE 74; RESP 16; TEMP 36.8; O2SAT 93; BMI 22.2
[2023-09-05 04:00] VITALS: BP 111/49; PULSE 71; RESP 18; TEMP 36.9; O2SAT 94; BMI 22.2
--- NOTE | 2023-09-05 05:12 | PC.NURSE ---
Patient has had a good night. Patient did have to be encouraged to void as she had not voided since dinner yesterday. The patient refused to get up so patient voided in a brief then was changed. RN empty the ostmy x2 during the shift. Patient has complained of pain throughout the shift see MAR. No other issues were noted.
[2023-09-05 06:07] LABS: POC Glucose,Bedside 137 (70-110)
[2023-09-05 07:22] VITALS: BP 133/53; PULSE 65; RESP 18; TEMP 36.5; O2SAT 95
[2023-09-05 07:29] LABS: Alanine Aminotransferase 22 U/L (12-78); Albumin Level 2.7 g/dl (3.5-5.0); Alkaline Phosphatase 170 U/L (38-126); Anion Gap 6.5 mEq/L (5-15); Aspartate Amino Transferase 38 U/L (14-36); Bilirubin,Total 0.5 mg/dl (0.2-1.3); Blood Urea Nitrogen 19 mg/dl (7-17); Carbon Dioxide 29 mmol/L (22.0-30.0); Chloride 103 mmol/L (98-107); Creatinine Clearance Estimated 47 mL/min (50-200); Estimated Glomerular Filt Rate 80 ml/min (>60); GFR (African American) 97 ML/MIN (>60); Globulin 2.7 g/dL (1.3-3.2); Glucose 157 mg/dl (74-100); Potassium 4.5 mmoL/L (3.5-5.1); Sodium 134 mmol/L (136-145); Total Protein,Serum 5.4 g/dl (6.3-8.2)
[2023-09-05 07:36] LABS: Basophils % 0.4 % (0.1-2.0); Eosinophils # 0.3 K/mm3 (0.0-0.4); Eosinophils % 4.1 % (0.1-12.0); Hematocrit 35.5 % (37.0-47.0); Hemoglobin 11.7 g/dL (12.2-16.2); Lymphocytes # 3.1 K/mm3 (0.7-4.5); Lymphocytes % 39.2 % (10-50); Mean Corpuscular HGB Conc 32.9 g/dL (31.8-35.4); Mean Corpuscular Hemoglobin 30.5 pg (27.0-31.2); Mean Corpuscular Volume 92.5 fl (81-99); Mean Platelet Volume 8.8 fl (7.4-10.4); Monocytes # 0.7 K/mm3 (0.1-1.0); Monocytes % 9.3 % (1.7-9.3); Neutrophils # 3.7 K/mm3 (1.8-7.8); Neutrophils % 47.1 % (37.0-80.0); Platelet Count 216 K/mm3 (142-424); Red Blood Count 3.84 M/mm3 (4.20-5.40); Red Cell Distribution Width 15.4 % (11.5-17.5); White Blood Count 7.9 K/mm3 (4.8-10.8)
[2023-09-05 08:18] LABS: Magnesium 1.5 mg/dl (1.6-2.3)
[2023-09-05 11:03] LABS: POC Glucose,Bedside 237 (70-110)
--- NOTE | 2023-09-05 14:35 | PC.NURSE ---
Colostomy bag replaced at this time.
[2023-09-05 15:19] VITALS: BP 114/46; PULSE 61; RESP 18; TEMP 36.6; O2SAT 95
[2023-09-05 16:39] LABS: POC Glucose,Bedside 189 (70-110)
--- NOTE | 2023-09-05 16:54 | EXP.ACUTE.PN ---
Subjective *Date: 09/05/23 *Time: 17:43 Interval history: Patient complaining of persistent pain in her back, responding to current oral therapy. Did not work with PT yesterday due to pain but working with him today. Tolerating p.o. intake. No fever overnight. No shortness of breath or chest pain. Medical Exam Vital signs and Labs for Last 24 Hours: Vital Signs Temp Pulse Resp BP Pulse Ox O2 Del Method 09/05/23 15:19 97.9 F 61 18 114/46 L 95 Room Air 09/05/23 15:00 Room Air 09/05/23 13:00 Room Air 09/05/23 11:00 Room Air 09/05/23 09:00 Room Air 09/05/23 07:22 97.7 F 65 18 133/53 L 95 Room Air 09/05/23 06:59 Room Air 09/05/23 05:00 Room Air 09/05/23 04:00 98.5 F 71 18 111/49 L 94 L Room Air 09/05/23 02:57 Room Air 09/05/23 01:00 Room Air 09/04/23 23:00 Room Air 09/04/23 21:00 Room Air 09/04/23 20:00 Room Air 09/04/23 21:00 98.3 F 74 16 113/41 L 93 L Room Air 09/04/23 20:00 98.3 F 74 16 113/41 L 93 L Room Air 09/04/23 18:28 Room Air 09/04/23 17:00 Room Air Intake and Output 09/05/23 09/05/23 09/05/23 07:59 15:59 23:59 Intake Total 470 / 470 Output Total 0 / 0 Balance 470 / 470 Intake: Intake, Oral Amount 470 / 470 Output: Output, Urine Amount 0 / 0 Other: Number of Voids 0 Number of Unmeasured Voids 1 Number of Bowel Movements 1 1 Weight 68.22 kg Patient Weight 09/05/23 23:59 Weight 68.22 kg Laboratory Results - last 24 hr 09/04/23 16:26: POC Glucose 214 H 09/04/23 20:35: POC Glucose 164 H 09/05/23 05:59: POC Glucose 137 H 09/05/23 06:36: WBC 7.9, RBC 3.84 L, Hgb 11.7 L, Hct 35.5 L, MCV 92.5, MCH 30.5, MCHC 32.9, RDW 15.4, Plt Count 216, MPV 8.8, Neut % (Auto) 47.1, Lymph % (Auto) 39.2, [place] % (Auto) 9.3, Eos % (Auto) 4.1, Baso % (Auto) 0.4, Neut # (Auto) 3.7, Lymph # (Auto) 3.1, [place] # (Auto) 0.7, Eos # (Auto) 0.3, Baso # (Auto) 0.0, Sodium 134 L, Potassium 4.5, Chloride 103, Carbon Dioxide 29, Anion Gap 6.5, BUN 19 H, Creatinine 0.70, Estimated Creat Clear 47, Estimated GFR 80, Est GFR ( Amer) 97, Glucose 157 H, Calcium 9.0, Magnesium 1.5 L D, Total Bilirubin 0.5, AST 38 H, ALT 22, Alkaline Phosphatase 170 H, Total Protein 5.4 L, Albumin 2.7 L, Globulin 2.7, Albumin/Globulin Ratio 1.0 L 09/05/23 10:55: POC Glucose 237 H 09/05/23 16:31: POC Glucose 189 H I & O for Labs for Last 24 Hours: Intake & Output 09/02/23 09/03/23 09/04/23 09/05/23 23:59 23:59 23:59 23:59 Intake Total 910 / 910 720 / 770 820 / 820 470 / 470 Output Total 251 / 251 500 / 500 350 / 350 0 / 0 Balance 659 / 659 220 / 270 470 / 470 470 / 470 Weight 66.224 kg 66.361 kg 68.22 kg 68.22 kg Constitutional: Present no acute distress, obese and chronically ill appearing Head: Present atraumatic Eyes: Present as per HPI ENT: Present normal exam Comment:: bitemporal wasting Neck: Present normal inspection and full ROM Respiratory: Present CTA bilaterally; Absent accessory muscle use Cardiac: Present Reg Rate and Rhythm GI: Present soft, tenderness (Improving, mild) and normal bowel sounds; Absent distention Extremities: Present normal inspection and edema (trace); Absent tenderness Skin: Present intact and dry Neuro: Present alert, awake and moves all extremities Assessment and Plan *Assessment and plan (1) Fracture of thoracic spine: Status: Acute Qualifiers: Encounter type: initial encounter Fracture morphology: unspecified fracture morphology Fracture type: closed Thoracic vertebra fracture level: T12 Qualified Code(s): S22.089A - Unspecified fracture of T11-T12 vertebra, initial encounter for closed fracture Category: Medical Code(s): S22.009A - Unspecified fracture of unspecified thoracic vertebra, initial encounter for closed fracture (2) Fracture of spine, lumbar, without spinal cord injury, closed: Status: Acute Qualifiers:
[2023-09-05 20:00] VITALS: BP 137/58; PULSE 77; RESP 18; TEMP 37; O2SAT 95
[2023-09-05 22:30] LABS: POC Glucose,Bedside 214 (70-110)
[2023-09-06 04:00] VITALS: BP 131/69; PULSE 76; RESP 18; TEMP 36.5; O2SAT 95; BMI 22.0
[2023-09-06 07:06] LABS: POC Glucose,Bedside 165 (70-110)
[2023-09-06 07:12] LABS: Basophils % 0.5 % (0.1-2.0); Eosinophils # 0.3 K/mm3 (0.0-0.4); Eosinophils % 3.6 % (0.1-12.0); Hematocrit 35.6 % (37.0-47.0); Hemoglobin 11.4 g/dL (12.2-16.2); Lymphocytes % 37.2 % (10-50); Mean Corpuscular Volume 93.5 fl (81-99); Mean Platelet Volume 8.7 fl (7.4-10.4); Monocytes # 0.7 K/mm3 (0.1-1.0); Monocytes % 8.3 % (1.7-9.3); Neutrophils % 50.4 % (37.0-80.0); Platelet Count 219 K/mm3 (142-424); Red Cell Distribution Width 15.5 % (11.5-17.5); White Blood Count 7.9 K/mm3 (4.8-10.8)
[2023-09-06 07:19] VITALS: BP 150/70; PULSE 72; RESP 16; TEMP 36.5; O2SAT 96
[2023-09-06 07:26] LABS: Anion Gap 5.3 mEq/L (5-15); Blood Urea Nitrogen 15 mg/dl (7-17); Calcium 8.9 mg/dl (8.4-10.2); Carbon Dioxide 30 mmol/L (22.0-30.0); Chloride 102 mmol/L (98-107); Creatinine Clearance Estimated 46 mL/min (50-200); Estimated Glomerular Filt Rate 80 ml/min (>60); GFR (African American) 97 ML/MIN (>60); Glucose 174 mg/dl (74-100); Magnesium 1.3 mg/dl (1.6-2.3); Potassium 4.3 mmoL/L (3.5-5.1); Sodium 133 mmol/L (136-145)
[2023-09-06 11:11] LABS: POC Glucose,Bedside 239 (70-110)
--- NOTE | 2023-09-06 12:04 | EXP.DC.SUM ---
General Admission date:: 09/01/23 Discharge date: 09/06/23 HPI HPI HPI: This is an 82 year old female with a complex past medical history of hypertension, diabetes, hyperthyroidism, cirrhosis, chronic history of colonic obstruction, colostomy in place, osteoporosis, who presented to the ED with acute worsening back pain after fall at home. Patient reported that she was walking at home with her walker when she lost her balance and fell backwards, she struck her back onto the door frame. Patient does not recall head trauma, negative LOC, negative fall to the ground as the door frame caught her body. Patient is on Plavix, unclear reason. Patient also had chronic history of back pain after multiple surgeries, but noticing worsening pain. Patient denies any chest pain, abdominal pain, no other complaints. Admitted for treatment and management. Hospital Course Hospital Course Hospital Course: Patient was seen and evaluated at the bedside on the day of discharge. Patient is stable for discharge. Patient wishes to be discharged. All patient questions were answered and patient was given time to ask questions. Patient was discharged in stable condition. 82 year old female with a complex past medical history of hypertension, diabetes, hyperthyroidism, cirrhosis, chronic history of colonic obstruction, colostomy in place, osteoporosis, who presented to the ED with acute worsening back pain after fall at home. At ER CT of thoracic and lumbar spine was obtained, as well as Head/spine CT. Imaging reviewed. Concerning for acute or subacute fracture at T11-T12 level as well as L1-L2. Previous fracture also present. Remained stable overnight. PT and OT recommend placement. Continues to require inpatient management pending insurance approval and referral to rehab facility. Problems addressed as follows: -Acute T11-T12 vertebral Fx secondary to mechanical fall at home: -Others chronic spine fracture seen at Lumbar level with chronic back pain in the course of osteoporosis and history of multiple falls - New stomach mass CT findings: follow up with oncology given -cirrhosis currently compensated, daily BMs - Hypomagnesemiam- replaced -Chronic Colonic obstruction, history of recent Loop colostomy bowel regimen colostomy care Hypothyroidism: Levothyroxine 25 mcg daily Continue Plavix 75 mg daily for CAD Continue fluoxetine 10 mg daily for depression Insulin sliding scale for diabetes with fingersticks ACHS; increase Lantus to 35 units nightly Continue metoprolol 12.5mg twice daily for hypertension stable for discharge Exam Data for Last 24 hours Vital signs and Labs for Last 24 Hours: Temp Pulse Resp BP Pulse Ox O2 Del Method 97.7 F 72 16 150/70 H 96 Room Air 09/06/23 07:19 09/06/23 07:19 09/06/23 07:19 09/06/23 07:19 09/06/23 07:19 09/06/23 11:00 Laboratory Results - last 24 hr 09/05/23 16:31: POC Glucose 189 H 09/05/23 22:19: POC Glucose 214 H 09/06/23 06:46: WBC 7.9, RBC 3.80 L, Hgb 11.4 L, Hct 35.6 L, MCV 93.5, MCH 30.0, MCHC 32.0, RDW 15.5, Plt Count 219, MPV 8.7, Neut % (Auto) 50.4, Lymph % (Auto) 37.2, [place] % (Auto) 8.3, Eos % (Auto) 3.6, Baso % (Auto) 0.5, Neut # (Auto) 4.0, Lymph # (Auto) 3.0, [place] # (Auto) 0.7, Eos # (Auto) 0.3, Baso # (Auto) 0.0, Sodium 133 L, Potassium 4.3, Chloride 102, Carbon Dioxide 30, Anion Gap 5.3, BUN 15, Creatinine 0.70, Estimated Creat Clear 46, Estimated GFR 80, Est GFR ( Amer) 97, Glucose 174 H, Calcium 8.9, Magnesium 1.3 L D 09/06/23 06:52: POC Glucose 165 H 09/06/23 11:04: POC Glucose 239 H I & O for Last 24 hours: Intake & Output 09/03/23 09/04/23 09/05/23 09/06/23 23:59 23:59 23:59 23:59 Intake Total 720 / 770 820 / 820 950 / 1070 360 / 360 Output Total 500 / 500 350 / 350 0 / 0 0 / 0 Balance 220 / 270 470 / 470 950 / 1070 360 / 360 Weight 66.361 kg 68.22 kg 68.22 kg 67.585 kg Constitutional Constitutional: no acute distress *Routine HEENT Exam He
== END 2023-09-06 13:34 ==
LOC: ER 18:06 → 2ND 19:49
PROVIDERS: Nurse Practitioner Family; Admitting Provider Internal Medicine Adolescent Medicine; Emergency Provider Emergency Medicine; PCP Family Medicine; Visit Provider Internal Medicine Adolescent Medicine
DX: S22.089A Unspecified fracture of T11-T12 vertebra, initial encounter for closed fracture (principal); S32.009G Unspecified fracture of unspecified lumbar vertebra, subsequent encounter for fracture with delayed healing; Z91.81 History of falling; M81.0 Age-related osteoporosis without current pathological fracture; K31.89 Other diseases of stomach and duodenum; E11.9 Type 2 diabetes mellitus without complications; K74.60 Unspecified cirrhosis of liver; I10 Essential (primary) hypertension; E05.90 Thyrotoxicosis, unspecified without thyrotoxic crisis or storm; K21.9 Gastro-esophageal reflux disease without esophagitis; Z93.3 Colostomy status; E03.9 Hypothyroidism, unspecified; Z96.661 Presence of right artificial ankle joint; Z96.698 Presence of other orthopedic joint implants; R19.00 Intra-abdominal and pelvic swelling, mass and lump, unspecified site; K56.609 Unspecified intestinal obstruction, unspecified as to partial versus complete obstruction; E83.42 Hypomagnesemia; Z79.4 Long term (current) use of insulin
CPT/HCPCS: 36415; 70450; 72125; 72128; 72131; 80048; 80053; 82962; 83735; 85025; 97162; 97165; 97530; 99285; G0378; J2405; J3475

== ENCOUNTER 2023-10-17 23:22 | Outpatient (CLI) | payer MEDICARE, SELFPAY ==
[2023-10-17 18:36] LABS: Basophils # 0.1 K/mm3 (0-0.2); Basophils % 0.5 % (0.1-2.0); Eosinophils # 0.2 K/mm3 (0.0-0.4); Eosinophils % 2.5 % (0.1-12.0); Hematocrit 47.6 % (37.0-47.0); Hemoglobin 15.3 g/dL (12.2-16.2); Lymphocytes # 3.7 K/mm3 (0.7-4.5); Lymphocytes % 38.6 % (10-50); Mean Corpuscular HGB Conc 32.1 g/dL (31.8-35.4); Mean Corpuscular Hemoglobin 30.1 pg (27.0-31.2); Mean Corpuscular Volume 93.8 fl (81-99); Mean Platelet Volume 9.3 fl (7.4-10.4); Monocytes # 0.6 K/mm3 (0.1-1.0); Monocytes % 6.7 % (1.7-9.3); Neutrophils % 51.7 % (37.0-80.0); Platelet Count 248 K/mm3 (142-424); Red Blood Count 5.08 M/mm3 (4.20-5.40); Red Cell Distribution Width 14.4 % (11.5-17.5); White Blood Count 9.6 K/mm3 (4.8-10.8)
[2023-10-17 19:01] LABS: Chloride 103 mmol/L (98-107); Sodium 137 mmol/L (136-145)
[2023-10-17 19:02] LABS: Potassium 4.6 mmoL/L (3.5-5.1)
[2023-10-17 19:04] LABS: Alanine Aminotransferase 32 U/L (12-78); Albumin Level 3.1 g/dl (3.5-5.0); Albumin/Globulin Ratio 1.1 (1.1-1.8); Alkaline Phosphatase 243 U/L (38-126); Anion Gap 9.6 mEq/L (5-15); Aspartate Amino Transferase 56 U/L (14-36); Bilirubin,Total 0.5 mg/dl (0.2-1.3); Blood Urea Nitrogen 14 mg/dl (7-17); Carbon Dioxide 29 mmol/L (22.0-30.0); Estimated Glomerular Filt Rate 80 ml/min (>60); GFR (African American) 97 ML/MIN (>60); Globulin 2.8 g/dL (1.3-3.2); Total Protein,Serum 5.9 g/dl (6.3-8.2)
[2023-10-17 19:05] LABS: Calcium 9.9 mg/dl (8.4-10.2); Glucose 197 mg/dl (74-100)
[2023-10-17 19:36] LABS: Hemoglobin A1C 6.9 % (4.0-6.0); Thyroid Stimulating Hormone < 0.02 uIU/mL (0.465-4.68)
== END 2023-10-17 23:59 ==
LOC: LAB.DROPOF 23:22
PROVIDERS: PCP Family Medicine; Visit Provider Family Medicine
DX: E11.9 Type 2 diabetes mellitus without complications (principal); E78.5 Hyperlipidemia, unspecified; Z79.4 Long term (current) use of insulin
CPT/HCPCS: 80053; 83036; 84443; 85025

== ENCOUNTER 2023-11-14 22:06 | Outpatient (CLI) | payer MEDICARE, SELFPAY ==
[2023-11-14 20:32] LABS: Free T4 (Free Thyroxine) 1.27 ng/dl (0.78-2.19)
[2023-11-14 20:37] LABS: Triiodothryronine (T3) Uptake 39 % (23.5-40.5)
[2023-11-14 20:51] LABS: Thyroid Stimulating Hormone < 0.02 uIU/mL (0.465-4.68)
[2023-11-16 08:21] LABS: Triiodothyronine (T3) Free 3.5 pg/mL (2.0-4.4)
== END 2023-11-14 23:59 ==
LOC: LAB.DROPOF 22:07
PROVIDERS: PCP Family Medicine; Visit Provider Family Medicine
DX: E05.90 Thyrotoxicosis, unspecified without thyrotoxic crisis or storm (principal)
CPT/HCPCS: 84439; 84443; 84479; 84481

== ENCOUNTER 2024-07-04 14:41 | Outpatient (CLI) | payer MEDICARE, SELFPAY ==
--- NOTE | 2024-07-04 14:42 | XR_ITS ---
FINAL REPORT TECHNIQUE: Bone densitometry calculations of the lumbar spine and left hip were obtained. CLINICAL HISTORY: compression fracture of L1 COMPARISON: 12/24/2020 FINDINGS: Using the left forearm, the bone mineral density of the spine is 0.310 g/cm2, corresponding to T-score of -5.4. Using the right forearm, the bone mineral density of the femoral neck is 0.313 g/cm2, corresponding to a T-score of -5.4. NOTE: T-score: Standard deviation compared with peak bone mass of young adult mean. *Following the recommendations of the International Society of Bone densitometry, classification of hip BMD is based on the lower of two T-scores; total hip or femoral neck. IMPRESSION: Diminished bone mineral density of the right forearm and left forearm consistent with osteoporosis. Reviewed, Interpreted and Dictated by Zheng Germain MD Transcribed by Sachi Costa Authenticated and [facility]
== END 2024-07-04 23:59 | disposition home or self-care (01) ==
LOC: RAD 14:42
PROVIDERS: PCP Family Medicine; Visit Provider Family Medicine
DX: S32.010A Wedge compression fracture of first lumbar vertebra, initial encounter for closed fracture (principal)
CPT/HCPCS: 77080

== ENCOUNTER 2024-09-17 11:40 | Outpatient (CLI) | payer MEDICARE, SELFPAY ==
[2024-09-17 18:30] LABS: Basophils # 0.1 K/mm3 (0-0.2); Basophils % 0.7 % (0.1-2.0); Eosinophils # 0.1 K/mm3 (0.0-0.4); Eosinophils % 2.1 % (0.1-12.0); Hematocrit 45.7 % (37.0-47.0); Hemoglobin 14.4 g/dL (12.2-16.2); Lymphocytes # 2.5 K/mm3 (0.7-4.5); Lymphocytes % 39.1 % (10-50); Mean Corpuscular HGB Conc 31.5 g/dL (31.8-35.4); Mean Corpuscular Hemoglobin 28.3 pg (27.0-31.2); Mean Corpuscular Volume 89.9 fl (81-99); Mean Platelet Volume 8.8 fl (7.4-10.4); Monocytes # 0.4 K/mm3 (0.1-1.0); Monocytes % 6.3 % (1.7-9.3); Neutrophils # 3.2 K/mm3 (1.8-7.8); Neutrophils % 51.7 % (37.0-80.0); Platelet Count 244 K/mm3 (142-424); Red Blood Count 5.09 M/mm3 (4.20-5.40); White Blood Count 6.3 K/mm3 (4.8-10.8)
[2024-09-17 19:07] LABS: Alanine Aminotransferase 21 U/L (12-78); Albumin Level 3.4 g/dl (3.5-5.0); Albumin/Globulin Ratio 1.3 (1.1-1.8); Alkaline Phosphatase 211 U/L (38-126); Aspartate Amino Transferase 47 U/L (14-36); Bilirubin,Total 0.5 mg/dl (0.2-1.3); Blood Urea Nitrogen 13 mg/dl (7-17); Calcium 8.8 mg/dl (8.4-10.2); Carbon Dioxide 28 mmol/L (22.0-30.0); Chloride 105 mmol/L (98-107); Chol/HDL Ratio 2.1 (1-3.5); Cholesterol 91 mg/dl (140-200); Estimated Glomerular Filt Rate 80 ml/min (>60); GFR (African American) 97 ML/MIN (>60); Globulin 2.7 g/dL (1.3-3.2); Glucose 192 mg/dl (74-100); HDL Cholesterol 44 mg/dl (40-60); Potassium 4.3 mmoL/L (3.5-5.1); Total Protein,Serum 6.1 g/dl (6.3-8.2); Triglycerides 77 mg/dl (30-150); VLDL Cholesterol 15 mg/dL (0-40)
[2024-09-17 19:18] LABS: Direct LDL Cholesterol 35.03 mg/dL (100-129)
[2024-09-17 19:40] LABS: Thyroid Stimulating Hormone 2.83 uIU/mL (0.465-4.68)
[2024-09-17 20:44] LABS: Anion Gap 11.3 mEq/L (5-15); Sodium 140 mmol/L (136-145)
[2024-09-17 22:52] LABS: Hemoglobin A1C 8.7 % (4.0-6.0)
== END 2024-09-17 23:59 | disposition home or self-care (01) ==
LOC: LAB.DROPOF 09-19 09:31
PROVIDERS: PCP Family Medicine; Visit Provider Family Medicine
DX: E05.90 Thyrotoxicosis, unspecified without thyrotoxic crisis or storm (principal); I10 Essential (primary) hypertension; K74.60 Unspecified cirrhosis of liver; E11.9 Type 2 diabetes mellitus without complications
CPT/HCPCS: 80053; 80061; 83036; 84443; 85025

== ENCOUNTER 2024-11-23 12:10 | Outpatient (CLI) | payer MEDICARE, SELFPAY ==
[2024-11-23 18:30] LABS: Alanine Aminotransferase 28 U/L (12-78); Albumin Level 3.5 g/dl (3.5-5.0); Albumin/Globulin Ratio 1.3 (1.1-1.8); Alkaline Phosphatase 181 U/L (38-126); Anion Gap 18.6 mEq/L (5-15); Aspartate Amino Transferase 47 U/L (14-36); Bilirubin,Total 0.5 mg/dl (0.2-1.3); Blood Urea Nitrogen 9 mg/dl (7-17); Calcium 9.2 mg/dl (8.4-10.2); Carbon Dioxide 30 mmol/L (22.0-30.0); Chloride 97 mmol/L (98-107); Estimated Glomerular Filt Rate 80 ml/min (>60); GFR (African American) 96 ML/MIN (>60); Globulin 2.6 g/dL (1.3-3.2); Glucose 232 mg/dl (74-100); Potassium 3.6 mmoL/L (3.5-5.1); Sodium 142 mmol/L (136-145); Total Protein,Serum 6.1 g/dl (6.3-8.2)
[2024-11-23 18:36] LABS: Hemoglobin A1C 8.3 % (4.0-6.0)
== END 2024-11-23 23:59 | disposition home or self-care (01) ==
LOC: LAB.DROPOF 11-25 03:53
PROVIDERS: PCP Family Medicine; Visit Provider Family Medicine
DX: E05.90 Thyrotoxicosis, unspecified without thyrotoxic crisis or storm (principal); I10 Essential (primary) hypertension; E11.9 Type 2 diabetes mellitus without complications
CPT/HCPCS: 80053; 83036; 84443

== ENCOUNTER 2025-02-08 14:50 | Outpatient (CLI) | payer MEDICARE, SELFPAY ==
[2025-02-08 19:08] LABS: Creatinine,Urine Random 175 mg/dL (Not Estab.); Microalbumin/Creatinine Ratio 28.9
== END 2025-02-08 23:59 | disposition home or self-care (01) ==
LOC: LAB.DROPOF 02-11 11:31
PROVIDERS: PCP Family Medicine; Visit Provider Family Medicine
DX: E11.9 Type 2 diabetes mellitus without complications (principal)
CPT/HCPCS: 82043; 82570